=== PATIENT | female | born 1940 | race Caucasian/White ===

== ENCOUNTER 2020-09-26 08:48 | Outpatient (REF) | payer MEDICARE, SELFPAY ==
[2020-09-26 11:49] LABS: Cholesterol 124 mg/dL; HDL Cholesterol 54 mg/dL; LDL Cholesterol Calculated 43 mg/dl; Triglycerides 137 mg/dL
== END 2020-09-26 08:49 | disposition home or self-care (01) ==
LOC: HO.HMGCLDS 08:48
PROVIDERS: PCP Internal Medicine; Visit Provider Internal Medicine
DX: E78.5 Hyperlipidemia, unspecified (principal)
CPT/HCPCS: 80061

== ENCOUNTER 2020-10-10 08:43 | Outpatient (REF) | payer MEDICARE, SELFPAY ==
[2020-10-10 12:04] LABS: Alanine Aminotransferase 14 U/L (0-31); Albumin Level 3.9 g/dL (3.5-5.0); Alkaline Phosphatase 61 U/L (39-117); Anion Gap 12 (12-20); Aspartate Amino Transferase 14 U/L (5-31); Bilirubin Total 0.5 mg/dL (0.0-1.0); Blood Urea Nitrogen 16 mg/dL (9-16); Calcium 9.1 mg/dL (8.4-10.2); Carbon Dioxide 29 mmol/L (22-29); Chloride 108 mmol/L (96-108); Estimated Glomerular Filt Rate > 60; Glucose Random 115 mg/dL (60-115); Phosphorus 3.7 mg/dL (2.7-4.5); Potassium 4.4 mmol/l (3.3-5.1); Sodium 145 mmol/L (135-145)
[2020-10-10 12:11] LABS: Thyroid Stimulating Hormone 1.05 uIU/mL (0.32-4.0); Vitamin D 25-OH Total 53.9 ng/mL (>30)
[2020-10-11 22:13] LABS: Calcium (PTHI) 9.6 mg/dL (8.6-10.4); PTHI 36 pg/mL (14-64)
[2020-10-20 07:01] LABS: N-Telopeptide 38 (see note); NTXCreaRU 72 mg/dL (20-275)
== END 2020-10-10 08:44 | disposition home or self-care (01) ==
LOC: HO.WFDLDS 08:43
PROVIDERS: Visit Provider Internal Medicine
DX: M81.0 Age-related osteoporosis without current pathological fracture (principal); E67.3 Hypervitaminosis D
CPT/HCPCS: 80053; 82306; 82523; 83970; 84100; 84443; Q3014

== ENCOUNTER → 2020-12-14 09:10 | Outpatient (BNVA) | payer MEDICARE, SELFPAY | PROVIDERS: Visit Provider Internal Medicine Cardiovascular Disease | DX: I49.3 Ventricular premature depolarization (principal); I42.9 Cardiomyopathy, unspecified; I10 Essential (primary) hypertension | CPT/HCPCS: 93005; 99212 ==

== ENCOUNTER → 2020-12-22 09:37 | Outpatient (REF) | payer MEDICARE, SELFPAY ==
--- NOTE | 2020-12-22 11:45 | ECG_ITS ---
Hook-up date: 2020-12-22 10:59:00 Duration: 25:54:00 Test Indications: VENTR. PREMATURE DEPOLARIZATION Medications: 19255 QRS complexes 5589 Ventricular ectopics which represent 6 % of total QRS comp. 46 Supraventricular ectopics which represent <1 % of total QRS comp. * Paced QRS complexs which represent % of total QRS comp. VENTRICULAR ECTOPY 5380 Isolated 76 Bigeminal Cycles 103 Couplets 1 Runs 3 Beats in Runs 3 Beats LONGEST at 119 BPM at 07:44:43 2020-12-23 3 Beats FASTEST at 119 BPM at 07:44:43 2020-12-23 SUPRAVENTRICULAR ECTOPY 46 Isolated 0 Couplets 0 Runs 0 Beats in Runs * Beats LONGEST at * BPM at :: -- * Beats FASTEST at * BPM at :: -- HEART RATES 60 MIN at 19:14:27 2020-12-22 68 AVG 99 MAX at 09:26:31 2020-12-23 LONGEST RR 1.1680 secs at 08:44:41 2020-12-23 S-T LEVELS Channel 1 - 128 mm at 10:59:00 2020-12-22 - 128 mm at 10:59:00 2020-12-22 Channel 2 - 128 mm at 10:59:00 2020-12-22 - 128 mm at 10:59:00 2020-12-22 Channel 3 - 128 mm at 03:01:81 -- - 128 mm at 03:01:81 Underlying rhythm is sinus; Average ventricular rate 68/min; range 60-99/min; Frequent ventricular ectopy (7%); mostly isolated; some couplets, bigeminy; one 3 beat run; Rare supraventricular ectopy; 'Short of breath' in patient diary associated with isolated PVCs Referred By: Hai Garces Overread By: ZEESHAN PEREZ
== END ==
LOC: HO.CARD 09:37
PROVIDERS: PCP Internal Medicine; Visit Provider Internal Medicine Cardiovascular Disease
DX: I49.3 Ventricular premature depolarization (principal)
CPT/HCPCS: 93226

== ENCOUNTER 2020-12-23 08:03 | Outpatient (REF) | payer MEDICARE, SELFPAY ==
--- NOTE | 2020-12-23 08:07 | MM_ITS ---
EXAMINATION: MM SCREENING DIGITAL BREAST TOMOSYNTHESIS, BILATERAL CLINICAL INFORMATION: Screening. Asymptomatic. The lifetime risk of breast cancer based on the Tyrer-Cuzick Model is 1.3%. COMPARISON: Mammography: 12/24/2019 and studies dating back to 09/15/2010 TECHNIQUE: Digital breast tomosynthesis is performed in both the craniocaudal and mediolateral oblique views along with computer-aided detection (CAD). Synthesized 2D images are generated from the tomosynthesis. FINDINGS: There are scattered areas of fibroglandular density (ACR BI-RADS breast composition Category b).. There is a stable parenchymal pattern in the left breast. No new abnormal dominant mass or suspicious grouping of microcalcifications seen. Within the lateral aspect of the right breast anteriorly, approximately 4.5 cm from the nipple, there is a more prominent density measuring 1.3 x 0.6 cm in size which is not definitely seen on mediolateral oblique projection. Spot compression film and possible ultrasound is recommended. MM/MM tomosynthesis screening BI IMPRESSION: Right breast density laterally for further evaluation. ASSESSMENT: BI-RADS 0: Incomplete, needs additional imaging evaluation RECOMMENDATION: 1. Additional views of the right 2. Targeted ultrasound if warranted after review of the additional views. 3. Radiology department staff will contact the patient for additional imaging. This patient's information was entered into a reminder system with a target due date for their next mammogram.
== END 2020-12-23 08:04 | disposition home or self-care (01) ==
LOC: HO.MAMMO 08:03
PROVIDERS: PCP Internal Medicine; Visit Provider Internal Medicine
DX: Z12.31 Encounter for screening mammogram for malignant neoplasm of breast (principal)
CPT/HCPCS: 77063; 77067

== ENCOUNTER 2020-12-30 11:16 | Outpatient (REF) | payer MEDICARE, SELFPAY ==
--- NOTE | ~2020-12-30 | MM_ITS ---
EXAMINATION: MM DIAGNOSTIC DIGITAL BREAST TOMOSYNTHESIS, RIGHT CLINICAL INFORMATION: Density about the anterior lateral aspect of the right breast. COMPARISON: Mammography: December 23, 2020 and studies dating back to September 21, 2011 TECHNIQUE: Digital breast tomosynthesis is performed. 2D images are generated from the tomosynthesis. The following views are obtained: Spot compression craniocaudal and spot compression 90 degree mediolateral views of the right breast. FINDINGS: There are scattered areas of fibroglandular density (ACR BI-RADS breast composition Category b). The additional views demonstrate that the residual density representing superimposition of fibroglandular tissue with spot compression views having a similar appearance to prior studies. No persistent suspicious mass identified. Results are provided to the patient at time of visit by the technologist. MM/MM tomosynthesis added views R IMPRESSION: No persistent right breast abnormality appreciated. ASSESSMENT: BI-RADS 1: Negative RECOMMENDATION: Routine annual mammography screening due in 12 months. This patient's information was entered into a reminder system with a target due date for their next mammogram.
== END 2020-12-30 11:17 | disposition home or self-care (01) ==
LOC: HO.MAMMO 11:16
PROVIDERS: PCP Internal Medicine; Visit Provider Internal Medicine
DX: R92.2 Inconclusive mammogram (principal)
CPT/HCPCS: 77061; 77065

== ENCOUNTER → 2021-01-11 07:37 | Outpatient (BNVA) | payer MEDICARE, SELFPAY | PROVIDERS: PCP Internal Medicine; Visit Provider Internal Medicine | DX: Z76.89 Persons encountering health services in other specified circumstances (principal) | CPT/HCPCS: Q3014 ==

== ENCOUNTER 2021-02-02 07:04 | Outpatient (REF) | payer MEDICARE, SELFPAY ==
--- NOTE | ~2021-02-02 | MM_ITS ---
EXAMINATION: BONE DENSITOMETRY CLINICAL INDICATION: Osteoporosis. COMPARISON: Baseline BD dated 01/28/2019. TECHNIQUE: Using a [employer] DXA System (software version: 13.1) manufactured by [employer], dual-energy x-ray absorptiometry was performed of the lumbar spine and left hip. The images are of good technical quality. Summary results are attached. FINDINGS: AP SPINE L1-L4: Current: BMD 0.879 g/cm2, Z-score -0.9, T-score -2.5, osteoporosis, 0.6% increase from baseline (<5% change is not significant). Baseline: BMD 0.874 g/cm2. LEFT FEMUR, NECK: Current: BMD 0.583 g/cm2, Z-score -1.3, T-score -3.3, osteoporosis. Baseline: BMD 0.602 g/cm2. LEFT FEMUR, TOTAL: Current: BMD 0.616 g/cm2, Z-score -1.3, T-score -3.1, osteoporosis, 2.7% decrease from baseline (<5% change is not significant). Baseline: BMD 0.633 g/cm2. IDENTIFIED RISK FACTORS: Menopause, hysterectomy, bilateral oophorectomy, low calcium intake, osteoporosis, secondary osteoporosis. HISTORY OF FRACTURE: None listed. MEDICATIONS: Calcium or multivitamin. Vitamin D. MM/XR DEXA axial skeleton IMPRESSION: 1. DIAGNOSIS: Osteoporosis based on the lowest T-score value of -3.3 in the femoral neck applying World Health Organization criteria. 2. 10-YEAR FRACTURE RISK PREDICTION, FRAX: Major osteoporotic fracture (clinical spine, forearm, hip or shoulder) 26.4%. Hip fracture 11.5%. 3. Treatment Recommendations: NOF guidelines recommend consideration for treatment in postmenopausal women and men age 50 and older presenting with the following: -A hip or vertebral (clinical or morphometric) fracture. -T-score less than or equal to -2.5 at the femoral neck or spine after appropriate evaluation to exclude secondary causes. -Low bone mass at the hip or spine and a 10-year fracture probability by FRAX of greater than or equal to 3% for hip fracture or greater than or equal to 20% for major osteoporotic fracture based on the [place] adapted WHO algorithm. 4. Other Recommendations: All treatment decisions require clinical judgment and consideration of individual patient factors, including patient preferences, comorbidities, previous drug use, risk factors not captured in the FRAX model (e.g. frailty, falls, vitamin D deficiency, increased bone turnover, interval significant decline in bone density) and possible under or overestimation of fracture risk by FRAX. Additional medical evaluation for secondary cause of low bone mineral density may be appropriate. FUTURE SCAN RECOMMENDATION: People with diagnosed cases of osteoporosis or at high risk for fracture should have regular bone mineral density tests. For patients eligible for Medicare, routine testing is allowed once every 2 years. The testing frequency can be increased to one year for patients who have rapidly progressing disease, those who are receiving or discontinuing medical therapy to restore bone mass, or have additional risk factors.
[2021-02-02 08:05] LABS: Alanine Aminotransferase 10 U/L (0-31); Alkaline Phosphatase 55 U/L (39-117); Anion Gap 9 (12-20); Aspartate Amino Transferase 11 U/L (5-31); Bilirubin Total 0.5 mg/dL (0.0-1.0); Blood Urea Nitrogen 10 mg/dL (9-16); Calcium 8.5 mg/dL (8.4-10.2); Carbon Dioxide 28 mmol/L (22-29); Chloride 111 mmol/L (96-108); Estimated Glomerular Filt Rate > 60; Glucose Random 109 mg/dL (60-115); Phosphorus 2.8 mg/dL (2.7-4.5); Sodium 144 mmol/L (135-145); Total Protein 5.8 g/dL (6.5-8.0)
[2021-02-02 08:25] LABS: Free T4 (Free Thyroxine) 0.95 ng/dL (0.71-1.85); Thyroid Stimulating Hormone 1.48 uIU/mL (0.32-4.0); Vitamin D 25-OH Total 39.2 ng/mL (>30)
[2021-02-03 13:57] LABS: Calcium, Ionized 4.9 mg/dL (4.8-5.6)
[2021-02-03 14:21] LABS: Prot Elec - Albumin 3.7 g/dL (3.8-4.8); Prot Elec - Alpha1 0.3 g/dL (0.2-0.3); Prot Elec - Alpha2 0.7 g/dL (0.5-0.9); Prot Elec - Beta 1 0.4 g/dL (0.4-0.6); Prot Elec - Beta 2 0.3 g/dL (0.2-0.5); Prot Elec - Gamma 0.7 g/dL (0.8-1.7); Prot Elec - Total Protein 5.9 g/dL (6.1-8.1)
[2021-02-04 10:31] LABS: Calcium (PTHI) 8.6 mg/dL (8.6-10.4); PTHI 97 pg/mL (14-64)
[2021-02-07 21:51] LABS: N-Telopeptide 37 (see note); NTXCreaRU 55 mg/dL (20-275)
== END 2021-02-02 07:05 | disposition home or self-care (01) ==
LOC: HO.MAMMO 07:04
PROVIDERS: PCP Internal Medicine; Visit Provider Internal Medicine
DX: M81.0 Age-related osteoporosis without current pathological fracture (principal); E21.3 Hyperparathyroidism, unspecified; E67.3 Hypervitaminosis D
CPT/HCPCS: 36415; 77080; 80053; 82306; 82330; 82523; 83970; 84100; 84155; 84165; 84439; 84443

== ENCOUNTER 2021-02-06 10:09 | Outpatient (REF) | payer MEDICARE, SELFPAY ==
[2021-02-06 10:53] LABS: Total Volume 24 Hour Urine 1000 mL
[2021-02-06 11:16] LABS: Creatinine, 24Hr Urine 0.7 G/Day (1.0-2.0); Creatinine, mg/dL 69.79
[2021-02-08 20:57] LABS: Calcium, 24 Hr Urine 248 mg/24 h; Calcium/Creatinine Ratio 344 mg/g creat (30-275); Creatinine 24Hr Urine 0.72 g/24 h (0.50-2.15)
== END 2021-02-06 10:10 | disposition home or self-care (01) ==
LOC: HO.WFDLNP 10:09
PROVIDERS: Visit Provider Internal Medicine
DX: E21.3 Hyperparathyroidism, unspecified (principal)
CPT/HCPCS: 82340; 82570

== ENCOUNTER 2021-04-03 10:03 | Outpatient (REF) | payer MEDICARE, SELFPAY ==
[2021-04-03 11:24] LABS: MANUAL DIFF FLAG NO
[2021-04-03 11:46] LABS: Basophils Absolute Auto 0.1 X10*3/uL (0.0-0.2); Basophils Percent Auto 0.6 % (0-2); Eosinophils Absolute Auto 0.1 X10*3/uL (0.0-0.4); Eosinophils Percent Auto 1.2 % (0-4); Hematocrit 41.9 % (37-47); Hemoglobin 13.6 g/dl (12.0-16.0); Imm Gran Abs Auto 0.06 X10*3/uL (0.00-0.03); Imm Gran Pct Auto 0.7 % (0.0-0.4); Lymphocytes Absolute Auto 2.5 X10*3/uL (1.2-4.9); Lymphocytes Percent Auto 29.4 % (20-40); Mean Corpuscular HGB Conc 32.5 g/dl (31.0-35.0); Mean Corpuscular Hemoglobin 30.8 pg (27.0-33.0); Mean Corpuscular Volume 94.8 fL (80-98); Mean Platelet Volume 11.9 fL (9.4-12.3); Monocytes Absolute Auto 0.4 X10*3/uL (0.1-1.2); Monocytes Percent Auto 5.1 % (2-11); Neutrophils Absolute Auto 5.3 X10*3/uL (2.0-8.3); Platelet Count 181 X10*3/uL (160-400); Red Blood Count 4.42 X10*6/uL (4.20-5.50); Red Cell Distribution Width 12.5 % (11.0-16.0); White Blood Count 8.4 X10*3/uL (4.8-10.8)
[2021-04-03 12:00] LABS: Alanine Aminotransferase 12 U/L (0-31); Aspartate Amino Transferase 12 U/L (5-31); Cholesterol 126 mg/dL; HDL Cholesterol 48 mg/dL; LDL Cholesterol Calculated 47 mg/dl; Triglycerides 158 mg/dL
== END 2021-04-03 10:04 | disposition home or self-care (01) ==
LOC: HO.HMGCLDS 10:03
PROVIDERS: PCP Internal Medicine; Visit Provider Internal Medicine
DX: E78.5 Hyperlipidemia, unspecified (principal); I10 Essential (primary) hypertension; Z86.73 Personal history of transient ischemic attack (TIA), and cerebral infarction without residual deficits
CPT/HCPCS: 36415; 80061; 84450; 84460; 85025

== ENCOUNTER → 2021-04-12 09:26 | Outpatient (BNVA) | payer MEDICARE, SELFPAY | PROVIDERS: PCP Internal Medicine; Referring Provider Internal Medicine; Visit Provider Internal Medicine Cardiovascular Disease | DX: I49.3 Ventricular premature depolarization (principal); I10 Essential (primary) hypertension; Z86.73 Personal history of transient ischemic attack (TIA), and cerebral infarction without residual deficits | CPT/HCPCS: 99212 ==

== ENCOUNTER → 2021-05-03 12:03 | Outpatient (BNVA) | payer MEDICARE, SELFPAY | PROVIDERS: PCP Internal Medicine; Visit Provider Internal Medicine | DX: Z13.89 Encounter for screening for other disorder (principal) | CPT/HCPCS: Q3014 ==

== ENCOUNTER → 2021-08-16 09:09 | Outpatient (BNVA) | payer MEDICARE, SELFPAY | PROVIDERS: PCP Internal Medicine; Referring Provider Internal Medicine; Visit Provider Internal Medicine Cardiovascular Disease | DX: I10 Essential (primary) hypertension (principal) | CPT/HCPCS: 99212 ==

== ENCOUNTER 2021-10-31 18:46 | Emergency (ER) | payer MEDICARE, SELFPAY ==
--- NOTE | ~2021-10-31 | XR_ITS ---
EXAMINATION: XR CHEST CLINICAL INFORMATION: Cough COMPARISON: 05/18/2011 TECHNIQUE: Frontal view of the chest was obtained. FINDINGS: Bilateral patchy airspace opacities. Trace left pleural effusion. No pneumothorax. Normal heart size and pulmonary vascularity. No acute or suspicious osseous abnormalities. XR/XR chest 1V IMPRESSION: Bilateral patchy airspace opacities suspicious for multifocal pneumonia.
[2021-10-31 18:55] VITALS: BP 108/60; PULSE 104; RESP 18; TEMP 37.3; O2SAT 98; BMI 23.6
[2021-10-31 19:21] LABS: MANUAL DIFF FLAG NO
[2021-10-31 19:30] LABS: Basophils Percent Auto 0.2 % (0-2); Eosinophils Absolute Auto 0.1 X10*3/uL (0.0-0.4); Eosinophils Percent Auto 0.7 % (0-4); Hemoglobin 12.2 g/dl (12.0-16.0); Imm Gran Pct Auto 0.8 % (0.0-0.4); Lymphocytes Absolute Auto 1.6 X10*3/uL (1.2-4.9); Lymphocytes Percent Auto 13.9 % (20-40); Mean Corpuscular HGB Conc 33.9 g/dl (31.0-35.0); Mean Corpuscular Hemoglobin 30.3 pg (27.0-33.0); Mean Corpuscular Volume 89.6 fL (80.0-98.0); Mean Platelet Volume 11.7 fL (9.4-12.3); Monocytes Absolute Auto 0.6 X10*3/uL (0.1-1.2); Neutrophils Absolute Auto 9.4 x10*3/uL (2.0-8.3); Neutrophils Percent Auto 79.4 % (45-73); Platelet Count 238 X10*3/uL (160-400); Red Blood Count 4.02 X10*6/uL (4.20-5.50); Red Cell Distribution Width 12.8 % (11.0-16.0); White Blood Count 11.8 X10*3/uL (4.8-10.8)
[2021-10-31 19:40] LABS: Alanine Aminotransferase 22 U/L (0-31); Albumin Level 3.2 g/dL (3.5-5.0); Alkaline Phosphatase 78 U/L (39-117); Anion Gap 12 (12-20); Aspartate Amino Transferase 18 U/L (5-31); Bilirubin Direct 0.7 mg/dL (0.0-0.5); Bilirubin Total 1.4 mg/dL (0.0-1.0); Blood Urea Nitrogen 12 mg/dL (9-16); Calcium 8.8 mg/dL (8.4-10.2); Carbon Dioxide 26 mmol/L (22-29); Chloride 105 mmol/L (96-108); Creatinine Clr Calc Pharmacy 47.1; Estimated Glomerular Filt Rate > 60; Glucose Random 125 mg/dL (60-115); Potassium 3.4 mmol/L (3.3-5.1); Sodium 140 mmol/L (135-145); Total Protein 5.7 g/dL (6.5-8.0)
[2021-10-31 19:45] LABS: COVID-19 Test Negative (Negative)
--- NOTE | 2021-10-31 23:31 | ED.GENADULT ---
HPI - General Adult General Chief complaint: General Medical Stated complaint: weakness dehydration Time Seen by Provider: 10/31/21 23:29 History of Present Illness HPI narrative: Patient is a 80-year-old female with a history of CVA in the past. Presents today with having coughing upper respiratory symptoms decreased p.o. intake positive generalized malaise. Coughing upper respiratory symptoms been going on for approximately 2 weeks. Patient did not receive her coronavirus vaccine. No leg swelling. No fever. No abdominal pain or pain on urination. Positive feeling weak tired generalized ache. Related Data Home Medications Medication Instructions Recorded Confirmed cinnamon bark 500 mg capsule 500 mg PO DAILY 09/26/20 08/16/21 (Cinnamon) cranberry 400 mg capsule 400 mg PO DAILY 09/26/20 08/16/21 flaxseed oil 1,000 mg capsule 1,000 mg PO DAILY 09/26/20 08/16/21 folic acid 1 mg tablet 1 mg PO DAILY 09/26/20 08/16/21 garlic 500 mg capsule 500 mg PO DAILY 09/26/20 08/16/21 multivitamin 1 tab PO DAILY 09/26/20 08/16/21 vitamin A 10,000 unit capsule 10,000 unit PO DAILY 09/26/20 08/16/21 vitamin B complex (B 1 tab PO DAILY 09/26/20 08/16/21 Complex-Vitamin B12) zinc 50 mg tablet 50 mg PO DAILY 09/26/20 08/16/21 MSM 100 mg-collagen 100 mg-co Q10 tab PO 05/03/21 08/16/21 100 mg-herbal no.226 80 mg tablet apple cider vinegar 300 mg tablet 300 mg PO DAILY tab 05/03/21 08/16/21 calcium carbonate 600 mg calcium 600 mg PO BID 05/03/21 08/16/21 (1,500 mg) tablet turmeric 400 mg capsule 400 mg PO DAILY cap 05/03/21 08/16/21 Previous Rx's Medication Instructions Recorded amlodipine 5 mg tablet 5 mg PO DAILY #90 tab 12/23/20 clopidogrel 75 mg tablet 75 mg PO DAILY #90 tab 12/23/20 lisinopril 20 mg tablet 20 mg PO DAILY #90 tab 12/23/20 simvastatin 20 mg tablet 20 mg PO BEDTIME #90 tab 12/23/20 carvedilol 25 mg tablet (Coreg) 25 mg PO BID #180 tab 03/22/21 doxycycline hyclate 100 mg capsule 100 mg PO BID 7 Days #14 cap 11/01/21 doxycycline hyclate 100 mg capsule 100 mg PO BID 7 Days #14 cap 11/01/21 Allergies Allergy/AdvReac Type Severity Reaction Status Date / Time No Known Allergies Allergy Verified 08/16/21 09:15 Review of Systems Review of Systems: Positive coughing positive generalized body ache positive decreased p.o. intake Yes all other systems are reviewed and are negative FOR[facility]LY [facility] Past Medical History Attestation statement: The following information was validated with the patient. Medical History Cardiomyopathy Dyslipidemia Essential hypertension High vitamin D level History of CVA (cerebrovascular accident) Hyperparathyroidism Immunization refused Osteoporosis Surgical History History of appendectomy History of colon resection Family History Family History Father Unknown family medical history Mother Unknown family medical history Son No problems noted. Daughter No problems noted. Social History Social History Alcohol intake: never Patient Tobacco Use Status: Former Tobacco user Advance Directives: No Advance Directives Information Provided: No Physical Exam Vital Signs: Vital Signs: Last Vital Signs Temp 99.1 F 10/31/21 18:55 Pulse 104 H 10/31/21 18:55 Resp 18 10/31/21 18:55 BP 108/60 10/31/21 18:55 Pulse Ox 98 10/31/21 18:55 BMI result Body Mass Index 23.6 Appearance: Alert. Oriented X3. No acute distress. Eyes: Pupils equal, round and reactive to light. ENT: Pharynx normal. Neck: Normal inspection. Neck supple. No lymph nodes noted. No crepitus CVS: Normal heart rate and rhythm. Pulses normal. Normal S1 and S2 Respiratory: No respiratory distress. Breath sounds normal. No Wheezing. No rales Abdomen: Soft and nontender. No rigidity. No distention. good BS x4 Skin: Skin warm and dry. Normal skin color. Normal skin turgor. Extremities: No lower extremity edema. Neurovascular intact to all extremities. No Lacerations. No Rash Neuro: Oriented X 3. No motor deficit. No sensory deficit. Moving all extermities. No slurred speech Medical Decision Making MDM Narrative Medical decision making narrative: Positive coughing congestion upper respiratory symptoms. Patient not immunized for COVID. COVID test was negative. Patient's chest x-ray however showed bilateral patchy infiltrate. Even no COVID test is negative cannot absolutely exclude the possibility of COVID. Will also start patient on doxycycline is patient's O2 sat was 98% on room air. She is well appearing. Her symptoms improved after IV fluids. Will discharge patient home. Lab Data Result diagrams: 10/31/21 19:14 10/31/21 19:14 Labs: Lab Results 10/31/21 10/31/21 10/31/21 Range/Units 19:14 19:14 19:14 WBC 11.8 H (4.8-10.8) X10*3/uL RBC 4.02 L (4.20-5.50) X10*6/uL Hgb 12.2 (12.0-16.0) g/dl Hct 36.0 L (37.0-47.0) % MCV 89.6 (80.0-98.0) fL MCH 30.3 (27.0-33.0) pg MCHC 33.9 (31.0-35.0) g/dl RDW 12.8 (11.0-16.0) % Plt Count 238 (160-400) X10*3/uL MPV 11.7 (9.4-12.3) fL Immature Gran % (Auto) 0.8 H (0.0-0.4) % Neut % (Auto) 79.4 H (45-73) % Lymph % (Auto) 13.9 L (20-40) % [place] % (Auto) 5.0 (2-11) % Eos % (Auto) 0.7 (0-4) % Baso % (Auto) 0.2 (0-2) % Lymph # (Auto) 1.6 (1.2-4.9) X10*3/uL [place] # (Auto) 0.6 (0.1-1.2) X10*3/uL Eos # (Auto) 0.1 (0.0-0.4) X10*3/uL Baso # (Auto) 0.0 (0.0-0.2) X10*3/uL Abs Immat Gran (auto) 0.10 H (0.00-0.03) X10*3/uL Absolute Neuts (auto) 9.4 H (2.0-8.3) x10*3/uL Absolute Nucleated RBC 0.000 (0.0-0.012) X10*3/uL Nucleated RBC % (auto) 0.0 (0.0-0.2) /100WBC Sodium 140 (135-145) mmol/L Potassium 3.4 (3.3-5.1) mmol/L Chloride 105 (96-108) mmol/L Carbon Dioxide 26 (22-29) mmol/L Anion Gap 12 (12-20) BUN 12 (9-16) mg/dL Creatinine 0.73 (0.5-1.4) mg/dL Estim Creat Clear Calc 47.1 Estimated GFR > 60 Random Glucose 125 H (60-115) mg/dL Calcium 8.8 (8.4-10.2) mg/dL Total Bilirubin 1.4 H (0.0-1.0) mg/dL Direct Bilirubin 0.7 H (0.0-0.5) mg/dL AST 18 D (5-31) U/L ALT 22 (0-31) U/L Alkaline Phosphatase 78 D (39-117) U/L Total Protein 5.7 L (6.5-8.0) g/dL Albumin 3.2 L (3.5-5.0) g/dL COVID-19 (ALESSIA) Negative (Negative) COVID-19 Clin Com See Note Discharge Plan Discharge Clinical Impression: Pneumonia Patient Disposition: Home, Self-Care Instructions: Pneumonia (ED) Prescriptions: New doxycycline hyclate 100 mg capsule 100 mg PO BID 7 Days Qty: 14 RF: 0 doxycycline hyclate 100 mg capsule 100 mg PO BID 7 Days Qty: 14 RF: 0 No Action amlodipine 5 mg tablet 5 mg PO DAILY Qty: 90 RF: 3 clopidogrel 75 mg tablet 75 mg PO DAILY Qty: 90 RF: 3 lisinopril 20 mg tablet 20 mg PO DAILY Qty: 90 RF: 3 simvastatin 20 mg tablet 20 mg PO BEDTIME Qty: 90 RF: 3 carvedilol [Coreg] 25 mg tablet 25 mg PO BID Qty: 180 RF: 3 vitamin A 10,000 unit capsule 10,000 unit PO DAILY RF: 0 vitamin B complex [B Complex-Vitamin B12] Tablet 1 tab PO DAILY RF: 0 multivitamin Tablet 1 tab PO DAILY RF: 0 garlic 500 mg capsule 500 mg PO DAILY RF: 0 zinc 50 mg tablet 50 mg PO DAILY RF: 0 cranberry 400 mg capsule 400 mg PO DAILY RF: 0 folic acid 1 mg tablet 1 mg PO DAILY RF: 0 flaxseed oil 1,000 mg capsule 1,000 mg PO DAILY RF: 0 cinnamon bark [Cinnamon] 500 mg capsule 500 mg PO DAILY RF: 0 apple cider vinegar 300 mg tablet 300 mg PO DAILY RF: 0 turmeric 400 mg capsule 400 mg PO DAILY RF: 0 [id number] no.226 [phone] mg tablet PO RF: 0 calcium carbonate 600 mg calcium (1,500 mg) tablet 600 mg PO BID RF: 0 Referrals: Christi Nieves MD [Primary Care Provider] - 2 days
[2021-11-01] MEDS: 0.9 % Sodium Chloride 1,000 ML 999 ML IV (00:23)
[2021-11-01] MEDS: Acetaminophen 325 MG TABLET 650 MG PO (00:25)
[2021-11-01 02:09] VITALS: RESP 16
== END 2021-11-01 02:16 | disposition home or self-care (01) ==
PROVIDERS: Emergency Provider Emergency Medicine Emergency Medical Services; PCP Internal Medicine
DX: J18.9 Pneumonia, unspecified organism (principal); Z20.822 Contact with and (suspected) exposure to COVID-19; Z79.899 Other long term (current) drug therapy; Z87.891 Personal history of nicotine dependence
CPT/HCPCS: 36415; 71045; 80048; 80076; 85025; 87635; 96360; 99283; 99284

== ENCOUNTER 2021-11-05 20:54 | Inpatient (IN) | payer MEDICARE, SELFPAY ==
[2021-11-05] VITALS (18 sets, daily range): BP systolic 78–113; BP diastolic 36–54; PULSE 96–120; RESP 14–44; TEMP 38.8; O2SAT 94–97; BMI 31.3
--- NOTE | ~2021-11-05 | XR_ITS ---
EXAMINATION: XR CHEST CLINICAL INFORMATION: Hypoxia COMPARISON: CT chest 11/06/2021. TECHNIQUE: Frontal view of the chest was obtained. FINDINGS: The lungs are expanded with patchy atelectatic changes in both lung bases. There is a right upper lobe patchy opacity likely infiltrate. Minimal haziness seen in the left upper lung as well may represent a area of infiltrate. Heart size and pulmonary vascularity is normal. There is a right jugular venous catheter its tip in the distal SVC. There is no gross bony abnormality seen. XR/XR chest 1V IMPRESSION: Patchy atelectatic changes in both lung bases. Suspect right upper lobe patchy opacity in the paramediastinal region. And mild haziness in the left upper lobe likely infiltrate. This was visualized on the previous CT chest 11/06/2021
--- NOTE | ~2021-11-05 | XR_ITS ---
EXAMINATION: XR CHEST CLINICAL INFORMATION: Shortness of breath. COMPARISON: Most recent chest radiograph dated 10/31/2021. TECHNIQUE: Frontal view of the chest was obtained. FINDINGS: Redemonstration of patchy bilateral airspace opacities, most prominent within the right upper lobe and similar when compared to the prior examination. No pleural effusion or pneumothorax. Stable cardiomediastinal silhouette. XR/XR chest 1V IMPRESSION: Stable bilateral patchy airspace opacities, not significantly changed.
--- NOTE | ~2021-11-05 | CT_ITS ---
EXAM: NONCONTRAST CT OF THE CHEST; NONCONTRAST CT OF THE ABDOMEN AND PELVIS INDICATION: Shortness of breath, hypoxia, abdominal pain, UTI COMPARISON: None TECHNIQUE: No IV contrast was utilized. Multidetector helical imaging was performed through the chest, abdomen, and pelvis. Coronal and sagittal reformatted images were created at the technologist workstation. DOSE LOWERING TECHNIQUES: This CT examination was performed using dose optimization techniques as appropriate, variously including the following: - Automated exposure control - Adjustment of mA and/or kV according to patient size (this includes techniques or standardized protocols for targeted exams were dose is matched to indication/reason for exam; i.e. extremities or head) - Use of iterative reconstruction technique DLP: 898 mGy-cm FINDINGS: Chest: A few scattered patchy regions of consolidation are present bilaterally, such as in the anterior upper lobes, right greater than left, and posterior basilar lower lobes. No pneumothorax or pleural effusion. Thyroid gland is unremarkable. There are subcentimeter mediastinal lymph nodes within the range of normal variation. Cardiac size is within normal limits; no pericardial effusion. Coronary artery calcifications are present. Scattered atherosclerotic calcifications are present. No axillary lymphadenopathy is present. Abdomen/Pelvis: The liver is homogeneous in attenuation without intrahepatic biliary ductal dilatation. The gallbladder is unremarkable. The unenhanced spleen, pancreas, and adrenal glands appearing unremarkable. The left renal pelvis appears mildly dilated, and there is a calculus measuring up to 6 mm in the renal pelvis. A few additional scattered calculi are present in the left kidney measuring up to 8 mm in length. No right-sided hydronephrosis. There is nonspecific bilateral perinephric stranding. The urinary bladder is collapsed with a Renner catheter in place. Patient appears status post hysterectomy. There is mild colonic diverticulosis without convincing diverticulitis. No evidence of bowel obstruction. No free fluid or free air is seen. There are mild scattered atherosclerotic calcifications. No lymphadenopathy is seen, though assessment is limited in the absence of intravenous contrast. Degenerative changes are noted in the spine. CT/CT abdomen pelvis wo con IMPRESSION: 1. Mild left hydronephrosis with a calculus in the renal pelvis measuring 6 mm. Given the history of UTI, this could represent pyonephrosis. Few additional scattered left renal calculi also noted. 2. Few scattered patchy regions of pulmonary consolidation bilaterally concerning for pneumonia in the proper clinical setting. Follow-up chest CT in 3 months would be helpful to assess for resolution.
--- NOTE | ~2021-11-05 | XR_ITS ---
EXAMINATION: XR CHEST CLINICAL INFORMATION: Assess central line COMPARISON: Baseline earlier exam same day TECHNIQUE: Portable 10:46 PM view of the chest was obtained. FINDINGS: Central line placed with its tip overlying the atrial caval juncture. No pneumothorax. Bilateral infiltrates similar. No new findings otherwise. XR/XR chest 1V IMPRESSION: Satisfactory central line placement.
--- NOTE | ~2021-11-05 | XR_ITS ---
EXAMINATION: XR CHEST CLINICAL INFORMATION: Cough. Pneumonia? COMPARISON: CXR from 11/07/2021. Chest CT from 11/06/2021. TECHNIQUE: Frontal view of the chest was obtained. FINDINGS: The right IJ central line has been removed. The opacity previously seen in the medial left lower lobe has decreased. No new pulmonary abnormality. Otherwise, no significant change compared to 11/07/2021. Again noted is ill-defined streaky opacity in the medial right upper lobe (likely pneumonia) and apparent linear opacity of atelectasis in the left base. The left lateral costophrenic sulcus is slightly blunted. Trace left pleural effusion is suspected. Cardiac silhouette has normal size and contour. Bones are diffusely osteopenic. XR/XR chest 1V IMPRESSION: Findings include a persistent ill-defined streaky opacity in the medial right upper lobe, likely pneumonia. No new pulmonary infiltrate. Interval improved aeration of the medial left lower lobe compared to 11/07/2021.
--- NOTE | 2021-11-05 21:08 | ECG_ITS ---
Test Reason : SOB Blood Pressure : / mmHG Vent. Rate : 115 BPM Atrial Rate : 115 BPM P-R Int : 130 ms QRS Dur : 084 ms QT Int : 366 ms P-R-T Axes : -19 046 021 degrees QTc Int : 506 ms Sinus tachycardia Otherwise normal ECG When compared with ECG of 26-APR-2015 17:36, Premature ventricular complexes are no longer Present Vent. rate has increased BY 43 BPM Nonspecific T wave abnormality now evident in Inferior leads Referred By: Generic ED Physician Electronically Signed By:SUMAN MEZA MD
--- NOTE | 2021-11-05 21:13 | ED.SOB ---
HPI - SOB/Dyspnea General Chief Complaint: Dyspnea Stated Complaint: Sepsis alert Time Seen by Provider: 11/05/21 21:10 Source: patient Mode of arrival: EMS History of Present Illness HPI Narrative: 80-year-old female brought in by EMS with increased respirations, shortness of breath with chills denies chest pain/palpitations but reports some lower abdominal discomfort. Of note patient was recently diagnosed with pneumonia on 10/31 and was discharged home with a course of doxycycline. Related Data Home Medications Medication Instructions Recorded Confirmed cinnamon bark 500 mg capsule 500 mg PO DAILY 09/26/20 08/16/21 (Cinnamon) cranberry 400 mg capsule 400 mg PO DAILY 09/26/20 08/16/21 flaxseed oil 1,000 mg capsule 1,000 mg PO DAILY 09/26/20 08/16/21 folic acid 1 mg tablet 1 mg PO DAILY 09/26/20 08/16/21 garlic 500 mg capsule 500 mg PO DAILY 09/26/20 08/16/21 multivitamin 1 tab PO DAILY 09/26/20 08/16/21 vitamin A 10,000 unit capsule 10,000 unit PO DAILY 09/26/20 08/16/21 vitamin B complex (B 1 tab PO DAILY 09/26/20 08/16/21 Complex-Vitamin B12) zinc 50 mg tablet 50 mg PO DAILY 09/26/20 08/16/21 MSM 100 mg-collagen 100 mg-co Q10 tab PO 05/03/21 08/16/21 100 mg-herbal no.226 80 mg tablet apple cider vinegar 300 mg tablet 300 mg PO DAILY tab 05/03/21 08/16/21 calcium carbonate 600 mg calcium 600 mg PO BID 05/03/21 08/16/21 (1,500 mg) tablet turmeric 400 mg capsule 400 mg PO DAILY cap 05/03/21 08/16/21 Previous Rx's Medication Instructions Recorded amlodipine 5 mg tablet 5 mg PO DAILY #90 tab 12/23/20 clopidogrel 75 mg tablet 75 mg PO DAILY #90 tab 12/23/20 lisinopril 20 mg tablet 20 mg PO DAILY #90 tab 12/23/20 simvastatin 20 mg tablet 20 mg PO BEDTIME #90 tab 12/23/20 carvedilol 25 mg tablet (Coreg) 25 mg PO BID #180 tab 03/22/21 doxycycline hyclate 100 mg capsule 100 mg PO BID 7 Days #14 cap 11/01/21 doxycycline hyclate 100 mg capsule 100 mg PO BID 7 Days #14 cap 11/01/21 Allergies Allergy/AdvReac Type Severity Reaction Status Date / Time No Known Allergies Allergy Verified 11/05/21 21:05 Review of Systems Review of Systems: Pertinent positives and negatives as stated in HPI 10 point review of systems is otherwise negative. PMFSH Past Medical History Source: nursing notes reviewed Medical History Cardiomyopathy Dyslipidemia Essential hypertension High vitamin D level History of CVA (cerebrovascular accident) Hyperparathyroidism Immunization refused Osteoporosis Surgical History History of appendectomy History of colon resection Family History Family History Father Unknown family medical history Mother Unknown family medical history Son No problems noted. Daughter No problems noted. Social History Social History Alcohol intake: never Patient Tobacco Use Status: Former Tobacco user Advance Directives: No Advance Directives Information Provided: No Physical Exam Vital Signs: Vital Signs: Last Vital Signs Temp 101.9 F H 11/05/21 21:13 Pulse 106 H 11/05/21 22:51 Resp 34 H 11/05/21 22:51 BP 103/45 L 11/05/21 22:51 Pulse Ox 94 11/05/21 22:51 BMI result Body Mass Index 31.3 VITAL SIGNS: Reviewed. GENERAL: Well developed, well nourished, in no acute distress. HEAD: Normocephalic/atraumatic EYES: PERRLA, EOMI OROPHARYNX: no oral lesions noted, posterior pharynx clear, dry mucosa NECK: Supple, no adenopathy LUNGS: Decreased breath sounds bilaterally with rales and scattered rhonchi, tachypnea, increased work of breathing SpO2<97> on 4 L nasal cannula CARDIOVASCULAR: Regular rate and rhythm without noted murmurs, no JVD or lower extremity edema. ABDOMEN: Soft, non-tender, non-distended with bowel sounds. MUSCULOSKELETAL: No tenderness, deformities, or effusions noted on gross inspection. EXTREMITIES: No cyanosis, clubbing or edema. SKIN: Inspection of the skin reveals no rashes NEUROLOGIC: Alert and oriented x 4. Strength and sensation to light touch were grossly intact x 4. Course Course Course Narrative: 80-year-old female with history and clinical presentation consistent with hypoxia related to likely recent pneumonia. On bedside ultrasound IVC is noted to be collapsed, pulmonary scan with multiple B-lines indicative of fluid overload, brief cardiac eval demonstrates good squeeze. 215: Blood pressure not responding well despite sepsis fluids, central line will be placed and patient will be started on Levophed. Review of all investigations significant for severe sepsis with positive UA and likely a component of significant dehydration and after receiving sepsis fluids still remained hypotensive and was placed on Levophed. Patient's heart rate and respiratory rate have continue to improve, but she still requires supplemental nasal cannula with good subjective and objective respirations. I discussed the case with the chaplain resident who accepts admission but requests noncontrast CT of abdomen and pelvis. MDM - SOB/Dyspnea Lab Data Result diagrams: 11/05/21 21:22 11/05/21 21:22 Labs: Lab Results 11/05/21 11/05/21 11/05/21 Range/Units 21:22 21:22 21:22 WBC 23.8 H (4.8-10.8) X10*3/uL RBC 3.53 L (4.20-5.50) X10*6/uL Hgb 10.7 L (12.0-16.0) g/dl Hct 32.1 L (37.0-47.0) % MCV 90.9 (80.0-98.0) fL MCH 30.3 (27.0-33.0) pg MCHC 33.3 (31.0-35.0) g/dl RDW 13.3 (11.0-16.0) % Plt Count TNP MPV 12.3 (9.4-12.3) fL Immature Gran % (Auto) Cancelled Neut % (Auto) Cancelled Lymph % (Auto) Cancelled [place] % (Auto) Cancelled Eos % (Auto) Cancelled Baso % (Auto) Cancelled Lymph # (Auto) Cancelled [place] # (Auto) Cancelled Eos # (Auto) Cancelled Baso # (Auto) Cancelled Abs Immat Gran (auto) Cancelled Absolute Neuts (auto) Cancelled Absolute Nucleated RBC 0.000 (0.0-0.012) X10*3/uL Nucleated RBC % (auto) 0.0 (0.0-0.2) /100WBC Neutrophils % (Manual) 86 H (45-73) % Band Neutrophils % 13 H (3-5) % Lymphocytes % (Manual) 1 L (20-40) % Abs Neuts (Manual) 23.6 H (2.0-8.3) X10*3/uL Lymphocytes # (Manual) 0.2 L (1.2-4.9) X10*3/uL Platelet Estimate NORMAL (NORMAL) Plt Morphology Comment NORMAL RBC Morphology NOTED Acanthocytes (Spur) 1+ (0-2) /OIF VBG pH (7.32-7.43) VBG pCO2 mmHg VBG pO2 mmHg VBG HCO3 (22-26) mmol/L VBG O2 Saturation % VBG Base Excess mmol/L Sodium 141 (135-145) mmol/L Potassium 3.1 L (3.3-5.1) mmol/L Chloride 108 (96-108) mmol/L Carbon Dioxide 16 L (22-29) mmol/L Anion Gap 20 (12-20) BUN 22 H D (9-16) mg/dL Creatinine 1.28 (0.5-1.4) mg/dL Estim Creat Clear Calc 33.0 Estimated GFR 40 Random Glucose 119 H (60-115) mg/dL Lactic Acid 6.9 H* (0.5-2.0) mmol/L Calcium 8.1 L D (8.4-10.2) mg/dL Magnesium 1.1 L* (1.6-2.6) mg/dL Total Bilirubin 3.1 H (0.0-1.0) mg/dL AST 20 (5-31) U/L ALT 15 (0-31) U/L Alkaline Phosphatase 136 H D (39-117) U/L Total Protein 4.1 L D (6.5-8.0) g/dL Albumin 2.3 L D (3.5-5.0) g/dL Urine Color Urine Appearance Urine pH (5.0-8.0) Ur Specific [place] (1.005-1.025) Urine Protein (NEG-TRACE) MG/DL Urine Glucose (UA) (NEG) MG/DL Urine Ketones (NEG) MG/DL Urine Blood (NEG) Urine Nitrite (NEG) Ur Leukocyte Esterase (NEG) Urine RBC (0) /HPF Urine WBC (0-4) /HPF Ur Squamous Epith Cells /LPF Urine Bacteria /LPF Urine Mucus /LPF COVID-19 (ALESSIA) (Negative) COVID-19 Clin Com 11/05/21 11/05/21 11/05/21 Range/Units 21:22 21:22 21:24 WBC (4.8-10.8) X10*3/uL RBC (4.20-5.50) X10*6/uL Hgb (12.0-16.0) g/dl Hct (37.0-47.0) % MCV (80.0-98.0) fL MCH (27.0-33.0) pg MCHC (31.0-35.0) g/dl RDW (11.0-16.0) % Plt Count MPV (9.4-12.3) fL Immature Gran % (Auto) Neut % (Auto) Lymph % (Auto) Liberty % (Auto) Eos % (Auto) Baso % (Auto) Lymph # (Auto) [place] # (Auto) Eos # (Auto) Baso # (Auto) Abs Immat Gran (auto) Absolute Neuts (auto) Absolute Nucleated RBC (0.0-0.012) X10*3/uL Nucleated RBC % (auto) (0.0-0.2) /100WBC Neutrophils % (Manual) (45-73) % Band Neutrophils % (3-5) % Lymphocytes % (Manual) (20-40) % Abs Neuts (Manual) (2.0-8.3) X10*3/uL Lymphocytes # (Manual) (1.2-4.9) X10*3/uL Platelet Estimate (NORMAL) Plt Morphology Comment RBC Morphology Acanthocytes (Spur) /OIF VBG pH 7.37 (7.32-7.43) VBG pCO2 28 mmHg VBG pO2 41 mmHg VBG HCO3 16 L (22-26) mmol/L VBG O2 Saturation 64.0 % VBG Base Excess -7.0 mmol/L Sodium (135-145) mmol/L Potassium (3.3-5.1) mmol/L Chloride (96-108) mmol/L Carbon Dioxide (22-29) mmol/L Anion Gap (12-20) BUN (9-16) mg/dL Creatinine (0.5-1.4) mg/dL Estim Creat Clear Calc Estimated GFR Random Glucose (60-115) mg/dL Lactic Acid (0.5-2.0) mmol/L Calcium (8.4-10.2) mg/dL Magnesium (1.6-2.6) mg/dL Total Bilirubin (0.0-1.0) mg/dL AST (5-31) U/L ALT (0-31) U/L Alkaline Phosphatase (39-117) U/L Total Protein (6.5-8.0) g/dL Albumin (3.5-5.0) g/dL Urine Color DK YELLOW Urine Appearance TURBID Urine pH 6.5 (5.0-8.0) Ur Specific [place] 1.020 (1.005-1.025) Urine Protein 2+ H (NEG-TRACE) MG/DL Urine Glucose (UA) NEG (NEG) MG/DL Urine Ketones 15 (NEG) MG/DL Urine Blood 3+ H (NEG) Urine Nitrite POS H (NEG) Ur Leukocyte Esterase 3+ H (NEG) Urine RBC 30-49 H (0) /HPF Urine WBC 50-75 H (0-4) /HPF Ur Squamous Epith Cells TRACE /LPF Urine Bacteria 1+ /LPF Urine Mucus TRACE /LPF COVID-19 (ALESSIA) Negative (Negative) COVID-19 Clin Com See Note ECG Data Attestation: I personally reviewed and interpreted this ECG as follows: Prior ECG tracings: available for review (04/26/2015) Interpretation: Sinus tachycardia, HR-115, no STEMI, [place]/QRS Procedures Central Line Placement Right IJ: Time Out Performed: No Patient Placed on Monitor/Pulse Ox: Yes MD Prep: mask, gown and gloves Central Line Prep: Chlorhexidine scrub Local Anesthetic: lidocaine 1% Amount of anesthesia used (mL): 1 Ultrasound Used for Placement: Yes Central Line Lumen Inserted: triple Post Procedure: sutured in place, good blood return, all ports aspirated, flushed, capped and sterile dressing applied Post Procedure X-Ray: tip of catheter in good position and no pneumothorax seen Patient Tolerated Procedure: well and no complications Complications: none Critical Care Time Critical Care Time Critical Care Time: Yes Total Critical Care Time: 45 Attestation: I personally attest to this time spent taking care of the patient. Discharge Plan Discharge Clinical Impression: Severe sepsis, Pneumonia, Hypoxia, Acute UTI, Hypomagnesemia Patient Disposition: Admitted As Inpatient
[2021-11-05] MEDS: 0.9 % Sodium Chloride 1,434 ML 1434 ML IVCONT (21:28)
[2021-11-05 21:30] LABS: Venous Blood Gas Refer to POC result
[2021-11-05 21:31] LABS: VBG HCO3 16 mmol/L (22-26); VBG pCO2 28 mmHg; VBG pH 7.37 (7.32-7.43); VBG pO2 41 mmHg
--- NOTE | 2021-11-05 21:31 | PC.NURSE ---
Pt w/ 18g PIV per EMS, second 18g placed by this RN. Renner placed by MELLO Coreas. Labs, COVID swab, bcx, urine all collected and sent. Fluids initiated per JAN. Vitals as charted. Pt attached to cardiac rehabilitation program director, pulse ox, EtCO2. BP cuff set to cycle. O2 weaned from 6L to 3L NC. Pt awake and alert, skin warm and dry, WOB slightly decreased since arrival.
[2021-11-05 21:36] LABS: Appearance Urine TURBID; Color Urine DK YELLOW; Glucose Urine UA NEG (NEG); Hematocrit 32.1 % (37.0-47.0); Hemoglobin 10.7 g/dl (12.0-16.0); Leukocyte Esterase Urine 3+ (NEG); Mean Corpuscular HGB Conc 33.3 g/dl (31.0-35.0); Mean Corpuscular Hemoglobin 30.3 pg (27.0-33.0); Mean Corpuscular Volume 90.9 fL (80.0-98.0); Mean Platelet Volume 12.3 fL (9.4-12.3); Nitrite Urine POS (NEG); PH 6.5 (5.0-8.0); Red Blood Count 3.53 X10*6/uL (4.20-5.50); Red Cell Distribution Width 13.3 % (11.0-16.0); UACC Culture Trigger YES; Urine Blood 3+ (NEG); Urine Ketones 15 MG/DL (NEG); Urine Protein 2+ MG/DL (NEG-TRACE)
[2021-11-05 21:39] LABS: WBC ABN SCTR FOR CBC 1
[2021-11-05 21:42] LABS: Bacteria Urine 1+ /LPF; RBC Urine 30-49 /HPF (0); Squamous Epithelial Cell Urine TRACE /LPF; WBC Urine 50-75 /HPF (0-4)
[2021-11-05 21:43] LABS: Mucus Urine TRACE /LPF
[2021-11-05 21:50] LABS: Lactic Acid 6.9 mmol/L (0.5-2.0)
[2021-11-05 21:51] LABS: COVID-19 Test Negative (Negative)
[2021-11-05] MEDS: Piperacillin Sodium/Tazobactam 3.375 GM in 0.9 % Sodium Chloride 50 ML IV (21:54)
[2021-11-05 21:56] LABS: White Blood Count 23.8 X10*3/uL (4.8-10.8)
[2021-11-05 21:57] LABS: Band Neutrophils Percent 13 % (3-5); Lymphocytes Absolute Manual 0.2 X10*3/uL (1.2-4.9); Lymphocytes Percent Manual 1 % (20-40); Neutrophils Absolute Manual 23.6 X10*3/uL (2.0-8.3); Neutrophils Percent Manual 86 % (45-73); RBC Morphology NOTED
[2021-11-05 21:58] LABS: Acanthocytes 1+ (0-2) /OIF; Platelet Estimate NORMAL (NORMAL); Platelet Morphology Comment NORMAL
[2021-11-05 22:10] LABS: Alanine Aminotransferase 15 U/L (0-31); Albumin Level 2.3 g/dL (3.5-5.0); Alkaline Phosphatase 136 U/L (39-117); Anion Gap 20 (12-20); Aspartate Amino Transferase 20 U/L (5-31); Bilirubin Total 3.1 mg/dL (0.0-1.0); Blood Urea Nitrogen 22 mg/dL (9-16); Calcium 8.1 mg/dL (8.4-10.2); Carbon Dioxide 16 mmol/L (22-29); Chloride 108 mmol/L (96-108); Estimated Glomerular Filt Rate 40; Glucose Random 119 mg/dL (60-115); Magnesium 1.1 mg/dL (1.6-2.6); Potassium 3.1 mmol/L (3.3-5.1); Sodium 141 mmol/L (135-145); Total Protein 4.1 g/dL (6.5-8.0)
[2021-11-05] MEDS: Magnesium Sulfate/H2O 2 GM/50 ML PIGGYBACK IV (22:20)
--- NOTE | 2021-11-05 22:28 | PC.NURSE ---
MD Nixon at bedside for central line insertion, pt remains awake and alert at this time
--- NOTE | 2021-11-05 22:45 | PC.NURSE ---
Central line insertion complete, pt tolerated well, verification XR ordered
[2021-11-05] MEDS: Acetaminophen Supp 650 MG SUPP.RECT PR (22:48)
[2021-11-05 23:32] LABS: Reflex Lactate? Lactic Acid Added
[2021-11-05 23:54] LABS: B Type Natriuretic Peptide 435 pg/mL (<100)
[2021-11-06] VITALS (29 sets, daily range): BP systolic 95–137; BP diastolic 37–78; PULSE 86–128; RESP 20–42; TEMP 36.6–37.8; O2SAT 90–100; BMI 27.3
[2021-11-06 00:04] LABS: ~Lactic Acid-LAB USE ONLY 2.7 mmol/L (0.5-2.0)
--- NOTE | 2021-11-06 00:27 | PC.NURSE ---
Pt to and from CT w/o incident
--- NOTE | 2021-11-06 01:19 | PM.CCHP ---
History of Present Illness Date of Service: 11/06/21 Attending physician on admission: Justo Paiz Chief Complaint: Dyspnea This is a? 80-year-old female with a past medical history of hypertension, cardiomyopathy ( Echo 2020 normal EF),? ? CVA, dyslipidemia, osteoporosis, and hyperparathyroidism? who presented to the emergency room with complaints of dyspnea.? Patient also reported? lower abdominal discomfort. ? She was recently diagnosed with community acquired pneumonia 10/31/21? and started on doxycycline.? ?In the emergency room, patient noted to be tachypneic, respiratory rate in the 30s,? tachycardic,? with hypotension as low as 78/41.? Laboratory data? significant for? WBC 23.8, hemoglobin 10.7, hematocrit 32.1, potassium 3.1, CO2 16, BUN 22, creatinine 1.28, lactic acid 6.9,? magnesium 1.1,? total bilirubin 3.1,? alk-phos 136,? total protein 4.1, and albumin 2.3 ?Urine:? positive for? UTI ? Imaging:? Chest CT: I personally reviewed imaging, does have some consolidation, but does not correlate with active pneumonia Abdominal CT: Mild left hydronephrosis with a calculus in the renal pelvis measuring 6 mm. Given the history of UTI, this could represent pyonephrosis. Few additional scattered left renal calculi also noted. ? ED course:? received 1.5 L? normal saline,? Zosyn, ? magnesium,? require placement of central line for initiation of Levophed.? ? Patient is being admitted to ICU for the management of septic shock likely from? urinary source and pressors support Review of Systems Review of Systems: Constitutional: + fever, chills, fatigue. No weakness Eyes: No visual loss, blurred vision, double vision or yellow sclera ENT: No congestion, sore throat. No hearing loss Respiratory: + shortness of breath with exertion, cough. No sputum production. Cardiovascular: No chest pain, chest pressure or chest discomfort. No palpitations or pedal edema. Gastrointestinal: + lower abdominal pain. No nausea, vomiting. No diarrhea. Genitourinary: No burning micturition. No urinary frequency or incontinence. Neurologic: No headache, dizziness, syncope, unilateral weakness, ataxia, numbness or tingling in the extremities. No change in bowel or bladder control. Musculoskeletal: No muscle pain, back pain, joint pain or stiffness. Hematologic/Lymphatics: No bleeding or bruising. No painful lymph nodes. Skin: No rash or itching. Endocrine: No cold or heat intolerance. No polyuria or polydipsia. Psychiatric: No depression or anxiety. [facility] Past Medical History Medical History Cardiomyopathy Dyslipidemia Essential hypertension High vitamin D level History of CVA (cerebrovascular accident) Hyperparathyroidism Immunization refused Osteoporosis Family History Family History Father Unknown family medical history Mother Unknown family medical history Son No problems noted. Daughter No problems noted. Surgical History Surgical History History of appendectomy History of colon resection Social History Social History Alcohol intake: never Patient Tobacco Use Status: Former Tobacco user Advance Directives: No Advance Directives Information Provided: No Meds Allergies Allergy/AdvReac Type Severity Reaction Status Date / Time No Known Allergies Allergy Verified 11/05/21 21:05 Active Medications: Current Medications Heparin Sodium (Porcine) (Heparin Sodium,Porcine 5,000 Unit/Ml Vial) 5,000 unit SUBCUT Q8H MIREYA Norepinephrine Bitartrate (Levophed) 8 mg in 250 mls @ 0 mls/hr IVCONT .Q0M MIREYA; Protocol Last Titration: 11/05/21 22:43 Dose: 0.07 mcg/kg/min, 9.87 mls/hr Documented by: Albumin Human (Kedbumin 25 %) 100 mls @ 100 mls/hr IV Q6H MIREYA Stop: 11/06/21 07:44 Piperacillin Sod/Tazobactam (Sod 4.5 gm/ Sodium Chloride) 100 mls @ 200 mls/hr IV Q8H MIREYA Vancomycin HCl 1,000 mg/ (Sodium Chloride) 270 mls @ 270 mls/hr IV ONCE ONE Stop: 11/06/21 02:09 Pharmacy Consult (Consult Rx Vancomycin Dosing) 1 each MISCELLANE DAILY PRN PRN Reason: Consult order Home Medications Medication Instructions Recorded Confirmed Last Taken Type cinnamon bark 500 mg capsule 500 mg PO DAILY 09/26/20 08/16/21 Unknown History (Cinnamon) cranberry 400 mg capsule 400 mg PO DAILY 09/26/20 08/16/21 Unknown History flaxseed oil 1,000 mg capsule 1,000 mg PO DAILY 09/26/20 08/16/21 Unknown History folic acid 1 mg tablet 1 mg PO DAILY 09/26/20 08/16/21 Unknown History garlic 500 mg capsule 500 mg PO DAILY 09/26/20 08/16/21 Unknown History multivitamin 1 tab PO DAILY 09/26/20 08/16/21 Unknown History vitamin A 10,000 unit capsule 10,000 unit PO DAILY 09/26/20 08/16/21 Unknown History vitamin B complex (B 1 tab PO DAILY 09/26/20 08/16/21 Unknown History Complex-Vitamin B12) zinc 50 mg tablet 50 mg PO DAILY 09/26/20 08/16/21 Unknown History MSM 100 mg-collagen 100 mg-co Q10 tab PO 05/03/21 08/16/21 Unknown History 100 mg-herbal no.226 80 mg tablet apple cider vinegar 300 mg tablet 300 mg PO DAILY tab 05/03/21 08/16/21 Unknown History calcium carbonate 600 mg calcium 600 mg PO BID 05/03/21 08/16/21 Unknown History (1,500 mg) tablet turmeric 400 mg capsule 400 mg PO DAILY cap 05/03/21 08/16/21 Unknown History Physical Exam Vital Signs: Vital Signs: Last Vital Signs Temp 101.9 F H 11/05/21 21:13 Pulse 105 H 11/06/21 01:18 Resp 25 H 11/06/21 01:18 BP 112/50 L 11/06/21 01:18 Pulse Ox 96 11/06/21 01:18 BMI result Body Mass Index 31.3 Focused assement performed at 0100 Constitutional: Alert, in no distress. Mental Status: Oriented to person, place and time. Head: Normocephalic. Eyes: Pupils are equal, round and reactive to light. Extraocular muscles intact. Ear, Nose and Throat: Oropharynx clear, mucous membranes moist. Ears and nose without masses, lesions or deformities. Trachea midline. Neck: Supple, Full range of motion. Respiratory: Lungs CTA throughout. satting 97-98% on 2 L via NC. No wheezing. Cardiovascular: S1 S2 regular. No murmurs, rubs or gallops. Normal cap refill Gastrointestinal: Abdomen soft, non-tender, non-distended. Normal bowel sounds. No pulsatile mass. No hepatosplenomegaly. Genitourinary: No costovertebral angle tenderness. Neurologic: Cranial nerves II-XII grossly intact. No focal neurological deficits. Psychiatric: Normal mood and affect Results Labs CBC and Chem 7: 11/05/21 21:11/05/21 21:22 Labs: Laboratory Results - last 24 hr 11/05/21 11/05/21 11/05/21 21:22 21:22 21: MCV 90.9 MCH 30.3 MCHC 33.3 RDW 13.3 Plt Count TNP MPV 12.3 Immature Gran % (Auto) Cancelled Neut % (Auto) Cancelled Lymph % (Auto) Cancelled [place] % (Auto) Cancelled Eos % (Auto) Cancelled Baso % (Auto) Cancelled Lymph # (Auto) Cancelled [place] # (Auto) Cancelled Eos # (Auto) Cancelled Baso # (Auto) Cancelled Abs Immat Gran (auto) Cancelled Absolute Neuts (auto) Cancelled Absolute Nucleated RBC 0.000 Nucleated RBC % (auto) 0.0 Neutrophils % (Manual) 86 H Band Neutrophils % 13 H Lymphocytes % (Manual) 1 L Abs Neuts (Manual) 23.6 H Lymphocytes # (Manual) 0.2 L Platelet Estimate NORMAL Plt Morphology Comment NORMAL RBC Morphology NOTED Acanthocytes (Spur) 1+ (0-2) VBG pH VBG pCO2 VBG pO2 VBG HCO3 VBG O2 Saturation VBG Base Excess Anion Gap 20 Estim Creat Clear Calc 33.0 Estimated GFR 40 Random Glucose 119 H Lactic Acid 6.9 H* Lactic Acid Fup @ 2Hr Calcium 8.1 L D Magnesium 1.1 L* Total Bilirubin 3.1 H AST 20 ALT 15 Alkaline Phosphatase 136 H D B-Natriuretic Peptide Total Protein 4.1 L D Albumin 2.3 L D Urine Color Urine Appearance Urine pH Ur Specific [place] Urine Protein Urine Glucose (UA) Urine Ketones Urine Blood Urine Nitrite Ur Leukocyte Esterase Urine RBC Urine WBC Ur Squamous Epith Cells Urine Bacteria Urine Mucus COVID-19 (ALESSIA) COVID-19 Clin Com 11/05/21 11/05/21 11/05/21:: 21: MCV MCH MCHC RDW Plt Count MPV Immature Gran % (Auto) Neut % (Auto) Lymph % (Auto) [place] % (Auto) Eos % (Auto) Baso % (Auto) Lymph # (Auto) [place] # (Auto) Eos # (Auto) Baso # (Auto) Abs Immat Gran (auto) Absolute Neuts (auto) Absolute Nucleated RBC Nucleated RBC % (auto) Neutrophils % (Manual) Band Neutrophils % Lymphocytes % (Manual) Abs Neuts (Manual) Lymphocytes # (Manual) Platelet Estimate Plt Morphology Comment RBC Morphology Acanthocytes (Spur) VBG pH VBG pCO2 VBG pO2 VBG HCO3 VBG O2 Saturation VBG Base Excess Anion Gap Estim Creat Clear Calc Estimated GFR Random Glucose Lactic Acid Lactic Acid Fup @ 2Hr Calcium Magnesium Total Bilirubin AST ALT Alkaline Phosphatase B-Natriuretic Peptide 435 H Total Protein Albumin Urine Color DK YELLOW Urine Appearance TURBID Urine pH 6.5 Ur Specific [place] 1.020 Urine Protein 2+ H Urine Glucose (UA) NEG Urine Ketones 15 Urine Blood 3+ H Urine Nitrite POS H Ur Leukocyte Esterase 3+ H Urine RBC 30-49 H Urine WBC 50-75 H Ur Squamous Epith Cells TRACE Urine Bacteria 1+ Urine Mucus TRACE COVID-19 (ALESSIA) Negative COVID-19 Clin Com See Note 11/05/21 11/05/21 21:24 23:38 MCV MCH MCHC RDW Plt Count MPV Immature Gran % (Auto) Neut % (Auto) Lymph % (Auto) [place] % (Auto) Eos % (Auto) Baso % (Auto) Lymph # (Auto) [place] # (Auto) Eos # (Auto) Baso # (Auto) Abs Immat Gran (auto) Absolute Neuts (auto) Absolute Nucleated RBC Nucleated RBC % (auto) Neutrophils % (Manual) Band Neutrophils % Lymphocytes % (Manual) Abs Neuts (Manual) Lymphocytes # (Manual) Platelet Estimate Plt Morphology Comment RBC Morphology Acanthocytes (Spur) VBG pH 7.37 VBG pCO2 28 VBG pO2 41 VBG HCO3 16 L VBG O2 Saturation 64.0 VBG Base Excess -7.0 Anion Gap Estim Creat Clear Calc Estimated GFR Random Glucose Lactic Acid Lactic Acid Fup @ 2Hr 2.7 H* Calcium Magnesium Total Bilirubin AST ALT Alkaline Phosphatase B-Natriuretic Peptide Total Protein Albumin Urine Color Urine Appearance Urine pH Ur Specific [place] Urine Protein Urine Glucose (UA) Urine Ketones Urine Blood Urine Nitrite Ur Leukocyte Esterase Urine RBC Urine WBC Ur Squamous Epith Cells Urine Bacteria Urine Mucus COVID-19 (ALESSIA) COVID-19 Clin Com Imaging Radiologist's Impressions: Impressions Chest X-Ray 11/05/21 21:47 IMPRESSION: Stable bilateral patchy airspace opacities, not significantly changed. Chest X-Ray 11/05/21 22:48 IMPRESSION: Satisfactory central line placement. Abdomen/Pelvis CT 11/06/21 00:20 IMPRESSION: 1. Mild left hydronephrosis with a calculus in the renal pelvis measuring 6 mm. Given the history of UTI, this could represent pyonephrosis. Few additional scattered left renal calculi also noted. 2. Few scattered patchy regions of pulmonary consolidation bilaterally concerning for pneumonia in the proper clinical setting. Follow-up chest CT in 3 months would be helpful to assess for resolution. Chest CT 11/06/21 00:20 IMPRESSION: 1. Mild left hydronephrosis with a calculus in the renal pelvis measuring 6 mm. Given the history of UTI, this could represent pyonephrosis. Few additional scattered left renal calculi also noted. 2. Few scattered patchy regions of pulmonary consolidation bilaterally concerning for pneumonia in the proper clinical setting. Follow-up chest CT in 3 months would be helpful to assess for resolution. Assessment and Plan (1) Septic shock: Status: Acute (2) Acute UTI: Status: Acute (3) RANJITH (acute kidney injury): Status: Acute (4) Pyonephrosis: Status: Acute (5) Hypomagnesemia: Status: Acute This is a 80-year-old female with a past medical history of hypertension, cardiomyopathy, CVA, dyslipidemia who is being admitted into the ICU for septic shock likely from urinary source require pressor support Neuro:? no acute issues Cardiac:?? Septic shock- ? Patient?s lactic elevated to 6.9,? hypotension requiring pressor support. ? Infection source likely from UTI.? On Levophed.? Received sepsis protocol fluid administration.? Will continue antibiotics and add albumin. ? Wean off pressors when appropriate.?? Cardiomyopathy-? patient has a history of cardiomyopathy,? last echo in 2019 showed normal EF.? Received sepsis protocol fluids, Will continue closely monitoring for signs and symptoms of pulmonary congestion? Pulmonary:? ?Acute hypoxic respiratory failure:? chest x-ray does show some consolidation,? but I do not believe it is active pneumonia.? Patient satting 97-98% on 2 L via nasal cannula.? Will wean off? from O2 when arrive to ICU Renal:?? Pyonephrosis:? in CT the abdomen patient showing signs of pyonephrosis, as well? as partially obstructing calculi. ? This could be contributing? factor to septic shock.? Will consult Urology in the morning.? Closely monitor urine output RANJITH-? ? most likely related to hypoperfusion, nonoliguric. ? Received fluids in the ED? Continue to check renal induces and urine output. Continue to closely monitor renal indices. Endo:? No acute issues.?? GI:? no acute issues ID:? UTI- Urine? positive for nitrites and WBC.? ED gave dose of Zosyn. Will add? empiric dose of vanco.? Will continue? Zosyn ?Pneumonia:? will continue with Zosyn? Heme/Onc:?? ?No acute issues Psych:? No acute issues. Miscellaneous:? no acute issues CODE: ? Full code? Critical care time:? x90 minutes of critical care time Case discussed with attending Dr. Paiz? Critical Care Time Critical Care Time (minutes): 90
[2021-11-06] MEDS: Albumin Human 25 % 100 ML IV ×2 (01:21→05:26)
[2021-11-06] MEDS: Heparin Sodium,Porcine 5,000 UNIT/ML VIAL 5000 UNIT SUBCUT (01:24)
[2021-11-06 01:42] LABS: Reflex Lactate? 2 Y
[2021-11-06 02:10] LABS: ~Lactic Acid-LAB USE ONLY 2.4 mmol/L (0.5-2.0)
[2021-11-06] MEDS: Potassium Chloride/H20 40 MEQ/100 ML PIGGYBACK 50 MEQ IV (02:25)
[2021-11-06] MEDS: vancomycin HCL 1,000 MG in 0.9 % Sodium Chloride 250 ML 270 MG IV (02:28)
--- NOTE | 2021-11-06 02:52 | PC.NURSE ---
Report called to [employer]. Pt transported in stable condition w/ all belongings, attached to portable monitor
[2021-11-06] MEDS: Piperacillin Sodium/Tazobactam 4.5 GM in 0.9 % Sodium Chloride 100 ML IV ×3 (05:19→21:56)
[2021-11-06 05:30] LABS: Basophils Absolute Auto 0.1 X10*3/uL (0.0-0.2); Basophils Percent Auto 0.2 % (0-2); Hematocrit 27.9 % (37.0-47.0); Hemoglobin 9.6 g/dl (12.0-16.0); Imm Gran Abs Auto 0.34 X10*3/uL (0.00-0.03); Imm Gran Pct Auto 1.1 % (0.0-0.4); Lymphocytes Absolute Auto 1.9 X10*3/uL (1.2-4.9); Lymphocytes Percent Auto 6.1 % (20-40); MANUAL DIFF FLAG SCAN; Mean Corpuscular HGB Conc 34.4 g/dl (31.0-35.0); Mean Corpuscular Hemoglobin 30.6 pg (27.0-33.0); Mean Corpuscular Volume 88.9 fL (80.0-98.0); Mean Platelet Volume 12.5 fL (9.4-12.3); Monocytes Absolute Auto 0.7 X10*3/uL (0.1-1.2); Monocytes Percent Auto 2.3 % (2-11); NRBC Pct Auto 0.1 /100WBC (0.0-0.2); Neutrophils Absolute Auto 28.6 x10*3/uL (2.0-8.3); Neutrophils Percent Auto 90.3 % (45-73); Platelet Count 126 X10*3/uL (160-400); Red Blood Count 3.14 X10*6/uL (4.20-5.50); Red Cell Distribution Width 13.4 % (11.0-16.0); SCAN SMEAR FLAG 1
[2021-11-06 05:38] LABS: White Blood Count 31.7 X10*3/uL (4.8-10.8)
[2021-11-06 05:44] LABS: INTERNATIONAL NORM RATIO 2.6 (0.9-1.1); Prothrombin Time 30.1 SEC (9.9-13.0)
[2021-11-06 05:56] LABS: Alanine Aminotransferase 16 U/L (0-31); Albumin Level 2.8 g/dL (3.5-5.0); Alkaline Phosphatase 88 U/L (39-117); Anion Gap 13 (12-20); Aspartate Amino Transferase 21 U/L (5-31); Bilirubin Total 3.8 mg/dL (0.0-1.0); Blood Urea Nitrogen 23 mg/dL (9-16); Calcium 8.2 mg/dL (8.4-10.2); Carbon Dioxide 22 mmol/L (22-29); Chloride 112 mmol/L (96-108); Creatinine Clr Calc Pharmacy 42.5; Estimated Glomerular Filt Rate 58; Glucose Random 131 mg/dL (60-115); Magnesium 1.9 mg/dL (1.6-2.6); Phosphorus 2.7 mg/dL (2.7-4.5); Potassium 3.7 mmol/L (3.3-5.1); Sodium 143 mmol/L (135-145); Total Protein 4.4 g/dL (6.5-8.0)
[2021-11-06 06:02] LABS: SLIDE REVIEW VERIFIED
--- NOTE | 2021-11-06 06:38 | PC.NURSE ---
ADMIT TO 260-1 VIA STRETCHER FROM ER DEPT...ALERT..ORIENTED X3...VAGUE RESPONSES AT TIMES..HARD OF HEARING...LEVOPHED 0.09 MCG/KG/MIN...VANCOMYCIN/ZOSYN INFUSED PER JAN W/O INCIDENT...SEWELL WITH LOW OUTPUT OF MORTEZA URINE AT ADMIT..OUTPUT SLOWLY IMPROVING OVERNIGHT...DENIES DISCOMFORT...DENIES SOB WITH O2 2.5 L/M VIA CANNULA...NPO PER ICU NOVELTY TWISTER TENDER FOR UROLOGY CONSULT IN AM...DENIES/OFFERS NO COMPLAINTS
[2021-11-06 06:57] LABS: Partial Thromboplastin Time 42.7 SEC (24.1-38.0)
--- NOTE | 2021-11-06 07:20 | P.CDIC_ITS ---
CDI Concurrent Query Documentation Clarification: PHYSICIAN'S DOCUMENTATION REQUEST Date of Query: 11/06/21719 Patient Name: Rachana Stephenson Admit Date: 11/06/21 Dear Doctor, A review of the medical record indicates additional documentation may be needed. Please review below and update the documentation accordingly. Risk Factors/Clinical Indicators/Treatments Potassium 3.1 Received Klor-Con 60 meq po x1 and KCL 40 meq in 100 mls IV x1 Based on the above, could you clarify in the Progress Notes the appropriate diagnosis, if significant, that supports the above abnormalities and additional evaluation, monitoring, and/or treatment rendered: * Hypokalemia * Clinically insignificant * Other (please specify) * Unable to determine Use of terms such as suspected, likely, concern for, or probable (associated with a specific diagnosis that is being evaluated, monitored, or treated as if it exists) are acceptable and can be coded in the inpatient setting, when documented at the time of discharge. Thank you, Loni Barksdale RN Extension: [phone] Please use your independent medical judgment in providing your response. THIS QUERY IS PART OF THE PERMANENT MEDICAL RECORD
--- NOTE | 2021-11-06 07:27 | PHA.PROG ---
Admission Date/Time: November 06, 2021 00:41 Indication: SEPSIS Weight in k.7 kg Adjusted body weight in Kg: [place] body weight in Kg: Obesity Dosing Indication % IBW: Serum Creatinine - Last 168 Hours 11/05/21 11/06/21 21:22 05:15 Creatinine 1.28 0.93 Estimated CrCl and GFR - Last 168 Hours 11/05/21 11/06/21 21:22 05:15 Estim Creat Clear Calc 33.0 42.5 Estimated GFR 40 58 Vancomycin Loading Dose: 1000 MG X1 DOSE Current Vancomycin Dosing Regimen: RECOMMENDING 1000 MG Q24H Vancomycin Monitoring using AUC goal of 400 - 600 range with trough as surrogate marker: Date and Time for next Vancomycin Level to be drawn: 11/09 @ 0030 BEFORE 4TH DOSE Pharmacist Comments on Vancomycin Plan: I RECOMMEND 1000 MG Q24H WHICH ESTIMATES A AUC OF 446 AND A TROUGH OF 13.5. WILL CONTINUE TO MONITOR RENAL FUNCTION AND ADJUST ACCORDINGLY. Vancomycin dosing will take advantage of NI as a clinical decision support tool that uses Bayesian modeling to calculate individual patient's pharmacokinetic parameters and forecast the patient's drug concentration time course with the target goal AUC 24 range of 400 - 600 mg/L/hr.
[2021-11-06] MEDS: Fondaparinux Sodium 7.5 MG/0.6 ML SYRINGE SUBCUT (08:29)
--- NOTE | 2021-11-06 09:32 | P.CNUR_ITS ---
History of Present Illness Consult details Consult date: 11/06/21 Narrative: Rachana is a pleasant female presented to hospital with shortness of breath. Presumed pneumonia and had previously been placed on doxycycline. Found to have urinary tract infection Creatinine 0.9 WBC 32 Imaging showed mild left hydronephrosis with a stone in the UPJ area that may have been Intermittently obstructing had been independent of ADLs living alone with her dog prior to admission recommend volume resuscitation and antibiotics. Should there be failure to improve over the next 24 hours stent placement on the left side would be warranted Review of Systems Constitutional: Constitutional: Reports as per HPI and Reports no additional constitutional complaints Cardiovascular: Cardiovascular: Reports as per HPI and Reports no additional cardiovascular complaints Respiratory: Respiratory: Reports as per HPI and Reports no additional respiratory complaints Gastrointestinal: Gastrointestinal: Reports as per HPI and Reports no additional gastrointestinal complaints Genitourinary: Genitourinary: Reports as per HPI Musculoskeletal: Musculoskeletal: Reports no additional musculoskeletal complaints and Reports as per HPI Neurologic: Reports system reviewed and no additional complaints, except as documented and Reports as per HPI PMFSH Past Medical History Medical History Cardiomyopathy Dyslipidemia Essential hypertension High vitamin D level History of CVA (cerebrovascular accident) Hyperparathyroidism Immunization refused Osteoporosis Family History Family History Father Unknown family medical history Mother Unknown family medical history Son No problems noted. Daughter No problems noted. Surgical History Surgical History History of appendectomy History of colon resection Social History Social History Alcohol intake: never Patient Tobacco Use Status: Former Tobacco user Advance Directives: No Advance Directives Information Provided: No Meds Allergies Allergy/AdvReac Type Severity Reaction Status Date / Time No Known Allergies Allergy Verified 11/05/21 21:05 Active Medications: Current Medications Fondaparinux (Fondaparinux Sodium 7.5 Mg/0.6 Ml Syringe) 7.5 mg SUBCUT Q24H MIREYA Last Admin: 11/06/21 08:29 Dose: 7.5 mg Documented by: Norepinephrine Bitartrate (Levophed) 8 mg in 250 mls @ 0 mls/hr IVCONT .Q0M MIREYA; Protocol Last Titration: 11/06/21 08:36 Dose: 0.1 mcg/kg/min, 14.1 mls/hr Documented by: Piperacillin Sod/Tazobactam (Sod 4.5 gm/ Sodium Chloride) 100 mls @ 200 mls/hr IV Q8H [facility] Last Infusion: 11/06/21 06:05 Dose: Infused Documented by: Vancomycin HCl 1,000 mg/ (Sodium Chloride) 270 mls @ 270 mls/hr IV Q24H [facility] Pharmacy Consult (Consult Rx Vancomycin Dosing) 1 each MISCELLANE DAILY PRN PRN Reason: Consult order Home Medications Medication Instructions Recorded Confirmed Last Taken Type cinnamon bark 500 mg capsule 500 mg PO DAILY 09/26/20 11/06/21 Unknown History (Cinnamon) cranberry 400 mg capsule 400 mg PO DAILY 09/26/20 11/06/21 Unknown History flaxseed oil 1,000 mg capsule 1,000 mg PO DAILY 09/26/20 11/06/21 Unknown History folic acid 1 mg tablet 1 mg PO DAILY 09/26/20 11/06/21 Unknown History garlic 500 mg capsule 500 mg PO DAILY 09/26/20 11/06/21 Unknown History multivitamin 1 tab PO DAILY 09/26/20 11/06/21 Unknown History vitamin A 10,000 unit capsule 10,000 unit PO DAILY 09/26/20 11/06/21 Unknown History vitamin B complex (B 1 tab PO DAILY 09/26/20 11/06/21 Unknown History Complex-Vitamin B12) zinc 50 mg tablet 50 mg PO DAILY 09/26/20 11/06/21 Unknown History MSM 100 mg-collagen 100 mg-co Q10 1 tab PO DAILY 05/03/21 11/06/21 Unknown History 100 mg-herbal no.226 80 mg tablet apple cider vinegar 300 mg tablet 300 mg PO DAILY tab 05/03/21 11/06/21 Unknown History calcium carbonate 600 mg calcium 600 mg PO BID 05/03/21 11/06/21 Unknown History (1,500 mg) tablet turmeric 400 mg capsule 400 mg PO DAILY cap 05/03/21 11/06/21 Unknown History Physical Exam Vital Signs: Vital Signs: Last Vital Signs Temp 97.8 F 11/06/21 08:00 Pulse 111 H 11/06/21 09:00 Resp 22 H 11/06/21 09:00 BP 117/78 11/06/21 09:00 Pulse Ox 92 11/06/21 09:00 Oxygen Flow Rate 2.5 11/06/21 00:41 BMI result Body Mass Index 27.3 Const: General: cooperative, healthy appearing, comfortable and no acute distress Orientation/consciousness: patient oriented x3 HENMT: Face and sinus: Yes normal facial exam Mouth: moist mucous membranes Neck: Neck: Yes normal visual inspection, Yes full ROM and Yes trachea midline Chest: Chest palpation & inspection: normal inspection of the chest Resp: Effort & Inspection: normal respiratory effort, able to speak in complete sentences and no respiratory distress GI: Inspection: Yes normal to inspection Back/Spine/Pelvis: Cervical Spine: normal cervical lordosis Thoracic/Lumbar Spine: thoracic and lumbar spine normal to inspection Skin: General skin exam: no rashes or lesions noted Neuro: General: patient oriented x3, tone normal and moves all extremities Extrem: General: Yes normal to inspection and Yes capillary refill normal Results Labs Result diagrams: 11/06/21 05:15 11/06/21 05:15 Labs: Abnormal lab results 11/05/21 11/05/21 11/05/21 Range/Units 21:22 21:22 21:22 WBC 23.8 H (4.8-10.8) X10*3/uL RBC 3.53 L (4.20-5.50) X10*6/uL Hgb 10.7 L (12.0-16.0) g/dl Hct 32.1 L (37.0-47.0) % Plt Count (160-400) X10*3/uL MPV (9.4-12.3) fL Immature Gran % (Auto) (0.0-0.4) % Neut % (Auto) (45-73) % Lymph % (Auto) (20-40) % Abs Immat Gran (auto) (0.00-0.03) X10*3/uL Absolute Neuts (auto) (2.0-8.3) x10*3/uL Absolute Nucleated RBC (0.0-0.012) X10*3/uL Neutrophils % (Manual) 86 H (45-73) % Band Neutrophils % 13 H (3-5) % Lymphocytes % (Manual) 1 L (20-40) % Abs Neuts (Manual) 23.6 H (2.0-8.3) X10*3/uL Lymphocytes # (Manual) 0.2 L (1.2-4.9) X10*3/uL PT (9.9-13.0) SEC INR (0.9-1.1) APTT (24.1-38.0) SEC VBG HCO3 (22-26) mmol/L Potassium 3.1 L (3.3-5.1) mmol/L Chloride (96-108) mmol/L Carbon Dioxide 16 L (22-29) mmol/L BUN 22 H D (9-16) mg/dL Random Glucose 119 H (60-115) mg/dL Lactic Acid 6.9 H* (0.5-2.0) mmol/L Lactic Acid Fup @ 2Hr (0.5-2.0) mmol/L Lactic Acid Fup @ 4Hr (0.5-2.0) mmol/L Calcium 8.1 L D (8.4-10.2) mg/dL Magnesium 1.1 L* (1.6-2.6) mg/dL Total Bilirubin 3.1 H (0.0-1.0) mg/dL Alkaline Phosphatase 136 H D (39-117) U/L B-Natriuretic Peptide (<100) pg/mL Total Protein 4.1 L D (6.5-8.0) g/dL Albumin 2.3 L D (3.5-5.0) g/dL Urine Protein (NEG-TRACE) MG/DL Urine Blood (NEG) Urine Nitrite (NEG) Ur Leukocyte Esterase (NEG) Urine RBC (0) /HPF Urine WBC (0-4) /HPF 11/05/21 11/05/21 11/05/21 Range/Units 21:22 21:22 21:24 WBC (4.8-10.8) X10*3/uL RBC (4.20-5.50) X10*6/uL Hgb (12.0-16.0) g/dl Hct (37.0-47.0) % Plt Count (160-400) X10*3/uL MPV (9.4-12.3) fL Immature Gran % (Auto) (0.0-0.4) % Neut % (Auto) (45-73) % Lymph % (Auto) (20-40) % Abs Immat Gran (auto) (0.00-0.03) X10*3/uL Absolute Neuts (auto) (2.0-8.3) x10*3/uL Absolute Nucleated RBC (0.0-0.012) X10*3/uL Neutrophils % (Manual) (45-73) % Band Neutrophils % (3-5) % Lymphocytes % (Manual) (20-40) % Abs Neuts (Manual) (2.0-8.3) X10*3/uL Lymphocytes # (Manual) (1.2-4.9) X10*3/uL PT (9.9-13.0) SEC INR (0.9-1.1) APTT (24.1-38.0) SEC VBG HCO3 16 L (22-26) mmol/L Potassium (3.3-5.1) mmol/L Chloride (96-108) mmol/L Carbon Dioxide (22-29) mmol/L BUN (9-16) mg/dL Random Glucose (60-115) mg/dL Lactic Acid (0.5-2.0) mmol/L Lactic Acid Fup @ 2Hr (0.5-2.0) mmol/L Lactic Acid Fup @ 4Hr (0.5-2.0) mmol/L Calcium (8.4-10.2) mg/dL Magnesium (1.6-2.6) mg/dL Total Bilirubin (0.0-1.0) mg/dL Alkaline Phosphatase (39-117) U/L B-Natriuretic Peptide 435 H (<100) pg/mL Total Protein (6.5-8.0) g/dL Albumin (3.5-5.0) g/dL Urine Protein 2+ H (NEG-TRACE) MG/DL Urine Blood 3+ H (NEG) Urine Nitrite POS H (NEG) Ur Leukocyte Esterase 3+ H (NEG) Urine RBC 30-49 H (0) /HPF Urine WBC 50-75 H (0-4) /HPF 11/05/21 11/06/21 11/06/21 Range/Units 23:38 01:46 05:15 WBC 31.7 H* (4.8-10.8) X10*3/uL RBC 3.14 L (4.20-5.50) X10*6/uL Hgb 9.6 L (12.0-16.0) g/dl Hct 27.9 L (37.0-47.0) % Plt Count 126 L D (160-400) X10*3/uL MPV 12.5 H (9.4-12.3) fL Immature Gran % (Auto) 1.1 H (0.0-0.4) % Neut % (Auto) 90.3 H (45-73) % Lymph % (Auto) 6.1 L (20-40) % Abs Immat Gran (auto) 0.34 H (0.00-0.03) X10*3/uL Absolute Neuts (auto) 28.6 H (2.0-8.3) x10*3/uL Absolute Nucleated RBC 0.020 H (0.0-0.012) X10*3/uL Neutrophils % (Manual) (45-73) % Band Neutrophils % (3-5) % Lymphocytes % (Manual) (20-40) % Abs Neuts (Manual) (2.0-8.3) X10*3/uL Lymphocytes # (Manual) (1.2-4.9) X10*3/uL PT (9.9-13.0) SEC INR (0.9-1.1) APTT (24.1-38.0) SEC VBG HCO3 (22-26) mmol/L Potassium (3.3-5.1) mmol/L Chloride (96-108) mmol/L Carbon Dioxide (22-29) mmol/L BUN (9-16) mg/dL Random Glucose (60-115) mg/dL Lactic Acid (0.5-2.0) mmol/L Lactic Acid Fup @ 2Hr 2.7 H* (0.5-2.0) mmol/L Lactic Acid Fup @ 4Hr 2.4 H* (0.5-2.0) mmol/L Calcium (8.4-10.2) mg/dL Magnesium (1.6-2.6) mg/dL Total Bilirubin (0.0-1.0) mg/dL Alkaline Phosphatase (39-117) U/L B-Natriuretic Peptide (<100) pg/mL Total Protein (6.5-8.0) g/dL Albumin (3.5-5.0) g/dL Urine Protein (NEG-TRACE) MG/DL Urine Blood (NEG) Urine Nitrite (NEG) Ur Leukocyte Esterase (NEG) Urine RBC (0) /HPF Urine WBC (0-4) /HPF 11/06/21 11/06/21 11/06/21 Range/Units 05:15 05:15 06:24 WBC (4.8-10.8) X10*3/uL RBC (4.20-5.50) X10*6/uL Hgb (12.0-16.0) g/dl Hct (37.0-47.0) % Plt Count (160-400) X10*3/uL MPV (9.4-12.3) fL Immature Gran % (Auto) (0.0-0.4) % Neut % (Auto) (45-73) % Lymph % (Auto) (20-40) % Abs Immat Gran (auto) (0.00-0.03) X10*3/uL Absolute Neuts (auto) (2.0-8.3) x10*3/uL Absolute Nucleated RBC (0.0-0.012) X10*3/uL Neutrophils % (Manual) (45-73) % Band Neutrophils % (3-5) % Lymphocytes % (Manual) (20-40) % Abs Neuts (Manual) (2.0-8.3) X10*3/uL Lymphocytes # (Manual) (1.2-4.9) X10*3/uL PT 30.1 H (9.9-13.0) SEC INR 2.6 H (0.9-1.1) APTT 42.7 H (24.1-38.0) SEC VBG HCO3 (22-26) mmol/L Potassium (3.3-5.1) mmol/L Chloride 112 H (96-108) mmol/L Carbon Dioxide (22-29) mmol/L BUN 23 H (9-16) mg/dL Random Glucose 131 H (60-115) mg/dL Lactic Acid (0.5-2.0) mmol/L Lactic Acid Fup @ 2Hr (0.5-2.0) mmol/L Lactic Acid Fup @ 4Hr (0.5-2.0) mmol/L Calcium 8.2 L (8.4-10.2) mg/dL Magnesium (1.6-2.6) mg/dL Total Bilirubin 3.8 H (0.0-1.0) mg/dL Alkaline Phosphatase (39-117) U/L B-Natriuretic Peptide (<100) pg/mL Total Protein 4.4 L (6.5-8.0) g/dL Albumin 2.8 L D (3.5-5.0) g/dL Urine Protein (NEG-TRACE) MG/DL Urine Blood (NEG) Urine Nitrite (NEG) Ur Leukocyte Esterase (NEG) Urine RBC (0) /HPF Urine WBC (0-4) /HPF Short CBC 11/05/21 11/06/21 Range/Units 21:22 05:15 WBC 23.8 H 31.7 H* (4.8-10.8) X10*3/uL Hgb 10.7 L 9.6 L (12.0-16.0) g/dl Hct 32.1 L 27.9 L (37.0-47.0) % Plt Count TNP 126 L D BMP 11/05/21 11/06/21 21:22 05:15 Sodium 141 143 Potassium 3.1 L 3.7 Chloride 108 112 H Carbon Dioxide 16 L 22 BUN 22 H D 23 H Creatinine 1.28 0.93 Calcium 8.1 L D 8.2 L Liver Function 11/05/21 11/06/21 Range/Units 21:22 05:15 Total Bilirubin 3.1 H 3.8 H (0.0-1.0) mg/dL AST 20 21 (5-31) U/L ALT 15 16 (0-31) U/L Alkaline Phosphatase 136 H D 88 D (39-117) U/L Albumin 2.3 L D 2.8 L D (3.5-5.0) g/dL Urine 11/05/21 Range/Units 21:22 Urine Color DK YELLOW Urine Appearance TURBID Urine pH 6.5 (5.0-8.0) Ur Specific [place] 1.020 (1.005-1.025) Urine Protein 2+ H (NEG-TRACE) MG/DL Urine Glucose (UA) NEG (NEG) MG/DL All other labs normal. Assessment and Plan (1) Pyonephrosis: Status: Acute (2) Hydronephrosis: Status: Acute 24 hours of hydration And IV antibiotics may benefit from stent placement should there be failure to improve Procedures Date of Service Date of Service: 11/06/21
--- NOTE | 2021-11-06 10:13 | PM.CCPN ---
Subjective Subjective Date of Service: 11/06/21 Interval History: when I saw her she was clinically having a rider with somewhat depressed mental status but coughing for which I have no account ability so we measured a CVP which was at 6 in the supine position dropping to 3 in a semi-erect pos ition sinus tachycardia but with no cardiac disease by echo however although no segmental wall motion abnormality of the left ventricle was noted she was just mildly dilated with a at least a mildly increased end systolic volume diminished ejection fraction probably in the mid 40s by my approximation but no primary valve or pericardial disease lungs with no specificity there was just a nodular lesion in the right upper lobe may be scattered very minimal ground-glass infiltrates in the labs I did notice that she developed thrombocytopenia and had a somewhat elevated PT INR so if this is a consumptive coagulopathy I need to look at the slide for schistocytes to rule out DIC but 2/2 blood cultures growing Gram-negative rods and she does have is some minimal hydronephrosis with calcified stones in the left kidney abdomen is soft no bowel sounds audible but no again a megaly Critical Care Time (minutes): 45 Physical Exam Vital Signs: Vital Signs: Last Vital Signs Temp 97.8 F 11/06/21 08:00 Pulse 128 H 11/06/21 10:00 Resp 36 H 11/06/21 10:00 BP 127/51 L 11/06/21 10:00 Pulse Ox 93 11/06/21 10:00 Oxygen Flow Rate 2.5 11/06/21 00:41 BMI result Body Mass Index 27.3 awake and appropriate although a lethargic and slightly altered during the [place] cardiovascular exam with mild diffuse hypokinesis and diminished systolic reserve but normal inferior vena cava abdomen soft with no organomegaly lungs clear by exam skin intact Objective Data Labs CBC & Chem 7: 11/06/21 05:15 11/06/21 05:15 Labs: Laboratory Results - last 24 hr 11/05/21 11/05/21 11/05/21 21:22 21:22 21:22 WBC 23.8 H RBC 3.53 L Hgb 10.7 L Hct 32.1 L MCV 90.9 MCH 30.3 MCHC 33.3 RDW 13.3 Plt Count TNP MPV 12.3 Immature Gran % (Auto) Cancelled Neut % (Auto) Cancelled Lymph % (Auto) Cancelled [place] % (Auto) Cancelled Eos % (Auto) Cancelled Baso % (Auto) Cancelled Lymph # (Auto) Cancelled [place] # (Auto) Cancelled Eos # (Auto) Cancelled Baso # (Auto) Cancelled Abs Immat Gran (auto) Cancelled Absolute Neuts (auto) Cancelled Absolute Nucleated RBC 0.000 Nucleated RBC % (auto) 0.0 Neutrophils % (Manual) 86 H Band Neutrophils % 13 H Lymphocytes % (Manual) 1 L Abs Neuts (Manual) 23.6 H Lymphocytes # (Manual) 0.2 L Platelet Estimate NORMAL Plt Morphology Comment NORMAL RBC Morphology NOTED Acanthocytes (Spur) 1+ (0-2) Smear Tech's Comments PT INR APTT VBG pH VBG pCO2 VBG pO2 VBG HCO3 VBG O2 Saturation VBG Base Excess Sodium 141 Potassium 3.1 L Chloride 108 Carbon Dioxide 16 L Anion Gap 20 BUN 22 H D Creatinine 1.28 Estim Creat Clear Calc 33.0 Estimated GFR 40 Random Glucose 119 H Lactic Acid 6.9 H* Lactic Acid Fup @ 2Hr Lactic Acid Fup @ 4Hr Calcium 8.1 L D Phosphorus Magnesium 1.1 L* Total Bilirubin 3.1 H AST 20 ALT 15 Alkaline Phosphatase 136 H D B-Natriuretic Peptide Total Protein 4.1 L D Albumin 2.3 L D Urine Color Urine Appearance Urine pH Ur Specific [place] Urine Protein Urine Glucose (UA) Urine Ketones Urine Blood Urine Nitrite Ur Leukocyte Esterase Urine RBC Urine WBC Ur Squamous Epith Cells Urine Bacteria Urine Mucus COVID-19 (ALESSIA) COVID-19 Clin Com 11/05/21 11/05/21 11/05/21 21:22 21:22 21:22 WBC RBC Hgb Hct MCV MCH MCHC RDW Plt Count MPV Immature Gran % (Auto) Neut % (Auto) Lymph % (Auto) [place] % (Auto) Eos % (Auto) Baso % (Auto) Lymph # (Auto) [place] # (Auto) Eos # (Auto) Baso # (Auto) Abs Immat Gran (auto) Absolute Neuts (auto) Absolute Nucleated RBC Nucleated RBC % (auto) Neutrophils % (Manual) Band Neutrophils % Lymphocytes % (Manual) Abs Neuts (Manual) Lymphocytes # (Manual) Platelet Estimate Plt Morphology Comment RBC Morphology Acanthocytes (Spur) Smear Tech's Comments PT INR APTT VBG pH VBG pCO2 VBG pO2 VBG HCO3 VBG O2 Saturation VBG Base Excess Sodium Potassium Chloride Carbon Dioxide Anion Gap BUN Creatinine Estim Creat Clear Calc Estimated GFR Random Glucose Lactic Acid Lactic Acid Fup @ 2Hr Lactic Acid Fup @ 4Hr Calcium Phosphorus Magnesium Total Bilirubin AST ALT Alkaline Phosphatase B-Natriuretic Peptide 435 H Total Protein Albumin Urine Color DK YELLOW Urine Appearance TURBID Urine pH 6.5 Ur Specific [place] 1.020 Urine Protein 2+ H Urine Glucose (UA) NEG Urine Ketones 15 Urine Blood 3+ H Urine Nitrite POS H Ur Leukocyte Esterase 3+ H Urine RBC 30-49 H Urine WBC 50-75 H Ur Squamous Epith Cells TRACE Urine Bacteria 1+ Urine Mucus TRACE COVID-19 (ALESSIA) Negative COVID-19 Clin Com See Note 11/05/21 11/05/21 11/06/21 21:24 23:38 01:46 WBC RBC Hgb Hct MCV MCH MCHC RDW Plt Count MPV Immature Gran % (Auto) Neut % (Auto) Lymph % (Auto) [place] % (Auto) Eos % (Auto) Baso % (Auto) Lymph # (Auto) [place] # (Auto) Eos # (Auto) Baso # (Auto) Abs Immat Gran (auto) Absolute Neuts (auto) Absolute Nucleated RBC Nucleated RBC % (auto) Neutrophils % (Manual) Band Neutrophils % Lymphocytes % (Manual) Abs Neuts (Manual) Lymphocytes # (Manual) Platelet Estimate Plt Morphology Comment RBC Morphology Acanthocytes (Spur) Smear Tech's Comments PT INR APTT VBG pH 7.37 VBG pCO2 28 VBG pO2 41 VBG HCO3 16 L VBG O2 Saturation 64.0 VBG Base Excess -7.0 Sodium Potassium Chloride Carbon Dioxide Anion Gap BUN Creatinine Estim Creat Clear Calc Estimated GFR Random Glucose Lactic Acid Lactic Acid Fup @ 2Hr 2.7 H* Lactic Acid Fup @ 4Hr 2.4 H* Calcium Phosphorus Magnesium Total Bilirubin AST ALT Alkaline Phosphatase B-Natriuretic Peptide Total Protein Albumin Urine Color Urine Appearance Urine pH Ur Specific [place] Urine Protein Urine Glucose (UA) Urine Ketones Urine Blood Urine Nitrite Ur Leukocyte Esterase Urine RBC Urine WBC Ur Squamous Epith Cells Urine Bacteria Urine Mucus COVID-19 (ALESSIA) COVID-19 Span[employer] Com 11/06/21 11/06/21 11/06/21 05:15 05:15 05:15 WBC 31.7 H* RBC 3.14 L Hgb 9.6 L Hct 27.9 L MCV 88.9 MCH 30.6 MCHC 34.4 RDW 13.4 Plt Count 126 L D MPV 12.5 H Immature Gran % (Auto) 1.1 H Neut % (Auto) 90.3 H Lymph % (Auto) 6.1 L [place] % (Auto) 2.3 Eos % (Auto) 0.0 Baso % (Auto) 0.2 Lymph # (Auto) 1.9 [place] # (Auto) 0.7 Eos # (Auto) 0.0 Baso # (Auto) 0.1 Abs Immat Gran (auto) 0.34 H Absolute Neuts (auto) 28.6 H Absolute Nucleated RBC 0.020 H Nucleated RBC % (auto) 0.1 Neutrophils % (Manual) Band Neutrophils % Lymphocytes % (Manual) Abs Neuts (Manual) Lymphocytes # (Manual) Platelet Estimate Plt Morphology Comment RBC Morphology Acanthocytes (Spur) Smear Tech's Comments VERIFIED PT 30.1 H INR 2.6 H APTT VBG pH VBG pCO2 VBG pO2 VBG HCO3 VBG O2 Saturation VBG Base Excess Sodium 143 Potassium 3.7 Chloride 112 H Carbon Dioxide 22 Anion Gap 13 BUN 23 H Creatinine 0.93 Estim Creat Clear Calc 42.5 Estimated GFR 58 Random Glucose 131 H Lactic Acid Lactic Acid Fup @ 2Hr Lactic Acid Fup @ 4Hr Calcium 8.2 L Phosphorus 2.7 Magnesium 1.9 Total Bilirubin 3.8 H AST 21 ALT 16 Alkaline Phosphatase 88 D B-Natriuretic Peptide Total Protein 4.4 L Albumin 2.8 L D Urine Color Urine Appearance Urine pH Ur Specific [place] Urine Protein Urine Glucose (UA) Urine Ketones Urine Blood Urine Nitrite Ur Leukocyte Esterase Urine RBC Urine WBC Ur Squamous Epith Cells Urine Bacteria Urine Mucus COVID-19 (ALESSIA) COVID-19 Clin Com 11/06/21 06:24 WBC RBC Hgb Hct MCV MCH MCHC RDW Plt Count MPV Immature Gran % (Auto) Neut % (Auto) Lymph % (Auto) [place] % (Auto) Eos % (Auto) Baso % (Auto) Lymph # (Auto) [place] # (Auto) Eos # (Auto) Baso # (Auto) Abs Immat Gran (auto) Absolute Neuts (auto) Absolute Nucleated RBC Nucleated RBC % (auto) Neutrophils % (Manual) Band Neutrophils % Lymphocytes % (Manual) Abs Neuts (Manual) Lymphocytes # (Manual) Platelet Estimate Plt Morphology Comment RBC Morphology Acanthocytes (Spur) Smear Tech's Comments PT INR APTT 42.7 H VBG pH VBG pCO2 VBG pO2 VBG HCO3 VBG O2 Saturation VBG Base Excess Sodium Potassium Chloride Carbon Dioxide Anion Gap BUN Creatinine Estim Creat Clear Calc Estimated GFR Random Glucose Lactic Acid Lactic Acid Fup @ 2Hr Lactic Acid Fup @ 4Hr Calcium Phosphorus Magnesium Total Bilirubin AST ALT Alkaline Phosphatase B-Natriuretic Peptide Total Protein Albumin Urine Color Urine Appearance Urine pH Ur Specific [place] Urine Protein Urine Glucose (UA) Urine Ketones Urine Blood Urine Nitrite Ur Leukocyte Esterase Urine RBC Urine WBC Ur Squamous Epith Cells Urine Bacteria Urine Mucus COVID-19 (ALESSIA) COVID-19 Clin Com Microbiology Microbiology Results: Microbiology 11/05/21 21:22 Blood - Venous Blood Culture - Preliminary Prelim: GNR Gram Stain only Progress Note: A&P Assessment and plan (1) Hydronephrosis: Status: Acute (2) Pyonephrosis: Status: Acute (3) RANJITH (acute kidney injury): Status: Acute (4) Septic shock: Status: Acute (5) Severe sepsis: Status: Acute (6) Hypoxia: Status: Acute (7) Acute UTI: Status: Acute (8) Hypomagnesemia: Status: Acute (9) History of CVA (cerebrovascular accident): Status: Acute (10) Immunization refused: Status: Acute (11) Cardiomyopathy: Status: Acute (12) Osteoporosis: Status: Acute (13) Essential hypertension: Status: Acute (14) Dyslipidemia: Status: Acute (15) Obstructive nephropathy: Status: Acute Assessment and Plan: for now she will remain on Zosyn and I will give 1 dose of Levaquin for synergy and we do have Urology coming to place a left ureteral stent so that we could relieve the obstructive aspect of this disease process altered mental status is clearly on the basis of Gram-negative bacteremia and this is determined by my for folks focused sepsis examination Quality Stroke Does the patient have a stroke diagnosis?: No VTE Prior VTE?: No VTE Risk Level:: Medical - moderate - high VTE Device Contraindication: Treatment Not Indicated VTE Drug Contraindication: N/A - Med Ordered
[2021-11-06] MEDS: levoFLOXacin/D5W 750 MG/150 ML PIGGYBACK 100 MG IV (11:59)
--- NOTE | 2021-11-06 14:21 | MHC.CM.PN ---
Met with pt who was in the ICU being tx for UTI related sepsis: pt states she is 'so tired and thirsty' but offers no other complaints. Pt states she lives alone, is independent with all care needs, has no services or adaptive equipment and that her son or other family assists her with transportation as she no longer has a vehicle. Pt feels she has a HCP and other advanced directive information at home. Will contact family and request copy of HCP/MOLST if available. IMM in chart Pt will contact her son Jin for transportation home. Pt should be able to return to home without services - CM to follow.
--- NOTE | 2021-11-06 15:09 | MHC.SLORD ---
Speech Language Pathology Order Status: Order received for bedside dysphagia evaluation. OIL PROCESSING TECHNICIAN spoke with RN this morning. RN reports that patient coughs when provided oral care with a swab. She was also vomiting this morning. Per RN, patient is not appropriate for evaluation at this time. Plan to evaluate tomorrow morning if appropriate.
[2021-11-07] VITALS (21 sets, daily range): BP systolic 98–132; BP diastolic 47–63; PULSE 91–112; RESP 16–36; TEMP 36.4–37.3; O2SAT 89–98; BMI 27.5
[2021-11-07] MEDS: vancomycin HCL 1,000 MG in 0.9 % Sodium Chloride 250 ML 270 MG IV (02:19)
[2021-11-07 05:44] LABS: MANUAL DIFF FLAG NO
[2021-11-07 05:48] LABS: Basophils Percent Auto 0.1 % (0-2); Hematocrit 28.6 % (37.0-47.0); Hemoglobin 9.4 g/dl (12.0-16.0); Imm Gran Abs Auto 0.09 X10*3/uL (0.00-0.03); Imm Gran Pct Auto 0.7 % (0.0-0.4); Lymphocytes Absolute Auto 0.9 X10*3/uL (1.2-4.9); Lymphocytes Percent Auto 7.3 % (20-40); Mean Corpuscular HGB Conc 32.9 g/dl (31.0-35.0); Mean Corpuscular Hemoglobin 28.7 pg (27.0-33.0); Mean Corpuscular Volume 87.5 fL (80.0-98.0); Mean Platelet Volume 12.3 fL (9.4-12.3); Monocytes Absolute Auto 0.4 X10*3/uL (0.1-1.2); Monocytes Percent Auto 2.8 % (2-11); Neutrophils Percent Auto 89.1 % (45-73); Red Blood Count 3.27 X10*6/uL (4.20-5.50); Red Cell Distribution Width 13.5 % (11.0-16.0); White Blood Count 12.4 X10*3/uL (4.8-10.8)
[2021-11-07] MEDS: Piperacillin Sodium/Tazobactam 4.5 GM in 0.9 % Sodium Chloride 100 ML IV (05:50)
[2021-11-07] MEDS: Fondaparinux Sodium 7.5 MG/0.6 ML SYRINGE SUBCUT (05:50)
[2021-11-07 06:08] LABS: Platelet Count 95 X10*3/uL (160-400)
[2021-11-07 06:23] LABS: Alanine Aminotransferase 18 U/L (0-31); Albumin Level 2.5 g/dL (3.5-5.0); Alkaline Phosphatase 77 U/L (39-117); Anion Gap 15 (12-20); Aspartate Amino Transferase 26 U/L (5-31); Bilirubin Total 2.3 mg/dL (0.0-1.0); Blood Urea Nitrogen 23 mg/dL (9-16); Calcium 8.4 mg/dL (8.4-10.2); Carbon Dioxide 19 mmol/L (22-29); Chloride 118 mmol/L (96-108); Creatinine Clr Calc Pharmacy 46.7; Estimated Glomerular Filt Rate > 60; Glucose Random 126 mg/dL (60-115); Potassium 2.9 mmol/L (3.3-5.1); Sodium 149 mmol/L (135-145); Total Protein 4.2 g/dL (6.5-8.0)
--- NOTE | 2021-11-07 06:33 | PC.NURSE ---
pt potassium came back at 2.9. PA notified, he ordered 30MEQ k+ to be given over 1 hour.
[2021-11-07] MEDS: Potassium Chloride/H20 40 MEQ/100 ML PIGGYBACK 100 MEQ IV (06:40)
--- NOTE | 2021-11-07 07:39 | PM.CCPN ---
Subjective Subjective Date of Service: 11/07/21 Interval History: 80-year-old female who presents with gram-negative sepsis growing Proteus from the urine and 2/2 blood cultures also positive for Gram-negative organisms presumably the same and according to sensitivities it should respond to Levaquin and so I am stopping Zosyn and switching to Levaquin at this point she still also has a co associated lung issue where at rest she is mildly tachypneic but not distressed no accessory muscles or wheezing oxygen saturation on nasal cannula are borderline at about 90% and on the chest x-ray I see sort of upper lobe but perihilar bilateral infiltrates with a possible hint of an air bronchogram and the am just wondering if this is a sort of a mild ARDS in other words a acute lung injury issue related to the Gram-negative sepsis it certainly with tie-in CVP is running at 2-3 I do not believe this is a congestive cardiac picture also I got back my slide reading from pathology and indeed the there are multiple schistocytes along with thrombocytopenia and elevated prothrombin time and PTT and therefore all indicating DIC in addition to what made look like as a mild form of ARDS and all of this complication of Gram-negative sepsis due to the at least partial obstructing nature of the stone on the left kidney II still believe that were pending stent placement in the ureter for source control but hemodynamically much better she is hypernatremic and hypokalemic and I do believe that where we are clearly behind on volume relatively due to free water loss and were going to replace this with D5W and potassium and again, my bedside echo did demonstrate mild diffuse hypokinesis with estimated ejection fraction 45-50% with no primary valve or pericardial disease Critical Care Time (minutes): 45 Physical Exam Vital Signs: Vital Signs: Last Vital Signs Temp 98.8 F 11/06/21 21:00 Pulse 112 H 11/07/21 07:00 Resp 28 H 11/07/21 07:00 BP 106/52 L 11/07/21 07:00 Pulse Ox 89 L 11/07/21 07:00 Oxygen Flow Rate 2.5 11/06/21 00:41 BMI result Body Mass Index 27.5 oriented x3 and nonfocal neurologically CVP 2-3 with good bilateral carotid upstrokes and no gallops chest without adventitious sound s abdomen soft with no organomegaly skin is intact Objective Data Labs CBC & Chem 7: 11/07/21 05:22 11/07/21 05:22 Labs: Laboratory Results - last 24 hr 11/07/21 11/07/21 05:22 05:22 WBC 12.4 H RBC 3.27 L Hgb 9.4 L Hct 28.6 L MCV 87.5 MCH 28.7 MCHC 32.9 RDW 13.5 Plt Count 95 L MPV 12.3 Immature Gran % (Auto) 0.7 H Neut % (Auto) 89.1 H Lymph % (Auto) 7.3 L [place] % (Auto) 2.8 Eos % (Auto) 0.0 Baso % (Auto) 0.1 Lymph # (Auto) 0.9 L [place] # (Auto) 0.4 Eos # (Auto) 0.0 Baso # (Auto) 0.0 Abs Immat Gran (auto) 0.09 H Absolute Neuts (auto) 11.0 H Absolute Nucleated RBC 0.000 Nucleated RBC % (auto) 0.0 Sodium 149 H Potassium 2.9 L D Chloride 118 H Carbon Dioxide 19 L Anion Gap 15 BUN 23 H Creatinine 0.85 Estim Creat Clear Calc 46.7 Estimated GFR > 60 Random Glucose 126 H Calcium 8.4 Total Bilirubin 2.3 H AST 26 ALT 18 Alkaline Phosphatase 77 Total Protein 4.2 L Albumin 2.5 L Microbiology Microbiology Results: Microbiology 11/05/21 Unknown Urine Catheterized - Renner Catheter Urine Culture - Final Proteus mirabilis 11/05/21 21:22 Blood - Venous Blood Culture - Preliminary Prelim: GNR Gram Stain only 11/05/21 21:22 Blood - Venous Blood Culture - Preliminary Prelim: GNR Gram Stain only Progress Note: A&P Assessment and plan (1) DIC (disseminated intravascular coagulation): Status: Acute (2) Obstructive nephropathy: Status: Acute (3) Hydronephrosis: Status: Acute (4) Pyonephrosis: Status: Acute (5) RANJITH (acute kidney injury): Status: Acute (6) Septic shock: Status: Acute (7) Severe sepsis: Status: Acute (8) Pneumonia: Status: Acute (9) Hypoxia: Status: Acute (10) Acute UTI: Status: Acute (11) Hypomagnesemia: Status: Acute (12) PVC (premature ventricular contraction): Status: Acute (13) History of CVA (cerebrovascular accident): Status: Acute (14) Cardiomyopathy: Status: Acute (15) Essential hypertension: Status: Acute (16) Dyslipidemia: Status: Acute (17) Hypernatremia: Status: Acute (18) Hypokalemia due to excessive renal loss of potassium: Status: Acute (19) Acute lung injury: Status: Acute Assessment and Plan: at this point she is off pressor support and and because of hypernatremia the indication is that there is relative hypovolemia and of course water in excess of salt loss volume will be replaced by a D5W potassium as well will be replaced and the DIC we will follow expectantly and maintain the Fondaparinux and will continue to follow on the antibiotics in relation to lung function which hopefully will dissipate with treatment of the Gram-negative sepsis and then lastly we await the state ureteral stent placement for for ultimate source control Quality Stroke Does the patient have a stroke diagnosis?: No VTE Prior VTE?: No VTE Risk Level:: Medical - moderate - high VTE Device Contraindication: Treatment Not Indicated VTE Drug Contraindication: N/A - Med Ordered
[2021-11-07 08:23] LABS: INTERNATIONAL NORM RATIO 4.1 (0.9-1.1); Prothrombin Time 48.5 SEC (9.9-13.0)
[2021-11-07] MEDS: Potassium Chloride Packet 20 MEQ PACKET 40 MEQ PO (09:06)
[2021-11-07] MEDS: KCl 20 mEq in 5 % Dextrose 20 MEQ/1,000 ML IV.SOLN 100 MEQ IVCONT ×2 (09:07→19:45)
[2021-11-07] MEDS: levoFLOXacin/D5W 500 MG/100 ML PIGGYBACK 100 MG IV (10:43)
[2021-11-07 11:42] LABS: HIT-Patient Optical Density 0.017 OD UNITS (<OR= 0.300); Heparin Induced Plt Ab NEGATIVE (NEGATIVE)
--- NOTE | 2021-11-07 17:20 | MHC.SL.SWA ---
Speech Pathologist Impression: Oral Phase Dysphagia Risk of Aspiration Due to: Medically Fragile Dysphasia Diet Status: Upgrade Liquid Consistency and Strategies for Safe Swallow: Liquid Intake Recommendation: Thin Liquid Intake Strategies: No Straws Solid Food Consistency: Dietary Recommendations: Chopped/Advanced (NDD3) Additional Modifications to Solid Foods: Provide sauces/gravies where possible with solid foods. Oral Medication Intake: Whole with Liquid Compensatory Strategies and Precautions to be Taken for Safe Swallow: Sitting Upright (90 deg) No Straw Liquids from Cup Small Bites and Sips Alternate Liquids/Solids Supervision While Eating and Drinking for Safe Swallow: Intermittent Supervision Foods to Avoid: Swallowing Recommended Treatments: Compens. Strategy Educat. Recommendation for Speech: Inpatient Speech Therapy Comment: GRAB SETTER to see X1 to check toleration of diet, re-assess swallow, D/C Frequency/Duration: 1X while inpt. Date Range for Service Req: Timeline to reassess: Puppet Master Clinican/Clinical Fellow: No Supervisory Statement: I have reviewed and agree with the student/clinical fellow's documentation: Speech Language Pathologist: Meghna Heaton M.A., CCC-GRAB SETTER
[2021-11-07 17:21] LABS: Anion Gap 8 (12-20); Blood Urea Nitrogen 22 mg/dL (9-16); Calcium 7.7 mg/dL (8.4-10.2); Carbon Dioxide 21 mmol/L (22-29); Chloride 120 mmol/L (96-108); Creatinine Clr Calc Pharmacy 51.5; Estimated Glomerular Filt Rate > 60; Glucose Random 154 mg/dL (60-115); Potassium 3.8 mmol/L (3.3-5.1); Sodium 145 mmol/L (135-145)
[2021-11-08] VITALS (7 sets, daily range): BP systolic 95–117; BP diastolic 54–63; PULSE 87–112; RESP 18–28; TEMP 36.3–36.7; O2SAT 93–96; BMI 28.2
[2021-11-08] MEDS: KCl 20 mEq in 5 % Dextrose 20 MEQ/1,000 ML IV.SOLN 100 MEQ IVCONT ×2 (06:01→14:23)
[2021-11-08] MEDS: levoFLOXacin/D5W 500 MG/100 ML PIGGYBACK 100 MG IV (09:54)
[2021-11-08] MEDS: Fondaparinux Sodium 7.5 MG/0.6 ML SYRINGE SUBCUT (09:55)
[2021-11-08 12:05] LABS: MANUAL DIFF FLAG NO
[2021-11-08 12:15] LABS: INTERNATIONAL NORM RATIO 4.5 (0.9-1.1); Prothrombin Time 52.7 SEC (9.9-13.0)
[2021-11-08 12:15] LABS: VBG HCO3 21 mmol/L (22-26); VBG pCO2 27 mmHg; VBG pH 7.49 (7.32-7.43); VBG pO2 114 mmHg
[2021-11-08 12:16] LABS: Basophils Percent Auto 0.1 % (0-2); Eosinophils Absolute Auto 0.2 X10*3/uL (0.0-0.4); Eosinophils Percent Auto 2.3 % (0-4); Hematocrit 29.2 % (37.0-47.0); Hemoglobin 9.8 g/dl (12.0-16.0); Imm Gran Abs Auto 0.06 X10*3/uL (0.00-0.03); Imm Gran Pct Auto 0.8 % (0.0-0.4); Lymphocytes Absolute Auto 1.6 X10*3/uL (1.2-4.9); Lymphocytes Percent Auto 21.2 % (20-40); Mean Corpuscular HGB Conc 33.6 g/dl (31.0-35.0); Mean Corpuscular Hemoglobin 29.7 pg (27.0-33.0); Mean Corpuscular Volume 88.5 fL (80.0-98.0); Monocytes Absolute Auto 0.3 X10*3/uL (0.1-1.2); Monocytes Percent Auto 3.6 % (2-11); Neutrophils Absolute Auto 5.4 x10*3/uL (2.0-8.3); White Blood Count 7.5 X10*3/uL (4.8-10.8)
[2021-11-08 12:17] LABS: Platelet Count 63 X10*3/uL (160-400)
[2021-11-08 12:17] LABS: Venous Blood Gas Refer to POC result
[2021-11-08 12:18] LABS: Partial Thromboplastin Time 48.3 SEC (24.1-38.0)
[2021-11-08 12:36] LABS: Anion Gap 10 (12-20); Blood Urea Nitrogen 18 mg/dL (9-16); Carbon Dioxide 20 mmol/L (22-29); Chloride 113 mmol/L (96-108); Creatinine Clr Calc Pharmacy 58.1; Estimated Glomerular Filt Rate > 60; Glucose Random 145 mg/dL (60-115); Sodium 139 mmol/L (135-145)
--- NOTE | 2021-11-08 16:13 | MHC.SL.SWA ---
Speech Pathologist Impression: Oral Phase Dysphagia Risk of Aspiration Due to: Medically Fragile Dysphasia Diet Status: Downgrade Liquid Consistency and Strategies for Safe Swallow: Liquid Intake Recommendation: Thin Liquid Intake Strategies: Small Sips No Straws Solid Food Consistency: Dietary Recommendations: Grnd/Mech Altered (NDD2) Additional Modifications to Solid Foods: Recommend DOWNGRADE to GROUND/MECH ALTERED (NDD2) solids and maintain THIN liquids, with pills whole in liquid or puree. Continue aspiration precautions. POLYSOMNOGRAPHIC TECH discussed with RN verbally. Diet order updated by POLYSOMNOGRAPHIC TECH this date. Oral Medication Intake: Whole with Liquid Compensatory Strategies and Precautions to be Taken for Safe Swallow: Sitting Upright (90 deg) Double Swallow No Straw Small Bites and Sips Alternate Liquids/Solids Rate of Ingestion Change Oral Check Supervision While Eating and Drinking for Safe Swallow: Total Supervision (1:1) Swallowing Recommended Treatments: Compens. Strategy Educat. Recommendation for Speech: 1 f/u Distribution Agent Clinican/Clinical Fellow: Yes: Trish Stahl Supervisory Statement: I have reviewed and agree with the student/clinical fellow's documentation: N/A Speech Language Pathologist: Chantel Chen M.A., CCC-POLYSOMNOGRAPHIC TECH
--- NOTE | 2021-11-08 16:40 | P.PNUR_ITS ---
Subjective Subjective Date of Service: 11/09/21 Interval history: Seen in ICU prior to transfer to floor Awake and responsive Marked improvement in laboratory values White count down to 7.5 from 24/12 Creatinine down 0.7 from 1.0 BUN is improving Microbiology shows consistent cultures between urine and blood with Proteus mirabilis Would expect 14 days therapy as directed by Infectious Disease At this point would not warrant intervention with urinary stent Discussed with head of stock Physical Exam Vital Signs: Vital Signs: Last Vital Signs Temp 97.8 F 11/09/21 07:42 Pulse 102 H 11/09/21 07:42 Resp 16 11/09/21 07:42 BP 115/67 11/09/21 07:42 Pulse Ox 94 11/09/21 07:42 Oxygen Flow Rate 2.5 11/06/21 00:41 BMI result Body Mass Index 27.9 Const: General: cooperative, healthy appearing, comfortable and no acute distress Orientation/consciousness: patient oriented x3 HENMT: Face and sinus: Yes normal facial exam Mouth: moist mucous membranes Neck: Neck: Yes normal visual inspection, Yes full ROM and Yes trachea midline Chest: Chest palpation & inspection: normal inspection of the chest Resp: Effort & Inspection: normal respiratory effort, able to speak in complete sentences and no respiratory distress GI: Inspection: Yes normal to inspection Back/Spine/Pelvis: Cervical Spine: normal cervical lordosis Thoracic/Lumbar Spine: thoracic and lumbar spine normal to inspection Skin: General skin exam: no rashes or lesions noted Neuro: General: patient oriented x3, tone normal and moves all extremities Extrem: General: Yes normal to inspection and Yes capillary refill normal Urology Results Labs CBC & Chem 7: 11/08/21 11:59 11/08/21 11:59 Labs: Laboratory Results - last 24 hr 11/08/21 11/08/21 11/08/21 11:59 11:59 11:59 WBC 7.5 RBC 3.30 L Hgb 9.8 L Hct 29.2 L MCV 88.5 MCH 29.7 MCHC 33.6 RDW 14.0 Plt Count 63 L D MPV Not Reportable Immature Gran % (Auto) 0.8 H Neut % (Auto) 72.0 Lymph % (Auto) 21.2 [place] % (Auto) 3.6 Eos % (Auto) 2.3 Baso % (Auto) 0.1 Lymph # (Auto) 1.6 [place] # (Auto) 0.3 Eos # (Auto) 0.2 Baso # (Auto) 0.0 Abs Immat Gran (auto) 0.06 H Absolute Neuts (auto) 5.4 Absolute Nucleated RBC 0.000 Nucleated RBC % (auto) 0.0 PT 52.7 H INR 4.5 H APTT 48.3 H VBG pH VBG pCO2 VBG pO2 VBG HCO3 VBG O2 Saturation VBG Base Excess Sodium 139 Potassium 4.0 Chloride 113 H Carbon Dioxide 20 L Anion Gap 10 L BUN 18 H Creatinine 0.69 Estim Creat Clear Calc 58.1 Estimated GFR > 60 Random Glucose 145 H Calcium 8.0 L Vancomycin Trough 11/08/21 11/09/21 12:09 00:21 WBC RBC Hgb Hct MCV MCH MCHC RDW Plt Count MPV Immature Gran % (Auto) Neut % (Auto) Lymph % (Auto) [place] % (Auto) Eos % (Auto) Baso % (Auto) Lymph # (Auto) [place] # (Auto) Eos # (Auto) Baso # (Auto) Abs Immat Gran (auto) Absolute Neuts (auto) Absolute Nucleated RBC Nucleated RBC % (auto) PT INR APTT VBG pH 7.49 H VBG pCO2 27 VBG pO2 114 VBG HCO3 21 L VBG O2 Saturation 99.0 VBG Base Excess -1.0 Sodium Potassium Chloride Carbon Dioxide Anion Gap BUN Creatinine Estim Creat Clear Calc Estimated GFR Random Glucose Calcium Vancomycin Trough < 3.0 L Progress Note: A&P Assessment and plan (1) Severe sepsis: Status: Acute (2) Pyonephrosis: Status: Acute Assessment and Plan: Continue antibiotics 14 days Fall Risk Details Current Medications: Current Medications Fondaparinux (Fondaparinux Sodium 7.5 Mg/0.6 Ml Syringe) 7.5 mg SUBCUT Q24H MIREYA Last Admin: 11/09/21 05:43 Dose: 7.5 mg Documented by: Potassium Chloride/Dextrose () 20 meq in 1,000 mls @ 100 mls/hr IVCONT .Q10H MIREYA Last Admin: 11/09/21 02:16 Dose: 100 mls/hr Documented by: Levofloxacin (Levaquin) 500 mg in 100 mls @ 100 mls/hr IV Q24H MIREYA Last Infusion: 11/09/21 10:42 Dose: Infused Documented by: Time Spent With Patient Time: Total time spent is greater than 50% in coordination of care (as documented) at patient's floor/unit and/or counseling patient: Time with patient: less than 15 minutes No Severe Sepsis: No Severe Sepsis (Sepsis is resolving) Progress Note: Quality Stroke Does the patient have a stroke diagnosis?: No
--- NOTE | 2021-11-08 20:06 | PC.NURSE ---
Pt seen. Alert but vague. She is [place]. No complaints offered. She is aware that she will be moving to a new room (med-surg). Vitals taken. Afebrile 97.8 temporal scan. Bp 110/61. Heart rate 102. No resp difficulty. O2 sat 94% on room air.Purewick in place and working well, 200 ml clear urine in cannister. Pt repos on side and then supine. Buttocks reddened. Lungs clear. Iv infusing as ordered at 100 ml/hr. Report called to Steve RN and pt en route to room 368.
[2021-11-09 01:44] LABS: Vancomycin Trough < 3.0 mcg/mL (10.0-20.0)
[2021-11-09] MEDS: KCl 20 mEq in 5 % Dextrose 20 MEQ/1,000 ML IV.SOLN 100 MEQ IVCONT ×2 (02:16→14:33)
[2021-11-09 03:23] VITALS: BP 115/63; PULSE 105; RESP 18; TEMP 36.8; O2SAT 95
[2021-11-09] MEDS: Fondaparinux Sodium 7.5 MG/0.6 ML SYRINGE SUBCUT (05:43)
[2021-11-09 06:00] VITALS: BMI 27.9
[2021-11-09 07:42] VITALS: BP 115/67; PULSE 102; RESP 16; TEMP 36.6; O2SAT 94
[2021-11-09] MEDS: levoFLOXacin/D5W 500 MG/100 ML PIGGYBACK 100 MG IV (09:19)
--- NOTE | 2021-11-09 11:31 | MHC.SL.SWA ---
Speech Pathologist Impression: Oral Phase Dysphagia Risk of Aspiration Due to: Medically Fragile Dysphasia Diet Status: No Change Liquid Consistency and Strategies for Safe Swallow: Liquid Intake Recommendation: Thin Liquid Intake Strategies: Small Sips Solid Food Consistency: Dietary Recommendations: Grnd/Mech Altered (NDD2) Additional Modifications to Solid Foods: Recommend continue GROUND/MECH ALTERED (NDD2) solids MOISTENED WITH SAUCE/GRAVY and THIN liquids, with pills whole in liquid or puree. Patient reports difficulty chewing foods that are not soft enough. She also reports prolonged chewing with dry food, resulting in her refusal of meals. Patient recommended to take small bites, moistened with sauce/gravy. Alternate bite of food with sip of liquid as needed. Avoid tough, difficult to chew, and sticky/dry foods. Patient would benefit from total supervision and assistance as needed throughout meals to assist with these accommodations. Continue aspiration precautions. Due to patient's reported difficulties, recommend continue ST intervention during inpatient stay. Message sent to MD, RD, and RN. Diet order confirmed by TITLE CHECKER. Oral Medication Intake: Whole with Liquid Compensatory Strategies and Precautions to be Taken for Safe Swallow: Sitting Upright (90 deg) Double Swallow Small Bites and Sips Alternate Liquids/Solids Rate of Ingestion Change Oral Check Avoid Specific Foods Supervision While Eating and Drinking for Safe Swallow: Total Supervision (1:1) Foods to Avoid: tough, difficult to chew, sticky/dry foods Swallowing Recommended Treatments: Compens. Strategy Educat. Recommendation for Speech: Inpatient Speech Therapy TITLE CHECKER to continue to follow. Manager Commission Clinican/Clinical Fellow: Yes: Trish Stahl Supervisory Statement: I have reviewed and agree with the student/clinical fellow's documentation: Yes Speech Language Pathologist: Chantel Chen M.A., CCC-TITLE CHECKER
[2021-11-09 15:56] VITALS: BP 106/61; PULSE 108; RESP 18; TEMP 36.1; O2SAT 95
[2021-11-10] VITALS: BP 100/60; PULSE 103; RESP 17; TEMP 36.5; O2SAT 92
[2021-11-10] MEDS: KCl 20 mEq in 5 % Dextrose 20 MEQ/1,000 ML IV.SOLN 100 MEQ IVCONT (01:44)
[2021-11-10] MEDS: Fondaparinux Sodium 7.5 MG/0.6 ML SYRINGE SUBCUT (05:27)
[2021-11-10 06:00] VITALS: BMI 28.0
[2021-11-10 07:36] VITALS: BP 137/83; PULSE 109; RESP 18; TEMP 36.1; O2SAT 94
[2021-11-10] MEDS: levoFLOXacin/D5W 500 MG/100 ML PIGGYBACK 100 MG IV (10:16)
--- NOTE | 2021-11-10 11:12 | MHC.SL.SWA ---
Speech Pathologist Impression: Oral Phase Dysphagia Risk of Aspiration Due to: Medically Fragile Dysphasia Diet Status: No Change Liquid Consistency and Strategies for Safe Swallow: Liquid Intake Recommendation: Thin Liquid Intake Strategies: Small Sips Solid Food Consistency: Dietary Recommendations: Grnd/Mech Altered (NDD2) Additional Modifications to Solid Foods: Recommend continue GROUND/MECH ALTERED (NDD2) solids MOISTENED WITH SAUCE/GRAVY and THIN liquids, with pills whole in liquid or puree. Patient reports difficulty chewing foods that are not soft enough. She also reports prolonged chewing with dry food, resulting in her refusal of meals. Patient recommended to take small bites, moistened with sauce/gravy. Alternate bite of food with sip of liquid as needed. Avoid tough, difficult to chew, and sticky/dry foods. Patient would benefit from total supervision and assistance as needed throughout meals to assist with these accommodations and tray set up. Continue aspiration precautions. Diet order confirmed by INSULATION BLANKET MAKER this date. Further ST intervention no longer warranted as patient is on safest, least restrictive diet. Please re-refer if there are any changes or further concern. Oral Medication Intake: Whole with Liquid Compensatory Strategies and Precautions to be Taken for Safe Swallow: Sitting Upright (90 deg) Double Swallow Small Bites and Sips Alternate Liquids/Solids Rate of Ingestion Change Oral Check Avoid Specific Foods Supervision While Eating and Drinking for Safe Swallow: Total Supervision (1:1) Foods to Avoid: tough, difficult to chew, sticky/dry foods Swallowing Recommended Treatments: Compens. Strategy Educat. Recommendation for Speech: MARIANA speech Conveyor System Operator Clinican/Clinical Fellow: Yes: Trish Stahl Supervisory Statement: I have reviewed and agree with the student/clinical fellow's documentation: Yes Speech Language Pathologist: Chantel Chen M.A., CCC-INSULATION BLANKET MAKER
[2021-11-10 15:33] VITALS: BP 117/68; PULSE 114; RESP 16; TEMP 36.6; O2SAT 94
[2021-11-10 16:24] LABS: SCAN SMEAR FLAG 1; White Blood Count 15.5 X10*3/uL (4.8-10.8)
[2021-11-10 16:26] LABS: Basophils Percent Auto 0.1 % (0-2); Eosinophils Absolute Auto 0.2 X10*3/uL (0.0-0.4); Eosinophils Percent Auto 1.4 % (0-4); Hematocrit 33.6 % (37.0-47.0); Hemoglobin 11.4 g/dl (12.0-16.0); Imm Gran Abs Auto 0.41 X10*3/uL (0.00-0.03); Imm Gran Pct Auto 2.6 % (0.0-0.4); Lymphocytes Absolute Auto 2.5 X10*3/uL (1.2-4.9); Lymphocytes Percent Auto 16.3 % (20-40); Mean Corpuscular HGB Conc 33.9 g/dl (31.0-35.0); Mean Corpuscular Hemoglobin 29.8 pg (27.0-33.0); Mean Corpuscular Volume 87.7 fL (80.0-98.0); Mean Platelet Volume 14.2 fL (9.4-12.3); Monocytes Absolute Auto 0.8 X10*3/uL (0.1-1.2); Monocytes Percent Auto 4.9 % (2-11); Neutrophils Absolute Auto 11.5 x10*3/uL (2.0-8.3); Neutrophils Percent Auto 74.7 % (45-73); Red Blood Count 3.83 X10*6/uL (4.20-5.50); Red Cell Distribution Width 13.9 % (11.0-16.0)
[2021-11-10 16:31] LABS: Fibrinogen 567 MG/DL (259-690); INTERNATIONAL NORM RATIO 2.2 (0.9-1.1); Prothrombin Time 25.9 SEC (9.9-13.0)
[2021-11-10 16:33] LABS: D Dimer High Sensitivity 577 NG/ML
[2021-11-10 16:42] LABS: Anion Gap 11 (12-20); Blood Urea Nitrogen 9 mg/dL (9-16); Calcium 8.1 mg/dL (8.4-10.2); Carbon Dioxide 22 mmol/L (22-29); Chloride 108 mmol/L (96-108); Creatinine Clr Calc Pharmacy 62.6; Estimated Glomerular Filt Rate > 60; Glucose Random 105 mg/dL (60-115); Potassium 4.3 mmol/L (3.3-5.1); Sodium 137 mmol/L (135-145)
[2021-11-10 16:44] LABS: MANUAL DIFF FLAG NO; PLT ABN DIST 1; Platelet Count 91 X10*3/uL (160-400)
--- NOTE | 2021-11-10 17:56 | HO.PM.IMPN ---
Subjective Subjective Date of Service: 11/10/21 Interval History: seen and examined. follow up for gram negative bacteremia/septic shock/proteus UTI initially treated in the ICU reports feeling much better denies any SOB, cough, abdominal pain, fever, chills Review of Systems Review of Systems: Yes all other systems are reviewed and are negative Constitutional Constitutional: Denies chills and Denies fever(s) Cardiovascular Cardiovascular: Denies chest pain Respiratory Respiratory: Denies cough Gastrointestinal Gastrointestinal: Denies abdominal pain Physical Exam Vital Signs: Vital Signs: Last Vital Signs Temp 97.9 F 11/10/21 15:33 Pulse 114 H 11/10/21 15:33 Resp 16 11/10/21 15:33 BP 117/68 11/10/21 15:33 Pulse Ox 94 11/10/21 15:33 Oxygen Flow Rate 2.5 11/06/21 00:41 BMI result Body Mass Index 28.0 Const: General: cooperative, comfortable, no acute distress, awake and Physically active Nutritional Appearance: well nourished HENMT: Head: Yes normocephalic and Yes atraumatic Eyes: Sclerae: sclerae normal Chest: Chest palpation & inspection: normal inspection of the chest Resp: Effort & Inspection: normal respiratory effort and no respiratory distress Cardio: Rate: tachycardic Rhythm: regular rhythm GI: Palpation (GI): Soft to palpation and nontender Neuro: Cranial nerves: Yes CN's II-XII intact bilaterally and Yes Bilaterally intact EOM present Extrem: Other: able to move all 4 extremities spontaneously Objective Data Active Medications Fondaparinux (Fondaparinux Sodium 7.5 Mg/0.6 Ml Syringe) 7.5 mg SUBCUT Q24H MIREYA Last Admin: 11/10/21 05:27 Dose: 7.5 mg Documented by: YUN Levofloxacin (Levaquin) 500 mg in 100 mls @ 100 mls/hr IV Q24H MIREYA Last Infusion: 11/10/21 12:36 Dose: 0 mls/hr Documented by: ELYSE Labs CBC & Chem 7: 11/10/21 16:16 11/10/21 16:16 Labs: Laboratory Results - last 24 hr 11/10/21 11/10/21 11/10/21 16:16 16:16 16:16 MCV 87.7 MCH 29.8 MCHC 33.9 RDW 13.9 Plt Count 91 L D MPV 14.2 H Immature Gran % (Auto) 2.6 H Neut % (Auto) 74.7 H Lymph % (Auto) 16.3 L [place] % (Auto) 4.9 Eos % (Auto) 1.4 Baso % (Auto) 0.1 Lymph # (Auto) 2.5 [place] # (Auto) 0.8 Eos # (Auto) 0.2 Baso # (Auto) 0.0 Abs Immat Gran (auto) 0.41 H Absolute Neuts (auto) 11.5 H Absolute Nucleated RBC 0.000 Nucleated RBC % (auto) 0.0 PT 25.9 H INR 2.2 H D Fibrinogen D-Dimer High Sensitivty Anion Gap 11 L Estim Creat Clear Calc 62.6 Estimated GFR > 60 Random Glucose 105 Calcium 8.1 L 11/10/21 16:16 MCV MCH MCHC RDW Plt Count MPV Immature Gran % (Auto) Neut % (Auto) Lymph % (Auto) [place] % (Auto) Eos % (Auto) Baso % (Auto) Lymph # (Auto) [place] # (Auto) Eos # (Auto) Baso # (Auto) Abs Immat Gran (auto) Absolute Neuts (auto) Absolute Nucleated RBC Nucleated RBC % (auto) PT INR Fibrinogen 567 D-Dimer High Sensitivty 577 Anion Gap Estim Creat Clear Calc Estimated GFR Random Glucose Calcium Assessment and Plan (1) Bacteremia: Status: Acute Assessment and Plan: this is a 80-year-old female with history of stroke, hypertension, hyperlipidemia, she cardiomyopathy the admitted to the ICU for septic shock secondary to Gram-negative bacteremia/Klebsiella UTI septic shock s/p ICU/pressors secondary to UTI/bacteremia Bacteremia/UTI UCx and BCx growing proteus Imaging showed mild left hydronephrosis with a stone in the UPJ area with concern over obstruction -- seen by urology, no stent/intervention indicated -continue IV levaquin for total 14 days coagulopathy concern for DIC in ICU due to elevated PTT, thrombocytopenia with schistocytes platelets, INR improving Cardiomyopathy appears euvolemic at this time not on diuretics at baseline will resume BB lisinopril on hold h/o HTN BP controlled hold norvasc, lisinopril for now h/o CVA plavix on hold resume statin PT eval for d/c planning dvt ppx - continue arixtra attending - dr arguello Quality Stroke Does the patient have a stroke diagnosis?: No VTE Prior VTE?: No VTE Risk Level:: Medical - moderate - high VTE Device Contraindication: Treatment Not Indicated VTE Drug Contraindication: N/A - Med Ordered
[2021-11-10 21:36] VITALS: BP 109/56; PULSE 117; RESP 18; TEMP 36.1; O2SAT 93
[2021-11-10 21:37] VITALS: BP 109/56; PULSE 113
[2021-11-10] MEDS: Atorvastatin Calcium 10 MG TABLET PO (21:37)
[2021-11-10] MEDS: carvediloL 25 MG TABLET PO (21:37)
[2021-11-11] VITALS (8 sets, daily range): BP systolic 85–114; BP diastolic 43–59; PULSE 67–95; RESP 17–18; TEMP 36.3–37; O2SAT 94–97; BMI 29.4
[2021-11-11] MEDS: Lactated Ringers 500 ML 999 ML IV (01:11)
--- NOTE | 2021-11-11 01:46 | PC.NURSE ---
Addendum entered by Daina Pereiar RN 11/11/21 03:30: leg of bed is elevated, BP rechecked= 88/50 after the bolus, Dr. Griggs made aware, BP rechecked another time=90/56. Original Note: Pt had a BP =85/43 around midnight, manually = 86/50 pt is arousable c/o feeling weak, Dr. Griggs was notified, LR 500ml bolus ordered.
[2021-11-11] MEDS: Fondaparinux Sodium 7.5 MG/0.6 ML SYRINGE SUBCUT (05:49)
[2021-11-11 06:11] LABS: MANUAL DIFF FLAG NO
[2021-11-11 06:37] LABS: INTERNATIONAL NORM RATIO 2.1 (0.9-1.1); Prothrombin Time 24.2 SEC (9.9-13.0)
[2021-11-11 06:49] LABS: Anion Gap 9 (12-20); Blood Urea Nitrogen 12 mg/dL (9-16); Calcium 7.8 mg/dL (8.4-10.2); Carbon Dioxide 24 mmol/L (22-29); Chloride 108 mmol/L (96-108); Creatinine Clr Calc Pharmacy 61.6; Estimated Glomerular Filt Rate > 60; Glucose Random 126 mg/dL (60-115); Sodium 137 mmol/L (135-145)
[2021-11-11 06:54] LABS: Basophils Percent Auto 0.2 % (0-2); Eosinophils Absolute Auto 0.2 X10*3/uL (0.0-0.4); Eosinophils Percent Auto 1.8 % (0-4); Hematocrit 29.2 % (37.0-47.0); Hemoglobin 9.6 g/dl (12.0-16.0); Imm Gran Abs Auto 0.29 X10*3/uL (0.00-0.03); Imm Gran Pct Auto 2.5 % (0.0-0.4); Lymphocytes Absolute Auto 2.2 X10*3/uL (1.2-4.9); Lymphocytes Percent Auto 18.8 % (20-40); Mean Corpuscular HGB Conc 32.9 g/dl (31.0-35.0); Mean Corpuscular Hemoglobin 29.4 pg (27.0-33.0); Mean Corpuscular Volume 89.6 fL (80.0-98.0); Mean Platelet Volume 13.4 fL (9.4-12.3); Monocytes Absolute Auto 0.6 X10*3/uL (0.1-1.2); Monocytes Percent Auto 4.8 % (2-11); Neutrophils Absolute Auto 8.5 x10*3/uL (2.0-8.3); Neutrophils Percent Auto 71.9 % (45-73); Red Blood Count 3.26 X10*6/uL (4.20-5.50); Red Cell Distribution Width 13.8 % (11.0-16.0); White Blood Count 11.7 X10*3/uL (4.8-10.8)
[2021-11-11 06:55] LABS: Platelet Count 94 X10*3/uL (160-400)
[2021-11-11] MEDS: levoFLOXacin/D5W 500 MG/100 ML PIGGYBACK 100 MG IV (10:01)
[2021-11-11] MEDS: Lactated Ringers 1,000 ML 80 ML IVCONT (10:06)
--- NOTE | 2021-11-11 14:52 | HO.PM.IMPN ---
Subjective Subjective Date of Service: 11/11/21 <SANTIAGO De La Cruz - Last Filed: 11/11/21 15:20> 11/12/21 <Kash Aldrich MD - Last Filed: 11/12/21 07:58> Interval History: seen and examined this morning follow up for sepsis/bacteremia bp low overnight, but patient asymptomatic patient not feeling all that well this morning, having cough productive of phlegm. no shortness of breath <SANTIAGO De La Cruz - Last Filed: 11/11/21 15:20> Review of Systems Review of Systems: Yes all other systems are reviewed and are negative <SANTIAGO De La Cruz - Last Filed: 11/11/21 15:20> Constitutional Constitutional: Denies chills and Denies fever(s) <SANTIAGO De La Cruz - Last Filed: 11/11/21 15:20> Cardiovascular Cardiovascular: Denies chest pain <SANTIAGO De La Cruz - Last Filed: 11/11/21 15:20> Respiratory Respiratory: Denies cough <SANTIAGO De La Cruz - Last Filed: 11/11/21 15:20> Gastrointestinal Gastrointestinal: Denies abdominal pain <SANTIAGO De La Cruz Last Filed: 11/11/21 15:20> Physical Exam Vital Signs: Vital Signs: Last Vital Signs Temp 98.6 F 11/11/21 07:40 Pulse 86 11/11/21 07:40 Resp 18 11/11/21 07:40 BP 108/58 L 11/11/21 07:40 Pulse Ox 97 11/11/21 07:40 Oxygen Flow Rate 2.5 11/06/21 00:41 BMI result Body Mass Index 29.4 <SANTIAGO De La Cruz - Last Filed: 11/11/21 15:20> Const: General: cooperative, comfortable, no acute distress, awake and Physically active <SANTIAGO De La Cruz Last Filed: 11/11/21 15:20> Nutritional Appearance: well nourished <SANTIAGO De La Cruz Last Filed: 11/11/21 15:20> HENMT: Head: Yes normocephalic and Yes atraumatic <SANTIAGO De La Cruz - Last Filed: 11/11/21 15:20> Eyes: Sclerae: sclerae normal <SANTIAGO De La Cruz - Last Filed: 11/11/21 15:20> Chest: Chest palpation & inspection: normal inspection of the chest <SANTIAGO De La Cruz - Last Filed: 11/11/21 15:20> Resp: Effort & Inspection: normal respiratory effort and no respiratory distress <SANTIAGO De La Cruz - Last Filed: 11/11/21 15:20> Cardio: Rate: tachycardic <SANTIAGO De La Cruz - Last Filed: 11/11/21 15:20> Rhythm: regular rhythm <SANTIAGO De La Cruz - Last Filed: 11/11/21 15:20> GI: Palpation (GI): Soft to palpation and nontender <SANTIAGO De La Cruz - Last Filed: 11/11/21 15:20> Neuro: Cranial nerves: Yes CN's II-XII intact bilaterally and Yes Bilaterally intact EOM present <SANTIAGO De La Cruz - Last Filed: 11/11/21 15:20> Extrem: Other: able to move all 4 extremities spontaneously <SANTIAGO De La Cruz - Last Filed: 11/11/21 15:20> Objective Data Active Medications Atorvastatin Calcium (Atorvastatin Calcium 10 Mg Tablet) 10 mg PO BEDTIME [facility] Last Admin: 11/10/21 21:37 Dose: 10 mg Documented by: KELLI Fondaparinux (Fondaparinux Sodium 7.5 Mg/0.6 Ml Syringe) 7.5 mg SUBCUT Q24H [facility] Last Admin: 11/11/21 05:49 Dose: 7.5 mg Documented by: KELLI Levofloxacin (Levaquin) 500 mg in 100 mls @ 100 mls/hr IV Q24H [facility] Last Infusion: 11/11/21 11:25 Dose: 100 mls/hr Documented by: ROZINA Lactated Ringer's (Lr) 1,000 mls @ 80 mls/hr IVCONT .[id number] [facility] Stop: 11/11/21 19:59 Last Admin: 11/11/21 10:06 Dose: 80 mls/hr Documented by: ROZINA <SANTIAGO De La Cruz - Last Filed: 11/11/21 15:20> Labs CBC & Chem 7: : 11/12/21 05:49 11/12/21 05:54 <SANTIAGO De La Cruz - Last Filed: 11/11/21 15:20> Labs: Laboratory Results - last 24 hr 11/10/21 11/10/21 11/10/21 16:16 16:16 16:16 MCV 87.7 MCH 29.8 MCHC 33.9 RDW 13.9 Plt Count 91 L D MPV 14.2 H Immature Gran % (Auto) 2.6 H Neut % (Auto) 74.7 H Lymph % (Auto) 16.3 L [place] % (Auto) 4.9 Eos % (Auto) 1.4 Baso % (Auto) 0.1 Lymph # (Auto) 2.5 [place] # (Auto) 0.8 Eos # (Auto) 0.2 Baso # (Auto) 0.0 Abs Immat Gran (auto) 0.41 H Absolute Neuts (auto) 11.5 H Absolute Nucleated RBC 0.000 Nucleated RBC % (auto) 0.0 PT 25.9 H INR 2.2 H D Fibrinogen D-Dimer High Sensitivty Anion Gap 11 L Estim Creat Clear Calc 62.6 Estimated GFR > 60 Random Glucose 105 Calcium 8.1 L 11/10/21 11/11/21 11/11/21 16:16 06:03 06:03 MCV 89.6 MCH 29.4 MCHC 32.9 RDW 13.8 Plt Count 94 L MPV 13.4 H Immature Gran % (Auto) 2.5 H Neut % (Auto) 71.9 Lymph % (Auto) 18.8 L [place] % (Auto) 4.8 Eos % (Auto) 1.8 Baso % (Auto) 0.2 Lymph # (Auto) 2.2 [place] # (Auto) 0.6 Eos # (Auto) 0.2 Baso # (Auto) 0.0 Abs Immat Gran (auto) 0.29 H Absolute Neuts (auto) 8.5 H Absolute Nucleated RBC 0.000 Nucleated RBC % (auto) 0.0 PT 24.2 H INR 2.1 H Fibrinogen 567 D-Dimer High Sensitivty 577 Anion Gap Estim Creat Clear Calc Estimated GFR Random Glucose Calcium 11/11/21 06:03 MCV MCH MCHC RDW Plt Count MPV Immature Gran % (Auto) Neut % (Auto) Lymph % (Auto) [place] % (Auto) Eos % (Auto) Baso % (Auto) Lymph # (Auto) [place] # (Auto) Eos # (Auto) Baso # (Auto) Abs Immat Gran (auto) Absolute Neuts (auto) Absolute Nucleated RBC Nucleated RBC % (auto) PT INR Fibrinogen D-Dimer High Sensitivty Anion Gap 9 L Estim Creat Clear Calc 61.6 Estimated GFR > 60 Random Glucose 126 H Calcium 7.8 L <SANTIAGO De La Cruz - Last Filed: 11/11/21 15:20> Assessment and Plan (1) Bacteremia: Status: Acute <SANTIAGO De La Cruz - Last Filed: 11/11/21 15:20> (2) Acute UTI: Status: Acute <SANTIAGO De La Cruz - Last Filed: 11/11/21 15:20> Assessment and Plan: this is a 80-year-old female with history of stroke, hypertension, hyperlipidemia, she cardiomyopathy the admitted to the ICU for septic shock secondary to Gram-negative bacteremia/Klebsiella UTI septic shock s/p ICU/pressors secondary to UTI/bacteremia Bacteremia/UTI UCx and BCx growing proteus Imaging showed mild left hydronephrosis with a stone in the UPJ area with concern over obstruction -- seen by urology, no stent/intervention indicated -continue IV levaquin for total 14 days -ID consult pending h/o HTN hypotensive overnight. asymptomatic hold norvasc, metoprolol, lisinopril for now gentle IVF monitor BP closely pneumonia repeat cxr showing persistant pneumonia continue IV levaquin coagulopathy concern for DIC in ICU due to elevated PTT, thrombocytopenia with schistocytes on peripheral smear HIT panel negative platelets, INR improving Cardiomyopathy appears euvolemic at this time not on diuretics at baseline hold metoprolol for hypotension overnight lisinopril on hold h/o CVA plavix on hold resume statin RANJITH. on admission. renal function back to baseline PT rec STR when medically ready for discharge dvt ppx - continue arixtra attending - dr aldrich <SANTIAGO De La Cruz - Last Filed: 11/11/21 15:20> Quality Stroke Does the patient have a stroke diagnosis?: No <SANTIAGO De La Cruz - Last Filed: 11/11/21 15:20> VTE Prior VTE?: No <SANTIAGO De La Cruz - Last Filed: 11/11/21 15:20> VTE Risk Level:: Medical - moderate - high <SANTIAGO De La Cruz - Last Filed: 11/11/21 15:20> VTE Device Contraindication: Treatment Not Indicated <SANTIAGO De La Cruz - Last Filed: 11/11/21 15:20> VTE Drug Contraindication: N/A - Med Ordered <SANTIAGO De La Cruz - Last Filed: 11/11/21 15:20>
[2021-11-11] MEDS: Atorvastatin Calcium 10 MG TABLET PO (20:41)
[2021-11-12 06:00] VITALS: BMI 28.9
[2021-11-12 06:15] LABS: Basophils Percent Auto 0.2 % (0-2); Hemoglobin 9.4 g/dl (12.0-16.0); NRBC Pct Auto 0.2 /100WBC (0.0-0.2); Red Cell Distribution Width 13.8 % (11.0-16.0); SCAN SMEAR FLAG 1
[2021-11-12 06:17] LABS: Eosinophils Absolute Auto 0.2 X10*3/uL (0.0-0.4); Eosinophils Percent Auto 1.4 % (0-4); Hematocrit 28.2 % (37.0-47.0); Imm Gran Abs Auto 0.34 X10*3/uL (0.00-0.03); Imm Gran Pct Auto 2.6 % (0.0-0.4); Lymphocytes Absolute Auto 2.2 X10*3/uL (1.2-4.9); Lymphocytes Percent Auto 16.4 % (20-40); MANUAL DIFF FLAG SCAN; Mean Corpuscular HGB Conc 33.3 g/dl (31.0-35.0); Mean Corpuscular Hemoglobin 29.7 pg (27.0-33.0); Mean Corpuscular Volume 89.2 fL (80.0-98.0); Monocytes Absolute Auto 0.7 X10*3/uL (0.1-1.2); Monocytes Percent Auto 4.9 % (2-11); Neutrophils Absolute Auto 9.8 x10*3/uL (2.0-8.3); Neutrophils Percent Auto 74.5 % (45-73); PLT CLUMP 1; Red Blood Count 3.16 X10*6/uL (4.20-5.50)
[2021-11-12 06:23] LABS: PLT ABN DIST 1
[2021-11-12] MEDS: Fondaparinux Sodium 7.5 MG/0.6 ML SYRINGE SUBCUT (06:32)
[2021-11-12 06:44] LABS: SLIDE REVIEW VERIFIED; White Blood Count 13.1 X10*3/uL (4.8-10.8)
[2021-11-12 06:52] LABS: Anion Gap 9 (12-20); Blood Urea Nitrogen 9 mg/dL (9-16); Calcium 7.7 mg/dL (8.4-10.2); Carbon Dioxide 24 mmol/L (22-29); Chloride 107 mmol/L (96-108); Creatinine Clr Calc Pharmacy 64.5; Estimated Glomerular Filt Rate > 60; Glucose Random 117 mg/dL (60-115); Potassium 3.9 mmol/L (3.3-5.1); Sodium 136 mmol/L (135-145)
[2021-11-12 07:41] VITALS: BP 121/65; PULSE 92; RESP 18; TEMP 36.8; O2SAT 95
[2021-11-12] MEDS: levoFLOXacin/D5W 500 MG/100 ML PIGGYBACK 100 MG IV (09:43)
--- NOTE | 2021-11-12 10:35 | MHC.CM.PN ---
Addendum entered by Ayse Deutsch 11/12/21 10:54: [facility]. PATIENT ACCEPTS BED OFFER Original Note: PATIENT IS AWARE OF RECOMMENDATION FOR STR. SHE IS AGREEABLE TO REFERRALS IN [facility] [place] AND WILL DECIDE FROM ANY ACCEPTING FACILITIES. PATIENT IS NOT VACCINATED AGAINST COVID-19 SHE IS AWARE THAT THIS IS A POTENTIAL BARRIER TO A LOCAL BED OFFER, IF ANY. REFERRALS PLACED AND CM WILL AMEND NOTE WITH ANY PROGRESS
--- NOTE | 2021-11-12 11:31 | P.PNIM_ITS ---
Subjective Subjective Date of Service: 11/12/21 Interval History: seen and examined this morning follow up for septic shock/bacteremia/UTI a little coughing with some phlegm no shortness of breath Review of Systems Review of Systems: Yes all other systems are reviewed and are negative Constitutional Constitutional: Denies chills and Denies fever(s) Cardiovascular Cardiovascular: Denies chest pain Gastrointestinal Gastrointestinal: Denies abdominal pain Physical Exam Verdana 4l Vital Signs: Verdana 4d Verdana 4d Vital Signs: Verdana 4d Verdana 4Bd Last Vital Signs Verdana 4d Automobile Mechanic Motor New 4d Automobile Mechanic Motor New 4d Temp 98.2 F 11/12/21 07:41 Automobile Mechanic Motor New 4d Pulse 92 11/12/21 07:41 Automobile Mechanic Motor NewNew 4d Resp 18 11/12/21 07:41 BP 121/65 11/12/21 07:41 Pulse Ox 95 11/12/21 07:41 Oxygen Flow Rate 2.5 11/06/21 00:41 BMI result Body Mass Index 28.9 Const: General: cooperative, comfortable, no acute distress, awake and Physically active Nutritional Appearance: well nourished HENMT: Head: Yes normocephalic and Yes atraumatic Eyes: Sclerae: sclerae normal Pupils: Equal, round and reactive pupils present Chest: Chest palpation & inspection: normal inspection of the chest Resp: Other: dry crackles primarily left base Effort & Inspection: normal respiratory effort and no respiratory distress Cardio: Rate: tachycardic Rhythm: regular rhythm GI: Palpation (GI): Soft to palpation and nontender Neuro: Cranial nerves: Yes CN's II-XII intact bilaterally, Yes Equal, round and reactive pupils present and Yes Bilaterally intact EOM present Extrem: Other: able to move all 4 extremities spontaneously General: Yes no pedal edema Objective Data Active Medications Atorvastatin Calcium (Atorvastatin Calcium 10 Mg Tablet) 10 mg PO BEDTIME [facility] Last Admin: 11/11/21 20:41 Dose: 10 mg Documented by: YOGESH Fondaparinux (Fondaparinux Sodium 7.5 Mg/0.6 Ml Syringe) 7.5 mg SUBCUT Q24H [facility] Last Admin: 11/12/21 06:32 Dose: 7.5 mg Documented by: BRANDY Levofloxacin (Levaquin) 500 mg in 100 mls @ 100 mls/hr IV Q24H [facility] Last Infusion: 12/19/21 11:00 Dose: 100 mls/hr Documented by: ROZINA Labs CBC & Chem 7: 11/12/21 05:49 11/12/21 05:54 Labs: Laboratory Results - last 24 hr 11/12/21 11/12/21 05:49 05:54 MCV 89.2 MCH 29.7 MCHC 33.3 RDW 13.8 Plt Count Not Reportable MPV Not Reportable Immature Gran % (Auto) 2.6 H Neut % (Auto) 74.5 H Lymph % (Auto) 16.4 L [place] % (Auto) 4.9 Eos % (Auto) 1.4 Baso % (Auto) 0.2 Lymph # (Auto) 2.2 [place] # (Auto) 0.7 Eos # (Auto) 0.2 Baso # (Auto) 0.0 Abs Immat Gran (auto) 0.34 H Absolute Neuts (auto) 9.8 H Absolute Nucleated RBC 0.020 H Nucleated RBC % (auto) 0.2 Smear Tech's Comments VERIFIED Anion Gap 9 L Estim Creat Clear Calc 64.5 Estimated GFR > 60 Random Glucose 117 H Calcium 7.7 L Assessment and Plan (1) Bacteremia: Status: Acute (2) DIC (disseminated intravascular coagulation): Status: Acute (3) RANJITH (acute kidney injury): Status: Acute (4) Septic shock: Status: Acute Assessment and Plan: this is a 80-year-old female with history of stroke, hypertension, hyperlipid emia, she cardiomyopathy the admitted to the ICU for septic shock secondary to Gram-negative bacteremia/Klebsiella UTI septic shock s/p ICU/pressors secondary to UTI/bacteremia Bacteremia/UTI UCx and BCx growing proteus Imaging showed mild left hydronephrosis with a stone in the UPJ area with con cern over obstruction -- seen by urology, no stent/intervention indicated -continue IV levaquin for 14 days -ID consult pending h/o HTN metoprolol resumed 11/10, pt became hypotensive, metoprolol stopped hold norvasc and lisinopril have been on hold since admission hypotension resolved with gentle IVF and has been stable since monitor BP closely pneumonia diagnosed with pneumonia prior to admission and the concern over some degree of lung injury ?mild ARDS r/t sepsis while in ICU repeat cxr showing persistent pneumonia, no new infiiltrates and improvement in aeration of left lower lobe not requiring oxygen at this time continue IV levaquin coagulopathy concern for DIC in ICU due to elevated PTT, thrombocytopenia with schistocytes on peripheral smear HIT panel negative platelets, INR improving Cardiomyopathy appears euvolemic at this time not on diuretics at baseline metoprolol and lisinopril on hold h/o CVA plavix on hold for thrombocytopenia/coagulopathy continue statin RANJITH. on admission. renal function back to baseline PT rec STR, pt amenable; has bed at SNF for tomorrow dvt ppx - continue arixtra attending - dr loaiza Quality Stroke Does the patient have a stroke diagnosis?: No VTE Prior VTE?: No VTE Risk Level:: Medical - moderate - high VTE Device Contraindication: Treatment Not Indicated VTE Drug Contraindication: N/A - Med Ordered
--- NOTE | 2021-11-12 11:53 | MHC.CM.PN ---
HCP COMPLETED AND UPLOADED INTO [employer]. COPY ALSO IN CHART. IMM 11/12 SIGNED AND ALSO IN CHART
[2021-11-12 15:52] VITALS: BP 133/63; PULSE 104; RESP 18; TEMP 36.9; O2SAT 94
[2021-11-12 19:50] VITALS: BP 128/60; PULSE 101; RESP 18; TEMP 36.6; O2SAT 93
[2021-11-12] MEDS: Atorvastatin Calcium 10 MG TABLET PO (20:31)
[2021-11-12 23:44] VITALS: BP 110/56; PULSE 103; RESP 18; TEMP 36.3; O2SAT 95
[2021-11-13 04:49] LABS: MANUAL DIFF FLAG NO
[2021-11-13 04:59] LABS: Basophils Percent Auto 0.2 % (0-2); Eosinophils Absolute Auto 0.1 X10*3/uL (0.0-0.4); Eosinophils Percent Auto 0.8 % (0-4); Hematocrit 27.5 % (37.0-47.0); Hemoglobin 9.3 g/dl (12.0-16.0); Imm Gran Abs Auto 0.41 X10*3/uL (0.00-0.03); Imm Gran Pct Auto 3.1 % (0.0-0.4); Lymphocytes Absolute Auto 2.2 X10*3/uL (1.2-4.9); Lymphocytes Percent Auto 16.7 % (20-40); Mean Corpuscular HGB Conc 33.8 g/dl (31.0-35.0); Mean Corpuscular Volume 88.7 fL (80.0-98.0); Mean Platelet Volume 12.5 fL (9.4-12.3); Monocytes Absolute Auto 0.7 X10*3/uL (0.1-1.2); Monocytes Percent Auto 5.2 % (2-11); Neutrophils Absolute Auto 9.8 x10*3/uL (2.0-8.3); Platelet Count 186 X10*3/uL (160-400); Red Cell Distribution Width 13.8 % (11.0-16.0); White Blood Count 13.2 X10*3/uL (4.8-10.8)
[2021-11-13 05:06] LABS: Anion Gap 10 (12-20); Blood Urea Nitrogen 7 mg/dL (9-16); Carbon Dioxide 26 mmol/L (22-29); Chloride 105 mmol/L (96-108); Creatinine Clr Calc Pharmacy 60.7; Estimated Glomerular Filt Rate > 60; Glucose Random 116 mg/dL (60-115); Potassium 3.7 mmol/L (3.3-5.1); Sodium 137 mmol/L (135-145)
[2021-11-13 06:00] VITALS: BMI 28.6
[2021-11-13] MEDS: levoFLOXacin/D5W 500 MG/100 ML PIGGYBACK 100 MG IV (07:23)
[2021-11-13] MEDS: Fondaparinux Sodium 7.5 MG/0.6 ML SYRINGE SUBCUT (07:23)
[2021-11-13 08:00] VITALS: BP 117/58; PULSE 95; RESP 18; TEMP 36.9; O2SAT 95
[2021-11-13 09:26] VITALS: BP 117/58; PULSE 95; O2SAT 95
--- NOTE | 2021-11-13 12:17 | PM.DS ---
DS: Providers Provider Date of Service: 11/13/21 <Melvina Hutson NP - Last Filed: 11/13/21 12:30> Date of admission: 11/06/21 00:41 <Melvina Hutson NP - Last Filed: 11/13/21 12:30> Primary care physician: Dany Villa MD <Melvina Hutson NP - Last Filed: 11/13/21 12:30> Consults: 11/06/21 03:48 Consult to Urology Routine Consulting Provider: Samson Cotton Reason for consultation: Pyonephrosis/ renal calculi Has provider been notified: No 11/11/21 11:05 Consult to Infectious Diseases Routine Consulting Provider: Lorna Gan Reason for consultation: icu downgrade, septic shock, bacteremia Has provider been notified: No <Melvina Hutson NP - Last Filed: 11/13/21 12:30> Attending physician on discharge: Peter House <Melvina Hutson NP - Last Filed: 11/13/21 12:30> Discharging clinician: Melvina Hutson <Melvina Hutson NP - Last Filed: 11/13/21 12:30> DS: Diagnosis Discharge Diagnosis (1) Bacteremia: Status: Acute <Melvina Hutson NP - Last Filed: 11/13/21 12:30> (2) DIC (disseminated intravascular coagulation): Status: Acute <Melvina Hutson NP - Last Filed: 11/13/21 12:30> (3) RANJITH (acute kidney injury): Status: Acute <Melvina Hutson NP - Last Filed: 11/13/21 12:30> (4) Septic shock: Status: Acute <Melvina Hutson NP - Last Filed: 11/13/21 12:30> DS: Summary Hospital Course Hospital Course: HP as per admitting provider This is a? 80-year-old female with a past medical history of hypertension, cardiomyopathy ( Echo 2020 normal EF),? ? CVA, dyslipidemia, osteoporosis, and hyperparathyroidism? who presented to the emergency room with complaints of dyspnea.? Patient also reported? lower abdominal discomfort. ? She was recently diagnosed with community acquired pneumonia 10/31/21? and started on doxycycline.??In the emergency room, patient noted to be tachypneic, respiratory rate in the 30s,? tachycardic,? with hypotension as low as 78/41.?Laboratory data? significant for? WBC 23.8, hemoglobin 10.7, hematocrit 32.1, potassium 3.1, CO2 16, BUN 22, creatinine 1.28, lactic acid 6.9,? magnesium 1.1,? total bilirubin 3.1,? alk-phos 136,? total protein 4.1, and albumin 2.3. Urine:? positive for? UTIImaging:?Chest CT: I personally reviewed imaging, does have some consolidation, but does not correlate with active pneumonia. Abdominal CT: Mild left hydronephrosis with a calculus in the renal pelvis measuring 6 mm. Given the history of UTI, this could represent pyonephrosis. Few additional scattered left renal calculi also noted.ED course:? received 1.5 L? normal saline,? Zosyn, ? magnesium,? require placement of central line for initiation of Levophed.?Patient is being admitted to ICU for the management of septic shock likely from? urinary source and pressors support Septic shock. Patient only Olive admitted to ICU requiring pressor support due to hypotension. Received sepsis fluid bolus. Sepsis resolved and patient was transferred to intermediate care unit where her blood pressure has remained stable but low and anti hypertensive medications have been held. They will continue to be held and patient's blood pressure can be monitored, if she has rebound hypertension consider restarting her medications. Bacteremia secondary to urinary tract infection. Urine and blood culture showing Proteus mirabilis susceptible to Levaquin which she was started on November 07. Will continue total of 2 weeks of Levaquin. Hydronephrosis with Ureteral stone. seen and examined by Urology, symptoms improved and urinary stent was not warranted. Initially treated with Zosyn, will continue total 2 weeks of Levaquin. Coagulopathy . Initial concern for DIC with elevated PTT, thrombocytopenia and cysto sites. Started on Arixtra however HIT panel negative and this will be discontinued. Pneumonia. Diagnosed prior to admission with concern of lung injury versus mild ARDS. Had been on doxycycline. Treated with IV Levaquin, no oxygen requirements on discharge. <Melvina Hutson NP - Last Filed: 11/13/21 12:30> Time Spent with Patient Time attestation: Total time spent providing and/or coordinating discharge services: <Melvina Hutson NP - Last Filed: 11/13/21 12:30> Discharge coordination time: Greater than 30 minutes <Melvina Hutson NP - Last Filed: 11/13/21 12:30> Quality: Stroke Does the patient have a stroke diagnosis?: No <Melvian Hutson NP - Last Filed: 11/13/21 12:30> Physical Exam Vital Signs: Vital Signs: Last Vital Signs Temp 98.5 F 11/13/21 08:00 Pulse 95 11/13/21 09:26 Resp 18 11/13/21 08:00 BP 117/58 L 11/13/21 09:26 Pulse Ox 95 11/13/21 09:26 Oxygen Flow Rate 2.5 11/06/21 00:41 BMI result Body Mass Index 28.6 <Melvina Hutson NP - Last Filed: 11/13/21 12:30> Appearing in no acute distress head is normocephalic atraumatic eyes pupils are PERRLA sclera is anicteric mouth throat mucous membranes are intact and moist neck is supple no lymphadenopathy, no JVD noted lung sounds are clear to auscultation heart regular rate rhythm, clear S1, S2 positive bowel sounds, abdomen is soft, nontender neuro patient is alert x3, no focal deficits <Melvina Hutson NP - Last Filed: 11/13/21 12:30> DS: Data Data Completed and Pending Labs on day of discharge: Laboratory Results - last 24 hr 11/13/21 11/13/21 04:04 04:04 WBC 13.2 H RBC 3.10 L Hgb 9.3 L Hct 27.5 L MCV 88.7 MCH 30.0 MCHC 33.8 RDW 13.8 Plt Count 186 D MPV 12.5 H Immature Gran % (Auto) 3.1 H Neut % (Auto) 74.0 H Lymph % (Auto) 16.7 L [place] % (Auto) 5.2 Eos % (Auto) 0.8 Baso % (Auto) 0.2 Lymph # (Auto) 2.2 [place] # (Auto) 0.7 Eos # (Auto) 0.1 Baso # (Auto) 0.0 Abs Immat Gran (auto) 0.41 H Absolute Neuts (auto) 9.8 H Absolute Nucleated RBC 0.000 Nucleated RBC % (auto) 0.0 Sodium 137 Potassium 3.7 Chloride 105 Carbon Dioxide 26 Anion Gap 10 L BUN 7 L Creatinine 0.67 Estim Creat Clear Calc 60.7 Estimated GFR > 60 Random Glucose 116 H Calcium 8.0 L <Melvina Hutson NP - Last Filed: 11/13/21 12:30> Discharge Plan Discharge Anticipated Discharge Date/Time: 11/13/21 11:52 <Melvina Hutson NP - Last Filed: 11/13/21 12:30> Patient Disposition: Xfer Inpatient Rehab Fac <Melvina Hutson NP - Last Filed: 11/13/21 12:30> Discharge Diagnosis: Septic shock Bacteremia secondary to UTI Pneumonia <Melvina Hutson NP - Last Filed: 11/13/21 12:30> Septic shock Bacteremia secondary to UTI Pneumonia <Peter House MD - Last Filed: 11/14/21 09:49> [facility]errals[facility] [Other] - 1 Day (SHORT TERM REHAB AT [facility] AT 1300 TODAY CALLED TO [facility] SARABJIT GARCÍA ABD GAVE HIM THE ADDRESS AND -JACKIE NUMBER) Dany Villa MD [Primary Care Provider] - 1 Week <Melvina Hutson NP - Last Filed: 11/13/21 12:30> Discharge Medications: New levofloxacin 500 mg tablet 500 mg PO DAILY Qty: 8 RF: 0 Continued clopidogrel 75 mg tablet 75 mg PO DAILY Qty: 90 RF: 3 simvastatin 20 mg tablet 20 mg PO BEDTIME Qty: 90 RF: 3 vitamin A 10,000 unit capsule 10,000 unit PO DAILY RF: 0 vitamin B complex [B Complex-Vitamin B12] Tablet 1 tab PO DAILY RF: 0 multivitamin Tablet 1 tab PO DAILY RF: 0 garlic 500 mg capsule 500 mg PO DAILY RF: 0 zinc 50 mg tablet 50 mg PO DAILY RF: 0 cranberry 400 mg capsule 400 mg PO DAILY RF: 0 folic acid 1 mg tablet 1 mg PO DAILY RF: 0 flaxseed oil 1,000 mg capsule 1,000 mg PO DAILY RF: 0 cinnamon bark [Cinnamon] 500 mg capsule 500 mg PO DAILY RF: 0 apple cider vinegar 300 mg tablet 300 mg PO DAILY RF: 0 turmeric 400 mg capsule 400 mg PO DAILY RF: 0 [id number] no.226 [id number] mg tablet 1 tab PO DAILY RF: 0 calcium carbonate 600 mg calcium (1,500 mg) tablet 600 mg PO BID RF: 0 Discontinued amlodipine 5 mg tablet 5 mg PO DAILY Qty: 90 RF: 3 lisinopril 20 mg tablet 20 mg PO DAILY Qty: 90 RF: 3 carvedilol [Coreg] 25 mg tablet 25 mg PO BID Qty: 180 RF: 3 doxycycline hyclate 100 mg capsule 100 mg PO BID 7 Days Qty: 14 RF: 0 <Melvina Hutson NP - Last Filed: 11/13/21 12:30> Discharge Orders: Discharge Order (Routine); Ordered 11/13/21 Ordered By: Melvina Hutson <Melvina Hutson NP - Last Filed: 11/13/21 12:30> Diet: advance to usual diet <Melvina Hutson NP - Last Filed: 11/13/21 12:30> advance to usual diet <Peter House MD - Last Filed: 11/14/21 09:49> Activity on Discharge: As tolerated <Melvina Hutson NP - Last Filed: 11/13/21 12:30> As tolerated <Peter House MD - Last Filed: 11/14/21 09:49> Stand Alone Forms: Patient Portal Discharge page <Melvina Hutson NP - Last Filed: 11/13/21 12:30> Care Plan Goals: Complete resolution of symptoms <Melvina Hutson NP - Last Filed: 11/13/21 12:30> Health Concerns: Septic shock Bacteremia secondary to UTI Pneumonia <Melvina Hutson NP - Last Filed: 11/13/21 12:30> Plan of Treatment: Follow up with primary care provider as needed Amlodipine, lisinopril and carvedilol on hold due to hypotension. Follow blood pressure closely and consider restarting once blood pressure is stable. <Melvina Hutson NP - Last Filed: 11/13/21 12:30> Assessment: See discharge summary Attending Attestation: I have personally seen and examined the patient independently (on the date of service as documented by NPP), reviewed the NPP history, exam and?MDM and agree with the assessment and plan as?written <Melvina Hutson NP - Last Filed: 11/13/21 12:30> Discharge Date/Time: 11/13/21 13:22 <Melvina Hutson PHP WEB DEVELOPER - Last Filed: 11/13/21 12:30>
[2021-11-13 12:22] LABS: COVID-19 Test Negative (Negative); IDNOW Serial# 9DD0AD1C
--- NOTE | 2021-11-13 12:22 | MHC.CM.PN ---
NURSE BOILER OR ENGINE OPERATOR NOTE ELECTRONIC MEDICAL RECORD REVIEWED , PATIENT HAS BEEN CLINICALLY ACCEPTED BY [facility] FOR ADMISSION TODAY WITH PRIVATE ROOM (THEY ARE AWARE THAT SHE HAS NOT HAD ANY VACINATIONS ) HCP ON FILE IN ALLDCRIPT CHECKED WITH FACILITY [facility] AND [facility] WILL BE TRANSPORTED TO THERE BY [facility] AT 123:00 TODAY DISCHARGE PLAN [facility] FOR SHORT TERM REHAB TRANSPORTATION [facility] IMMM UPDATED CALLED TO SON CYNTHIA TO [facility] OF THE DISPOSITIN AND TRASNPORT TIME WITH HIS ACCEPTANCE REPEAT COVID TEST DRAWN
== END 2021-11-13 13:22 | DRG 871 ==
LOC: HO.ED 23:35 → HO.EDOVER 11-06 00:49 → HO.ICU 11-06 02:15 → HO.S3 11-08 19:19
PROVIDERS: Internal Medicine Cardiovascular Disease; Physician Assistant Medical; Admitting Provider Registered Nurse Community Health; Emergency Provider Student in an Organized Health Care Education/Training Program; PCP Internal Medicine; Visit Provider Nurse Practitioner Acute Care
DX: A41.4 Sepsis due to anaerobes (principal); R65.21 Severe sepsis with septic shock; J80 Acute respiratory distress syndrome; D65 Disseminated intravascular coagulation [defibrination syndrome]; N13.6 Pyonephrosis; N17.9 Acute kidney failure, unspecified; I42.9 Cardiomyopathy, unspecified; M81.0 Age-related osteoporosis without current pathological fracture; B96.4 Proteus (mirabilis) (morganii) as the cause of diseases classified elsewhere; E83.42 Hypomagnesemia; Z86.73 Personal history of transient ischemic attack (TIA), and cerebral infarction without residual deficits; Z20.822 Contact with and (suspected) exposure to COVID-19; Z87.891 Personal history of nicotine dependence; Z79.02 Long term (current) use of antithrombotics/antiplatelets; Z79.899 Other long term (current) drug therapy
CPT/HCPCS: 0241U; 36415; 71045; 71250; 71260; 74176; 74177; 80048; 80053; 80202; 81001; 81003; 82272; 82565; 82803; 83540; 83605; 83735; 83880; 84100; 84145; 84484; 85007; 85025; 85027; 85379; 85384; 85610; 85730; 86022; 87040; 87077; 87086; 87088; 87147; 87186; 87205; 87635; 88305; 88342; 92610; 93005; 96361; 96365; 96366; 96367; 97110; 97161; 97162; 99284; 99285; 99291; C1758; C2617; J1652; J1956; J2405; J2543; J3010; J3370; J3475; P9047; Q9967

== ENCOUNTER 2021-11-15 23:28 | Inpatient (IN) | payer MEDICARE, SELFPAY ==
--- NOTE | ~2021-11-15 | CT_ITS ---
EXAMINATION: CT CHEST WITH CONTRAST CT ABDOMEN AND PELVIS WITH CONTRAST CLINICAL INFORMATION: Left lower chest pain. Epigastric pain. COMPARISON: 11/06/2021. TECHNIQUE: Multidetector volumetric imaging was performed through the chest, abdomen and pelvis following the administration of 85 mL of Omnipaque 350 intravenous contrast. Sagittal and coronal reformatted images were obtained on the technologist's workstation. Axial MIP volume rendering provided. This CT examination was performed using dose optimization techniques as appropriate, variously including the following: *Automated exposure control *Adjustment of mA and/or kV according to patient size (this includes techniques or standardized protocols for targeted exams where dose is matched to indication/reason for exam; i.e. extremities or head) *Use of iterative reconstruction technique DLP: 914 mGy-cm. FINDINGS: CHEST: Lungs: The central airways are patent. Patchy opacities are seen anteriorly in the right upper lobe, unchanged from prior. Small left pleural effusion is increased from prior. Persistent patchy dependent opacities bilaterally. Minimal subpleural anterior left lung opacities also are again noted, similar to prior. No pneumothorax. Mild right upper lobe bronchiectasis. Mediastinum: The heart is of normal size. There is no pericardial effusion. Central vascular structures are unremarkable. No hilar or mediastinal lymphadenopathy. Chest Wall/Axilla: No lymphadenopathy. No chest wall mass. ABDOMEN/PELVIS: Liver, Gallbladder, Biliary Tree: The liver is normal in size, shape, and attenuation. No focal hepatic lesion or biliary ductal dilatation is present. The gallbladder is unremarkable with no evidence of radiopaque gallstones, gallbladder wall thickening, or pericholecystic inflammatory changes. Pancreas: Unremarkable. Spleen: Unremarkable. Adrenal Glands: Unremarkable. Kidneys and Ureters: Delayed left nephrogram. Normal positioning of the kidneys. There is redemonstration of mild left hydronephrosis. 0.6 cm calculus in the left renal pelvis is unchanged in positioning. There is a 0.4 cm calculus also in the renal pelvis which is unchanged. This is near the ureteropelvic junction. These are 10 cm from the posterior axillary line. There is also a 0.2 cm left midpole calculus. Bladder: Unremarkable. Gastrointestinal Tract: The stomach is unremarkable. Normal caliber of the small bowel. No obstruction. No colonic wall thickening or inflammatory change. Scattered diverticulosis without diverticulitis. No free air or free fluid. The appendix is not seen. There is no pericecal inflammation to suggest acute appendicitis. Abdominal Wall: No hernia is demonstrated. Lymphovascular Structures: Lymph nodes: Normal. Vascular: Normal caliber aorta with mild atherosclerotic calcification. Pelvic Viscera: Uterus is not seen. No adnexal mass. OSSEOUS STRUCTURES: No suspicious sclerotic or lytic bone lesions are identified. Degenerative changes throughout the spine. DISH. Mild degenerative changes of the hips and at the sacroiliac joints. CT/CT abdomen pelvis w con IMPRESSION: 1. Small left pleural effusion, new from 11/06/2021. The additional multifocal areas of opacity in both lungs are similar in appearance and could be inflammatory or infectious. There could be a component of chronic lung disease as well. Continued follow-up to resolution suggested. 2. Similar appearance of the left kidney with mild hydronephrosis and calculi in the renal pelvis. Superimposed infection is possible with this appearance.
--- NOTE | ~2021-11-15 | FL_ITS ---
EXAMINATION: XR FLUOROSCOPY WITH IMAGES CLINICAL INFORMATION: Cystoscopy. Left retrograde with stent. COMPARISON: None. TECHNIQUE: Fluoroscopy performed by Dr. Samson Cotton. Fluoroscopy time: 17.1 seconds Images: 4 FINDINGS: There is retrograde injection of contrast into the left ureter filling the collecting system. There is a ureteral stent placed. FL/FL guidance in OR IMPRESSION: Fluoroscopic guidance for left-sided pyelogram with left ureteral stent placement. Please refer to procedural report for further information.
--- NOTE | ~2021-11-15 | XR_ITS ---
EXAMINATION: XR CHEST CLINICAL INFORMATION: Chest pain COMPARISON: Chest radiograph 11/11/[address] 11/06/2021 TECHNIQUE: Frontal view of the chest was obtained. FINDINGS: Heart size normal. No evidence of CHF. A small left effusion is unchanged. Some ill-defined patchy densities continue to be present, most prominent in the right upper lobe and left lower lobe. XR/XR chest 1V IMPRESSION: No significant interval change when compared to 11/11/2021. Bilateral patchy infiltrates and small left effusion.
[2021-11-15 23:34] VITALS: BP 140/90; PULSE 98
--- NOTE | 2021-11-15 23:36 | ECG_ITS ---
Test Reason : CP Blood Pressure : / mmHG Vent. Rate : 118 BPM Atrial Rate : 118 BPM P-R Int : 140 ms QRS Dur : 078 ms QT Int : 344 ms P-R-T Axes : 025 013 045 degrees QTc Int : 482 ms Sinus tachycardia with frequent Premature ventricular complexes Otherwise normal ECG When compared with ECG of 05-NOV-2021 21:07, Premature ventricular complexes are now Present Referred By: Sharri Nixon Electronically Signed By:ZEESHAN PEREZ
[2021-11-15 23:37] VITALS: BP 124/55; PULSE 117; RESP 27; TEMP 38.4; O2SAT 93; BMI 27.4
--- NOTE | 2021-11-15 23:47 | PC.NURSE ---
pt placed on supplemental O2 at 2L NC, sat 94%
[2021-11-16] VITALS (15 sets, daily range): BP systolic 101–155; BP diastolic 43–66; PULSE 81–112; RESP 15–24; TEMP 36.1–37.2; O2SAT 91–98
--- NOTE | 2021-11-16 00:13 | PC.NURSE ---
Dr Nixon is aware that pt is febrile and tachycardiac. pt stretcher in lowest locked position, rails raised x2, call rice within reach. Pt verbalizes use of call rice for any/all needs. Pt ST on shelter monitor, BP stable.
[2021-11-16 00:15] LABS: MANUAL DIFF FLAG NO
[2021-11-16 00:17] LABS: Basophils Percent Auto 0.1 % (0-2); Eosinophils Percent Auto 0.2 % (0-4); Hemoglobin 9.1 g/dl (12.0-16.0); Imm Gran Abs Auto 0.21 X10*3/uL (0.00-0.03); Lymphocytes Absolute Auto 1.7 X10*3/uL (1.2-4.9); Mean Corpuscular HGB Conc 33.7 g/dl (31.0-35.0); Mean Corpuscular Hemoglobin 29.8 pg (27.0-33.0); Mean Corpuscular Volume 88.5 fL (80.0-98.0); Mean Platelet Volume 11.1 fL (9.4-12.3); Monocytes Absolute Auto 0.7 X10*3/uL (0.1-1.2); Monocytes Percent Auto 3.3 % (2-11); Neutrophils Absolute Auto 18.9 x10*3/uL (2.0-8.3); Neutrophils Percent Auto 87.4 % (45-73); Platelet Count 311 X10*3/uL (160-400); Red Blood Count 3.05 X10*6/uL (4.20-5.50); Red Cell Distribution Width 14.3 % (11.0-16.0); White Blood Count 21.7 X10*3/uL (4.8-10.8)
[2021-11-16 00:25] LABS: Appearance Urine CLEAR; Color Urine DK YELLOW; Glucose Urine UA NEG (NEG); Leukocyte Esterase Urine NEG (NEG); Nitrite Urine NEG (NEG); Specific Gravity - Urine >= 1.030 (1.005-1.025); Urine Blood NEG (NEG); Urine Ketones 5 MG/DL (NEG); Urine Protein NEG (NEG-TRACE)
[2021-11-16 00:35] LABS: Alanine Aminotransferase 19 U/L (0-31); Albumin Level 2.4 g/dL (3.5-5.0); Alkaline Phosphatase 73 U/L (39-117); Anion Gap 12 (12-20); Aspartate Amino Transferase 22 U/L (5-31); Bilirubin Total 1.1 mg/dL (0.0-1.0); Blood Urea Nitrogen 8 mg/dL (9-16); Calcium 8.4 mg/dL (8.4-10.2); Carbon Dioxide 24 mmol/L (22-29); Chloride 104 mmol/L (96-108); Creatinine Clr Calc Pharmacy 65.5; Estimated Glomerular Filt Rate > 60; Glucose Random 109 mg/dL (60-115); Potassium 3.6 mmol/L (3.3-5.1); Sodium 136 mmol/L (135-145); Total Protein 4.4 g/dL (6.5-8.0)
[2021-11-16] MEDS: 0.9 % Sodium Chloride 1,000 ML 999 ML IV (00:38)
[2021-11-16 00:39] LABS: B Type Natriuretic Peptide 62 pg/mL (<100); Troponin-I High Sensitivity 18.7 ng/L (<3.5-17.0)
--- NOTE | 2021-11-16 00:45 | ED_ITS ---
HPI - Chest Pain General Chief Complaint: Chest Pain Stated Complaint: CP FROM SN[facility] Time Seen by Provider: 11/15/21 23:35 Source: patient Mode of arrival: EMS History of Present Illness HPI narrative: 80-year-old female who is brought in by EMS for complaints of left-sided chest pain that is associated with deep inspiration as well as movem ent and radiates into her back and is sharp in character. Patient states this pain has been ongoing since this afternoon, but states that is worsened over the evening until ?I could not take it anymore?. She otherwise denies any nausea, vomiting, diarrhea, urinary pain/burning/frequency. Related Data Home Medications Medication Instructions Recorded Confirmed cinnamon bark 500 mg capsule 500 mg PO DAILY 09/26/20 11/16/21 (Cinnamon) cranberry 400 mg capsule 400 mg PO DAILY 09/26/20 11/16/21 flaxseed oil 1,000 mg capsule 1,000 mg PO DAILY 09/26/20 11/16/21 folic acid 1 mg tablet 1 mg PO DAILY 09/26/20 11/16/21 garlic 500 mg capsule 500 mg PO DAILY 09/26/20 11/16/21 multivitamin 1 tab PO DAILY 09/26/20 11/16/21 vitamin A 10,000 unit capsule 10,000 unit PO DAILY 09/26/20 11/16/21 vitamin B complex (B 1 tab PO DAILY 09/26/20 11/16/21 Complex-Vitamin B12) zinc 50 mg tablet 50 mg PO DAILY 09/26/20 11/16/21 apple cider vinegar 300 mg tablet 300 mg PO DAILY tab 05/03/21 11/16/21 calcium carbonate 600 mg calcium 600 mg PO BID 05/03/21 11/16/21 (1,500 mg) tablet turmeric 400 mg capsule 500 mg PO DAILY cap 05/03/21 11/16/21 Lactobacillus acidophilus 1 tab PO DAILY 11/16/21 11/16/21 acetaminophen 650 mg tablet 650 mg PO Q6H PRN 11/16/21 11/16/21 bisacodyl 10 mg rectal suppository 10 mg LA PRN 11/16/21 magnesium hydroxide 400 mg/5 mL 30 ml PO DAILY PRN 11/16/21 11/16/21 oral suspension (Milk of Magnesia) Previous Rx's Medication Instructions Recorded levofloxacin 500 mg tablet 500 mg PO DAILY #8 tab 11/13/21 clopidogrel 75 mg tablet 75 mg PO DAILY #90 tab 11/14/21 simvastatin 20 mg tablet 20 mg PO BEDTIME #90 tab 11/14/21 Allergies Allergy/AdvReac Type Severity Reaction Status Date / Time No Known Allergies Allergy Verified 11/16/21 00:21 Review of Systems Review of Systems: Pertinent positives and negatives as stated in HPI 10 point review of systems is otherwise negative. [facility] Past Medical History Source: nursing notes reviewed Medical History Cardiomyopathy Dyslipidemia Essential hypertension High vitamin D level History of CVA (cerebrovascular accident) Hyperparathyroidism Immunization refused Osteoporosis Surgical History History of appendectomy History of colon resection Family History Family History Father Unknown family medical history Mother Unknown family medical history Son No problems noted. Daughter No problems noted. Social History Social History Alcohol intake: never Patient Tobacco Use Status: Former Tobacco user Advance Directives: No Advance Directives Information Provided: No service: No Current occupational status: retired Physical Exam Vital Signs: Vital Signs: Last Vital Signs Temp 101.2 F H 11/15/21 23:37 Pulse 105 H 11/16/21 02:01 Resp 20 11/16/21 02:01 BP 116/51 L 11/16/21 02:01 Pulse Ox 94 11/16/21 02:01 BMI result Body Mass Index 27.4 VITAL SIGNS: Reviewed. GENERAL: Elderly, deconditioned, chronically ill, mild distress. HEAD: Normocephalic/atraumatic EYES: PERRLA, EOMI OROPHARYNX: no oral lesions noted, posterior pharynx clear LUNGS: Normal breath sounds. No adventitious sounds or accessory muscle use. SpO2<94>, reproducible chest wall pain on palpation over lateral aspect as well as anterior chest wall pain on palpation CARDIOVASCULAR: Regular rate and rhythm without noted murmurs, no JVD or lower extremity edema. ABDOMEN: Soft, non-tender, non-distended with bowel sounds MUSCULOSKELETAL: No tenderness, deformities, or effusions noted on gross ins pection. EXTREMITIES: No cyanosis, clubbing or edema. SKIN: Inspection of the skin reveals no rashes NEUROLOGIC: Alert and oriented x 4. Course Course Course Narrative: 80-year-old female with history and clinical presentation consistent with sepsis, currently on antibiotics (levofloxacin) and review of microbiology results demonstrates that this is an appropriate antibiotic although on review of all investigations patient is noted to have a worsening leukocytosis, arrives febrile. Review of all imaging is negative for any new changes to pulmonary findings and no evidence of intra-abdominal changes as well. However, patient does have a new small left pleural effusion which may be contributing to her pleuritic type chest pain. Given that patient does not seem to be responding to levofloxacin a dose of Zosyn was provided. Of note, there are no new murmurs that were noted. This case was discussed with the inpatient hospitalist who accepts admission. Reevaluation(s) Reevaluation #1: Suspect infection not sensitive to Levofloxacin so Zosyn given Time: 00:15 MDM - Chest Pain Lab Data Result diagrams: 11/16/21 00:02 11/16/21 00:02 Labs: Lab Results 11/16/21 11/16/21 11/16/21 Range/Units 00:02 00:02 00:02 WBC 21.7 H (4.8-10.8) X10*3/uL RBC 3.05 L (4.20-5.50) X10*6/uL Hgb 9.1 L (12.0-16.0) g/dl Hct 27.0 L (37.0-47.0) % MCV 88.5 (80.0-98.0) fL MCH 29.8 (27.0-33.0) pg MCHC 33.7 (31.0-35.0) g/dl RDW 14.3 (11.0-16.0) % Plt Count 311 D (160-400) X10*3/uL MPV 11.1 (9.4-12.3) fL Immature Gran % (Auto) 1.0 H (0.0-0.4) % Neut % (Auto) 87.4 H (45-73) % Lymph % (Auto) 8.0 L (20-40) % [place] % (Auto) 3.3 (2-11) % Eos % (Auto) 0.2 (0-4) % Baso % (Auto) 0.1 (0-2) % Lymph # (Auto) 1.7 (1.2-4.9) X10*3/uL [place] # (Auto) 0.7 (0.1-1.2) X10*3/uL Eos # (Auto) 0.0 (0.0-0.4) X10*3/uL Baso # (Auto) 0.0 (0.0-0.2) X10*3/uL Abs Immat Gran (auto) 0.21 H (0.00-0.03) X10*3/uL Absolute Neuts (auto) 18.9 H (2.0-8.3) x10*3/uL Absolute Nucleated RBC 0.000 (0.0-0.012) X10*3/uL Nucleated RBC % (auto) 0.0 (0.0-0.2) /100WBC PT (9.9-13.0) SEC INR (0.9-1.1) Sodium 136 (135-145) mmol/L Potassium 3.6 (3.3-5.1) mmol/L Chloride 104 (96-108) mmol/L Carbon Dioxide 24 (22-29) mmol/L Anion Gap 12 (12-20) BUN 8 L (9-16) mg/dL Creatinine 0.68 (0.5-1.4) mg/dL Estim Creat Clear Calc 65.5 Estimated GFR > 60 Random Glucose 109 (60-115) mg/dL Lactic Acid (0.5-2.0) mmol/L Calcium 8.4 (8.4-10.2) mg/dL Total Bilirubin 1.1 H (0.0-1.0) mg/dL AST 22 (5-31) U/L ALT 19 (0-31) U/L Alkaline Phosphatase 73 (39-117) U/L Troponin I High Sens (<3.5-17.0) ng/L B-Natriuretic Peptide 62 (<100) pg/mL Total Protein 4.4 L (6.5-8.0) g/dL Albumin 2.4 L (3.5-5.0) g/dL Urine Color Urine Appearance Urine pH (5.0-8.0) Ur Specific [place] (1.005-1.025) Urine Protein (NEG-TRACE) MG/DL Urine Glucose (UA) (NEG) MG/DL Urine Ketones (NEG) MG/DL Urine Blood (NEG) Urine Nitrite (NEG) Ur Leukocyte Esterase (NEG) Influenza Type A (PCR) (Negative) Influenza Type B (PCR) (Negative) RSV RNA Qual (PCR) (Negative) SARS-CoV-2 RNA (RT-PCR) (Negative) 11/16/21 11/16/21 11/16/21 Range/Units 00:02 00:02 00:02 WBC (4.8-10.8) X10*3/uL RBC (4.20-5.50) X10*6/uL Hgb (12.0-16.0) g/dl Hct (37.0-47.0) % MCV (80.0-98.0) fL MCH (27.0-33.0) pg MCHC (31.0-35.0) g/dl RDW (11.0-16.0) % Plt Count (160-400) X10*3/uL MPV (9.4-12.3) fL Immature Gran % (Auto) (0.0-0.4) % Neut % (Auto) (45-73) % Lymph % (Auto) (20-40) % [place] % (Auto) (2-11) % Eos % (Auto) (0-4) % Baso % (Auto) (0-2) % Lymph # (Auto) (1.2-4.9) X10*3/uL [place] # (Auto) (0.1-1.2) X10*3/uL Eos # (Auto) (0.0-0.4) X10*3/uL Baso # (Auto) (0.0-0.2) X10*3/uL Abs Immat Gran (auto) (0.00-0.03) X10*3/uL Absolute Neuts (auto) (2.0-8.3) x10*3/uL Absolute Nucleated RBC (0.0-0.012) X10*3/uL Nucleated RBC % (auto) (0.0-0.2) /100WBC PT 20.3 H (9.9-13.0) SEC INR 1.8 H (0.9-1.1) Sodium (135-145) mmol/L Potassium (3.3-5.1) mmol/L Chloride (96-108) mmol/L Carbon Dioxide (22-29) mmol/L Anion Gap (12-20) BUN (9-16) mg/dL Creatinine (0.5-1.4) mg/dL Estim Creat Clear Calc Estimated GFR Random Glucose (60-115) mg/dL Lactic Acid 1.0 (0.5-2.0) mmol/L Calcium (8.4-10.2) mg/dL Total Bilirubin (0.0-1.0) mg/dL AST (5-31) U/L ALT (0-31) U/L Alkaline Phosphatase (39-117) U/L Troponin I High Sens 18.7 H (<3.5-17.0) ng/L B-Natriuretic Peptide (<100) pg/mL Total Protein (6.5-8.0) g/dL Albumin (3.5-5.0) g/dL Urine Color Urine Appearance Urine pH (5.0-8.0) Ur Specific [place] (1.005-1.025) Urine Protein (NEG-TRACE) MG/DL Urine Glucose (UA) (NEG) MG/DL Urine Ketones (NEG) MG/DL Urine Blood (NEG) Urine Nitrite (NEG) Ur Leukocyte Esterase (NEG) Influenza Type A (PCR) (Negative) Influenza Type B (PCR) (Negative) RSV RNA Qual (PCR) (Negative) SARS-CoV-2 RNA (RT-PCR) (Negative) 11/16/21 11/16/21 Range/Units 00:02 00:03 WBC (4.8-10.8) X10*3/uL RBC (4.20-5.50) X10*6/uL Hgb (12.0-16.0) g/dl Hct (37.0-47.0) % MCV (80.0-98.0) fL MCH (27.0-33.0) pg MCHC (31.0-35.0) g/dl RDW (11.0-16.0) % Plt Count (160-400) X10*3/uL MPV (9.4-12.3) fL Immature Gran % (Auto) (0.0-0.4) % Neut % (Auto) (45-73) % Lymph % (Auto) (20-40) % [place] % (Auto) (2-11) % Eos % (Auto) (0-4) % Baso % (Auto) (0-2) % Lymph # (Auto) (1.2-4.9) X10*3/uL [place] # (Auto) (0.1-1.2) X10*3/uL Eos # (Auto) (0.0-0.4) X10*3/uL Baso # (Auto) (0.0-0.2) X10*3/uL Abs Immat Gran (auto) (0.00-0.03) X10*3/uL Absolute Neuts (auto) (2.0-8.3) x10*3/uL Absolute Nucleated RBC (0.0-0.012) X10*3/uL Nucleated RBC % (auto) (0.0-0.2) /100WBC PT (9.9-13.0) SEC INR (0.9-1.1) Sodium (135-145) mmol/L Potassium (3.3-5.1) mmol/L Chloride (96-108) mmol/L Carbon Dioxide (22-29) mmol/L Anion Gap (12-20) BUN (9-16) mg/dL Creatinine (0.5-1.4) mg/dL Estim Creat Clear Calc Estimated GFR Random Glucose (60-115) mg/dL Lactic Acid (0.5-2.0) mmol/L Calcium (8.4-10.2) mg/dL Total Bilirubin (0.0-1.0) mg/dL AST (5-31) U/L ALT (0-31) U/L Alkaline Phosphatase (39-117) U/L Troponin I High Sens (<3.5-17.0) ng/L B-Natriuretic Peptide (<100) pg/mL Total Protein (6.5-8.0) g/dL Albumin (3.5-5.0) g/dL Urine Color DK YELLOW Urine Appearance CLEAR Urine pH 6.0 (5.0-8.0) Ur Specific [place] >= 1.030 H (1.005-1.025) Urine Protein NEG (NEG-TRACE) MG/DL Urine Glucose (UA) NEG (NEG) MG/DL Urine Ketones 5 (NEG) MG/DL Urine Blood NEG (NEG) Urine Nitrite NEG (NEG) Ur Leukocyte Esterase NEG (NEG) Influenza Type A (PCR) NEGATIVE (Negative) Influenza Type B (PCR) NEGATIVE (Negative) RSV RNA Qual (PCR) NEGATIVE (Negative) SARS-CoV-2 RNA (RT-PCR) NEGATIVE (Negative) ECG Data ECG #1: Attestation: I personally reviewed and interpreted this ECG as follows: Prior ECG tracings: available for review (11/05/2021) Interpretation: Sinus tachycardia with PVCs, HR-118, no STEMI, LA/QRS/QTC is within normal limits. Discharge Plan Discharge Clinical Impression: Sepsis, Pleuritic chest pain, Pleural effusion, left, Dehydration Patient Disposition: Admitted As Inpatient Prescriptions: No Action simvastatin 20 mg tablet 20 mg PO BEDTIME Qty: 90 RF: 3 clopidogrel 75 mg tablet 75 mg PO DAILY Qty: 90 RF: 3 levofloxacin 500 mg tablet 500 mg PO DAILY Qty: 8 RF: 0 acetaminophen 650 mg Tablet 650 mg PO Q6H PRN (Reason: Fever) RF: 0 Acidophilus Tablet 1 tab PO DAILY RF: 0 magnesium hydroxide [Milk of Magnesia] 400 mg/5 mL Suspension 30 ml PO DAILY PRN (Reason: Constipation) RF: 0 bisacodyl 10 mg Suppository 10 mg LA PRN (Reason: Constipation) RF: 0 vitamin A 10,000 unit capsule 10,000 unit PO DAILY RF: 0 vitamin B complex [B Complex-Vitamin B12] Tablet 1 tab PO DAILY RF: 0 multivitamin Tablet 1 tab PO DAILY RF: 0 garlic 500 mg capsule 500 mg PO DAILY RF: 0 zinc 50 mg tablet 50 mg PO DAILY RF: 0 cranberry 400 mg capsule 400 mg PO DAILY RF: 0 folic acid 1 mg tablet 1 mg PO DAILY RF: 0 flaxseed oil 1,000 mg capsule 1,000 mg PO DAILY RF: 0 cinnamon bark [Cinnamon] 500 mg capsule 500 mg PO DAILY RF: 0 apple cider vinegar 300 mg tablet 300 mg PO DAILY RF: 0 turmeric 400 mg capsule 500 mg PO DAILY RF: 0 calcium carbonate 600 mg calcium (1,500 mg) tablet 600 mg PO BID RF: 0
[2021-11-16 00:55] LABS: Influenza A PCR NEGATIVE (Negative); Influenza B PCR NEGATIVE (Negative); Resp Syncy Virus RNA Qual PCR NEGATIVE (Negative); SARS COV2 PCR INHOUSE NEGATIVE (Negative)
[2021-11-16 01:04] LABS: INTERNATIONAL NORM RATIO 1.8 (0.9-1.1); Prothrombin Time 20.3 SEC (9.9-13.0)
[2021-11-16] MEDS: iohexoL 350 MG/ML 100 ML INFUS..BTL 85 ML IV (01:46)
[2021-11-16] MEDS: Acetaminophen 325 MG TABLET 975 MG PO (01:52)
--- NOTE | 2021-11-16 02:40 | PC.NURSE ---
PT satting at 88% on RA while sleeping. PT woken up and sat up in bed, O2 sat returned to 95%.
[2021-11-16] MEDS: Piperacillin Sodium/Tazobactam 3.375 GM in 0.9 % Sodium Chloride 50 ML IV ×4 (03:19→22:39)
--- NOTE | 2021-11-16 03:29 | PC.NURSE ---
Per COLLINS Kahn for pt's O2 sat to be 91-93% on RA, pt does not need supplemental O2. This RN removed supplemental O2 from pt.
[2021-11-16 03:41] LABS: Troponin-I High Sensitivity 17.1 ng/L (<3.5-17.0)
--- NOTE | 2021-11-16 04:17 | PC.NURSE ---
Pt reports to this RN that the medial aspect of RLE cortes feels tight, and like there's pressure. No redness, swelling, or heat appreciation on palpation/inspection. Dr Nixon made aware, asking this RN which side pt has deficits from hx of CVA. Pt unable to identify deficits, this RN unable to locate in paperwork that pt arrived to ED with. This RN attempted to review pt's chart and previous visits, but still unable to find unilateral deficits listed 2/2 hx of CVA.
--- NOTE | 2021-11-16 05:32 | PM.IMHP ---
History of Present Illness Date of Service: 11/16/21 Chief Complaint: Left lateral chest pain 80-year-old female with a past medical history of hypertension, hyperlipidemia, cardiomyopathy, history of CVA, hyperparathyroidism, osteoporosis; recent admission to the hospital for septic shock secondary to UTI-discharged on 11/13/2021 to care home on [facility]; presented back today to the hospital with a chief complaint of left lateral chest wall pain/ fever at the care home. Patient reported that she was doing fine at the care home but lately started to develop chest pain located on the left lateral chest wall/upper abdomen; worsens with deep inspiration; hence presented to the ER for further evaluation. Denies any cough or sputum production. Reports of chest pain worsens on leave inspiration, denies any central chest pain; denies any associated shortness of breath, nausea, vomiting, diaphoresis. Patient denies any dysuria. Review of all other systems is negative except mentioned above ER course: Per ER team patient on presentation noted to be in sepsis, noted to have leukocytosis, tachycardia, febrile to 101.2; patient's pain was reproducible; EKG was nonischemic; troponin negative; CT chest showed small left pleural effusion likely contributing pleuritic chest pain; [facility] Medical History Cardiomyopathy Dyslipidemia Essential hypertension High vitamin D level History of CVA (cerebrovascular accident) Hyperparathyroidism Immunization refused Osteoporosis Family History Father Unknown family medical history Mother Unknown family medical history Son No problems noted. Daughter No problems noted. Pertinent family history: as above Surgical History History of appendectomy History of colon resection Social History Alcohol intake: never Patient Tobacco Use Status: Former Tobacco user Advance Directives: No Advance Directives Information Provided: No service: No Current occupational status: retired Meds Allergies Allergy/AdvReac Type Severity Reaction Status Date / Time No Known Allergies Allergy Verified 11/16/21 00:21 Active Medications: Current Medications Acetaminophen (Acetaminophen 325 Mg Tablet) 650 mg PO Q6H PRN PRN Reason: Pain, Mild (Pain Scale 1-3) Clopidogrel Bisulfate (Clopidogrel Bisulfate 75 Mg Tablet) 75 mg PO DAILY [facility] Docusate Sodium (Docusate Sodium 100 Mg Capsule) 100 mg PO DAILY PRN PRN Reason: Constipation Folic Acid (Folic Acid 1 Mg Tablet) 1 mg PO DAILY [facility] Sodium Chloride (Ns) 1,000 mls @ 50 mls/hr IVCONT .Q20H [facility] Piperacillin Sod/Tazobactam (Sod 3.375 gm/ Sodium Chloride) 50 mls @ 100 mls/hr IV Q6H [facility] Melatonin (Melatonin 3 Mg Tablet) 6 mg PO BEDTIME PRN PRN Reason: Insomnia Non-Formulary Medication (Simvastatin) 20 mg PO BEDTIME [facility] Senna (Sennosides 8.6 Mg Tablet) 17.2 mg PO BEDTIME PRN PRN Reason: Constipation Sodium Chloride (0.9 % Sodium Chloride Flush 3 Ml Syringe) 3 ml IVFLUSH QSHIFT [facility] Home Medications Medication Instructions Recorded Confirmed Last Taken Type cinnamon bark 500 mg capsule 500 mg PO DAILY 09/26/20 11/16/21 Unknown History (Cinnamon) cranberry 400 mg capsule 400 mg PO DAILY 09/26/20 11/16/21 Unknown History flaxseed oil 1,000 mg capsule 1,000 mg PO DAILY 09/26/20 11/16/21 Unknown History folic acid 1 mg tablet 1 mg PO DAILY 09/26/20 11/16/21 Unknown History garlic 500 mg capsule 500 mg PO DAILY 09/26/20 11/16/21 Unknown History multivitamin 1 tab PO DAILY 09/26/20 11/16/21 Unknown History vitamin A 10,000 unit capsule 10,000 unit PO DAILY 09/26/20 11/16/21 Unknown History vitamin B complex (B 1 tab PO DAILY 09/26/20 11/16/21 Unknown History Complex-Vitamin B12) zinc 50 mg tablet 50 mg PO DAILY 09/26/20 11/16/21 Unknown History apple cider vinegar 300 mg tablet 300 mg PO DAILY tab 05/03/21 11/16/21 Unknown History calcium carbonate 600 mg calcium 600 mg PO BID 05/03/21 11/16/21 Unknown History (1,500 mg) tablet turmeric 400 mg capsule 500 mg PO DAILY cap 05/03/21 11/16/21 Unknown History Lactobacillus acidophilus 1 tab PO DAILY 11/16/21 11/16/21 Unknown History acetaminophen 650 mg tablet 650 mg PO Q6H PRN 11/16/21 11/16/21 Unknown History bisacodyl 10 mg rectal suppository 10 mg [place] PRN 11/16/21 Unknown History magnesium hydroxide 400 mg/5 mL 30 ml PO DAILY PRN 11/16/21 11/16/21 Unknown History oral suspension (Milk of Magnesia) Physical Exam Vital Signs and Narrative: Vital Signs: Last Vital Signs Temp 97.9 F 11/16/21 04:00 Pulse 98 11/16/21 04:00 Resp 24 H 11/16/21 04:00 BP 111/44 L 11/16/21 04:00 Pulse Ox 95 11/16/21 04:00 BMI result Body Mass Index 27.4 Gen: Appears be in no acute distress; lying comfortably in the bed. HEENT: NCAT, Moist mucosa. Pulmonary: Vesicular breath sounds, fair air entry CVS: Normal S1-S2 Abdomen: BS+, Soft, tenderness noticed on the left lateral lower chest wall/upper abdomen-reproducible; no central abdominal guarding or rigidity. Extremities: Warm well perfused Neuro: Alert and awake. Results Labs CBC and Chem 7: 11/16/21 00:02 11/16/21 00:02 Labs: Laboratory Results - last 24 hr 11/16/21 11/16/21 11/16/21 00:02 00:02 00:02 MCV 88.5 MCH 29.8 MCHC 33.7 RDW 14.3 Plt Count 311 D MPV 11.1 Immature Gran % (Auto) 1.0 H Neut % (Auto) 87.4 H Lymph % (Auto) 8.0 L [place] % (Auto) 3.3 Eos % (Auto) 0.2 Baso % (Auto) 0.1 Lymph # (Auto) 1.7 [place] # (Auto) 0.7 Eos # (Auto) 0.0 Baso # (Auto) 0.0 Abs Immat Gran (auto) 0.21 H Absolute Neuts (auto) 18.9 H Absolute Nucleated RBC 0.000 Nucleated RBC % (auto) 0.0 PT INR Anion Gap 12 Estim Creat Clear Calc 65.5 Estimated GFR > 60 Random Glucose 109 Lactic Acid Calcium 8.4 Total Bilirubin 1.1 H AST 22 ALT 19 Alkaline Phosphatase 73 Troponin I High Sens B-Natriuretic Peptide 62 Total Protein 4.4 L Albumin 2.4 L Urine Color Urine Appearance Urine pH Ur Specific [place] Urine Protein Urine Glucose (UA) Urine Ketones Urine Blood Urine Nitrite Ur Leukocyte Esterase Influenza Type A (PCR) Influenza Type B (PCR) RSV RNA Qual (PCR) SARS-CoV-2 RNA (RT-PCR) 11/16/21 11/16/21 11/16/21 00:02 00:02 00:02 MCV MCH MCHC RDW Plt Count MPV Immature Gran % (Auto) Neut % (Auto) Lymph % (Auto) [place] % (Auto) Eos % (Auto) Baso % (Auto) Lymph # (Auto) [place] # (Auto) Eos # (Auto) Baso # (Auto) Abs Immat Gran (auto) Absolute Neuts (auto) Absolute Nucleated RBC Nucleated RBC % (auto) PT 20.3 H INR 1.8 H Anion Gap Estim Creat Clear Calc Estimated GFR Random Glucose Lactic Acid 1.0 Calcium Total Bilirubin AST ALT Alkaline Phosphatase Troponin I High Sens 18.7 H B-Natriuretic Peptide Total Protein Albumin Urine Color Urine Appearance Urine pH Ur Specific [place] Urine Protein Urine Glucose (UA) Urine Ketones Urine Blood Urine Nitrite Ur Leukocyte Esterase Influenza Type A (PCR) Influenza Type B (PCR) RSV RNA Qual (PCR) SARS-CoV-2 RNA (RT-PCR) 11/16/21 11/16/21 11/16/21 00:02 00:03 03:16 MCV MCH MCHC RDW Plt Count MPV Immature Gran % (Auto) Neut % (Auto) Lymph % (Auto) [place] % (Auto) Eos % (Auto) Baso % (Auto) Lymph # (Auto) [place] # (Auto) Eos # (Auto) Baso # (Auto) Abs Immat Gran (auto) Absolute Neuts (auto) Absolute Nucleated RBC Nucleated RBC % (auto) PT INR Anion Gap Estim Creat Clear Calc Estimated GFR Random Glucose Lactic Acid Calcium Total Bilirubin AST ALT Alkaline Phosphatase Troponin I High Sens 17.1 H B-Natriuretic Peptide Total Protein Albumin Urine Color DK YELLOW Urine Appearance CLEAR Urine pH 6.0 Ur Specific [place] >= 1.030 H Urine Protein NEG Urine Glucose (UA) NEG Urine Ketones 5 Urine Blood NEG Urine Nitrite NEG Ur Leukocyte Esterase NEG Influenza Type A (PCR) NEGATIVE Influenza Type B (PCR) NEGATIVE RSV RNA Qual (PCR) NEGATIVE SARS-CoV-2 RNA (RT-PCR) NEGATIVE Imaging Radiologist's Impressions: Impressions Chest X-Ray 11/16/21 00:02 IMPRESSION: No significant interval change when compared to 11/11/2021. Bilateral patchy infiltrates and small left effusion. Abdomen/Pelvis CT 11/16/21 01:45 IMPRESSION: 1. Small left pleural effusion, new from 11/06/2021. The additional multifocal areas of opacity in both lungs are similar in appearance and could be inflammatory or infectious. There could be a component of chronic lung disease as well. Continued follow-up to resolution suggested. 2. Similar appearance of the left kidney with mild hydronephrosis and calculi in the renal pelvis. Superimposed infection is possible with this appearance. Chest CT 11/16/21 01:45 IMPRESSION: 1. Small left pleural effusion, new from 11/06/2021. The additional multifocal areas of opacity in both lungs are similar in appearance and could be inflammatory or infectious. There could be a component of chronic lung disease as well. Continued follow-up to resolution suggested. 2. Similar appearance of the left kidney with mild hydronephrosis and calculi in the renal pelvis. Superimposed infection is possible with this appearance. Assessment and Plan (1) Pleuritic chest pain: Status: Acute (2) Sepsis: Status: Acute 80-year-old female with a past medical history of , hyperlipidemia, cardiomyopathy, history of CVA, hyperparathyroidism, osteoporosis; recent admission to the hospital for septic shock secondary to UTI-discharged on 11/13/2021 to care home on [facility]; presented back today to the hospital with a chief complaint of left lateral chest wall pain/ fever; noted to be in sepsis. Admitted for further management. Sepsis: Patient noted to have temperature of 101.2? F, tachycardia, leukocytosis. Likely in the setting of UTI. Vitals currently stable with systolic blood pressure in 110s; Gentle IV fluids. UTI: On 11/13/21 patient admitted for septic shock secondary to UTI. Blood pressure improved and currently stable. Patient urine cultures were growing Proteus mirabilis-susceptible to Levaquin-patient was discharged on Levaquin for 2 weeks. Patient currently done fevers on Levaquin; will hold Levaquin for now Start with Zosyn Id consult for further recommendations Ureteral stone/stent placement: CT scan showed stable findings. CT abdomen showed:Similar appearance of the left kidney with mild hydronephrosis and calculi in the renal pelvis. Superimposed infection is possible with this appearance.? Urology follow-up. Chest pain: Pleuritic in nature. Patient had recent pneumonia diagnosed on 10/31/2021; current CT chest showed multifocal areas of opacity unchanged from prior,noted to have new small left pleural effusion. Question pleurisy contributing to pain. Pain control EKG nonischemic Troponin negative Cardiomyopathy: No signs of fluid overload. Stable. DVT prophylaxis: SCD boots Code status: Full code. Patient has most form Quality Stroke Does the patient have a stroke diagnosis?: No VTE Prior VTE?: No VTE Risk Level:: Medical - moderate - high VTE Device Contraindication: N/A - Device Ordered VTE Drug Contraindication: Treatment Not Indicated
[2021-11-16] MEDS: 0.9 % Sodium Chloride 1,000 ML 50 ML IVCONT ×2 (05:49→17:14)
--- NOTE | 2021-11-16 07:05 | PHA.MEDREC ---
Pharmacy Consult ? Medication Reconciliation Pharmacy has reviewed the medication reconciliation completed by RN. Patient came from [facility]
[2021-11-16] MEDS: Clopidogrel Bisulfate 75 MG TABLET PO (08:33)
[2021-11-16] MEDS: Folic Acid 1 MG TABLET PO (08:33)
--- NOTE | 2021-11-16 09:34 | MHC.CM.PN ---
CM MET WITH PT IN ED22. PT REPORTS SHE CAME FROM [facility] WHERE SHE WAS RECEIVING STR. SHE REPORTS PRIOR TO HER LAST ADMISSION TO [facility], SHE WAS LIVING ALONE AND FULLY INDEPENDENT PT DENIES USE OF DME OR SERVICES AT [facility] PT HAS A HCP ON FILE PT REPORTS HER PCP IS EMELI LEDBETTER PT IS NOT VACCINATED AGAINST COVID-19 IMM WAS DELIVERED AND A COPY WAS SENT TO [facility] PT REPORTS SHE WOULD PREFER TO GO HOME AT [place] HOWEVER IF SHE NEEDS TO RETURN TO [facility], SHE WILL GO BACK TO [facility]. PT DECLINES CM OFFER TO CONTACT HER SON AT THIS TIME. SHE REPORTS SHE WOULD PREFER TO SPEAK TO HIM ONCE HE IS OUT OF WORK THERE IS REALLY NOTHING HE CAN DO ABOUT THE SITUATION AT THIS TIME.
[2021-11-16 11:35] LABS: D Dimer High Sensitivity 370 NG/ML
--- NOTE | 2021-11-16 16:06 | P.EN_ITS ---
Event Note Date of Service: 11/16/21 Event Note: seen and examined this morning, admitted today for fever and pleur itic chest pain 80-year-old female with a past medical history of , hyperlipidemia, cardiomyopathy, history of CVA, hyperparathyroidism, osteoporosis; recent admission to the hospital for septic shock secondary to UTI-discharged on 11/13/2021 to detention on Levaquin; presented back today to the hospital with a chief complaint of left lateral chest wall pain/ fever; noted to be in sepsis.? Admitted for further management.? Sepsis:? Patient noted to have temperature of 101.2? F, tachycardia, leukocytosis.? lactic acid 1.0. recent admission for urosepsis. repeat UA negative ?pulmonary source. chest CT showing multifocal pneumonia unchanged from previous flu/covid/rsv negative continue IV zosyn ID consult pending follow blood cultures Recent UTI:? On 11/13/21 patient admitted for septic shock secondary to UTI.? Patient urine cultures were growing Proteus mirabilis-susceptible to Levaquin- patient was discharged on Levaquin for 2 weeks.? repeat UA negative Ureteral stone: CT scan showed stable findings. CT abdomen showed:Similar appearance of the left kidney with mild hydronephrosis and calculi in the renal pelvis. Superimposed infection is possible with this appearance.? seen by urology on last admission with no intervention deemed necessary but given recurrent sepsis, will re-consult Chest pain:? Pleuritic in nature.? Patient had recent pneumonia diagnosed on 10/31/2021; current CT chest showed multifocal areas of opacity unchanged from prior,noted to have new small left pleural effusion.? EKG nonischemic Troponin flat Cardiomyopathy:? No signs of fluid overload. h/o CVA continue plavix, statin attending: dr stevenson
--- NOTE | 2021-11-16 16:20 | PM.UROCN ---
History of Present Illness Consult details Consult date: 11/16/21 Narrative: Recurrent admission for question of urosepsis Prior admission with Proteus sepsis On imaging stone from the renal pelvis is now blocking the UPJ White count 21, hematocrit 27, creatinine 0.68 Recommendations cystoscopy, left retrograde, left stent placement Review of Systems Constitutional: Constitutional: Reports as per HPI and Reports no additional constitutional complaints Cardiovascular: Cardiovascular: Reports as per HPI and Reports no additional cardiovascular complaints Respiratory: Respiratory: Reports as per HPI and Reports no additional respiratory complaints Gastrointestinal: Gastrointestinal: Reports as per HPI and Reports no additional gastrointestinal complaints Genitourinary: Genitourinary: Reports as per HPI Musculoskeletal: Musculoskeletal: Reports no additional musculoskeletal complaints and Reports as per HPI Neurologic: Reports system reviewed and no additional complaints, except as documented and Reports as per HPI [facility] Past Medical History Medical History (Updated 11/16/21 @ 16:25 by Samson Cotton MD) Bacteremia Cardiomyopathy Dyslipidemia Essential hypertension High vitamin D level History of CVA (cerebrovascular accident) Hyperparathyroidism Immunization refused Osteoporosis Family History Family History Father Unknown family medical history Mother Unknown family medical history Son No problems noted. Daughter No problems noted. Surgical History Surgical History History of appendectomy History of colon resection Social History Social History Alcohol intake: never Patient Tobacco Use Status: Former Tobacco user Advance Directives: No Advance Directives Information Provided: No service: No Current occupational status: retired [employer] Allergies Allergy/AdvReac Type Severity Reaction Status Date / Time No Known Allergies Allergy Verified 11/16/21 00:21 Active Medications: Current Medications Acetaminophen (Acetaminophen 325 Mg Tablet) 650 mg PO Q6H PRN PRN Reason: Pain, Mild (Pain Scale 1-3) Atorvastatin Calcium (Atorvastatin Calcium 10 Mg Tablet) 10 mg PO BEDTIME [facility] Clopidogrel Bisulfate (Clopidogrel Bisulfate 75 Mg Tablet) 75 mg PO DAILY [facility] Last Admin: 11/16/21 08:33 Dose: 75 mg Documented by: Docusate Sodium (Docusate Sodium 100 Mg Capsule) 100 mg PO DAILY PRN PRN Reason: Constipation Folic Acid (Folic Acid 1 Mg Tablet) 1 mg PO DAILY [facility] Last Admin: 11/16/21 08:33 Dose: 1 mg Documented by: Sodium Chloride (Ns) 1,000 mls @ 50 mls/hr IVCONT .Q20H [facility] Last Admin: 11/16/21 05:49 Dose: 50 mls/hr Documented by: Piperacillin Sod/Tazobactam (Sod 3.375 gm/ Sodium Chloride) 50 mls @ 100 mls/hr IV Q6H [facility] Last Infusion: 11/16/21 14:44 Dose: Infused Documented by: Melatonin (Melatonin 3 Mg Tablet) 6 mg PO BEDTIME PRN PRN Reason: Insomnia Senna (Sennosides 8.6 Mg Tablet) 17.2 mg PO BEDTIME PRN PRN Reason: Constipation Sodium Chloride (0.9 % Sodium Chloride Flush 3 Ml Syringe) 3 ml IVFLUSH QSHIFT [facility] Last Admin: 11/16/21 07:03 Dose: Not Given Documented by: Home Medications Medication Instructions Recorded Confirmed Last Taken Type cinnamon bark 500 mg capsule 500 mg PO DAILY 09/26/20 11/16/21 Unknown History (Cinnamon) cranberry 400 mg capsule 400 mg PO DAILY 09/26/20 11/16/21 Unknown History flaxseed oil 1,000 mg capsule 1,000 mg PO DAILY 09/26/20 11/16/21 Unknown History folic acid 1 mg tablet 1 mg PO DAILY 09/26/20 11/16/21 Unknown History garlic 500 mg capsule 500 mg PO DAILY 09/26/20 11/16/21 Unknown History multivitamin 1 tab PO DAILY 09/26/20 11/16/21 Unknown History vitamin A 10,000 unit capsule 10,000 unit PO DAILY 09/26/20 11/16/21 Unknown History vitamin B complex (B 1 tab PO DAILY 09/26/20 11/16/21 Unknown History Complex-Vitamin B12) zinc 50 mg tablet 50 mg PO DAILY 09/26/20 11/16/21 Unknown History apple cider vinegar 300 mg tablet 300 mg PO DAILY tab 05/03/21 11/16/21 Unknown History calcium carbonate 600 mg calcium 600 mg PO BID 05/03/21 11/16/21 Unknown History (1,500 mg) tablet Lactobacillus acidophilus 1 tab PO DAILY 11/16/21 11/16/21 Unknown History acetaminophen 650 mg tablet 650 mg PO Q6H PRN 11/16/21 11/16/21 Unknown History bisacodyl 10 mg rectal suppository [address] DAILY PRN 11/16/21 11/16/21 Unknown History magnesium hydroxide 400 mg/5 mL 30 ml PO DAILY PRN 11/16/21 11/16/21 Unknown History oral suspension (Milk of Magnesia) Physical Exam Vital Signs: Vital Signs: Last Vital Signs Temp 98.5 F 11/16/21 16:00 Pulse 95 11/16/21 16:00 Resp 18 11/16/21 16:00 BP 133/62 11/16/21 16:00 Pulse Ox 96 11/16/21 16:00 BMI result Body Mass Index 27.4 Const: General: cooperative, healthy appearing, comfortable and no acute distress Orientation/consciousness: patient oriented x3 HENMT: Face and sinus: Yes normal facial exam Mouth: moist mucous membranes Neck: Neck: Yes normal visual inspection, Yes full ROM and Yes trachea midline Chest: Chest palpation & inspection: normal inspection of the chest Resp: Effort & Inspection: normal respiratory effort, able to speak in complete sentences and no respiratory distress GI: Inspection: Yes normal to inspection Back/Spine/Pelvis: Cervical Spine: normal cervical lordosis Thoracic/Lumbar Spine: thoracic and lumbar spine normal to inspection Skin: General skin exam: no rashes or lesions noted Neuro: General: patient oriented x3, tone normal and moves all extremities Extrem: General: Yes normal to inspection and Yes capillary refill normal Results Labs Result diagrams: 11/16/21 00:02 11/16/21 00:02 Labs: Abnormal lab results 11/16/21 11/16/21 11/16/21 Range/Units 00:02 00:02 00:02 WBC 21.7 H (4.8-10.8) X10*3/uL RBC 3.05 L (4.20-5.50) X10*6/uL Hgb 9.1 L (12.0-16.0) g/dl Hct 27.0 L (37.0-47.0) % Immature Gran % (Auto) 1.0 H (0.0-0.4) % Neut % (Auto) 87.4 H (45-73) % Lymph % (Auto) 8.0 L (20-40) % Abs Immat Gran (auto) 0.21 H (0.00-0.03) X10*3/uL Absolute Neuts (auto) 18.9 H (2.0-8.3) x10*3/uL PT 20.3 H (9.9-13.0) SEC INR 1.8 H (0.9-1.1) BUN 8 L (9-16) mg/dL Total Bilirubin 1.1 H (0.0-1.0) mg/dL Troponin I High Sens (<3.5-17.0) ng/L Total Protein 4.4 L (6.5-8.0) g/dL Albumin 2.4 L (3.5-5.0) g/dL Ur Specific [place] (1.005-1.025) 11/16/21 11/16/21 11/16/21 Range/Units 00:02 00:03 03:16 WBC (4.8-10.8) X10*3/uL RBC (4.20-5.50) X10*6/uL Hgb (12.0-16.0) g/dl Hct (37.0-47.0) % Immature Gran % (Auto) (0.0-0.4) % Neut % (Auto) (45-73) % Lymph % (Auto) (20-40) % Abs Immat Gran (auto) (0.00-0.03) X10*3/uL Absolute Neuts (auto) (2.0-8.3) x10*3/uL PT (9.9-13.0) SEC INR (0.9-1.1) BUN (9-16) mg/dL Total Bilirubin (0.0-1.0) mg/dL Troponin I High Sens 18.7 H 17.1 H (<3.5-17.0) ng/L Total Protein (6.5-8.0) g/dL Albumin (3.5-5.0) g/dL Ur Specific [place] >= 1.030 H (1.005-1.025) Short CBC 11/16/21 Range/Units 00:02 WBC 21.7 H (4.8-10.8) X10*3/uL Hgb 9.1 L (12.0-16.0) g/dl Hct 27.0 L (37.0-47.0) % Plt Count 311 D (160-400) X10*3/uL BMP 11/16/21 00:02 Sodium 136 Potassium 3.6 Chloride 104 Carbon Dioxide 24 BUN 8 L Creatinine 0.68 Calcium 8.4 Liver Function 11/16/21 Range/Units 00:02 Total Bilirubin 1.1 H (0.0-1.0) mg/dL AST 22 (5-31) U/L ALT 19 (0-31) U/L Alkaline Phosphatase 73 (39-117) U/L Albumin 2.4 L (3.5-5.0) g/dL Urine 11/16/21 Range/Units 00:03 Urine Color DK YELLOW Urine Appearance CLEAR Urine pH 6.0 (5.0-8.0) Ur Specific [place] >= 1.030 H (1.005-1.025) Urine Protein NEG (NEG-TRACE) MG/DL Urine Glucose (UA) NEG (NEG) MG/DL All other labs normal. Assessment and Plan (1) Sepsis: Status: Acute (2) Hydronephrosis: Status: Acute (3) Nephrolithiasis: Status: Acute Plan for cystoscopy, left retrograde, left stent placement Risks, benefits and alternatives to therapy were discussed. These include but are not limited to infection, bleeding, damage to local organs and tissues, need for further interventions. Anesthetic risks regarding cardiac arrhythmia, blood clots, and potential mortality were discussed. The patient understands the typical recovery time and the outpatient nature of the procedure. After consideration of these risks the patient gives full informed consent and they wish to move ahead with the procedure. Procedures Date of Service Date of Service: 11/16/21
[2021-11-16] MEDS: 0.9 % Sodium Chloride Flush 3 ML SYRINGE IVFLUSH ×2 (17:25→19:57)
--- NOTE | 2021-11-16 17:38 | HO.ANESPROP2 ---
[facility] Active Problems Active Problems: All Active Problems (Updated 11/16/21 @ 16:25 by Samson Cotton MD) Nephrolithiasis (Acute) Sepsis (Acute) Pleuritic chest pain (Acute) Pleural effusion, left (Acute) Acute lung injury (Acute) Hypokalemia due to excessive renal loss of potassium (Acute) Hypernatremia (Acute) DIC (disseminated intravascular coagulation) (Acute) Obstructive nephropathy (Acute) Hydronephrosis (Acute) Pyonephrosis (Acute) RANJITH (acute kidney injury) (Acute) Septic shock (Acute) Severe sepsis (Acute) Pneumonia (Acute) Hypoxia (Acute) Acute UTI (Acute) Hypomagnesemia (Acute) PVC (premature ventricular contraction) (Acute) High vitamin D level (Acute) History of CVA (cerebrovascular accident) (Acute) Immunization refused (Acute) Hyperparathyroidism (Acute) Cardiomyopathy (Acute) Osteoporosis (Acute) Essential hypertension (Acute) Dyslipidemia (Acute) Past Medical History Medical History (Updated 11/16/21 @ 16:25 by Samson Cotton MD) Bacteremia Cardiomyopathy Dyslipidemia Essential hypertension High vitamin D level History of CVA (cerebrovascular accident) Hyperparathyroidism Immunization refused Osteoporosis Family History Family History Father Unknown family medical history Mother Unknown family medical history Son No problems noted. Daughter No problems noted. Family history of problems with anesthesia: No Surgical History Surgical History History of appendectomy History of colon resection History of Problems with Anesthesia: No Social History Social History Household Members: None Housing: House Do you presently have visiting nurse or other home services: No Alcohol intake: never Patient Tobacco Use Status: Former Tobacco user Use of substances other than those prescribed or required for medical reasons: No Have you been hit, kicked, punched, or otherwise hurt by someone within the past year? If so, by whom?: No Do you feel safe in your current relationship?: No Current Relationship Is there a partner from a previous relationship who is making you feel unsafe now?: No Are you made to feel afraid or neglected: No Advance Directives: No Advance Directives Information Provided: No Do you have thoughts of harming others: None Do you have a plan to hurt others: No Plan Recently lost weight without trying: No Nutrition Risks: No Nutritional Risk Patient : No : No Poor oral hygiene: No service: No Current occupational status: retired [employer] Allergies Allergy/AdvReac Type Severity Reaction Status Date / Time No Known Allergies Allergy Verified 11/16/21 00:21 Active Medications: Current Medications Acetaminophen (Acetaminophen 325 Mg Tablet) 650 mg PO Q6H PRN PRN Reason: Pain, Mild (Pain Scale 1-3) Atorvastatin Calcium (Atorvastatin Calcium 10 Mg Tablet) 10 mg PO BEDTIME [facility] Clopidogrel Bisulfate (Clopidogrel Bisulfate 75 Mg Tablet) 75 mg PO DAILY [facility] Last Admin: 11/16/21 08:33 Dose: 75 mg Documented by: Docusate Sodium (Docusate Sodium 100 Mg Capsule) 100 mg PO DAILY PRN PRN Reason: Constipation Folic Acid (Folic Acid 1 Mg Tablet) 1 mg PO DAILY [facility] Last Admin: 11/16/21 08:33 Dose: 1 mg Documented by: Sodium Chloride (Ns) 1,000 mls @ 50 mls/hr IVCONT .Q20H [facility] Last Admin: 11/16/21 17:14 Dose: 50 mls/hr Documented by: Piperacillin Sod/Tazobactam (Sod 3.375 gm/ Sodium Chloride) 50 mls @ 100 mls/hr IV Q6H [facility] Last Admin: 11/16/21 17:15 Dose: 100 mls/hr Documented by: Melatonin (Melatonin 3 Mg Tablet) 6 mg PO BEDTIME PRN PRN Reason: Insomnia Senna (Sennosides 8.6 Mg Tablet) 17.2 mg PO BEDTIME PRN PRN Reason: Constipation Sodium Chloride (0.9 % Sodium Chloride Flush 3 Ml Syringe) 3 ml IVFLUSH QSHIFT [facility] Last Admin: 11/16/21 17:25 Dose: 3 ml Documented by: Home Medications Medication Instructions Recorded Confirmed Last Taken Type cinnamon bark 500 mg capsule 500 mg PO DAILY 09/26/20 11/16/21 Unknown History (Cinnamon) cranberry 400 mg capsule 400 mg PO DAILY 09/26/20 11/16/21 Unknown History flaxseed oil 1,000 mg capsule 1,000 mg PO DAILY 09/26/20 11/16/21 Unknown History folic acid 1 mg tablet 1 mg PO DAILY 09/26/20 11/16/21 Unknown History garlic 500 mg capsule 500 mg PO DAILY 09/26/20 11/16/21 Unknown History multivitamin 1 tab PO DAILY 09/26/20 11/16/21 Unknown History vitamin A 10,000 unit capsule 10,000 unit PO DAILY 09/26/20 11/16/21 Unknown History vitamin B complex (B 1 tab PO DAILY 09/26/20 11/16/21 Unknown History Complex-Vitamin B12) zinc 50 mg tablet 50 mg PO DAILY 09/26/20 11/16/21 Unknown History apple cider vinegar 300 mg tablet 300 mg PO DAILY tab 05/03/21 11/16/21 Unknown History calcium carbonate 600 mg calcium 600 mg PO BID 05/03/21 11/16/21 Unknown History (1,500 mg) tablet Lactobacillus acidophilus 1 tab PO DAILY 11/16/21 11/16/21 Unknown History acetaminophen 650 mg tablet 650 mg PO Q6H PRN 11/16/21 11/16/21 Unknown History bisacodyl 10 mg rectal suppository 10 mg IN DAILY PRN 11/16/21 11/16/21 Unknown History magnesium hydroxide 400 mg/5 mL 30 ml PO DAILY PRN 11/16/21 11/16/21 Unknown History oral suspension (Milk of Magnesia) Exam Exam Date and Time: November 16, 2021 1738 Height,Weight and Vital Signs: Height 5 ft 4 in Weight 72.575 kg Last Vital Signs Temp 98.5 F 11/16/21 16:00 Pulse 95 11/16/21 16:00 Resp 18 11/16/21 16:00 BP 133/62 11/16/21 16:00 Pulse Ox 96 11/16/21 16:00 Pertinent Lab Results Pertinent Lab Results: Laboratory Tests 11/16/21 11/16/21 11/16/21 00:02 00:02 00:02 WBC 21.7 H RBC 3.05 L Hgb 9.1 L Hct 27.0 L MCV 88.5 MCH 29.8 MCHC 33.7 RDW 14.3 Plt Count 311 D MPV 11.1 Immature Gran % (Auto) 1.0 H Neut % (Auto) 87.4 H Lymph % (Auto) 8.0 L [place] % (Auto) 3.3 Eos % (Auto) 0.2 Baso % (Auto) 0.1 Lymph # (Auto) 1.7 [place] # (Auto) 0.7 Eos # (Auto) 0.0 Baso # (Auto) 0.0 Abs Immat Gran (auto) 0.21 H Absolute Neuts (auto) 18.9 H Absolute Nucleated RBC 0.000 Nucleated RBC % (auto) 0.0 PT INR D-Dimer High Sensitivty Sodium 136 Potassium 3.6 Chloride 104 Carbon Dioxide 24 Anion Gap 12 BUN 8 L Creatinine 0.68 Estim Creat Clear Calc 65.5 Estimated GFR > 60 Random Glucose 109 Lactic Acid Calcium 8.4 Total Bilirubin 1.1 H AST 22 ALT 19 Alkaline Phosphatase 73 Troponin I High Sens B-Natriuretic Peptide 62 Total Protein 4.4 L Albumin 2.4 L Urine Color Urine Appearance Urine pH Ur Specific [place] Urine Protein Urine Glucose (UA) Urine Ketones Urine Blood Urine Nitrite Ur Leukocyte Esterase Influenza Type A (PCR) Influenza Type B (PCR) RSV RNA Qual (PCR) SARS-CoV-2 RNA (RT-PCR) 11/16/21 11/16/21 11/16/21 00:02 00:02 00:02 WBC RBC Hgb Hct MCV MCH MCHC RDW Plt Count MPV Immature Gran % (Auto) Neut % (Auto) Lymph % (Auto) [place] % (Auto) Eos % (Auto) Baso % (Auto) Lymph # (Auto) [place] # (Auto) Eos # (Auto) Baso # (Auto) Abs Immat Gran (auto) Absolute Neuts (auto) Absolute Nucleated RBC Nucleated RBC % (auto) PT 20.3 H INR 1.8 H D-Dimer High Sensitivty Sodium Potassium Chloride Carbon Dioxide Anion Gap BUN Creatinine Estim Creat Clear Calc Estimated GFR Random Glucose Lactic Acid 1.0 Calcium Total Bilirubin AST ALT Alkaline Phosphatase Troponin I High Sens 18.7 H B-Natriuretic Peptide Total Protein Albumin Urine Color Urine Appearance Urine pH Ur Specific [place] Urine Protein Urine Glucose (UA) Urine Ketones Urine Blood Urine Nitrite Ur Leukocyte Esterase Influenza Type A (PCR) Influenza Type B (PCR) RSV RNA Qual (PCR) SARS-CoV-2 RNA (RT-PCR) 11/16/21 11/16/21 11/16/21 00:02 00:03 03:16 WBC RBC Hgb Hct MCV MCH MCHC RDW Plt Count MPV Immature Gran % (Auto) Neut % (Auto) Lymph % (Auto) [place] % (Auto) Eos % (Auto) Baso % (Auto) Lymph # (Auto) [place] # (Auto) Eos # (Auto) Baso # (Auto) Abs Immat Gran (auto) Absolute Neuts (auto) Absolute Nucleated RBC Nucleated RBC % (auto) PT INR D-Dimer High Sensitivty Sodium Potassium Chloride Carbon Dioxide Anion Gap BUN Creatinine Estim Creat Clear Calc Estimated GFR Random Glucose Lactic Acid Calcium Total Bilirubin AST ALT Alkaline Phosphatase Troponin I High Sens 17.1 H B-Natriuretic Peptide Total Protein Albumin Urine Color DK YELLOW Urine Appearance CLEAR Urine pH 6.0 Ur Specific [place] >= 1.030 H Urine Protein NEG Urine Glucose (UA) NEG Urine Ketones 5 Urine Blood NEG Urine Nitrite NEG Ur Leukocyte Esterase NEG Influenza Type A (PCR) NEGATIVE Influenza Type B (PCR) NEGATIVE RSV RNA Qual (PCR) NEGATIVE SARS-CoV-2 RNA (RT-PCR) NEGATIVE 11/16/21 11:19 WBC RBC Hgb Hct MCV MCH MCHC RDW Plt Count MPV Immature Gran % (Auto) Neut % (Auto) Lymph % (Auto) [place] % (Auto) Eos % (Auto) Baso % (Auto) Lymph # (Auto) [place] # (Auto) Eos # (Auto) Baso # (Auto) Abs Immat Gran (auto) Absolute Neuts (auto) Absolute Nucleated RBC Nucleated RBC % (auto) PT INR D-Dimer High Sensitivty 370 Sodium Potassium Chloride Carbon Dioxide Anion Gap BUN Creatinine Estim Creat Clear Calc Estimated GFR Random Glucose Lactic Acid Calcium Total Bilirubin AST ALT Alkaline Phosphatase Troponin I High Sens B-Natriuretic Peptide Total Protein Albumin Urine Color Urine Appearance Urine pH Ur Specific [place] Urine Protein Urine Glucose (UA) Urine Ketones Urine Blood Urine Nitrite Ur Leukocyte Esterase Influenza Type A (PCR) Influenza Type B (PCR) RSV RNA Qual (PCR) SARS-CoV-2 RNA (RT-PCR) Airway Mallampati Class: II TM Dist: >3cm Neck ROM: Full Loose/Missing/Broken Teeth: No Heart: RRR Lungs: CTA Assessment and Plan Assessment Anesthesia Assessment: Anesthesia Plan Discussed and Chart Reviewed Final Anesthetic Review Family History of Problems with Anesthesia: No History of Problems with Anesthesia: No NPO: Yes ASA Class: III Final Preanesthetic Review: No Changes in Pt Med Stat, Meds/Allgs Chart Reviewed, Consent Obtained/Reviewed and Anes Risks/Benef Reviewed Patient Risk: High Procedure Risk: Low Anesthetic Plan Anesthetic Plan: MAC: Disposition: Standard PACU
--- NOTE | 2021-11-16 19:13 | W.PM.OPN ---
Operative Note Operative Note Date of Service: 11/16/21 Narrative: PreOperative Diagnosis: Left pyelonephritis Post Operative Diagnosis: Left UPJ stone Procedure: Cystoscopy, left retrograde left stent placement Surgeon: Dr Samson Cotton Anesthesia: Sedation Indications for procedure: 80-year-old re-presented taken to hospital left stone seen in now obstructing UPJ Procedure: After informed consent was verified the patient was brought to the operating room and placed in a supine position. Anesthesia was administered per protocol. Patient was placed in modified dorsal lithotomy position and prepped and draped in sterile fashion. Safety pause time-out was performed. Antibiotics being given. Cystoscope placed per urethra. No abnormality noted the bladder. Left ureteric orifices normal position. Cannulated and retrograde examination performed with filling defect at left UPJ. Sensor guidewire placed. Six [place] by 24 cm double-J stent placed under fluoroscopy and direct visualization. Bladder emptied Patient tolerated procedure well and transferred to recovery area Pathology: None Drains: 6 [place] by 24 cm double-J stent
[2021-11-16 19:15] LABS: Procalcitonin 0.14 ng/mL
[2021-11-16] MEDS: Atorvastatin Calcium 10 MG TABLET PO (20:01)
--- NOTE | 2021-11-16 23:00 | P.CNID_ITS ---
History of Present Illness Data of Consult Service Date: 11/16/21 Requesting physician: Kash Powell Primary Care Provider: Unknown Physician HPI Reason for consult: weakness,bacteremia She was recently diagnosed with pneumonia She took 10 days Doxycycline finished 11/10 She has chills and rigors One blood culture positive gram positive cocci. Review of Systems Review of Systems: Yes Unobtainable due to mental condition PMFSH Past Medical History Medical History Bacteremia Cardiomyopathy Dyslipidemia Essential hypertension High vitamin D level History of CVA (cerebrovascular accident) Hyperparathyroidism Immunization refused Osteoporosis Family History Family History Father Unknown family medical history Mother Unknown family medical history Son No problems noted. Daughter No problems noted. Family history: reviewed and not pertinent Surgical History Surgical History History of appendectomy History of colon resection Social History Social History Household Members: None Housing: House Do you presently have visiting nurse or other home services: No Alcohol intake: never Patient Tobacco Use Status: Former Tobacco user Use of substances other than those prescribed or required for medical reasons: No Have you been hit, kicked, punched, or otherwise hurt by someone within the past year? If so, by whom?: No Do you feel safe in your current relationship?: No Current Relationship Is there a partner from a previous relationship who is making you feel unsafe now?: No Are you made to feel afraid or neglected: No Advance Directives: No Advance Directives Information Provided: No Do you have thoughts of harming others: None Do you have a plan to hurt others: No Plan Recently lost weight without trying: No Nutrition Risks: No Nutritional Risk Patient : No : No Poor oral hygiene: No service: No Current occupational status: retired [employer] Allergies Allergy/AdvReac Type Severity Reaction Status Date / Time No Known Allergies Allergy Verified 11/16/21 00:21 Active Medications: Current Medications Acetaminophen (Acetaminophen 325 Mg Tablet) 650 mg PO Q6H PRN PRN Reason: Pain, Mild (Pain Scale 1-3) Atorvastatin Calcium (Atorvastatin Calcium 10 Mg Tablet) 10 mg PO BEDTIME [facility] Last Admin: 11/16/21 20:01 Dose: 10 mg Documented by: Clopidogrel Bisulfate (Clopidogrel Bisulfate 75 Mg Tablet) 75 mg PO DAILY [facility] Last Admin: 11/16/21 08:33 Dose: 75 mg Documented by: Docusate Sodium (Docusate Sodium 100 Mg Capsule) 100 mg PO DAILY PRN PRN Reason: Constipation Folic Acid (Folic Acid 1 Mg Tablet) 1 mg PO DAILY [facility] Last Admin: 11/16/21 08:33 Dose: 1 mg Documented by: Sodium Chloride (Ns) 1,000 mls @ 50 mls/hr IVCONT .Q20H [facility] Last Admin: 11/16/21 22:37 Dose: Not Given Documented by: Piperacillin Sod/Tazobactam (Sod 3.375 gm/ Sodium Chloride) 50 mls @ 100 mls/hr IV Q6H [facility] Last Admin: 11/16/21 22:39 Dose: 100 mls/hr Documented by: Melatonin (Melatonin 3 Mg Tablet) 6 mg PO BEDTIME PRN PRN Reason: Insomnia Senna (Sennosides 8.6 Mg Tablet) 17.2 mg PO BEDTIME PRN PRN Reason: Constipation Sodium Chloride (0.9 % Sodium Chloride Flush 3 Ml Syringe) 3 ml IVFLUSH QSHIFT [facility] Last Admin: 11/16/21 19:57 Dose: 3 ml Documented by: Home Medications Medication Instructions Recorded Confirmed Last Taken Type cinnamon bark 500 mg capsule 500 mg PO DAILY 09/26/20 11/16/21 Unknown History (Cinnamon) cranberry 400 mg capsule 400 mg PO DAILY 09/26/20 11/16/21 Unknown History flaxseed oil 1,000 mg capsule 1,000 mg PO DAILY 09/26/20 11/16/21 Unknown Histo ry folic acid 1 mg tablet 1 mg PO DAILY 09/26/20 11/16/21 Unknown History garlic 500 mg capsule 500 mg PO DAILY 09/26/20 11/16/21 Unknown History multivitamin 1 tab PO DAILY 09/26/20 11/16/21 Unknown History vitamin A 10,000 unit capsule 10,000 unit PO DAILY 09/26/20 11/16/21 Unknown History vitamin B complex (B 1 tab PO DAILY 09/26/20 11/16/21 Unknown History Complex-Vitamin B12) zinc 50 mg tablet 50 mg PO DAILY 09/26/20 11/16/21 Unknown History apple cider vinegar 300 mg tablet 300 mg PO DAILY tab 05/03/21 11/16/21 Unknown History calcium carbonate 600 mg calcium 600 mg PO BID 05/03/21 11/16/21 Unknown History (1,500 mg) tablet Lactobacillus acidophilus 1 tab PO DAILY 11/16/21 11/16/21 Unknown History acetaminophen 650 mg tablet 650 mg PO Q6H PRN 11/16/21 11/16/21 Unknown History bisacodyl 10 mg rectal suppository 10 mg MS DAILY PRN 11/16/21 11/16/21 Unknown History magnesium hydroxide 400 mg/5 mL 30 ml PO DAILY PRN 11/16/21 11/16/21 Unknown History oral suspension (Milk of Magnesia) Physical Exam 2 Vital Signs: Vital Signs: Last Vital Signs Temp 98.9 F 11/16/21 20:00 Pulse 103 H 11/16/21 20:00 Resp 17 11/16/21 20:00 BP 155/65 H 11/16/21 20:00 Pulse Ox 93 11/16/21 20:00 BMI result Body Mass Index 27.4 Const: General: cooperative HENMT: Head: Yes normal to inspection Resp: Effort & Inspection: normal respiratory effort Cardio: Rate: regular rate Rhythm: regular rhythm GI: Palpation (GI): Soft to palpation and nontender Extrem: General: Yes normal to inspection Results Labs CBC & Chem 7: 11/16/21 00:02 11/16/21 00:02 Labs: Short CBC 11/16/21 Range/Units 00:02 WBC 21.7 H (4.8-10.8) X10*3/uL Hgb 9.1 L (12.0-16.0) g/dl Hct 27.0 L (37.0-47.0) % Plt Count 311 D (160-400) X10*3/uL BMP 11/16/21 00:02 Sodium 136 Potassium 3.6 Chloride 104 Carbon Dioxide 24 BUN 8 L Creatinine 0.68 Calcium 8.4 Liver Function 11/16/21 Range/Units 00:02 Total Bilirubin 1.1 H (0.0-1.0) mg/dL AST 22 (5-31) U/L ALT 19 (0-31) U/L Alkaline Phosphatase 73 (39-117) U/L Albumin 2.4 L (3.5-5.0) g/dL Urine 11/16/21 Range/Units 00:03 Urine Color DK YELLOW Urine Appearance CLEAR Urine pH 6.0 (5.0-8.0) Ur Specific [place] >= 1.030 H (1.005-1.025) Urine Protein NEG (NEG-TRACE) MG/DL Urine Glucose (UA) NEG (NEG) MG/DL Microbiology Microbiology Results: Microbiology 11/16/21 00:03 Blood - Venous Blood Culture - Preliminary Prelim: GPC Gram Stain only Assessment and Plan (1) Sepsis: Status: Acute There is concern over bacteremia,possible staph or MRSA Would add Vancomycin to Zosyn cover possible bacteremia Await cultures.
[2021-11-16] MEDS: vancomycin HCL 1,000 MG in 0.9 % Sodium Chloride 250 ML 270 MG IV (23:42)
--- NOTE | 2021-11-17 00:59 | MHC.PIE ---
p; b;ood cx + for gram + coccii i; dr magallanes notified e; will cont to monitor
[2021-11-17 03:32] VITALS: BP 123/56; PULSE 94; RESP 17; TEMP 36.2; O2SAT 94
[2021-11-17] MEDS: Piperacillin Sodium/Tazobactam 3.375 GM in 0.9 % Sodium Chloride 50 ML IV ×4 (05:11→23:41)
[2021-11-17 05:52] LABS: MANUAL DIFF FLAG NO
[2021-11-17 05:57] LABS: Basophils Percent Auto 0.2 % (0-2); Eosinophils Absolute Auto 0.1 X10*3/uL (0.0-0.4); Eosinophils Percent Auto 0.8 % (0-4); Hematocrit 24.4 % (37.0-47.0); Hemoglobin 7.9 g/dl (12.0-16.0); Imm Gran Abs Auto 0.17 X10*3/uL (0.00-0.03); Lymphocytes Absolute Auto 1.8 X10*3/uL (1.2-4.9); Lymphocytes Percent Auto 10.5 % (20-40); Mean Corpuscular HGB Conc 32.4 g/dl (31.0-35.0); Mean Corpuscular Hemoglobin 29.5 pg (27.0-33.0); Mean Platelet Volume 11.2 fL (9.4-12.3); Monocytes Absolute Auto 0.5 X10*3/uL (0.1-1.2); Neutrophils Absolute Auto 14.2 x10*3/uL (2.0-8.3); Neutrophils Percent Auto 84.5 % (45-73); Platelet Count 308 X10*3/uL (160-400); Red Blood Count 2.68 X10*6/uL (4.20-5.50); Red Cell Distribution Width 14.6 % (11.0-16.0); White Blood Count 16.8 X10*3/uL (4.8-10.8)
[2021-11-17 06:30] LABS: Anion Gap 11 (12-20); Blood Urea Nitrogen 8 mg/dL (9-16); Calcium 7.7 mg/dL (8.4-10.2); Carbon Dioxide 24 mmol/L (22-29); Chloride 107 mmol/L (96-108); Creatinine Clr Calc Pharmacy 70.6; Estimated Glomerular Filt Rate > 60; Glucose Random 89 mg/dL (60-115); Potassium 3.5 mmol/L (3.3-5.1); Sodium 138 mmol/L (135-145)
[2021-11-17 08:00] VITALS: BP 130/58; PULSE 89; RESP 18; TEMP 36.2; O2SAT 92
--- NOTE | 2021-11-17 08:28 | PHA.PROG ---
Admission Date/Time: November 16, 2021 05:20 Indication: bacteremia Weight in k.575 kg Adjusted body weight in Kg: [place] body weight in Kg: Obesity Dosing Indication % IBW: Serum Creatinine - Last 168 Hours 11/16/21 11/17/21 00:02 05:18 Creatinine 0.68 0.63 Estimated CrCl and GFR - Last 168 Hours 11/16/21 11/17/21 00:02 05:18 Estim Creat Clear Calc 65.5 70.6 Estimated GFR > 60 > 60 Vancomycin Loading Dose: 1000 MG given x1 in ED Current Vancomycin Dosing Regimen: 1250mg Q24H Vancomycin Monitoring using AUC goal of 400 - 600 range with trough as surrogate marker: AUC 525, TROUGH 15.9 Date and Time for next Vancomycin Level to be drawn: DRAW AT 2100 ON 11/18 Pharmacist Comments on Vancomycin Plan: Monitor SCR. treating more agressively due to GPC bacteremia pending cultures. Should reach goal at 60 hours. Vancomycin dosing will take advantage of [employer] as a clinical decision support tool that uses Bayesian modeling to calculate individual patient's pharmacokinetic parameters and forecast the patient's drug concentration time course with the target goal AUC 24 range of 400 - 600 mg/L/hr.
[2021-11-17] MEDS: Folic Acid 1 MG TABLET PO (09:11)
[2021-11-17] MEDS: Clopidogrel Bisulfate 75 MG TABLET PO (09:11)
[2021-11-17] MEDS: 0.9 % Sodium Chloride Flush 3 ML SYRINGE IVFLUSH (09:11)
--- NOTE | 2021-11-17 09:44 | P.PNIM_ITS ---
Subjective Subjective Date of Service: 11/17/21 Interval History: Seen in f/u for sepsis, in general doing well Review of Systems Gen: no fever Resp: no sob, no cough CV: no chest, no VERDUGO, no leg edema GI: No n/v, no abd pain Neuro: No confusion Constitutional General: AO X , no acute distress Resp: CTA bilateral CVS: S1,S2,RRR GI: +BS, NT, no distention Skin: No rash Neuro: motor grossly intact Psych: appropriate affect Physical Exam Vital Signs: Vital Signs: Last Vital Signs Temp 97.2 F 11/17/21 08:00 Pulse 89 11/17/21 08:00 Resp 18 11/17/21 08:00 BP 130/58 L 11/17/21 08:00 Pulse Ox 92 11/17/21 08:00 BMI result Body Mass Index 27.4 Objective Data Active Medications Acetaminophen (Acetaminophen 325 Mg Tablet) 650 mg PO Q6H PRN PRN Reason: Pain, Mild (Pain Scale 1-3) Atorvastatin Calcium (Atorvastatin Calcium 10 Mg Tablet) 10 mg PO BEDTIME [facility] Last Admin: 11/16/21 20:01 Dose: 10 mg Documented by: ROM Clopidogrel Bisulfate (Clopidogrel Bisulfate 75 Mg Tablet) 75 mg PO DAILY [facility] Last Admin: 11/17/21 09:11 Dose: 75 mg Documented by: RACHELLE Docusate Sodium (Docusate Sodium 100 Mg Capsule) 100 mg PO DAILY PRN PRN Reason: Constipation Folic Acid (Folic Acid 1 Mg Tablet) 1 mg PO DAILY [facility] Last Admin: 11/17/21 09:11 Dose: 1 mg Documented by: RACHELLE Sodium Chloride (Ns) 1,000 mls @ 50 mls/hr IVCONT .Q20H [facility] Last Infusion: 11/17/21 05:46 Dose: 50 mls/hr Documented by: ROM Piperacillin Sod/Tazobactam (Sod 3.375 gm/ Sodium Chloride) 50 mls @ 100 mls/hr IV Q6H [facility] Last Infusion: 11/17/21 05:46 Dose: 0 mls/hr Documented by: ROM Vancomycin HCl 1,250 mg/ (Sodium Chloride) 250 mls @ 166.667 mls/hr IV Q24H [facility] Melatonin (Melatonin 3 Mg Tablet) 6 mg PO BEDTIME PRN PRN Reason: Insomnia Pharmacy Consult (Consult Rx Vancomycin Dosing) 1 each MISCELLANE DAILY PRN PRN Reason: Consult order Senna (Sennosides 8.6 Mg Tablet) 17.2 mg PO BEDTIME PRN PRN Reason: Constipation Sodium Chloride (0.9 % Sodium Chloride Flush 3 Ml Syringe) 3 ml IVFLUSH QSHIFT [facility] Last Admin: 11/17/21 09:11 Dose: 3 ml Documented by: RACHELLE Labs CBC & Chem 7: 11/17/21 05:18 11/17/21 05:18 Labs: Laboratory Results - last 24 hr 11/16/21 11/16/21 11/17/21 00:12 11:19 05:18 MCV 91.0 MCH 29.5 MCHC 32.4 RDW 14.6 Plt Count 308 MPV 11.2 Immature Gran % (Auto) 1.0 H Neut % (Auto) 84.5 H Lymph % (Auto) 10.5 L Centre % (Auto) 3.0 Eos % (Auto) 0.8 Baso % (Auto) 0.2 Lymph # (Auto) 1.8 Centre # (Auto) 0.5 Eos # (Auto) 0.1 Baso # (Auto) 0.0 Abs Immat Gran (auto) 0.17 H Absolute Neuts (auto) 14.2 H Absolute Nucleated RBC 0.000 Nucleated RBC % (auto) 0.0 D-Dimer High Sensitivty 370 Anion Gap Estim Creat Clear Calc Estimated GFR Random Glucose Calcium Procalcitonin 0.14 11/17/21 05:18 MCV MCH MCHC RDW Plt Count MPV Immature Gran % (Auto) Neut % (Auto) Lymph % (Auto) Centre % (Auto) Eos % (Auto) Baso % (Auto) Lymph # (Auto) Centre # (Auto) Eos # (Auto) Baso # (Auto) Abs Immat Gran (auto) Absolute Neuts (auto) Absolute Nucleated RBC Nucleated RBC % (auto) D-Dimer High Sensitivty Anion Gap 11 L Estim Creat Clear Calc 70.6 Estimated GFR > 60 Random Glucose 89 Calcium 7.7 L D Procalcitonin Microbiology Microbiology Results: Microbiology 11/16/21 00:03 Blood Culture - Preliminary Blood - Venous No growth after 24 hours. 11/16/21 00:03 Blood Culture - Preliminary Blood - Venous Prelim: GPC Gram Stain only Assessment and Plan (1) Sepsis: Status: Acute (2) Pneumonia: Status: Acute Assessment and Plan: 80-year-old female with a past medical history of , hyperlipidemia, cardi omyopathy, history of CVA, hyperparathyroidism, osteoporosis; recent admission to the hospital for septic shock secondary to UTI-discharged on 11/13/2021 to residential on Levaquin; presented back today to the hospital with a chief complaint of left lateral chest wall pain/ fever; noted to be in sepsis.? Admitted for further management.? Sepsis:? Patient noted to have temperature of 101.2? F, tachycardia, leukocytosis.? lactic acid 1.0. recent admission for urosepsis. repeat UA negative ?pulmonary source. chest CT showing multifocal pneumonia unchanged from previous Blood cultures 11/16, 1/2 gram postive cocci, follow sensitivity flu/covid/rsv negative continue IV zosyn and Vanco for now per ID recommendation Recent UTI:? On 11/13/21 patient admitted for septic shock secondary to UTI.? Patient urine cultures were growing Proteus mirabilis-susceptible to Levaquin- patient was discharged on Levaquin for 2 weeks.? repeat UA negative Ureteral stone: CT scan showed stable findings. CT abdomen showed:Similar appearance of the left kidney with mild hydronephrosis and calculi in the renal pelvis. Superimposed infection is possible with this appearance.? seen by urology on last admission with no intervention deemed necessary but given recurrent sepsis, will re-consult Chest pain:? Pleuritic in nature.? Patient had recent pneumonia diagnosed on 10/31/2021; current CT chest showed multifocal areas of opacity unchanged from prior,noted to have new small left pleural effusion.? EKG nonischemic Troponin flat Cardiomyopathy:? No signs of fluid overload. h/o CVA continue plavix, statin Quality Stroke Does the patient have a stroke diagnosis?: No VTE Prior VTE?: No VTE Risk Level:: Medical - moderate - high VTE Device Contraindication: N/A - Device Ordered VTE Drug Contraindication: Treatment Not Indicated
[2021-11-17 11:26] VITALS: BP 108/54; PULSE 95; RESP 18; TEMP 36.6; O2SAT 92
--- NOTE | 2021-11-17 13:09 | MHC.CLN ---
NUTRITION NUTRITION CONSULT FOR SKIN INTEGRITY. STAGE I TO BUTTOCKS. NO ADDITIONAL NUTRITION INTERVENTIONS AT THIS TIME.
--- NOTE | 2021-11-17 13:12 | HO.POSTANES ---
Post Anesthesia Evaluation Post Anesthesia Evaluation Vital Signs: Vital Signs Temp Pulse Resp BP Pulse Ox 11/17/21 11:26 97.8 F 95 18 108/54 L 92 11/17/21 08:00 97.2 F 89 18 130/58 L 92 11/17/21 03:32 97.1 F 94 17 123/56 L 94 Anesthesia: Monitored Mental Status: Awake Pain Control: Satisfactory Nausea/Vomiting: None Hydration: Adequate Anesthesia-Related Issues: No Anes. Related Issues
[2021-11-17 15:15] VITALS: BP 124/56; PULSE 92; RESP 16; TEMP 36.4; O2SAT 96
[2021-11-17 19:09] VITALS: BP 139/62; PULSE 94; RESP 15; TEMP 37.3; O2SAT 92
[2021-11-17] MEDS: Atorvastatin Calcium 10 MG TABLET PO (21:10)
[2021-11-17] MEDS: 0.9 % Sodium Chloride 1,000 ML 50 ML IVCONT (21:12)
[2021-11-17] MEDS: vancomycin HCL 1,250 MG in 0.9 % Sodium Chloride 250 ML 166.67 MG IV (23:40)
[2021-11-18] VITALS (7 sets, daily range): BP systolic 111–132; BP diastolic 59–65; PULSE 81–100; RESP 16–18; TEMP 36.6–37.2; O2SAT 92–94
[2021-11-18] MEDS: Piperacillin Sodium/Tazobactam 3.375 GM in 0.9 % Sodium Chloride 50 ML IV ×4 (05:25→23:35)
[2021-11-18] MEDS: Clopidogrel Bisulfate 75 MG TABLET PO (08:25)
[2021-11-18] MEDS: Folic Acid 1 MG TABLET PO (08:25)
[2021-11-18 10:41] LABS: Creatinine Clr Calc Pharmacy 68.5; Estimated Glomerular Filt Rate > 60
--- NOTE | 2021-11-18 14:02 | P.PNIM_ITS ---
Subjective Subjective Date of Service: 11/18/21 Review of Systems follow-up sepsis Feels okay Denies chest pain, shortness breath, nausea, vomiting, diarrhea Lying in bed All other systems are reviewed and are negative Physical Exam Verdana 4l Vital Signs: Verdana 4d Verdana 4d Vital Signs: Verdana 4d Verdana 4Bd Last Vital Signs Verdana 4d Sr. Logistics Analyst New 4d Sr. Logistics Analyst New 4d Temp 98.0 F 11/18/21 12:00 Sr. Logistics Analyst New 4d Pulse 81 11/18/21 12:00 Sr. Logistics Analyst NewNew 4d Resp 16 11/18/21 12:00 BP 119/60 11/18/21 12:00 Pulse Ox 94 11/18/21 12:00 BMI result Body Mass Index 27.4 Appearing in no acute distress lung sounds are clear to auscultation heart regular rate rhythm, clear S1, S2 positive bowel sounds, abdomen is soft, nontender neuro patient is alert x3, no focal deficits Objective Data Active Medications Acetaminophen (Acetaminophen 325 Mg Tablet) 650 mg PO Q6H PRN PRN Reason: Pain, Mild (Pain Scale 1-3) Atorvastatin Calcium (Atorvastatin Calcium 10 Mg Tablet) 10 mg PO BEDTIME [facility] Last Admin: 11/17/21 21:10 Dose: 10 mg Documented by: DANDY Clopidogrel Bisulfate (Clopidogrel Bisulfate 75 Mg Tablet) 75 mg PO DAILY [facility] Last Admin: 11/18/21 08:25 Dose: 75 mg Documented by: COTEMA Docusate Sodium (Docusate Sodium 100 Mg Capsule) 100 mg PO DAILY PRN PRN Reason: Constipation Folic Acid (Folic Acid 1 Mg Tablet) 1 mg PO DAILY [facility] Last Admin: 11/18/21 08:25 Dose: 1 mg Documented by: AISHWARYA Sodium Chloride (Ns) 1,000 mls @ 50 mls/hr IVCONT .Q20H [facility] Last Admin: 11/17/21 21:12 Dose: 50 mls/hr Documented by: DANDY Piperacillin Sod/Tazobactam (Sod 3.375 gm/ Sodium Chloride) 50 mls @ 100 mls/hr IV Q6H [facility] Last Infusion: 11/18/21 12:30 Dose: 0 mls/hr Documented by: CHAGOEMA Vancomycin HCl 1,250 mg/ (Sodium Chloride) 250 mls @ 166.667 mls/hr IV Q24H [facility] Last Infusion: 11/18/21 01:19 Dose: 166.67 mls/hr Documented by: DANDY Melatonin (Melatonin 3 Mg Tablet) 6 mg PO BEDTIME PRN PRN Reason: Insomnia Pharmacy Consult (Consult Rx Vancomycin Dosing) 1 each MISCELLANE DAILY PRN PRN Reason: Consult order Senna (Sennosides 8.6 Mg Tablet) 17.2 mg PO BEDTIME PRN PRN Reason: Constipation Sodium Chloride (0.9 % Sodium Chloride Flush 3 Ml Syringe) 3 ml IVFLUSH QSHIFT [facility] Last Admin: 11/18/21 07:47 Dose: Not Given Documented by: COTEMA Non-Admin Reason: IV Running Labs CBC & Chem 7: 11/17/21 05:18 11/18/21 10:12 Labs: Laboratory Results - last 24 hr 11/18/21 10:12 Estim Creat Clear Calc 68.5 Estimated GFR > 60 Microbiology Microbiology Results: Microbiology 11/16/21 00:03 Blood Culture - Preliminary Blood - Venous No growth after 48 hours. 11/16/21 00:03 Blood Culture - Final Blood - Venous Coag negative Staphylococcus Assessment and Plan (1) Anemia: Status: Acute (2) Sepsis: Status: Acute Assessment and Plan: 80-year-old female with a past medical history of , hyperlipidemia, cardiomyopathy, history of CVA, hyperparathyroidism, osteoporosis; recent admission to the hospital for septic shock secondary to UTI-discharged on 11/13/2021 to longterm on Levaquin; presented back today to the hospital with a chief complaint of left lateral chest wall pain/ fever; noted to be in sepsis.? Admitted for further management.? Anemia no overt bleeding check stool for blood iron studies check CBC at 6pm if HH falls below 7 transfuse and consult GI Sepsis. Resolved ? Patient noted to have temperature of 101.2? F, tachycardia, leukocytosis.? lactic acid 1.0. recent admission for urosepsis. repeat UA negative ?pulmonary source. chest CT showing multifocal pneumonia unchanged from previous Blood cultures 11/16, 1/2 gram postive cocci, follow sensitivity flu/covid/rsv negative continue IV zosyn and Vanco for now per ID recommendation Recent UTI. On 11/13/21 patient admitted for septic shock secondary to UTI.? Patient urine cultures were growing Proteus mirabilis-susceptible to Levaquin- patient was discharged on Levaquin for 2 weeks.? repeat UA negative Ureteral stone. CT scan showed stable findings. CT abdomen showed:Similar appearance of the left kidney with mild hydronephrosis and calculi in the renal pelvis. Superimposed infection is possible with this appearance.? seen by urology on last admission with no intervention deemed necessary but given recurrent sepsis, will re-consult Chest pain Pleuritic in nature.? Patient had recent pneumonia diagnosed on 10/31/2021; current CT chest showed multifocal areas of opacity unchanged from prior,noted to have new small left pleural effusion.? EKG nonischemic Troponin flat Cardiomyopathy. No signs of fluid overload. h/o CVA continue plavix, statin Attending Dr. Aldrich DVT prophylaxis with Quality Stroke Does the patient have a stroke diagnosis?: No VTE Prior VTE?: No VTE Risk Level:: Medical - moderate - high VTE Device Contraindication: N/A - Device Ordered VTE Drug Contraindication: Treatment Not Indicated
[2021-11-18] MEDS: 0.9 % Sodium Chloride 1,000 ML 50 ML IVCONT (15:57)
[2021-11-18 18:40] LABS: Iron 36 mcg/dL (30-160); Percent Iron Saturation 27 % (15-50); Total Iron Binding Capacity 131 mcg/dL (228-428); Unsaturated Iron Binding 95 ug/dL
[2021-11-18 18:56] LABS: Hematocrit 26.3 % (37.0-47.0); Hemoglobin 8.6 g/dl (12.0-16.0); Mean Corpuscular HGB Conc 32.7 g/dl (31.0-35.0); Mean Corpuscular Hemoglobin 29.7 pg (27.0-33.0); Mean Corpuscular Volume 90.7 fL (80.0-98.0); Mean Platelet Volume 10.8 fL (9.4-12.3); Platelet Count 365 X10*3/uL (160-400); Red Cell Distribution Width 14.9 % (11.0-16.0); White Blood Count 15.5 X10*3/uL (4.8-10.8)
[2021-11-18] MEDS: Atorvastatin Calcium 10 MG TABLET PO (19:50)
[2021-11-18 21:41] LABS: Vancomycin Trough 9.1 mcg/mL (10.0-20.0)
[2021-11-19 00:38] LABS: OBS Int Ctl Valid YES; OBS1 POSITIVE (NEGATIVE)
[2021-11-19] MEDS: vancomycin HCL 1,250 MG in 0.9 % Sodium Chloride 250 ML 166.67 MG IV (00:47)
[2021-11-19 03:08] VITALS: BP 119/56; PULSE 91; RESP 17; TEMP 36.1; O2SAT 92
[2021-11-19] MEDS: Piperacillin Sodium/Tazobactam 3.375 GM in 0.9 % Sodium Chloride 50 ML IV ×3 (05:01→17:40)
[2021-11-19 06:44] LABS: Hematocrit 23.4 % (37.0-47.0); Hemoglobin 7.6 g/dl (12.0-16.0); Mean Corpuscular HGB Conc 32.5 g/dl (31.0-35.0); Mean Corpuscular Hemoglobin 29.3 pg (27.0-33.0); Mean Corpuscular Volume 90.3 fL (80.0-98.0); Mean Platelet Volume 10.9 fL (9.4-12.3); Platelet Count 311 X10*3/uL (160-400); Red Blood Count 2.59 X10*6/uL (4.20-5.50); Red Cell Distribution Width 14.9 % (11.0-16.0); White Blood Count 11.9 X10*3/uL (4.8-10.8)
[2021-11-19 07:23] LABS: Blood Urea Nitrogen 5 mg/dL (9-16); Calcium 7.5 mg/dL (8.4-10.2); Creatinine Clr Calc Pharmacy 75.5; Estimated Glomerular Filt Rate > 60; Glucose Random 107 mg/dL (60-115)
[2021-11-19 07:30] VITALS: BP 115/58; PULSE 87; RESP 18; TEMP 36.6; O2SAT 94
[2021-11-19 07:35] LABS: Anion Gap 8 (12-20); Carbon Dioxide 25 mmol/L (22-29); Chloride 111 mmol/L (96-108); Potassium 2.9 mmol/L (3.3-5.1); Sodium 141 mmol/L (135-145)
[2021-11-19] MEDS: Clopidogrel Bisulfate 75 MG TABLET PO (08:43)
[2021-11-19] MEDS: Potassium Chloride ER 20 MEQ TAB.ER.PRT 60 MEQ PO (08:43)
[2021-11-19] MEDS: Folic Acid 1 MG TABLET PO (08:43)
--- NOTE | 2021-11-19 10:15 | P.CNGI_ITS ---
History of Present Illness Data of Consult Service Date: 11/19/21 Requesting physician: Melvina Hutson Primary Care Provider: Unknown Physician HPI Reason for consult: Anemia, hemoccult positive stools 80 YF with hypertension, hyperlipidemia, cardiomyopathy, history of CVA, hyperparathyroidism, osteoporosis; recent admission to the hospital for septic shock secondary to UTI-discharged on 11/13/2021 to care home on Levaquin; presented to [facility] ED on 11/16/21 with left lateral chest wall pain/ fever at the care home.? HPI narrative: 80-year-old female who is brought in by EMS for complaints of left-sided chest pain that is associated with deep inspiration as well as movement and radiates into her back and is sharp in character.? Patient states this pain has been ongoing since this afternoon, but states that is worsened over the evening until ?I could not take it anymore?.? She otherwise denies any nausea, vomiting, diarrhea, urinary pain/burning/frequency . ER course: Per ER team patient on presentation noted to be in sepsis, noted to have leukocytosis, tachycardia, febrile to 101.2; patient's pain was reproducible; EKG was nonischemic; troponin negative; CT chest showed small left pleural effusion likely contributing pleuritic chest pain; ER course: Per ER team patient on presentation noted to be in sepsis, noted to have leukocytosis, tachycardia, febrile to 101.2; patient's pain was reproducible; EKG was nonischemic; troponin negative; CT chest showed small left pleural effusion likely contributing pleuritic chest pain Pt's H & H has been decreasing slowly since hospitalization. Stool Hemoccult was positive Patient denies symptoms of heartburn, dysphagia, nausea, vomiting, change in appetite. She admits to gradual wt loss over the past several months. She admits to intermittent constipation dark stools and denies rectal bleeding. Patient denies loud snoring or sleep apnea Denies problems with anesthesia in the past. Denies NSAID use. 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 Patient denies known family history of colon polyps, colon cancer or other GI malignancies. IMAGING STUDIES: 11/16/[address] SCAN SHOWED: 1. Small left pleural effusion, new from 11/06/2021. The additional multifocal areas of opacity in both lungs are similar in appearance and could be inflammatory or infectious. There could be a component of chronic lung disease as well. Continued follow-up to resolution suggested. 2. Similar appearance of the left kidney with mild hydronephrosis and calculi in the renal pelvis. Superimposed infection is possible with this appearance.? ENDOSCPIC STUDIES: 04/2015 [address]COPY WAS PERFORMED BY DR ULLOA FOR FU OF COLON CANCER AND POLYPS: Left sided diverticulosis and minimal hemorrhoids. Normal anastomosis at 20 cms. No polyps were detected. Review of Systems Constitutional: Constitutional: Reports weight loss ENT: Reports epistaxis Cardiovascular: Cardiovascular: Reports chest pain, Reports dyspnea and Repor ts dyspnea on exertion Respiratory: Respiratory: Reports dyspnea and Reports dyspnea on exertion [facility] Past Medical History Medical History (Updated 01/19/22 @ 15:22 by Christi Nieves MD) Anemia Bacteremia Cardiomyopathy DIC (disseminated intravascular coagulation) Dyslipidemia Essential hypertension High vitamin D level History of CVA (cerebrovascular accident) Hx of renal calculi Hyperparathyroidism Immunization refused Iron deficiency anemia Obstructive nephropathy Osteoporosis Family History Family History Father Unknown family medical history Mother Unknown family medical history Son No problems noted. Daughter No problems noted. Family history: reviewed and not pertinent Surgical History Surgical History History of appendectomy History of colon resection Social History Social History Household Members: None Housing: House Do you presently have visiting nurse or other home services: No Alcohol intake: never Patient Tobacco Use Status: Former Tobacco user Quit Date: quit smoking more than 30 yr ago service: No Current occupational status: retired [employer] Allergies Allergy/AdvReac Type Severity Reaction Status Date / Time No Known Allergies Allergy Verified 01/10/22 10:05 Active Medications: Current Medications Acetaminophen (Acetaminophen 325 Mg Tablet) 650 mg PO Q6H PRN PRN Reason: Pain, Mild (Pain Scale 1-3) Atorvastatin Calcium (Atorvastatin Calcium 10 Mg Tablet) 10 mg PO BEDTIME [facility] Last Admin: 11/18/21 19:50 Dose: 10 mg Documented by: Clopidogrel Bisulfate (Clopidogrel Bisulfate 75 Mg Tablet) 75 mg PO DAILY [facility] Last Admin: 11/19/21 08:43 Dose: 75 mg Documented by: Docusate Sodium (Docusate Sodium 100 Mg Capsule) 100 mg PO DAILY PRN PRN Reason: Constipation Folic Acid (Folic Acid 1 Mg Tablet) 1 mg PO DAILY [facility] Last Admin: 11/19/21 08:43 Dose: 1 mg Documented by: Piperacillin Sod/Tazobactam (Sod 3.375 gm/ Sodium Chloride) 50 mls @ 100 mls/hr IV Q6H [facility] Last Infusion: 11/19/21 05:46 Dose: Infused Documented by: Vancomycin HCl 1,250 mg/ (Sodium Chloride) 250 mls @ 166.667 mls/hr IV Q24H [facility] Last Infusion: 11/19/21 02:22 Dose: Infused Documented by: Melatonin (Melatonin 3 Mg Tablet) 6 mg PO BEDTIME PRN PRN Reason: Insomnia Pharmacy Consult (Consult Rx Vancomycin Dosing) 1 each MISCELLANE DAILY PRN PRN Reason: Consult order Senna (Sennosides 8.6 Mg Tablet) 17.2 mg PO BEDTIME PRN PRN Reason: Constipation Sodium Chloride (0.9 % Sodium Chloride Flush 3 Ml Syringe) 3 ml IVFLUSH QSHIFT [facility] Last Admin: 11/19/21 08:43 Dose: Not Given Documented by: Home Medications Medication Instructions Recorded Confirmed Last Taken Type cinnamon bark 500 mg capsule 500 mg PO DAILY 09/26/20 01/10/22 Unknown History (Cinnamon) cranberry 400 mg capsule 400 mg PO DAILY 09/26/20 01/10/22 Unknown History flaxseed oil 1,000 mg capsule 1,000 mg PO DAILY 09/26/20 01/10/22 Unknown History folic acid 1 mg tablet 1 mg PO DAILY 09/26/20 01/10/22 Unknown History garlic 500 mg capsule 500 mg PO DAILY 09/26/20 01/10/22 Unknown History multivitamin 1 tab PO DAILY 09/26/20 01/10/22 Unknown History vitamin A 10,000 unit capsule 10,000 unit PO DAILY 09/26/20 01/10/22 Unknown History vitamin B complex (B 1 tab PO DAILY 09/26/20 01/10/22 Unknown History Complex-Vitamin B12) zinc 50 mg tablet 50 mg PO DAILY 09/26/20 01/10/22 Unknown History apple cider vinegar 300 mg tablet 300 mg PO DAILY tab 05/03/21 01/10/22 Unknown History calcium carbonate 600 mg calcium 600 mg PO BID 05/03/21 01/10/22 Unknown History (1,500 mg) tablet magnesium 250 mg tablet 500 mg PO DAILY tab 01/10/22 01/10/22 Unknown History omega-3 900 mg-dha 320 mg-epa 580 cap PO 01/10/22 01/10/22 Unknown History mg-fish oil 1,360 mg capsule (Fish Oil) Physical Exam Vital Signs: Vital Signs: Last Vital Signs Temp 97.8 F 11/19/21 07:30 Pulse 87 11/19/21 07:30 Resp 18 11/19/21 07:30 BP 115/58 L 11/19/21 07:30 Pulse Ox 94 11/19/21 07:30 BMI result Body Mass Index 27.4 Const: General: healthy appearing and no acute distress Nutritional Appearance: average body habitus Orientation/consciousness: patient oriented x3 Limitations: no limitations HENMT: Head: Yes normal to inspection Ears: hearing grossly normal bilaterally Mouth: Normal oral and palatal mucosa present Eyes: Sclerae: sclerae normal Pupils: Equal, round and reactive pupils pr esent Neck: Neck: Yes normal visual inspection Chest: Chest palpation & inspection: normal inspection of the chest Resp: Effort & Inspection: normal respiratory effort Auscultation: clear to auscultation bilaterally Cardio: Palpation: normal PMI Rate: regular rate Rhythm: regular rhythm Heart sounds: S1 normal heart sound present, S2 normal heart sound present and no murmurs GI: Palpation (GI): Soft to palpation, nontender and No hepatosplenomegaly present Auscultation: normal bowel sounds Rectal Exam - Female: deferred Skin: General skin exam: no rashes or lesions noted Neuro: General: patient oriented x3, gait normal and moves all extremities Cranial nerves: Yes Equal, round and reactive pupils present Psych: Appearance: grossly normal Mental Status: mental status grossly normal Results Labs CBC & Chem 7: 11/20/21 05:22 11/22/21 06:10 Labs: Short CBC 11/18/21 11/19/21 Range/Units 18:14 06:06 WBC 15.5 H 11.9 H (4.8-10.8) X10*3/uL Hgb 8.6 L 7.6 L (12.0-16.0) g/dl Hct 26.3 L 23.4 L (37.0-47.0) % Plt Count 365 311 (160-400) X10*3/uL BMP 11/18/21 11/19/21 10:12 06:06 Sodium 141 Potassium 2.9 L Chloride 111 H Carbon Dioxide 25 BUN 5 L Creatinine 0.65 0.59 Calcium 7.5 L Microbiology Microbiology Results: Microbiology 11/16/21 00:03 Blood - Venous Blood Culture - Preliminary No growth after 48 hours. 11/16/21 00:03 Blood - Venous Blood Culture - Final Coag negative Staphylococcus Assessment and Plan (1) Anemia: (2) Pneumonia: Status: Resolved (3) Sepsis: Status: Resolved Plan 80 YF with hypertension, hyperlipidemia, cardiomyopathy, history of CVA, hyperparathyroidism, osteoporosis; recent admission to the hospital for septic shock secondary to UTI-discharged on 11/13/2021 to care home on Levaquin; presented to [facility] ED on 11/16/21 with left lateral chest wall pain/ fever at the care home.?Pt's H & H has decreased during hospitalizationwithout over bleeding. Stool Hemoccult was positive. Slow GI blood loss can be due to an upper (PUD, erosive esophagitis, stress gastritis) versus lower GI (colon polyps, AVM, colitis, colon cancer) source. Patient has a remote history of colon cancer and status post left hemicolectomy. Last colonoscopy in 2014 showed diverticulosis and no polyps were detected. RECOMMENDATIONS: 1. Follow H & H daily and transfuse prn. 2. Clear liquid diet on 11/20/21 and Golyte preparation. 3. Proceed with further evaluation with EGD and colonoscopy on 11/21/21. Both procedures and potential complications including bleeding, perforation, drug reaction, aspiration and misdiagnosis were reviewed with the patient who would like to proceed. Procedures Date of Service Date of Service: 11/19/21
--- NOTE | 2021-11-19 11:23 | P.PNIM_ITS ---
Subjective Subjective Date of Service: 11/19/21 <Melvina Hutson NP - Last Filed: 11/19/21 11:25> 12/30/21 <Kash Aldrich MD - Last Filed: 12/30/21 15:49> Review of Systems Follow-up sepsis, anemia Feels okay Denies chest pain, shortness breath, nausea, vomiting, diarrhea Lying in bed All other systems are reviewed and are negative <Melvina Hutson NP - Last Filed: 11/19/21 11:25> Physical Exam 2 Verdana 4l Vital Signs: Verdana 4d Verdana 4d Vital Signs: Verdana 4d Verdana 4Bd Last Vital Signs Verdana 4d Lpc New 4d Lpc New 4d Temp 97.8 F 11/19/21 07:30 Lpc New 4d Pulse 87 11/19/21 07:30 Lpc New 4d Resp 18 11/19/21 07:30 BP 115/58 L 11/19/21 07:30 Pulse Ox 94 11/19/21 07:30 BMI result Body Mass Index 27.4 <Melvina Hutson NP - Last Filed: 11/19/21 11:25> Appearing in no acute distress lung sounds are clear to auscultation heart regular rate rhythm, clear S1, S2 positive bowel sounds, abdomen is soft, nontender neuro patient is alert x3, no focal deficits <Melvina Hutson NP - Last Filed: 11/19/21 11:25> Objective Data Active Medications Acetaminophen (Acetaminophen 325 Mg Tablet) 650 mg PO Q6H PRN PRN Reason: Pain, Mild (Pain Scale 1-3) Atorvastatin Calcium (Atorvastatin Calcium 10 Mg Tablet) 10 mg PO BEDTIME [facility] Last Admin: 11/18/21 19:50 Dose: 10 mg Documented by: DANDY Clopidogrel Bisulfate (Clopidogrel Bisulfate 75 Mg Tablet) 75 mg PO DAILY [facility] Last Admin: 11/19/21 08:43 Dose: 75 mg Documented by: ELYSE Docusate Sodium (Docusate Sodium 100 Mg Capsule) 100 mg PO DAILY PRN PRN Reason: Constipation Folic Acid (Folic Acid 1 Mg Tablet) 1 mg PO DAILY [facility] Last Admin: 11/19/21 08:43 Dose: 1 mg Documented by: ELYSE Piperacillin Sod/Tazobactam (Sod 3.375 gm/ Sodium Chloride) 50 mls @ 100 mls/hr IV Q6H [facility] Last Infusion: 11/19/21 05:46 Dose: 100 mls/hr Documented by: BRITTANY Vancomycin HCl 1,250 mg/ (Sodium Chloride) 250 mls @ 166.667 mls/hr IV Q24H [facility] Last Infusion: 11/19/21 02:22 Dose: 166.67 mls/hr Documented by: DANDY Melatonin (Melatonin 3 Mg Tablet) 6 mg PO BEDTIME PRN PRN Reason: Insomnia Pharmacy Consult (Consult Rx Vancomycin Dosing) 1 each MISCELLANE DAILY PRN PRN Reason: Consult order Senna (Sennosides 8.6 Mg Tablet) 17.2 mg PO BEDTIME PRN PRN Reason: Constipation Sodium Chloride (0.9 % Sodium Chloride Flush 3 Ml Syringe) 3 ml IVFLUSH QSHIFT [facility] Last Admin: 11/19/21 08:43 Dose: Not Given Documented by: ELYSE Non-Admin Reason: IV Running <Melvina Hutson NP - Last Filed: 11/19/21 11:25> Labs CBC & Chem 7: : 11/20/21 05:22 11/22/21 06:10 <Melvina Hutson NP - Last Filed: 11/19/21 11:25> Labs: Laboratory Results - last 24 hr 11/18/21 11/18/21 11/18/21 18:14 18:14 21:12 MCV 90.7 MCH 29.7 MCHC 32.7 RDW 14.9 Plt Count 365 MPV 10.8 Absolute Nucleated RBC 0.000 Nucleated RBC % (auto) 0.0 Anion Gap Estim Creat Clear Calc Estimated GFR Random Glucose Calcium Iron 36 TIBC 131 L % Saturation 27 Unsat Iron Binding 95 Stool Occult Blood Vancomycin Trough 9.1 L 11/18/21 11/19/21 11/19/21 23:18 06:06 06:06 MCV 90.3 MCH 29.3 MCHC 32.5 RDW 14.9 Plt Count 311 MPV 10.9 Absolute Nucleated RBC 0.000 Nucleated RBC % (auto) 0.0 Anion Gap 8 L Estim Creat Clear Calc 75.5 Estimated GFR > 60 Random Glucose 107 Calcium 7.5 L Iron TIBC % Saturation Unsat Iron Binding Stool Occult Blood POSITIVE Vancomycin Trough <Melvina Hutson NP - Last Filed: 11/19/21 11:25> Assessment and Plan (1) Duodenal ulcer: Status: Acute <Melvina Hutson NP - Last Filed: 11/19/21 11:25> (2) High vitamin D level: Status: Acute <Melvina Hutson NP - Last Filed: 11/19/21 11:25> Plan 80-year-old female with a past medical history of , hyperlipidemia, ca rdiomyopathy, history of CVA, hyperparathyroidism, osteoporosis; recent admission to the hospital for septic shock secondary to UTI-discharged on 11/13/2021 to [facility] on Levaquin; presented back today to the hospital with a chief complaint of left lateral chest wall pain/ fever; noted to be in sepsis.? Admitted for further management.? Anemia no overt bleeding Occult + iron studies GI consult, may need EGD/colo Sepsis. Resolved ? Patient noted to have temperature of 101.2? F, tachycardia, leukocytosis.? lactic acid 1.0. recent admission for urosepsis. repeat UA negative ?pulmonary source. chest CT showing multifocal pneumonia unchanged from previous Blood cultures 11/16, 1/2 gram postive cocci, follow sensitivity flu/covid/rsv negative continue IV zosyn and Vanco for now per ID recommendation Recent UTI. On 11/13/21 patient admitted for septic shock secondary to UTI.? Patient urine cultures were growing Proteus mirabilis-susceptible to Levaquin- patient was discharged on Levaquin for 2 weeks.? repeat UA negative Ureteral stone. CT scan showed stable findings. CT abdomen showed:Similar appearance of the left kidney with mild hydronephrosis and calculi in the renal pelvis. Superimposed infection is possible with this appearance.? seen by urology on last admission with no intervention deemed necessary but given recurrent sepsis, will re-consult Chest pain Pleuritic in nature.? Patient had recent pneumonia diagnosed on 10/31/2021; current CT chest showed multifocal areas of opacity unchanged from prior,noted to have new small left pleural effusion.? EKG nonischemic Troponin flat Cardiomyopathy. No signs of fluid overload. h/o CVA continue plavix, statin Attending Dr. Aldrich DVT prophylaxis with <Melvina Hutson NP - Last Filed: 11/19/21 11:25> Quality Stroke Does the patient have a stroke diagnosis?: No <Melvina Hutson NP - Last Filed: 11/19/21 11:25> VTE Prior VTE?: No <Melvina Hutson NP - Last Filed: 11/19/21 11:25> VTE Risk Level:: Medical - moderate - high <Melvina Hutson NP - Last Filed: 11/19/21 11:25> VTE Device Contraindication: N/A - Device Ordered <Melvina Hutson NP - Last Filed: 11/19/21 11:25> VTE Drug Contraindication: Treatment Not Indicated <Melvina Hutson NP - Last Filed: 11/19/21 11:25>
[2021-11-19 12:00] VITALS: BP 147/65; PULSE 90; RESP 18; TEMP 36.6; O2SAT 93
--- NOTE | 2021-11-19 14:01 | MHC.CM.PN ---
REFERRAL PLACED TO [facility] IN THE EVENT THAT PATIENT NEEDS TO COMPLETE STR. PATIENT IS NOT VACCINATED AGAINST COVID-19 BUT WAS OFFERED A BED UPON LAST ADMISSION/DISCHARGE TO/FROM [facility]
[2021-11-19 15:20] VITALS: BP 133/60; PULSE 95; RESP 18; TEMP 37; O2SAT 93
[2021-11-19] MEDS: 0.9 % Sodium Chloride Flush 3 ML SYRINGE IVFLUSH (17:41)
[2021-11-19] MEDS: Atorvastatin Calcium 10 MG TABLET PO (19:59)
[2021-11-19 20:00] VITALS: BP 136/63; PULSE 95; RESP 17; TEMP 37.1; O2SAT 94
[2021-11-19 23:09] VITALS: BP 127/50; PULSE 95; RESP 19; TEMP 36.3; O2SAT 94
[2021-11-20] VITALS (7 sets, daily range): BP systolic 115–148; BP diastolic 60–96; PULSE 86–110; RESP 14–19; TEMP 36.2–36.8; O2SAT 95–98
[2021-11-20] MEDS: Piperacillin Sodium/Tazobactam 3.375 GM in 0.9 % Sodium Chloride 50 ML IV ×3 (00:01→12:09)
[2021-11-20] MEDS: 0.9 % Sodium Chloride Flush 3 ML SYRINGE IVFLUSH ×3 (00:02→14:32)
[2021-11-20 05:57] LABS: Hematocrit 25.8 % (37.0-47.0); Hemoglobin 8.4 g/dl (12.0-16.0); Mean Corpuscular HGB Conc 32.6 g/dl (31.0-35.0); Mean Corpuscular Hemoglobin 29.7 pg (27.0-33.0); Mean Corpuscular Volume 91.2 fL (80.0-98.0); Mean Platelet Volume 10.7 fL (9.4-12.3); Platelet Count 330 X10*3/uL (160-400); Red Blood Count 2.83 X10*6/uL (4.20-5.50); Red Cell Distribution Width 14.9 % (11.0-16.0); White Blood Count 12.4 X10*3/uL (4.8-10.8)
[2021-11-20 06:27] LABS: Anion Gap 9 (12-20); Blood Urea Nitrogen 5 mg/dL (9-16); Calcium 7.9 mg/dL (8.4-10.2); Carbon Dioxide 25 mmol/L (22-29); Chloride 111 mmol/L (96-108); Creatinine Clr Calc Pharmacy 78.1; Estimated Glomerular Filt Rate > 60; Glucose Random 103 mg/dL (60-115); Potassium 3.5 mmol/L (3.3-5.1); Sodium 141 mmol/L (135-145)
[2021-11-20] MEDS: Clopidogrel Bisulfate 75 MG TABLET PO (08:45)
[2021-11-20] MEDS: Folic Acid 1 MG TABLET PO (08:45)
--- NOTE | 2021-11-20 12:10 | P.PNIM_ITS ---
Subjective Subjective Date of Service: 11/21/21 Review of Systems Follow-up sepsis, anemia Feels okay Denies chest pain, shortness breath, nausea, vomiting, diarrhea Lying in bed All other systems are reviewed and are negative Physical Exam Verdana 4l Vital Signs: Verdana 4d Verdana 4d Vital Signs: Verdana 4d Verdana 4Bd Last Vital Signs Verdana 4d Director Packaging New 4d Director Packaging New 4d Temp 98.3 F 11/20/21 11:41 Director Packaging New 4d Pulse 91 11/20/21 11:41 Director Packaging NewNew 4d Resp 16 11/20/21 11:41 BP 148/90 H 11/20/21 11:41 Pulse Ox 96 11/20/21 11:41 BMI result Body Mass Index 27.4 Appearing in no acute distress lung sounds are clear to auscultation heart regular rate rhythm, clear S1, S2 positive bowel sounds, abdomen is soft, nontender neuro patient is alert x3, no focal deficits Objective Data Active Medications Acetaminophen (Acetaminophen 325 Mg Tablet) 650 mg PO Q6H PRN PRN Reason: Pain, Mild (Pain Scale 1-3) Atorvastatin Calcium (Atorvastatin Calcium 10 Mg Tablet) 10 mg PO BEDTIME [facility] Last Admin: 11/19/21 19:59 Dose: 10 mg Documented by: MARY Clopidogrel Bisulfate (Clopidogrel Bisulfate 75 Mg Tablet) 75 mg PO DAILY [facility] Last Admin: 11/20/21 08:45 Dose: 75 mg Documented by: ELYSE Docusate Sodium (Docusate Sodium 100 Mg Capsule) 100 mg PO DAILY PRN PRN Reason: Constipation Folic Acid (Folic Acid 1 Mg Tablet) 1 mg PO DAILY [facility] Last Admin: 11/20/21 08:45 Dose: 1 mg Documented by: ELYSE Piperacillin Sod/Tazobactam (Sod 3.375 gm/ Sodium Chloride) 50 mls @ 100 mls/hr IV Q6H [facility] Last Infusion: 11/20/21 06:38 Dose: 100 mls/hr Documented by: DANDY Melatonin (Melatonin 3 Mg Tablet) 6 mg PO BEDTIME PRN PRN Reason: Insomnia Pharmacy Consult (Consult Rx Vancomycin Dosing) 1 each MISCELLANE DAILY PRN PRN Reason: Consult order Senna (Sennosides 8.6 Mg Tablet) 17.2 mg PO BEDTIME PRN PRN Reason: Constipation Sodium Chloride (0.9 % Sodium Chloride Flush 3 Ml Syringe) 3 ml IVFLUSH QSHIFT [facility] Last Admin: 11/20/21 08:45 Dose: 3 ml Documented by: ELYSE Labs CBC & Chem 7: 11/20/21 05:22 11/21/21 05:56 Labs: Laboratory Results - last 24 hr 11/20/21 11/20/21 05:22 05:22 MCV 91.2 MCH 29.7 MCHC 32.6 RDW 14.9 Plt Count 330 MPV 10.7 Absolute Nucleated RBC 0.000 Nucleated RBC % (auto) 0.0 Anion Gap 9 L Estim Creat Clear Calc 78.1 Estimated GFR > 60 Random Glucose 103 Calcium 7.9 L Assessment and Plan (1) Anemia: Status: Acute (2) Sepsis: Status: Acute Assessment and Plan: 80-year-old female with a past medical history of , hyperlipidemia, cardiomyopathy, history of CVA, hyperparathyroidism, osteoporosis; recent admission to the hospital for septic shock secondary to UTI-discharged on 11/13/2021 to [facility] on Levaquin; presented back today to the hospital with a chief complaint of left lateral chest wall pain/ fever; noted to be in sepsis.? Admitted for further management.? Anemia Stable HH no overt bleeding Occult + iron studies EGD and colonoscopy tomorrow Sepsis. Resolved ? Patient noted to have temperature of 101.2? F, tachycardia, leukocytosis.? lactic acid 1.0. recent admission for urosepsis. repeat UA negative ?pulmonary source. chest CT showing multifocal pneumonia unchanged from previous Blood cultures 11/16, 1/2 gram postive cocci, coag neg staph flu/covid/rsv negative continue IV zosyn and Vanco for now per ID recommendation Recent UTI. On 11/13/21 patient admitted for septic shock secondary to UTI.? Patient urine cultures were growing Proteus mirabilis-susceptible to Levaquin- patient was discharged on Levaquin for 2 weeks.? repeat UA negative Ureteral stone. CT scan showed stable findings. CT abdomen showed:Similar appearance of the left kidney with mild hydronephrosis and calculi in the renal pelvis. Superimposed infection is possible with this appearance.? seen by urology on last admission with no intervention deemed necessary but given recurrent sepsis, will re-consult Chest pain Pleuritic in nature.? Patient had recent pneumonia diagnosed on 10/31/2021; current CT chest showed multifocal areas of opacity unchanged from prior,noted to have new small left pleural effusion.? EKG nonischemic Troponin flat Cardiomyopathy. No signs of fluid overload. h/o CVA continue plavix, statin Attending Dr. loaiza DVT prophylaxis with SCD boots Quality Stroke Does the patient have a stroke diagnosis?: No VTE Prior VTE?: No VTE Risk Level:: Medical - moderate - high VTE Device Contraindication: N/A - Device Ordered VTE Drug Contraindication: Treatment Not Indicated
[2021-11-20] MEDS: PEG 3350/Na Sulf,Bicarb,Cl/KCL 4,000 ML SOLN.RECON 4000 ML PO (14:31)
[2021-11-20] MEDS: Atorvastatin Calcium 10 MG TABLET PO (20:04)
[2021-11-21] VITALS (12 sets, daily range): BP systolic 110–143; BP diastolic 36–69; PULSE 84–96; RESP 16–18; TEMP 36.2–37; O2SAT 92–100; BMI 27.4
[2021-11-21] MEDS: 0.9 % Sodium Chloride Flush 3 ML SYRINGE IVFLUSH ×4 (00:31→23:58)
[2021-11-21 07:27] LABS: Creatinine Clr Calc Pharmacy 71.8; Estimated Glomerular Filt Rate > 60
--- NOTE | 2021-11-21 11:07 | P.CONAN_ITS ---
[facility] Active Problems Active Problems: All Active Problems (Updated 11/21/21 @ 00:02 by Kiran Soria) Anemia (Acute) Pneumonia (Acute) Nephrolithiasis (Acute) Sepsis (Acute) Pleuritic chest pain (Acute) Pleural effusion, left (Acute) High vitamin D level (Acute) Hyperparathyroidism (Acute) Past Medical History Medical History Bacteremia Cardiomyopathy DIC (disseminated intravascular coagulation) Dyslipidemia Essential hypertension High vitamin D level History of CVA (cerebrovascular accident) Hyperparathyroidism Immunization refused Obstructive nephropathy Osteoporosis Family History Family History Father Unknown family medical history Mother Unknown family medical history Son No problems noted. Daughter No problems noted. Family history of problems with anesthesia: No Surgical History Surgical History History of appendectomy History of colon resection History of Problems with Anesthesia: No Social History Social History Household Members: None Housing: House Do you presently have visiting nurse or other home services: No Alcohol intake: never Patient Tobacco Use Status: Former Tobacco user Use of substances other than those prescribed or required for medical reasons: No Currently Displaying Signs/Symptoms of Drug Intoxication Withdrawal: No Have you been hit, kicked, punched, or otherwise hurt by someone within the past year? If so, by whom?: No Do you feel safe in your current relationship?: No Current Relationship Is there a partner from a previous relationship who is making you feel unsafe now?: No Are you made to feel afraid or neglected: No Advance Directives: No Advance Directives Information Provided: No Do you have thoughts of harming others: None Do you have a plan to hurt others: No Plan Recently lost weight without trying: No Nutrition Risks: No Nutritional Risk Patient : No : No Poor oral hygiene: No service: No Current occupational status: retired [employer] Allergies Allergy/AdvReac Type Severity Reaction Status Date / Time No Known Allergies Allergy Verified 11/16/21 00:21 Active Medications: Current Medications Acetaminophen (Acetaminophen 325 Mg Tablet) 650 mg PO Q6H PRN PRN Reason: Pain, Mild (Pain Scale 1-3) Atorvastatin Calcium (Atorvastatin Calcium 10 Mg Tablet) 10 mg PO BEDTIME MIREYA Last Admin: 11/20/21 20:04 Dose: 10 mg Documented by: Clopidogrel Bisulfate (Clopidogrel Bisulfate 75 Mg Tablet) 75 mg PO DAILY [facility] Last Admin: 11/21/21 07:59 Dose: Not Given Documented by: Docusate Sodium (Docusate Sodium 100 Mg Capsule) 100 mg PO DAILY PRN PRN Reason: Constipation Folic Acid (Folic Acid 1 Mg Tablet) 1 mg PO DAILY [facility] Last Admin: 11/21/21 07:59 Dose: Not Given Documented by: Melatonin (Melatonin 3 Mg Tablet) 6 mg PO BEDTIME PRN PRN Reason: Insomnia Pharmacy Consult (Consult Rx Vancomycin Dosing) 1 each MISCELLANE DAILY PRN PRN Reason: Consult order Senna (Sennosides 8.6 Mg Tablet) 17.2 mg PO BEDTIME PRN PRN Reason: Constipation Sodium Chloride (0.9 % Sodium Chloride Flush 3 Ml Syringe) 3 ml IVFLUSH QSHIFT [facility] Last Admin: 11/21/21 07:57 Dose: 3 ml Documented by: Home Medications Medication Instructions Recorded Confirmed Last Taken Type cinnamon bark 500 mg capsule 500 mg PO DAILY 09/26/20 11/16/21 Unknown History (Cinnamon) cranberry 400 mg capsule 400 mg PO DAILY 09/26/20 11/16/21 Unknown History flaxseed oil 1,000 mg capsule 1,000 mg PO DAILY 09/26/20 11/16/21 Unknown History folic acid 1 mg tablet 1 mg PO DAILY 09/26/20 11/16/21 Unknown History garlic 500 mg capsule 500 mg PO DAILY 09/26/20 11/16/21 Unknown History multivitamin 1 tab PO DAILY 09/26/20 11/16/21 Unknown History vitamin A 10,000 unit capsule 10,000 unit PO DAILY 09/26/20 11/16/21 Unknown History vitamin B complex (B 1 tab PO DAILY 09/26/20 11/16/21 Unknown History Complex-Vitamin B12) zinc 50 mg tablet 50 mg PO DAILY 09/26/20 11/16/21 Unknown History apple cider vinegar 300 mg tablet 300 mg PO DAILY tab 05/03/21 11/16/21 Unknown History calcium carbonate 600 mg calcium 600 mg PO BID 05/03/21 11/16/21 Unknown History (1,500 mg) tablet Lactobacillus acidophilus 1 tab PO DAILY 11/16/21 11/16/21 Unknown History acetaminophen 650 mg tablet 650 mg PO Q6H PRN 11/16/21 11/16/21 Unknown History bisacodyl 10 mg rectal suppository 10 mg NC DAILY PRN 11/16/21 11/16/21 Unknown History magnesium hydroxide 400 mg/5 mL 30 ml PO DAILY PRN 11/16/21 11/16/21 Unknown History oral suspension (Milk of Magnesia) Exam Exam Date and Time: November 21, 2021 1107 Height,Weight and Vital Signs: Height 5 ft 4 in Weight 72.575 kg Last Vital Signs Temp 97.7 F 11/21/21 07:51 Pulse 90 11/21/21 07:51 Resp 16 11/21/21 07:51 BP 143/68 H 11/21/21 07:51 Pulse Ox 97 11/21/21 07:51 Pertinent Lab Results Pertinent Lab Results: Laboratory Tests 11/16/21 11/16/21 11/16/21 00:02 00:02 00:02 WBC 21.7 H RBC 3.05 L Hgb 9.1 L Hct 27.0 L MCV 88.5 MCH 29.8 MCHC 33.7 RDW 14.3 Plt Count 311 D MPV 11.1 Immature Gran % (Auto) 1.0 H Neut % (Auto) 87.4 H Lymph % (Auto) 8.0 L [place] % (Auto) 3.3 Eos % (Auto) 0.2 Baso % (Auto) 0.1 Lymph # (Auto) 1.7 [place] # (Auto) 0.7 Eos # (Auto) 0.0 Baso # (Auto) 0.0 Abs Immat Gran (auto) 0.21 H Absolute Neuts (auto) 18.9 H Absolute Nucleated RBC 0.000 Nucleated RBC % (auto) 0.0 PT INR D-Dimer High Sensitivty Sodium 136 Potassium 3.6 Chloride 104 Carbon Dioxide 24 Anion Gap 12 BUN 8 L Creatinine 0.68 Estim Creat Clear Calc 65.5 Estimated GFR > 60 Random Glucose 109 Lactic Acid Calcium 8.4 Iron TIBC % Saturation Unsat Iron Binding Total Bilirubin 1.1 H AST 22 ALT 19 Alkaline Phosphatase 73 Troponin I High Sens B-Natriuretic Peptide 62 Total Protein 4.4 L Albumin 2.4 L Procalcitonin Urine Color Urine Appearance Urine pH Ur Specific [place] Urine Protein Urine Glucose (UA) Urine Ketones Urine Blood Urine Nitrite Ur Leukocyte Esterase Stool Occult Blood Vancomycin Trough Influenza Type A (PCR) Influenza Type B (PCR) RSV RNA Qual (PCR) SARS-CoV-2 RNA (RT-PCR) 11/16/21 11/16/21 11/16/21 00:02 00:02 00:02 WBC RBC Hgb Hct MCV MCH MCHC RDW Plt Count MPV Immature Gran % (Auto) Neut % (Auto) Lymph % (Auto) [place] % (Auto) Eos % (Auto) Baso % (Auto) Lymph # (Auto) [place] # (Auto) Eos # (Auto) Baso # (Auto) Abs Immat Gran (auto) Absolute Neuts (auto) Absolute Nucleated RBC Nucleated RBC % (auto) PT 20.3 H INR 1.8 H D-Dimer High Sensitivty Sodium Potassium Chloride Carbon Dioxide Anion Gap BUN Creatinine Estim Creat Clear Calc Estimated GFR Random Glucose Lactic Acid 1.0 Calcium Iron TIBC % Saturation Unsat Iron Binding Total Bilirubin AST ALT Alkaline Phosphatase Troponin I High Sens 18.7 H B-Natriuretic Peptide Total Protein Albumin Procalcitonin Urine Color Urine Appearance Urine pH Ur Specific [place] Urine Protein Urine Glucose (UA) Urine Ketones Urine Blood Urine Nitrite Ur Leukocyte Esterase Stool Occult Blood Vancomycin Trough Influenza Type A (PCR) Influenza Type B (PCR) RSV RNA Qual (PCR) SARS-CoV-2 RNA (RT-PCR) 11/16/21 11/16/21 11/16/21 00:02 00:03 00:12 WBC RBC Hgb Hct MCV MCH MCHC RDW Plt Count MPV Immature Gran % (Auto) Neut % (Auto) Lymph % (Auto) [place] % (Auto) Eos % (Auto) Baso % (Auto) Lymph # (Auto) [place] # (Auto) Eos # (Auto) Baso # (Auto) Abs Immat Gran (auto) Absolute Neuts (auto) Absolute Nucleated RBC Nucleated RBC % (auto) PT INR D-Dimer High Sensitivty Sodium Potassium Chloride Carbon Dioxide Anion Gap BUN Creatinine Estim Creat Clear Calc Estimated GFR Random Glucose Lactic Acid Calcium Iron TIBC % Saturation Unsat Iron Binding Total Bilirubin AST ALT Alkaline Phosphatase Troponin I High Sens B-Natriuretic Peptide Total Protein Albumin Procalcitonin 0.14 Urine Color DK YELLOW Urine Appearance CLEAR Urine pH 6.0 Ur Specific [place] >= 1.030 H Urine Protein NEG Urine Glucose (UA) NEG Urine Ketones 5 Urine Blood NEG Urine Nitrite NEG Ur Leukocyte Esterase NEG Stool Occult Blood Vancomycin Trough Influenza Type A (PCR) NEGATIVE Influenza Type B (PCR) NEGATIVE RSV RNA Qual (PCR) NEGATIVE SARS-CoV-2 RNA (RT-PCR) NEGATIVE 11/16/21 11/16/21 11/17/21 03:16 11:19 05:18 WBC 16.8 H RBC 2.68 L Hgb 7.9 L Hct 24.4 L MCV 91.0 MCH 29.5 MCHC 32.4 RDW 14.6 Plt Count 308 MPV 11.2 Immature Gran % (Auto) 1.0 H Neut % (Auto) 84.5 H Lymph % (Auto) 10.5 L [place] % (Auto) 3.0 Eos % (Auto) 0.8 Baso % (Auto) 0.2 Lymph # (Auto) 1.8 [place] # (Auto) 0.5 Eos # (Auto) 0.1 Baso # (Auto) 0.0 Abs Immat Gran (auto) 0.17 H Absolute Neuts (auto) 14.2 H Absolute Nucleated RBC 0.000 Nucleated RBC % (auto) 0.0 PT INR D-Dimer High Sensitivty 370 Sodium Potassium Chloride Carbon Dioxide Anion Gap BUN Creatinine Estim Creat Clear Calc Estimated GFR Random Glucose Lactic Acid Calcium Iron TIBC % Saturation Unsat Iron Binding Total Bilirubin AST ALT Alkaline Phosphatase Troponin I High Sens 17.1 H B-Natriuretic Peptide Total Protein Albumin Procalcitonin Urine Color Urine Appearance Urine pH Ur Specific [place] Urine Protein Urine Glucose (UA) Urine Ketones Urine Blood Urine Nitrite Ur Leukocyte Esterase Stool Occult Blood Vancomycin Trough Influenza Type A (PCR) Influenza Type B (PCR) RSV RNA Qual (PCR) SARS-CoV-2 RNA (RT-PCR) 11/17/21 11/18/21 11/18/21 05:18 10:12 18:14 WBC 15.5 H RBC 2.90 L Hgb 8.6 L Hct 26.3 L MCV 90.7 MCH 29.7 MCHC 32.7 RDW 14.9 Plt Count 365 MPV 10.8 Immature Gran % (Auto) Neut % (Auto) Lymph % (Auto) [place] % (Auto) Eos % (Auto) Baso % (Auto) Lymph # (Auto) [place] # (Auto) Eos # (Auto) Baso # (Auto) Abs Immat Gran (auto) Absolute Neuts (auto) Absolute Nucleated RBC 0.000 Nucleated RBC % (auto) 0.0 PT INR D-Dimer High Sensitivty Sodium 138 Potassium 3.5 Chloride 107 Carbon Dioxide 24 Anion Gap 11 L BUN 8 L Creatinine 0.63 0.65 Estim Creat Clear Calc 70.6 68.5 Estimated GFR > 60 > 60 Random Glucose 89 Lactic Acid Calcium 7.7 L D Iron TIBC % Saturation Unsat Iron Binding Total Bilirubin AST ALT Alkaline Phosphatase Troponin I High Sens B-Natriuretic Peptide Total Protein Albumin Procalcitonin Urine Color Urine Appearance Urine pH Ur Specific [place] Urine Protein Urine Glucose (UA) Urine Ketones Urine Blood Urine Nitrite Ur Leukocyte Esterase Stool Occult Blood Vancomycin Trough Influenza Type A (PCR) Influenza Type B (PCR) RSV RNA Qual (PCR) SARS-CoV-2 RNA (RT-PCR) 11/18/21 11/18/21 11/18/21 18:14 21:12 23:18 WBC RBC Hgb Hct MCV MCH MCHC RDW Plt Count MPV Immature Gran % (Auto) Neut % (Auto) Lymph % (Auto) [place] % (Auto) Eos % (Auto) Baso % (Auto) Lymph # (Auto) [place] # (Auto) Eos # (Auto) Baso # (Auto) Abs Immat Gran (auto) Absolute Neuts (auto) Absolute Nucleated RBC Nucleated RBC % (auto) PT INR D-Dimer High Sensitivty Sodium Potassium Chloride Carbon Dioxide Anion Gap BUN Creatinine Estim Creat Clear Calc Estimated GFR Random Glucose Lactic Acid Calcium Iron 36 TIBC 131 L % Saturation 27 Unsat Iron Binding 95 Total Bilirubin AST ALT Alkaline Phosphatase Troponin I High Sens B-Natriuretic Peptide Total Protein Albumin Procalcitonin Urine Color Urine Appearance Urine pH Ur Specific [place] Urine Protein Urine Glucose (UA) Urine Ketones Urine Blood Urine Nitrite Ur Leukocyte Esterase Stool Occult Blood POSITIVE Vancomycin Trough 9.1 L Influenza Type A (PCR) Influenza Type B (PCR) RSV RNA Qual (PCR) SARS-CoV-2 RNA (RT-PCR) 11/19/21 11/19/21 11/20/21 06:06 06:06 05:22 WBC 11.9 H RBC 2.59 L Hgb 7.6 L Hct 23.4 L MCV 90.3 MCH 29.3 MCHC 32.5 RDW 14.9 Plt Count 311 MPV 10.9 Immature Gran % (Auto) Neut % (Auto) Lymph % (Auto) [place] % (Auto) Eos % (Auto) Baso % (Auto) Lymph # (Auto) [place] # (Auto) Eos # (Auto) Baso # (Auto) Abs Immat Gran (auto) Absolute Neuts (auto) Absolute Nucleated RBC 0.000 Nucleated RBC % (auto) 0.0 PT INR D-Dimer High Sensitivty Sodium 141 141 Potassium 2.9 L 3.5 D Chloride 111 H 111 H Carbon Dioxide 25 25 Anion Gap 8 L 9 L BUN 5 L 5 L Creatinine 0.59 0.57 Estim Creat Clear Calc 75.5 78.1 Estimated GFR > 60 > 60 Random Glucose 107 103 Lactic Acid Calcium 7.5 L 7.9 L Iron TIBC % Saturation Unsat Iron Binding Total Bilirubin AST ALT Alkaline Phosphatase Troponin I High Sens B-Natriuretic Peptide Total Protein Albumin Procalcitonin Urine Color Urine Appearance Urine pH Ur Specific [place] Urine Protein Urine Glucose (UA) Urine Ketones Urine Blood Urine Nitrite Ur Leukocyte Esterase Stool Occult Blood Vancomycin Trough Influenza Type A (PCR) Influenza Type B (PCR) RSV RNA Qual (PCR) SARS-CoV-2 RNA (RT-PCR) 11/20/21 11/21/21 05:22 05:56 WBC 12.4 H RBC 2.83 L Hgb 8.4 L Hct 25.8 L MCV 91.2 MCH 29.7 MCHC 32.6 RDW 14.9 Plt Count 330 MPV 10.7 Immature Gran % (Auto) Neut % (Auto) Lymph % (Auto) [place] % (Auto) Eos % (Auto) Baso % (Auto) Lymph # (Auto) [place] # (Auto) Eos # (Auto) Baso # (Auto) Abs Immat Gran (auto) Absolute Neuts (auto) Absolute Nucleated RBC 0.000 Nucleated RBC % (auto) 0.0 PT INR D-Dimer High Sensitivty Sodium Potassium Chloride Carbon Dioxide Anion Gap BUN Creatinine 0.62 Estim Creat Clear Calc 71.8 Estimated GFR > 60 Random Glucose Lactic Acid Calcium Iron TIBC % Saturation Unsat Iron Binding Total Bilirubin AST ALT Alkaline Phosphatase Troponin I High Sens B-Natriuretic Peptide Total Protein Albumin Procalcitonin Urine Color Urine Appearance Urine pH Ur Specific [place] Urine Protein Urine Glucose (UA) Urine Ketones Urine Blood Urine Nitrite Ur Leukocyte Esterase Stool Occult Blood Vancomycin Trough Influenza Type A (PCR) Influenza Type B (PCR) RSV RNA Qual (PCR) SARS-CoV-2 RNA (RT-PCR) Airway Mallampati Class: III (Prominent central incisors) Neck ROM: Full Heart: RRR Lungs: CTA Assessment and Plan Assessment Anesthesia Assessment: Anesthesia Plan Discussed and Chart Reviewed Final Anesthetic Review Family History of Problems with Anesthesia: No History of Problems with Anesthesia: No ASA Class: III Final Preanesthetic Review: Meds/Allgs Chart Reviewed, Consent Obtained/Reviewed and Anes Risks/Benef Reviewed Patient Risk: Intermediate Procedure Risk: Intermediate Anesthetic Plan Anesthetic Plan: MAC: Disposition: Standard PACU
[2021-11-21] MEDS: Lactated Ringers 1,000 ML 50 ML IVCONT (11:49)
--- NOTE | 2021-11-21 12:31 | MHC.SHP ---
Pre-Procedural Eval Section A Date of Service: 11/21/21 The patient is an INPATIENT: Yes Changes since office visit: Yes New Medical Problems, Yes Changes in Medication and Yes Patient answered all questions; No Cold of Flu in the past 2 weeks The History & Physical has been completed within 30 days and I have reviewed it.: Yes Section B Chief Complaint: Sepsis Allergies: Allergies Allergy/AdvReac Type Severity Reaction Status Date / Time No Known Allergies Allergy Verified 11/16/21 00:21 Plan I have reviewed the history and physical and performed a pertinent physical examination on my patient. No changes have occurred unless specified.
--- NOTE | 2021-11-21 12:31 | PM.OP ---
Brief Operative Note Date of Service: 11/21/21 Pre-op diagnosis: anemia, heme positive stools Post-op diagnosis: other (Hiatal hernia, gastritis, multiple gastric polyps, duodenal ulcer, duodenitis, diverticulosis) Procedure: FLEXIBLE TRANSORAL UPPER GASTROINTESTINAL ENDOSCOPY WITH BIOPSIES AND COLONOSCOPY TILL CECUM UPPER ENDOSCOPY Consent: Indications for the procedure and potential complications of bleeding, perforation, reaction to medications and missed diagnosis were discussed with the patient and informed consent was obtained. Instrument: Olympus GIF H 190 mid size upper endoscope Monitoring: Vital signs and clinical assessment, continuous EKG monitoring, Pulse oximetry, Carbon Dioxide monitoring and blood pressure monitoring were done throughout the procedure. Procedure: The patient was placed in the left lateral decubitis position and pre-procedure medications were administered and a bite block was placed. The endoscope was inserted into the mouth and advanced under direct vision to the third part of duodenum. A careful inspection was made as the upper endoscope was withdrawn including a retroflexed examination of the proximal stomach; Findings and interventions are described below. Findings: Larynx: Normal Esophagus: GE junction at 35 cms, small hiatal hernia 35 to 37 cms. No esophagitis or English's. Stomach: Multiple 4-5 mm benign appearing polyps in the gastric body. Mild gastric erythema with a few superficial pre-pyloric erosions. Biopsies were obtained. Grade 2 flap valve on retroflexed examination of the cardia. Duodenum: A 1.5 to 2 cms non-bleeding ulcer in the floor of the apex of the bulb. Mild duodenitis with edematous folds in the proximal descending duodenum Intervention: Biopsies as noted above COLONOSCOPY PROCEDURE NOTE Consent: Indications for the procedure and potential complications of bleeding, perforation, reaction to medications and missed diagnosis were discussed with the patient and informed consent was obtained. Instrument: Olympus PCF H 190 L variable stiffness pediatric colonoscope Monitoring: Vital signs and clinical assessment, intermittent blood pressure monitoring, continuous EKG monitoring, Pulse oximetry and Carbon Dioxide monitoring were done throughout the procedure. Colon withdrawl time was 23 minutes. Procedure: The patient was placed in the left lateral decubitis position and pre-procedure medications were administered. After a digital rectal examination of the ano-rectum, the video colonoscope was inserted into the rectum and advanced through the colon to the cecum. The colonoscope was slowly withdrawn in a retrograde panoramic fashion and the colon mucosa was carefully examined including a retroflexed view of the rectum. Findings and interventions are described below. Procedure Difficulty: : Without difficulty Findings: Terminal Ileum: Not evaluated Cecum: Normal Ascending Colon: Normal Transverse Colon: Normal Descending Colon: Moderate diverticulosis Sigmoid Colon: Severe diverticulosis Rectum: Normal Ano-rectum: Normal Colon preparation: Good after copious irrigation Impression and Post Procedure Diagnosis: Endoscopy Findings: ESOPHAGUS: Small hiatal hernia STOMACH: Multiple 4-5 mm benign appearing polyps in the gastric body. Mild gastric erythema with a few superficial pre-pyloric erosions. DUODENUM: A 1.5 to 2 cms non-bleeding ulcer in the floor of the apex of the bulb. Mild duodenitis with edematous folds in the proximal descending duodenum Colonoscopy Findings: No polyps were detected Moderate to severe diverticulosis seen in the left colon Plan: Await pathology results. Start pt on a PPI twice daily for DU Patient to schedule a FU appointment in the GI Clinic with Cordell Lopez M.D. Repeat EGD in 8 to 12 weeks to confirm DU has healed. Repeat Colonoscopy not indicated due to advanced age and negative colonoscopy today. Above findings were reviewed with the patient. Surgeon: Cordell Lopez MD Anesthesia: MAC (Dr Graham) Was an Buckshot Swage Operator used for this Procedure?: Yes Buckshot Swage Operator: Vineet Oviedo Estimated blood loss (mL): 0 Pathology: other (A- SMALL PAM BXS R/O DUODENITIS B- GASTRIC ANTRUM BXS R/O H. PYLORI) Condition: stable Disposition: PACU
--- NOTE | 2021-11-21 12:32 | PCN2_ITS ---
Brief Operative Note Date of procedure: 11/21/21
--- NOTE | 2021-11-21 12:32 | PM.PROC ---
Brief Operative Note Date of procedure: 11/21/21
--- NOTE | 2021-11-21 13:51 | HO.PM.IMPN ---
Subjective Subjective Date of Service: 11/21/21 Review of Systems Follow-up sepsis, anemia Feels okay s/p egd/colonoscopy Denies chest pain, shortness breath, nausea, vomiting, diarrhea All other systems are reviewed and are negative Physical Exam Vital Signs: Vital Signs: Last Vital Signs Temp 97.7 F 11/21/21 13:40 Pulse 92 11/21/21 13:40 Resp 18 11/21/21 13:40 BP 110/53 L 11/21/21 13:40 Pulse Ox 100 11/21/21 13:40 BMI result Body Mass Index 27.4 Appearing in no acute distress lung sounds are clear to auscultation heart regular rate rhythm, clear S1, S2 positive bowel sounds, abdomen is soft, nontender neuro patient is alert x3, no focal deficits Objective Data Active Medications Acetaminophen (Acetaminophen 325 Mg Tablet) 650 mg PO Q6H PRN PRN Reason: Pain, Mild (Pain Scale 1-3) Atorvastatin Calcium (Atorvastatin Calcium 10 Mg Tablet) 10 mg PO BEDTIME [facility] Last Admin: 11/20/21 20:04 Dose: 10 mg Documented by: YOGESH Clopidogrel Bisulfate (Clopidogrel Bisulfate 75 Mg Tablet) 75 mg PO DAILY [facility] Last Admin: 11/21/21 07:59 Dose: Not Given Documented by: ROZINA Non-Admin Reason: surgery Docusate Sodium (Docusate Sodium 100 Mg Capsule) 100 mg PO DAILY PRN PRN Reason: Constipation Folic Acid (Folic Acid 1 Mg Tablet) 1 mg PO DAILY [facility] Last Admin: 11/21/21 07:59 Dose: Not Given Documented by: ROZINA Non-Admin Reason: NPO Lactated Ringer's (Lr) 1,000 mls @ 50 mls/hr IVCONT .Q20H [facility] Last Admin: 11/21/21 11:49 Dose: 50 mls/hr Documented by: SHANNON Melatonin (Melatonin 3 Mg Tablet) 6 mg PO BEDTIME PRN PRN Reason: Insomnia Pharmacy Consult (Consult Rx Vancomycin Dosing) 1 each MISCELLANE DAILY PRN PRN Reason: Consult order Senna (Sennosides 8.6 Mg Tablet) 17.2 mg PO BEDTIME PRN PRN Reason: Constipation Sodium Chloride (0.9 % Sodium Chloride Flush 3 Ml Syringe) 3 ml IVFLUSH QSHIFT [facility] Last Admin: 11/21/21 07:57 Dose: 3 ml Documented by: ROZINA Labs CBC & Chem 7: 11/20/21 05:22 11/21/21 05:56 Labs: Laboratory Results - last 24 hr 11/21/21 05:56 Estim Creat Clear Calc 71.8 Estimated GFR > 60 Microbiology Microbiology Results: Microbiology 11/16/21 00:03 Blood Culture - Final Blood - Venous No growth after 5 days. Assessment and Plan (1) Anemia: Status: Acute (2) Duodenal ulcer: Status: Acute Assessment and Plan: 80-year-old female with a past medical history of , hyperlipidemia, cardiomyopathy, history of CVA, hyperparathyroidism, osteoporosis; recent admission to the hospital for septic shock secondary to UTI-discharged on 11/13/2021 to alf on Levaquin; presented back today to the hospital with a chief complaint of left lateral chest wall pain/ fever; noted to be in sepsis.? Admitted for further management.? Anemia secondary to duodenal ulcer Stable HH no overt bleeding Occult + postop EGD/colonoscopy with findings of small hiatal hernia, mild gastritis, mild duodenitis with nonbleeding duodenal ulcer, moderate to severe diverticulosis left colon Plan is to start PPI twice daily and follow-up with GI as an outpatient, repeat EGD in 8-12 weeks to confirm duodenal ulcer has h Sepsis. Resolved ? Patient noted to have temperature of 101.2? F, tachycardia, leukocytosis.? lactic acid 1.0. recent admission for urosepsis. repeat UA negative ?pulmonary source. chest CT showing multifocal pneumonia unchanged from previous Blood cultures 11/16, 1/2 gram postive cocci, coag neg staph flu/covid/rsv negative abx treatment completed, coag neg staph cx Recent UTI. On 11/13/21 patient admitted for septic shock secondary to UTI.? Patient urine cultures were growing Proteus mirabilis-susceptible to Levaquin-patient was discharged on Levaquin for 2 weeks.? repeat UA negative Ureteral stone. CT scan showed stable findings. CT abdomen showed:Similar appearance of the left kidney with mild hydronephrosis and calculi in the renal pelvis. Superimposed infection is possible with this appearance.? seen by urology on last admission with no intervention deemed necessary but given recurrent sepsis, will re-consult Chest pain Pleuritic in nature.? Patient had recent pneumonia diagnosed on 10/31/2021; current CT chest showed multifocal areas of opacity unchanged from prior,noted to have new small left pleural effusion.? EKG nonischemic Troponin flat Cardiomyopathy. No signs of fluid overload. h/o CVA continue plavix, statin DISPO back to STR tomorrow Attending Dr. House DVT prophylaxis with SCD boots ealed Quality Stroke Does the patient have a stroke diagnosis?: No VTE Prior VTE?: No VTE Risk Level:: Medical - moderate - high VTE Device Contraindication: N/A - Device Ordered VTE Drug Contraindication: Treatment Not Indicated
--- NOTE | 2021-11-21 15:14 | MHC.CM.PN ---
Addendum entered by Angeline Aldrich 11/21/21 15:32: [facility] REFERRALS TO [facility] , [facility] AND [facility] IF PATIENT IS ABLE TO GO COME , TO CHECK ON AVAILABILITY Original Note: NURSE GUM WORKER NOTE CASE DISCUSSED WITH HOSPITALSIT WAREHOUSER , AND STAFF NURSE FOR ENDOSCOPY AND COLONOSCOPY TODAY ANTICIPATE DISCHARGE TOMORROW QUESTION IF SHE WILL RETURN BACK TO [facility] WHERE SHE WAS RECENLTY ADMNITTED (UNVACINATED PRIVATE ROOM) VS ANOTHER FAXCILITY , REFERRAL TO [facility] AND [facility] DISCHARGE PLAN ANTICIPATE RTN BACK TO [facility] IF BED AVAILABILITY VS STR AT [facility] , [facility], [facility] . TRANSPORTATION ACTION BLS MEDICARE IMM
[2021-11-21] MEDS: Omeprazole 20 MG CAPSULE.DR PO (16:35)
--- NOTE | 2021-11-21 16:46 | P.DS_ITS ---
DS: Providers Provider Date of Service: 11/22/21 Date of admission: 11/16/21 05:20 Primary care physician: Unknown Physician Consults: 11/16/21 05:19 Consult to Infectious Diseases Routine Consulting Provider: Lorna Gan Reason for consultation: sepsis 11/16/21 09:04 Consult to Urology Routine Consulting Provider: Samson Cotton Reason for consultation: recurrent urosepsis with hydronephrosis / stones 11/19/21 08:06 Consult to Gastroenterology Routine Consulting Provider: Cordell Lopez Reason for consultation: Anemia, +occult Has provider been notified: No Attending physician on discharge: Peter House Discharging clinician: Melvina Hutson DS: Diagnosis Discharge Diagnosis (1) Anemia: Status: Acute (2) Duodenal ulcer: Status: Acute DS: Summary Hospital Course Hospital Course: HP as per admitting provider 80-year-old female with a past medical history of hypertension, hyperlipidemia, cardiomyopathy, history of CVA, hyperparathyroidism, osteoporosis; recent admission to the hospital for septic shock secondary to UTI-discharged on 11/13/2021 to snf on [facility]; presented back today to the hospital with a chief complaint of left lateral chest wall pain/ fever at the snf.?Patient reported that she was doing fine at the snf but lately started to develop chest pain located on the left lateral chest wall/upper abdomen; worsens with deep inspiration; hence presented to the ER for further evaluation.?Denies any cough or sputum production.?Reports of chest pain worsens on leave inspiration, denies any central chest pain; denies any associated shortness of breath, nausea, vomiting, diaphoresis.?Patient denies any dysuria.?Review of all other systems is negative except mentioned above ER course: Per ER team patient on presentation noted to be in sepsis, noted to have leukocytosis, tachycardia, febrile to 101.2; patient's pain was reproducible; EKG was nonischemic; troponin negative; CT chest showed small left pleural effusion likely contributing pleuritic chest pain ; Anemia secondary to duodenal ulcer Stable HH no overt bleeding postop EGD/colonoscopy with findings of small hiatal hernia, mild gastritis, mild duodenitis with nonbleeding duodenal ulcer, moderate to severe diverticulosis left colon Plan is to start PPI twice daily and follow-up with GI as an outpatient, repeat EGD in 8-12 weeks to confirm resolution of ulcer Sepsis. Resolved ? Patient noted to have temperature of 101.2? F, tachycardia, leukocytosis.? lactic acid 1.0. recent admission for urosepsis. repeat UA negative ?pulmonary source. chest CT showing multifocal pneumonia unchanged from previous Blood cultures 11/16, 1/2 gram postive cocci, coag neg staph flu/covid/rsv negative abx treatment completed, coag neg staph cx Recent UTI. On 11/13/21 patient admitted for septic shock secondary to UTI.? Patient urine cultures were growing Proteus mirabilis-susceptible to Levaquin- patient was discharged on Levaquin for 2 weeks.? repeat UA negative Ureteral stone. CT scan showed stable findings. CT abdomen showed:Similar appearance of the left kidney with mild hydronephrosis and calculi in the renal pelvis. Superimposed infection is possible with this appearance.? seen by urology on last admission with no intervention deemed necessary but given recurrent sepsis, will re-consult Chest pain. No ischemic changes Pleuritic in nature.? Patient had recent pneumonia diagnosed on 10/31/2021; current CT chest showed multifocal areas of opacity unchanged from prior,noted to have new small left pleural effusion.? EKG nonischemic Troponin flat Time Spent with Patient Time attestation: Total time spent providing and/or coordinating discharge services: Discharge coordination time: Greater than 30 minutes Quality: Stroke Does the patient have a stroke diagnosis?: No Physical Exam Vital Signs: Vital Signs: Last Vital Signs Temp 97.9 F 11/21/21 16:00 Pulse 96 11/21/21 16:10 Resp 18 11/21/21 16:10 BP 121/69 11/21/21 16:10 Pulse Ox 93 11/21/21 16:10 BMI result Body Mass Index 27.4 Appearing in no acute distress head is normocephalic atraumatic eyes pupils are PERRLA sclera is anicteric mouth throat mucous membranes are intact and moist neck is supple no lymphadenopathy, no JVD noted lung sounds are clear to auscultation heart regular rate rhythm, clear S1, S2 positive bowel sounds, abdomen is soft, nontender neuro patient is alert x3, no focal deficits DS: Data Data Completed and Pending Pending studies at discharge: Pending at discharge 11/21/21 13:10 Surgical [PTH] Routine Labs on day of discharge: Laboratory Results - last 24 hr 11/21/21 05:56 Creatinine 0.62 Estim Creat Clear Calc 71.8 Estimated GFR > 60 Discharge Plan Discharge Anticipated Discharge Date/Time: 11/22/21 11:10 Patient Disposition: Home Health Service Discharge Diagnosis: Anemia, sepsis Referrals: Cordell Lopez MD [Physician] - 6 Weeks (8-12 week follow up ) Discharge Medications: New omeprazole 20 mg Capsule,Delayed Release(Dr/Ec) 20 mg PO BID@0630,1630 Qty: 60 RF: 0 Continued simvastatin 20 mg tablet 20 mg PO BEDTIME Qty: 90 RF: 3 clopidogrel 75 mg tablet 75 mg PO DAILY Qty: 90 RF: 3 acetaminophen 650 mg Tablet 650 mg PO Q6H PRN (Reason: Fever) RF: 0 Lactobacillus acidophilus Tablet 1 tab PO DAILY RF: 0 magnesium hydroxide [Milk of Magnesia] 400 mg/5 mL Suspension 30 ml PO DAILY PRN (Reason: Constipation) RF: 0 bisacodyl 10 mg Suppository 10 mg DC DAILY PRN (Reason: Constipation) RF: 0 vitamin A 10,000 unit capsule 10,000 unit PO DAILY RF: 0 vitamin B complex [B Complex-Vitamin B12] Tablet 1 tab PO DAILY RF: 0 multivitamin Tablet 1 tab PO DAILY RF: 0 garlic 500 mg capsule 500 mg PO DAILY RF: 0 zinc 50 mg tablet 50 mg PO DAILY RF: 0 cranberry 400 mg capsule 400 mg PO DAILY RF: 0 folic acid 1 mg tablet 1 mg PO DAILY RF: 0 flaxseed oil 1,000 mg capsule 1,000 mg PO DAILY RF: 0 cinnamon bark [Cinnamon] 500 mg capsule 500 mg PO DAILY RF: 0 apple cider vinegar 300 mg tablet 300 mg PO DAILY RF: 0 calcium carbonate 600 mg calcium (1,500 mg) tablet 600 mg PO BID RF: 0 Discontinued levofloxacin 500 mg tablet 500 mg PO DAILY Qty: 8 RF: 0 Discharge Orders: Discharge Order (Routine); Ordered 11/22/21 Ordered By: Melvina Hutson Diet: advance to usual diet Activity on Discharge: As tolerated Stand Alone Forms: Patient Portal Discharge page Care Plan Goals: resolution of duodenal ulcer Health Concerns: Anemia, sepsis Plan of Treatment: You were started on a proton pump inhibitor called Prilosec free of duodenal ulcer, please take as prescribed Follow-up with Gastroenterology in 8-12 weeks for a repeat endoscopy Follow-up with your primary care provider as needed Assessment: see discharge summary
[2021-11-21] MEDS: Atorvastatin Calcium 10 MG TABLET PO (21:18)
[2021-11-21 22:29] LABS: Vancomycin Trough < 3.0 mcg/mL (10.0-20.0)
[2021-11-21 22:39] LABS: COVID-19 Test Negative (Negative); IDNOW Serial# 9DD0AD1C
[2021-11-22 03:09] VITALS: BP 137/63; PULSE 76; RESP 18; TEMP 36.6; O2SAT 93
--- NOTE | 2021-11-22 04:39 | PC.NURSE ---
PRE OPERATIVE ORDER ON PATIENTS MAR OF LR AT 50ML/HR. IVF INFUSION NOT INPROGRESS WHEN 11-7 SHIFT STARTED, NO BAG, TUBING, ETC.. PT STATED HAS BEEN OFF SINCE HER PROCEDURE. ORDER ORIGINATED IN [facility] AND CHECKED IN WITH HOSPITALIST ON DUTY AND OKAY TO KEEP OFF/DISCONTINUE PT TOLERATING DIET.
[2021-11-22] MEDS: Omeprazole 20 MG CAPSULE.DR PO ×2 (05:47→17:42)
[2021-11-22 07:03] LABS: Creatinine Clr Calc Pharmacy 78.1; Estimated Glomerular Filt Rate > 60
[2021-11-22 07:50] VITALS: PULSE 94; RESP 18; TEMP 36.8; O2SAT 92
[2021-11-22 08:10] VITALS: BP 142/67; PULSE 94; RESP 18; TEMP 36.8; O2SAT 92
[2021-11-22] MEDS: Folic Acid 1 MG TABLET PO (08:25)
[2021-11-22] MEDS: Clopidogrel Bisulfate 75 MG TABLET PO (08:25)
[2021-11-22] MEDS: 0.9 % Sodium Chloride Flush 3 ML SYRINGE IVFLUSH (08:26)
[2021-11-22 10:03] VITALS: BP 142/67; PULSE 94; O2SAT 92
--- NOTE | 2021-11-22 10:09 | HO.POSTANES ---
Post Anesthesia Evaluation Post Anesthesia Evaluation Vital Signs: Vital Signs Temp Pulse Resp BP Pulse Ox 11/22/21 08:10 98.3 F 94 18 142/67 H 92 11/22/21 07:50 98.3 F 94 18 92 11/22/21 03:09 97.8 F 76 18 137/63 93 11/21/21 23:35 97.8 F 94 18 138/60 92 Anesthesia: Monitored Mental Status: Awake Pain Control: Satisfactory Nausea/Vomiting: None Hydration: Adequate Anesthesia-Related Issues: No Anes. Related Issues
--- NOTE | 2021-11-22 11:40 | W.MHC.F2F ---
Service Date Service Date: 11/22/21 Encounter Date of encounter: 11/22/21 Reasons for Services Reason for alf: CV/CP assess and/or care and teach disease management Reason for physical therapy: home safety and mobility Homebound: Leaving the home is medically contraindicated at this time without the asist of a device and/or another person due th the listed conditions above and below. Certification: Based on the above findings, I certify that this patient is confined to the home and needs intermittent alf care, physical therapy and/or speech therapy, or continues to need occupational therapy. The patient is under my care, and I have initiated the establishment of the plan of care. The patient will be followed by a physician who will periodically review the plan of care.
--- NOTE | 2021-11-22 11:44 | MHC.CM.PN ---
IMM 11/22/21 Female 80 DX Sepsis She is discharged today. She is going home with [facility]. She will arrange for transportation. DC info has been sent to [facility].
[2021-11-22 15:43] VITALS: BP 137/65; PULSE 98; RESP 18; TEMP 37; O2SAT 95
--- NOTE | 2021-12-01 14:27 | P.CDIR_ITS ---
Retrospective Query PHYSICIAN'S DOCUMENTATION REQUEST Date of Query: 12/01/21 1427 Patient Name: Rachana Stephenson Admit Date: 11/16/21 Dear Doctor, A review of the medical record indicates additional documentation may be needed. Please review below and update the documentation accordingly. Clinical Indicators: Risk Factors/Clinical Indicators/Treatments H/H 11/16/21: 9.1/27.0 H/H 11/17/21: 7.9/24.4 Per Discharge Summary 11/21/21: Anemia secondary to duodenal ulcer Stable HH no overt bleeding postop EGD/colonoscopy with findings of small hiatal hernia, mild gastritis, mild duodenitis with nonbleeding duodenal ulcer, moderate to severe diverticulosis left colon Plan is to start PPI twice daily and follow-up with GI as an outpatient, repeat EGD in 8-12 weeks to confirm resolution of ulcer Based on the above, could you clarify in the Progress Notes which of the following is the most likely type of anemia you are evaluating, treating, and/or monitoring? * Acute blood loss anemia * Acute blood loss anemia with baseline chronic anemia (specify type) * Anemia of chronic disease- indicate if neoplastic disease, CKD, or other * Chronic iron deficiency anemia due to blood loss * Other ? please specify * Unable to determine Use of terms such as suspected, likely, concern for, or probable (associated with a specific diagnosis that is being evaluated, monitored, or treated as if it exists) are acceptable and can be coded in the inpatient setting, when documented at the time of discharge. Thank you, Loni Barksdale RN Extension: [phone] Please use your independent medical judgment in providing your response. THIS QUERY IS PART OF THE PERMANENT MEDICAL RECORD
--- NOTE | 2021-12-01 16:41 | W.PM.OPN ---
Operative Note Operative Note Date of Service: 11/21/21 Narrative: Pre-op diagnosis:?anemia, heme positive stools Post-op diagnosis:?other (Hiatal hernia, gastritis, multiple gastric polyps, duodenal ulcer, duodenitis, diverticulosis) Procedure:? FLEXIBLE TRANSORAL UPPER GASTROINTESTINAL ENDOSCOPY WITH BIOPSIES AND COLONOSCOPY TILL CECUM UPPER ENDOSCOPY Consent:?Indications for the procedure and potential complications of bleeding, perforation, reaction to medications and missed diagnosis were discussed with the patient and informed consent was obtained. Instrument:?Olympus GIF H 190 mid size upper endoscope Monitoring: Vital signs and clinical assessment, continuous EKG monitoring, Pulse oximetry, Carbon Dioxide monitoring and blood pressure monitoring were done throughout the procedure. Procedure:?The patient was placed in the left lateral decubitis position and pre-procedure medications were administered and a bite block was placed. The endoscope was inserted into the mouth and advanced under direct vision to the third part of duodenum. A careful inspection was made as the upper endoscope was withdrawn including a retroflexed examination of the proximal stomach; Findings and interventions are described below. Findings: Larynx:? Normal Esophagus:?GE junction at 35 cms, small hiatal hernia 35 to 37 cms.? No esophagitis or English's. Stomach:?Multiple 4-5 mm benign appearing polyps in the gastric body.? Mild gastric erythema with a few superficial pre-pyloric erosions. ? Biopsies were obtained. Grade 2 flap valve on retroflexed examination of the cardia. Duodenum:?A 1.5 to 2 cms non-bleeding ulcer in the floor of the apex of the bulb. Mild duodenitis with edematous folds in the proximal descending duodenum Intervention:?Biopsies as noted above COLONOSCOPY PROCEDURE NOTE Consent:?Indications for the procedure and potential complications of bleeding, perforation, reaction to medications and missed diagnosis were discussed with the patient and informed consent was obtained. Instrument:?Olympus PCF H 190 L variable stiffness pediatric colonoscope Monitoring:?Vital signs and clinical assessment, intermittent blood pressure monitoring, continuous EKG monitoring, Pulse oximetry and Carbon Dioxide monitoring were done throughout the procedure. Colon withdrawl time was 23 minutes. Procedure:?The patient was placed in the left lateral decubitis position and pre-procedure medications were administered. After a digital rectal examination of the ano-rectum, the video colonoscope was inserted into the rectum and advanced through the colon to the cecum. The colonoscope was slowly withdrawn in a retrograde panoramic fashion and the colon mucosa was carefully examined including a retroflexed view of the rectum. Findings and interventions are described below. Procedure Difficulty:?: Without difficulty Findings: Terminal Ileum: Not evaluated Cecum:? Normal Ascending Colon:??Normal Transverse Colon:??Normal Descending Colon:? Moderate diverticulosis Sigmoid Colon:??Severe diverticulosis Rectum:??Normal Ano-rectum:??Normal Colon preparation:? Good after copious irrigation Impression and Post Procedure Diagnosis: Endoscopy Findings: ESOPHAGUS: Small hiatal hernia STOMACH: Multiple 4-5 mm benign appearing polyps in the gastric body.? Mild gastric erythema with a few superficial pre-pyloric erosions. DUODENUM:??A 1.5 to 2 cms non-bleeding ulcer in the floor of the apex of the bulb. Mild duodenitis with edematous folds in the proximal descending duodenum Colonoscopy Findings: No polyps were detected Moderate to severe diverticulosis seen in the left colon Plan: Await pathology results. Start pt on a PPI twice daily for DU Patient to schedule a FU appointment in the GI Clinic with Cordell Lopez M.D. Repeat EGD in 8 to 12 weeks to confirm DU has healed. Repeat Colonoscopy not indicated due to advanced age and negative colonoscopy today. Above findings were reviewed with the patient. Surgeon:?Cordell Lopez MD Anesthesia:?MAC (Dr Graham) Was an Principal Examiner used for this Procedure?:?Yes Principal Examiner:?Vineet Oviedo Estimated blood loss (mL):?0 Pathology:?other (A- SMALL PAM BXS? ? R/O DUODENITIS? B- GASTRIC ANTRUM BXS ? R/O H. PYLORI) Condition:?stable Disposition:?PACU
== END 2021-11-22 19:10 | disposition home health service (06) | DRG 853 ==
LOC: HO.ED 11-16 03:46 → HO.EDOVER 11-16 05:25 → HO.S3 11-16 14:52
PROVIDERS: Internal Medicine; Internal Medicine Gastroenterology; Physician Assistant Medical; Urology; Admitting Provider Hospitalist; Emergency Provider Student in an Organized Health Care Education/Training Program; PCP Internal Medicine; Visit Provider Nurse Practitioner Acute Care
PROC: 0TJB8ZZ Inspection of Bladder, Via Natural or Artificial Opening Endoscopic (ICD-10-PCS; CPT 52000; principal; 2021-11-16 17:50)
PROC: 0DB78ZX Excision of Stomach, Pylorus, Via Natural or Artificial Opening Endoscopic, Diagnostic (ICD-10-PCS; principal; 2021-11-21 11:30)
DX: A41.9 Sepsis, unspecified organism (principal); K26.4 Chronic or unspecified duodenal ulcer with hemorrhage; K29.81 Duodenitis with bleeding; N13.6 Pyonephrosis; I42.9 Cardiomyopathy, unspecified; D62 Acute posthemorrhagic anemia; E78.5 Hyperlipidemia, unspecified; E86.0 Dehydration; K44.9 Diaphragmatic hernia without obstruction or gangrene; K31.7 Polyp of stomach and duodenum; Z20.822 Contact with and (suspected) exposure to COVID-19; Z86.73 Personal history of transient ischemic attack (TIA), and cerebral infarction without residual deficits; Z87.442 Personal history of urinary calculi; Z85.038 Personal history of other malignant neoplasm of large intestine; Z87.891 Personal history of nicotine dependence; Z79.02 Long term (current) use of antithrombotics/antiplatelets; Z79.899 Other long term (current) drug therapy
CPT/HCPCS: 0241U; 36415; 71045; 71260; 74177; 80048; 80053; 80202; 81003; 82272; 82565; 83540; 83605; 83880; 84145; 84484; 85025; 85027; 85379; 85610; 87040; 87147; 87205; 87635; 88305; 88342; 93005; 96361; 96365; 97162; 99285; C2617; J2405; J2543; J3010; J3370; Q9967

== ENCOUNTER 2022-04-06 10:24 | Outpatient (REF) | payer MEDICARE, SELFPAY ==
[2022-04-06 13:34] LABS: Appearance Urine CLOUDY; Color Urine YELLOW; Glucose Urine UA NEG (NEG); Leukocyte Esterase Urine 3+ (NEG); Nitrite Urine POS (NEG); Specific Gravity - Urine 1.025 (1.005-1.025); UACC Culture Trigger YES; Urine Blood 3+ (NEG); Urine Ketones NEG (NEG); Urine Protein 2+ MG/DL (NEG-TRACE)
[2022-04-06 13:44] LABS: Squamous Epithelial Cell Urine TRACE /LPF; WBC Urine TNTC /HPF (0-4)
[2022-04-06 13:45] LABS: Bacteria Urine 1+ /LPF; RBC Urine 0 /HPF (0)
== END 2022-04-06 10:25 | disposition home or self-care (01) ==
LOC: HO.WFDLNP 10:24
PROVIDERS: Visit Provider Internal Medicine
DX: R30.0 Dysuria (principal)
CPT/HCPCS: 81001; 87086; 87088; 87186

== ENCOUNTER 2022-08-27 12:33 | Outpatient (REF) | payer MEDICARE, SELFPAY ==
[2022-08-27 13:33] LABS: Hematocrit 40.3 % (37.0-47.0); Mean Corpuscular HGB Conc 32.3 g/dl (31.0-35.0); Mean Corpuscular Volume 92.9 fL (80.0-98.0); Mean Platelet Volume 11.1 fL (9.4-12.3); Platelet Count 216 X10*3/uL (160-400); Red Blood Count 4.34 X10*6/uL (4.20-5.50); Red Cell Distribution Width 13.4 % (11.0-16.0); White Blood Count 11.4 X10*3/uL (4.8-10.8)
== END 2022-08-27 12:34 | disposition home or self-care (01) ==
LOC: HO.LAB 12:33
PROVIDERS: PCP Internal Medicine; Visit Provider Internal Medicine Cardiovascular Disease
DX: I42.9 Cardiomyopathy, unspecified (principal); D50.9 Iron deficiency anemia, unspecified; K26.9 Duodenal ulcer, unspecified as acute or chronic, without hemorrhage or perforation; Z79.899 Other long term (current) drug therapy; Z86.73 Personal history of transient ischemic attack (TIA), and cerebral infarction without residual deficits
CPT/HCPCS: 36415; 85027; 93005; 99212

== ENCOUNTER 2022-11-15 09:21 | Outpatient (REF) | payer MEDICARE, SELFPAY ==
[2022-11-15 10:57] LABS: Alanine Aminotransferase 11 U/L (0-31); Anion Gap 8 (12-20); Aspartate Amino Transferase 12 U/L (5-31); Blood Urea Nitrogen 18 mg/dL (9-16); Calcium 9.1 mg/dL (8.4-10.2); Carbon Dioxide 29 mmol/L (22-29); Chloride 108 mmol/L (96-108); Cholesterol 146 mg/dL; Estimated Glomerular Filt Rate > 60; Glucose Fasting 100 mg/dL (60-99); HDL Cholesterol 46 mg/dL; LDL Cholesterol Calculated 68 mg/dl; Magnesium 2.1 mg/dL (1.6-2.6); Potassium 4.1 mmol/L (3.3-5.1); Sodium 141 mmol/L (135-145); Triglycerides 163 mg/dL
[2022-11-15 11:10] LABS: Appearance Urine Turbid; Color Urine Yellow; Glucose Urine UA Negative (Negative); Leukocyte Esterase Urine Trace (Negative); Nitrite Urine Negative (Negative); Specific Gravity - Urine 1.015 (1.005-1.025); UMIC TRIGGER UACC YES; Urine Blood Negative (Negative); Urine Ketones Negative (Negative); Urine Protein Negative (Neg-Trace)
[2022-11-15 11:16] LABS: Bacteria Urine None Seen (None Seen); Hyaline Casts Urine 0-2 /LPF (0-2); RBC Urine 0-2 /HPF (0-2); Squamous Epithelial Cell Urine 0-2 /HPF (0-2); WBC Urine 0-5 /HPF (0-5)
== END 2022-11-15 09:22 | disposition home or self-care (01) ==
LOC: HO.WFDLDS 09:21
PROVIDERS: Visit Provider Internal Medicine
DX: E78.5 Hyperlipidemia, unspecified (principal); I10 Essential (primary) hypertension
CPT/HCPCS: 36415; 80048; 80061; 81001; 81003; 83735; 84450; 84460

== ENCOUNTER → 2022-11-28 10:35 | Outpatient (BNVA) | payer MEDICARE, SELFPAY | PROVIDERS: PCP Internal Medicine; Referring Provider Internal Medicine; Visit Provider Internal Medicine Cardiovascular Disease | DX: I42.9 Cardiomyopathy, unspecified (principal); I10 Essential (primary) hypertension; D50.9 Iron deficiency anemia, unspecified; Z86.73 Personal history of transient ischemic attack (TIA), and cerebral infarction without residual deficits; Z79.02 Long term (current) use of antithrombotics/antiplatelets | CPT/HCPCS: 99212 ==

== ENCOUNTER 2023-06-03 10:59 | Outpatient (AMB) | payer MEDICARE, SELFPAY ==
--- NOTE | 2023-06-03 11:00 | MHC.OFFVIS ---
Intake Vital Signs 06/03/23 11:01 Height 4 ft 11 in Weight 145 lb 8.081 oz BMI 29.4 BP 122/80 Blood Pressure Location Lt brachial Position Sitting Pulse 62 Intake Visit Reasons: 6 mth f/up Intake Note: 6 month follow-up with ekg feeling good Game Trapper Required: No Allergies No Known Allergies Allergy (Verified 11/30/22 13:17) Medication List - Last Reconciled 06/03/23 by Hai Garces MD amlodipine 5 mg PO DAILY apple cider vinegar 300 mg PO DAILY calcium carbonate 600 mg PO BID carvedilol 25 mg PO BID 90 days cinnamon bark (Cinnamon) 500 mg PO DAILY clopidogrel 75 mg PO DAILY cranberry 400 mg PO DAILY famotidine 40 mg PO DAILY PRN flaxseed oil 1,000 mg PO DAILY folic acid 1 mg PO DAILY garlic 500 mg PO DAILY lisinopril 20 mg PO DAILY 90 days magnesium 500 mg PO DAILY multivitamin 1 tab PO DAILY omega 0-pyb-rrq-fish oil 900 mg (320 mg- 580mg)-1,360 mg (Fish Oil) caps PO simvastatin 20 mg PO BEDTIME vitamin A 10,000 units PO DAILY vitamin B complex (B Complex-Vitamin B12 tablet) 1 tab PO DAILY zinc 50 mg PO DAILY HPI HPI Comments History of Present Illness Details Pleasant 82-year-old female here for follow-up. She has background of cardiomyopathy. Cardiac MRI in the past showed low normal ejection fraction with basal to mid inferolateral wall hypokinesis. She was started on guideline directed medical therapy and echocardiography in June 2020 showing normal ejection fraction. She has been feeling well. She has no chest pain or shortness of breath. Tolerating medications good. She was noticed to have PVCs and underwent Holter monitoring. Holter monitor showed approximately 7% ventricular ectopic beats with average heart rate of 62-99 beats per minute. Rare supraventricular ectopy was also noticed. She has resumed her Plavix daily. Previously she had urinary tract as well as GI bleeding and was off Plavix. She is denying any bleeding at this point. Denying any chest discomfort or significant shortness of breath. Blood pressure control is good. 06/03/23: She returns for follow-up. She has no chest pain or shortness of breath. Her main complaint is right-sided flank pain which has been happening for few days and is improving slowly. She has been out in the sun cutting had cheese and weed whacking. She is saying she is unable to stand straight because it the back hurts. No urinary complaints, fever/chills or hematuria. She has background of kidney stones. [facility] Medical History (Updated 06/03/23 @ 11:24 by Hai Garces MD) Anemia Bacteremia Cardiomyopathy DIC (disseminated intravascular coagulation) Dyslipidemia Essential hypertension High vitamin D level History of CVA (cerebrovascular accident) History of stent insertion of renal artery Hx of renal calculi Hyperparathyroidism Immunization refused Iron deficiency anemia Obstructive nephropathy Osteoporosis Surgical History History of appendectomy History of colon resection Family History Father Unknown family medical history Mother Unknown family medical history Son No problems noted. Daughter No problems noted. Social History Household Members: None Housing: House Do you presently have visiting nurse or other home services: No Alcohol intake: never Patient Tobacco Use Status: Former Tobacco user Quit Date: quit smoking more than 30 yr ago e-Cigarette/Vaping Use: Never Used service: No Current occupational status: retired Cognitive needs: No Hearing needs: No Vision needs: Yes Review of Systems Const Denies chills, Denies fatigue, Denies fever(s), Denies frequent falls, Denies weakness, Denies weight gain and Denies weight loss ENT Denies dizziness Card Denies chest pain, Denies leg edema, Denies lightheadedness, Denies palpitations, Denies dyspnea, Denies dyspnea on exertion, Denies orthopnea and Denies other (loss of consciousness) Resp Denies cough, Denies dyspnea and Denies dyspnea on exertion GI Denies hematochezia and Denies change in stool character Musc Denies abnormal gait, Denies muscle weakness, Denies numbness, Denies radiating pain into limb and Denies tingling Neuro Denies abnormal gait, Denies dizziness, Denies frequent falls, Denies numbness, Denies tingling and Denies weakness Endo Denies fatigue and Denies palpitations Physical Exam Vital Signs: Last Vital Signs Pulse 62 06/03/23 11:01 BP 122/80 06/03/23 11:01 BMI result Body Mass Index 29.4 GENERAL APPEARANCE: in no acute distress, pleasant. NECK: no carotid bruit, no jugular venous distention. SKIN: no suspicious lesions, warm and dry. HEART: no murmurs, regular rate and rhythm. LUNGS: clear to auscultation bilaterally. ABDOMEN: soft, nontender. EXTREMITIES: no edema. PERIPHERAL PULSES: equal. NEUROLOGIC: No gross deficits, AAO X 3 Office Procedures EKG Details: Sinus rhythm 62 beats per axis, nonspecific changes, QTC 420 milliseconds. [id number], Complete Assessment & Plan Assessment & Plan (1) Essential hypertension: Code(s): I10 - Essential (primary) hypertension (2) Back pain: Code(s): M54.9 - Dorsalgia, unspecified Plan Pleasant 82-year-old female who is here for follow-up. She has background history of nonischemic cardiomyopathy with improvement in ejection fraction with guideline directed medical therapy. Blood pressure control is good. It has been more than 2 years since we had assessment of her LV. I am going to arrange elective echocardiogram. She should continue same medications for now. Previous CVA and she is currently on Plavix. Back pain appears to be due to muscle spasm. This is improving already. I have advised her to contact the primary care physician if there is no improvement or if she develops any urinary complaints and/or fever. Thank you for allowing me to participate in the care of your patient. Please feel free to contact me if you have any questions. Orders: Orders CA echo transthoracic complete Today I42.9 - Cardiomyopathy, unspecified Medications: Changed From clopidogrel 37.5 mg (1/2 x 75 mg) PO DAILY 90 days 45 tabs 3RF To clopidogrel 75 mg PO DAILY Coding Level of Care Code Est Pt Level 4 (91711) Diagnoses Essential hypertension I10 Back pain M54.9 CPT Codes EKG - CPT: 02924-[id number], Complete ([id number])
[2023-06-03 11:01] VITALS: BP 122/80; PULSE 62; BMI 29.4
== END 2023-06-03 11:27 | disposition home or self-care (01) ==
PROVIDERS: Visit Provider Internal Medicine Cardiovascular Disease
DX: I10 Essential (primary) hypertension (principal); M54.9 Dorsalgia, unspecified
CPT/HCPCS: 93010; 99214

== ENCOUNTER → 2023-06-03 10:59 | Outpatient (BNVA) | payer MEDICARE, SELFPAY | PROVIDERS: Visit Provider Internal Medicine Cardiovascular Disease | DX: I42.9 Cardiomyopathy, unspecified (principal); I10 Essential (primary) hypertension; M54.9 Dorsalgia, unspecified | CPT/HCPCS: 93005; 99212 ==

== ENCOUNTER → 2023-07-11 10:04 | Outpatient (REF) | payer MEDICARE, SELFPAY ==
--- NOTE | 2023-07-11 10:06 | CA_ITS ---
Transthoracic Echocardiogram Patient (Last, First, Middle): Rachana Stephenson M Gender: Female Date of : 1940 Age: 82 Procedure Date: 07/11/2023 Procedure Type: Transthoracic Echocardiogram Location: OP Height: 149.86 cm Weight: 63.5 kg BSA: 1.58 m2 Heart Rate: bpm BP: 114 / 60 mmHg Professor Of Mechanical Engineering: TO Referring MD: Hai Garces MD Magician/Illusionist: Hai Garces MD Symptoms: I42.9 - Cardiomyopathy, unspecified Study Quality: Fair Conclusions: - Mildly increased left ventricular cavity size. There is mildly increased left ventricular wall thickness. The left ventricular systolic function is low normal. The visually estimated ejection fraction is between 50-55%. - Normal right ventricular cavity size and systolic function. - The left atrium is mildly dilated. The right atrium is mildly dilated. - There is mild mitral valve regurgitation. Findings Left Ventricle Mildly increased left ventricular cavity size. There is mildly increased left ventricular wall thickness. The left ventricular systolic function is low normal. The visually estimated ejection fraction is between 50-55%. Regional wall motion abnormalities can not be excluded due to suboptimal endocardial definition. Abnormal diastolic function is noted. Spectral Doppler is indicative of an impaired relaxation filling pattern. E/E prime ratio is between 8 and 15 consistent with indeterminate filling pressures. Right Ventricle Normal right ventricular cavity size and systolic function. Atria The left atrium is mildly dilated. The right atrium is mildly dilated. Aortic Valve There is a normal trileaflet aortic valve. There is no aortic valve stenosis. There is no aortic valve regurgitation. Mitral Valve There is mild anterior and posterior mitral leaflet thickening. There is mild mitral valve regurgitation. There is no mitral valve stenosis. Pulmonic Valve The pulmonic valve is normal. There is trace pulmonic valve regurgitation. Tricuspid Valve Normal tricuspid valve structure. There is mild tricuspid valve regurgitation. Normal right atrial pressure. There is no evidence of pulmonary hypertension. Great Vessels All visible segments of the aorta are normal in size. The visualized portions of the pulmonary artery and branches are normal. Venous The inferior vena cava is normal in size and collapses greater than 50% with inspiration. Pericardium/Pleural There is no evidence of pericardial effusion. Prior Study Comparison Changes noted compared to prior study dated: 07/06/2020. Low normal LVEF. LV mildly dilated. Measurements 2D Linear Measurements IVSd: 1.14 0.6-0.9/0.6-1.0 cm LVIDd: 5.07 3.9-5.3/4.2-5.9 cm LVIDd Index: 3.21 2.4-3.2/2.2-3.1 cm/m2 LVIDs: 3.63 2.0-3.6 cm LVPWd: 0.98 0.7-1.1 cm LA Diam: 4.70 2.7-3.8/3.0-4.0 cm LAIDs Index: 2.97 1.5-2.3 cm/m2 LV Mass: 250.38 67-162/88-224 g LV Mass Index: 158.47 43-95/49-115 g/m2 LVOT Diam: 2.00 3.0+(-)1.3 cm 2D Systolic Function EF 4C: 52.70 >55% EF 2C: 51.50 >55% EF BiP: 52.30 >55% Mitral Valve MV VTI: 0.33 MV Pk Radames: 1.18 MV Mn Radames: 0.62 MV Pk Grad: 6.00 MV Mn Grad: 2.00 MV Pk E: 0.64 MV PK A: 0.98 MV Decel Time: 176.00 E/A: 0.70 E'Lateral: 5.77 E'Medial: 4.35 E/E' Med: 14.80 E/E' Lat: 11.10 PHT: 52.00 MVA PHT: 4.23 MVA Continuity: 2.19 Decel Terrell: 3.65 Aortic Valve AoV Pk Radames: 1.27 AoV Mn Radames: 0.90 AoV VTI: 0.32 AoV Pk Grad: 6.00 Aov Mn Grad: 4.00 ANIYA Cont.VTI: 2.29 LVOT LVOT Pk Radames: 0.82 LVOT Mn Radames: 0.54 LVOT VTI: 0.23 LVOT Pk Grad: 3.00 LVOT Mn Grad: 1.00 LVOT Diam: 2.00 LVOT Area: 3.14 Diastolic Function MV Pk E: 0.64 MV Pk A: 0.98 E/A: 0.70 E'Medial: 4.35 E/E' Med: 14.80 E' Laterial: 5.77 E/E' Lat: 11.10 Right Ventricle TAPSE (mm): 17.50 TVS' Radames: 9.52 Tricuspid Valve TR Pk Radames: 2.46 TR Pk Grad: 24.00 RA Press: 3.00 RVSP: 27.00 Great Vessels Aorta Sinus of Valsalva: 3.19 2.0-3.[address] Ridge: 2.54 1.7-3.4 cm Ao Asc: 3.10 2.1-3.4 cm Updated in Other Vendor System with Status of Final Hai Garces MD electronically signed on 07/12/2023 11:44:37 AM with status of Final
== END ==
LOC: HO.CARD 10:04
PROVIDERS: PCP Internal Medicine; Visit Provider Internal Medicine Cardiovascular Disease
DX: I42.9 Cardiomyopathy, unspecified (principal)
CPT/HCPCS: 93306

== ENCOUNTER → 2023-07-11 10:06 | Outpatient (BNV) | payer MEDICARE, SELFPAY | PROVIDERS: PCP Internal Medicine; Visit Provider Internal Medicine Cardiovascular Disease | DX: I34.0 Nonrheumatic mitral (valve) insufficiency (principal); I36.1 Nonrheumatic tricuspid (valve) insufficiency | CPT/HCPCS: 93306 ==

== ENCOUNTER 2023-10-09 11:03 | Outpatient (AMB) | payer MEDICARE, SELFPAY ==
--- NOTE | 2023-10-09 11:03 | MHC.OFFVIS ---
Intake Vital Signs 10/09/23 11:04 Height 4 ft 11 in Weight 148 lb 9.465 oz BMI 30.0 BP 98/52 L Blood Pressure Location Lt brachial Position Sitting Pulse 68 Intake Visit Reasons: 4 month follow after echo Intake Note: 4 month follow up Operations Assistant Required: No Accompanied by: Family/Other Allergies No Known Allergies Allergy (Verified 10/09/23 11:06) Medication List - Last Reconciled 10/09/23 by Hai Garces MD amlodipine 5 mg PO DAILY apple cider vinegar 300 mg PO DAILY calcium carbonate 600 mg PO BID carvedilol 25 mg PO BID 90 days cinnamon bark (Cinnamon) 500 mg PO DAILY clopidogrel 75 mg PO DAILY cranberry 400 mg PO DAILY famotidine 40 mg PO DAILY PRN flaxseed oil 1,000 mg PO DAILY folic acid 1 mg PO DAILY garlic 500 mg PO DAILY lisinopril 20 mg PO DAILY 90 days magnesium 500 mg PO DAILY multivitamin 1 tab PO DAILY omega 3-ywc-vdq-fish oil 900 mg (320 mg- 580mg)-1,360 mg (Fish Oil) caps PO simvastatin 20 mg PO BEDTIME vitamin A 10,000 units PO DAILY vitamin B complex (B Complex-Vitamin B12 tablet) 1 tab PO DAILY zinc 50 mg PO DAILY HPI HPI Comments History of Present Illness Details Pleasant 82-year-old female here for follow-up. She has background of cardiomyopathy. Cardiac MRI in the past showed low normal ejection fraction with basal to mid inferolateral wall hypokinesis. She was started on guideline directed medical therapy and echocardiography in June 2020 showing normal ejection fraction. She has been feeling well. She has no chest pain or shortness of breath. Tolerating medications good. She was noticed to have PVCs and underwent Holter monitoring. Holter monitor showed approximately 7% ventricular ectopic beats with average heart rate of 62-99 beats per minute. Rare supraventricular ectopy was also noticed. She has resumed her Plavix daily. Previously she had urinary tract as well as GI bleeding and was off Plavix. She is denying any bleeding at this point. Denying any chest discomfort or significant shortness of breath. Blood pressure control is good. 06/03/23: She returns for follow-up. She has no chest pain or shortness of breath. Her main complaint is right-sided flank pain which has been happening for few days and is improving slowly. She has been out in the sun cutting had cheese and weed whacking. She is saying she is unable to stand straight because it the back hurts. No urinary complaints, fever/chills or hematuria. She has background of kidney stones. 10/09/2023: She returns for follow-up. She has been doing well. No chest discomfort shortness of breath. Occasionally gets dizziness. She gets fatigue as she is not physically active. Blood pressure is mildly low. She is saying she has a blood pressure cuff at home. Denying any dizziness or lightheadedness currently. Euvolemic by examination. [facility] Medical History (Updated 06/03/23 @ 11:24 by Hai Garces MD) History of stent insertion of renal artery Hx of renal calculi Iron deficiency anemia Anemia Bacteremia DIC (disseminated intravascular coagulation) Obstructive nephropathy High vitamin D level History of CVA (cerebrovascular accident) Immunization refused Hyperparathyroidism Cardiomyopathy Osteoporosis Essential hypertension Dyslipidemia Surgical History History of appendectomy History of colon resection Family History Father Unknown family medical history Mother Unknown family medical history Son No problems noted. Daughter No problems noted. Social History Household Members: None Housing: House Do you presently have visiting nurse or other home services: No Alcohol intake: never Patient Tobacco Use Status: Former Tobacco user Quit Date: quit smoking more than 30 yr ago e-Cigarette/Vaping Use: Never Used service: No Current occupational status: retired Cognitive needs: No Hearing needs: No Vision needs: Yes Review of Systems Const Denies weakness ENT Denies dizziness Card Denies chest pain, Denies chest pain with activity, Denies syncope, Denies rapid heart rate, Denies pedal edema, Denies edema, Denies leg edema, Denies lightheadedness, Denies palpitations, Denies dyspnea, Denies dyspnea on exertion and Denies orthopnea Resp Denies cough, Denies dyspnea and Denies dyspnea on exertion GI Denies hematochezia and Denies change in stool character Musc Denies abnormal gait, Denies muscle cramps, Denies muscle weakness, Denies numbness, Denies radiating pain into limb and Denies tingling Neuro Denies abnormal gait, Denies dizziness, Denies syncope, Denies numbness, Denies tingling and Denies weakness Endo Denies palpitations Physical Exam Vital Signs: Last Vital Signs Pulse 68 10/09/23 11:04 BP 98/52 L 10/09/23 11:04 BMI result Body Mass Index 30.0 GENERAL APPEARANCE: in no acute distress, pleasant. NECK: no carotid bruit, no jugular venous distention. SKIN: no suspicious lesions, warm and dry. HEART: no murmurs, regular rate and rhythm. LUNGS: clear to auscultation bilaterally. ABDOMEN: soft, nontender. EXTREMITIES: no edema. PERIPHERAL PULSES: equal. NEUROLOGIC: No gross deficits, AAO X 3 Assessment & Plan Assessment & Plan (1) Essential hypertension: Code(s): I10 - Essential (primary) hypertension (2) Cardiomyopathy: Code(s): I42.9 - Cardiomyopathy, unspecified Plan Pleasant 82-year-old female who is here for follow-up. She has background history of nonischemic cardiomyopathy. Recent echocardiography has shown low normal ejection fraction 50-55%. Taking medications regularly. Clinically euvolemic and stable. Blood pressure is mildly low. I have advised her to check it at home and report to us if it is consistently in low 100s or 90s. If in fact her blood pressure is low at home then we should decrease the lisinopril to 10 mg once a day. I have advised him to keep herself well hydrated. Currently she is completely asymptomatic and will not adjust medications. Thank you for allowing me to participate in the care of your patient. Please feel free to contact me if you have any questions. Coding Level of Care Code Est Pt Level 4 (93047) Diagnoses Essential hypertension I10 Cardiomyopathy I42.9
[2023-10-09 11:04] VITALS: BP 98/52; PULSE 68
== END 2023-10-09 11:20 | disposition home or self-care (01) ==
PROVIDERS: PCP Internal Medicine; Visit Provider Internal Medicine Cardiovascular Disease
DX: I10 Essential (primary) hypertension (principal); I42.9 Cardiomyopathy, unspecified
CPT/HCPCS: 99214

== ENCOUNTER → 2023-10-09 11:03 | Outpatient (BNVA) | payer MEDICARE, SELFPAY | PROVIDERS: PCP Internal Medicine; Visit Provider Internal Medicine Cardiovascular Disease | DX: I42.9 Cardiomyopathy, unspecified (principal); I10 Essential (primary) hypertension | CPT/HCPCS: 99212 ==

== ENCOUNTER 2023-11-28 10:18 | Outpatient (REF) | payer MEDICARE, SELFPAY | END 2023-11-28 10:19 | disposition home or self-care (01) | LOC: HO.WFDLDS 10:18 | PROVIDERS: Visit Provider Internal Medicine | DX: I10 Essential (primary) hypertension (principal); E21.3 Hyperparathyroidism, unspecified; E78.5 Hyperlipidemia, unspecified; M81.0 Age-related osteoporosis without current pathological fracture; Z78.0 Asymptomatic menopausal state; Z87.19 Personal history of other diseases of the digestive system; Z86.73 Personal history of transient ischemic attack (TIA), and cerebral infarction without residual deficits | CPT/HCPCS: 36415; 80053; 80061; 82306; 82607; 82746; 85025 ==

== ENCOUNTER 2023-12-02 10:39 | Outpatient (AMB) | payer MEDICARE, SELFPAY ==
[2023-12-02 10:52] VITALS: BP 100/58; PULSE 51; O2SAT 95; BMI 31.2
--- NOTE | 2023-12-02 10:52 | A.OFFPC_ITS ---
Vital Signs 12/02/23 10:52 Height 4 ft 11 in Weight 154 lb 6 oz BMI 31.2 BP 100/58 L Blood Pressure Location Rt brachial Position Sitting Pulse 51 Pulse Source Pulse Oximeter Pulse Oximetry (%) 95 Oxygen Delivery Method Room Air Intake Visit Reasons: Follow-up Intake Note: Pt is here to follow up for her lab results Allergies No Known Allergies Allergy (Verified 12/02/23 11:26) Medication List - Last Reconciled 12/02/23 by Christi Nieves MD amlodipine 5 mg PO DAILY apple cider vinegar 300 mg PO DAILY ascorbate calcium (vitamin C) 500 mg PO DAILY calcium carbonate 600 mg PO BID carvedilol 25 mg PO BID 90 days cinnamon bark (Cinnamon) 500 mg PO DAILY clopidogrel 75 mg PO DAILY cranberry 400 mg PO DAILY famotidine 40 mg PO DAILY PRN garlic 500 mg PO DAILY lisinopril 20 mg PO DAILY magnesium 500 mg PO DAILY multivitamin 1 tab PO DAILY simvastatin 20 mg PO BEDTIME vitamin A 10,000 units PO DAILY vitamin B complex (B Complex-Vitamin B12 tablet) 1 tab PO DAILY zinc 50 mg PO DAILY Tobacco use date assessed: 12/02/23 Fall risk assessment: No Falls in past year Last assessed Fall Risk: 12/02/23 Dental Screening Dental Screen Date: 12/02/23 Did you have a dental visit in the last 12 months?: No Did you have a dental problem in the last 6 months where you did not have access to dental care?: No Was dental information given to patient?: Patient has dentist HPI Follow-up HPI Details 83-year-old lady with history of CVA , a nd history of nonischemic cardiomyopathy. Recent echocardiography ordered by her multicut line operator showed low normal ejection fraction 50-55%. Has been taking medications regularly, with help for granddaughter. Clinically euvolemic and stable, and asymptomatic except for intermittent episodes of lightheadedness with sudden positional changes. Blood pressure is mildly low. She has been advised to check her blood pressure at home and report to us if it is consistently in low 100s or 90s, and is blood pressure is low at home then today we decrease the lisinopril to 10 mg once a day. Patient's granddaughter states however that they have not been checking it regularly. Latest fasting labs showed fasting lipids, fasting glucose, electrolytes renal function are all within normal limits [facility] Medical History (Updated 12/02/23 @ 11:39 by Christi Nieves MD) Vitamin D deficiency History of stent insertion of renal artery Hx of renal calculi Iron deficiency anemia Anemia Bacteremia DIC (disseminated intravascular coagulation) Obstructive nephropathy High vitamin D level History of CVA (cerebrovascular accident) Immunization refused Hyperparathyroidism Cardiomyopathy Osteoporosis Essential hypertension Dyslipidemia Surgical History History of appendectomy History of colon resection Family History Father Unknown family medical history Mother Unknown family medical history Son No problems noted. Daughter No problems noted. Social History Household Members: None Housing: House Do you presently have visiting nurse or other home services: No Alcohol intake: never Patient Tobacco Use Status: Former Tobacco user Quit Date: quit smoking more than 30 yr ago e-Cigarette/Vaping Use: Never Used service: No Current occupational status: retired Cognitive needs: No Hearing needs: No Vision needs: Yes Questionnaire Thrive Questionnaire Date Thrive assessed: 12/02/23 I am a: Patient What is your living situation today?: I have a steady place to live Within the past 12 months, did the food you bought not last and you didn't have the money to get more?: Never true Within the past 12 months, did you worry whether your food would run out before you got money to buy more?: Never true Do you have trouble paying for medicines?: No Do you have trouble getting transportation to medical appointments?: No Do you have trouble paying your heating and electricity bill?: No Do you have trouble taking care of your child, family member or friend?: No Do you have trouble with day-to-day activities such as bathing, preparing meals, shopping, managing finances, etc.?: No Are you currently unemployed and looking for a job?: No Are you interested in more education?: No AUDIT C Alcohol Use Questionnaire (AUDIT-C) 1. How often do you have a drink containing alcohol?: Never Total Score: 0 NHI-7 AMB Questionnaire NHI-7 Date NHI - 7 assessed: 01/08/24 Feeling nervous, anxious, or on edge: 0 = Not at all Not being able to stop or control worryin = Not at all Worrying too much about different things: 0 = Not at all Trouble relaxin = Not at all Being so restless that it is hard to sit still: 0 = Not at all Becoming easily annoyed or irritable: 0 = Not at all Feeling afraid as if something awful might happen: 0 = Not at all Total NHI-7 score (0-4 normal; 5-9 mild; 10-14 moderate; 15-21 severe): 0 Source: Developed by Drs. Mukund Perera, Citlali Wood, Wes Roach and colleagues, with an educational darryl from [employer]. NHI-7 Assessment Billing NHI-7 Assessment Tool: NHI-7 Assessment 04273 Review of Systems Const Denies fatigue, Denies headache(s), Denies malaise and Denies weakness Eyes Details: Gets occasional lightheadedness on sudden changes in position Denies change in vision ENT Denies headache(s) Card Denies chest pain, Denies chest pain with activity, Denies syncope, Denies rapid heart rate, Denies pedal edema, Denies lightheadedness, Denies palpitations and Denies dyspnea Resp Denies cough and Denies dyspnea GI Denies hematochezia and Denies change in stool character Reports no additional complaints Musc Denies abnormal gait, Denies muscle cramps, Denies muscle weakness, Denies numbness, Denies radiating pain into limb and Denies tingling Skin/Breast Denies breast pain, Denies breast mass and Denies rash Neuro Denies abnormal gait, Denies syncope, Denies headache(s), Denies numbness, Denies tingling and Denies weakness Psych Reports no additional complaints Endo Denies fatigue and Denies palpitations Clemente/Lymph Denies easy bleeding and Denies easy bruising Aller/Immun Reports no additional complaints Physical exam (Primary Care) Vital Signs: Last Vital Signs Pulse 51 12/02/23 10:52 BP 100/58 L 12/02/23 10:52 Pulse Ox 95 12/02/23 10:52 Oxygen Delivery Method Room Air 12/02/23 10:52 BMI result Body Mass Index 31.2 Tobacco/Smoking Status: Tobacco use Status Tobacco use date assessed 12/02/23 12/02/23 11:00 Patient Tobacco Use Status Former Tobacco user 12/02/23 10:52 e-Cigarette/Vaping Use Never Used 12/02/23 10:52 Thrive Assessment: Date of Thrive Assessment Date Thrive assessed 12/02/23 12/02/23 11:51 Const Other: Patient accompanied by granddaughter, ambulatory with normal gait General: cooperative, comfortable and no acute distress Orientation/consciousness: patient oriented x3 HENMT Mouth: Normal oral and palatal mucosa present, oropharynx normal and moist mucous membranes Eyes General: appearance normal, both eyes and all related structures Neck Neck: Yes full ROM, Yes no lymphadenopathy and Yes supple Resp Effort & Inspection: normal respiratory effort and able to speak in complete sentences Auscultation: clear to auscultation bilaterally Cardio Rate: regular rate Rhythm: regular rhythm Heart sounds: S1 normal heart sound present and S2 normal heart sound present GI Palpation (GI): Soft to palpation, nontender, no guarding and no masses Auscultation: normal bowel sounds Skin General skin exam: no rashes or lesions noted Neuro General: patient oriented x3, moves all extremities, Normal light touch and pain sensation and no focal motor deficits Extrem General: Yes normal to inspection, Yes full ROM, Yes no joint enlargement and Yes no pedal edema Results Reviewed Results Reviewed: Name: Rachana Stephenson Age/Sex: 83/F : 1940 Unit#: [id number] Attend Dr: Christi Nieves MD Re11/28/23 Status: DEP REF Location: [facility] Disch: SPEC : [id number] CESAR: 11/28/23 STATUS: COMP REQ : [id number] RECD: 11/28/23-[address]: Christi Nieves MD COMP: 11/28/23-1018 ENTERED: 11/28/23-[address]: ORDERED: CBC Auto Diff Test Result Flag Reference Site WBC 7.7 4.8-10.8 X10*3/uL RBC 4.25 4.20-5.50 X10*6/uL HGB 13.3 12.0-16.0 g/dl HCT 40.7 37.0-47.0 % MCV 95.8 80.0-98.0 fL MCH 31.3 27.0-33.0 pg MCHC 32.7 31.0-35.0 g/dl RDW 12.5 11.0-16.0 % PLT 175 160-400 X10*3/uL MPV 11.5 9.4-12.3 fL Neut Pct Auto 64.5 45-73 % ImGran Pct Auto 0.8 H 0.0-0.4 % Lymp Pct Auto 27.4 20-40 % Rock Pct Auto 5.2 2-11 % Eos Pct Auto 1.7 0-4 % Baso Pct Auto 0.4 0-2 % NRBC Pct Auto 0.0 0.0-0.2 /100WBC ANC Neut Abs # 5.0 2.0-8.3 x10*3/uL ImGran Abs Auto 0.06 H 0.00-0.03 X10*3/uL Lymph Abs Auto 2.1 1.2-4.9 X10*3/uL Rock Abs Auto 0.4 0.1-1.2 X10*3/uL Eos Abs Auto 0.1 0.0-0.4 X10*3/uL Baso Abs Auto 0.0 0.0-0.2 X10*3/uL NRBC Abs Auto 0.000 0.0-0.012 X10*3/uL RUN: 12/02/23 1112 PAGE 1 [facility] [address] [place] [id number] Order Manager: Sergio John M.D. Specimen Inquiry Name: Rachana Stephenson Age/Sex: 83/F : 1940 Unit#: [id number] Attend Dr: Christi Nieves MD Re/04/24 Status: DEP [facility]F [facility] Disch: SPEC : [id number] CESAR: 11/28/23-UNK STATUS: COMP REQ : [id number] RECD: 11/28/23-[address]: Christi Nieves MD COMP: 11/28/23-1547 ENTERED: 11/28/23-[address]: ORDERED: CMP Fast, Lipid Panel, Vitamin D 25-OH Test Result Flag Reference Site Sodium 144 135-145 mmol/L Potassium 4.5 3.3-5.1 mmol/L CL 110 H 96-108 mmol/L CO2 28 22-29 mmol/L Gap 11 L 12-20 BUN 20 H 9-16 mg/dL Creat 0.85 0.5-1.4 mg/dL EGFR > 60 NOTE: For -Montserratian individuals, multiply the result by 1.210. Chronic Kidney Disease: Estimated GFR < 60 mL/min/1.73m2 Severe Kidney Disease: Estimated GFR < 15 mL/min/1.73m2 FBS 102 H 60-99 mg/dL A fasting glucose from 100-125 mg/dl is considered impaired (pre-diabetes). CA 9.3 8.4-10.2 mg/dL Total Bili 0.7 0.0-1.0 mg/dL AST (GOT) 11 5-31 U/L ALT (GPT) 9 0-31 U/L Protein, Total 6.3 L 6.5-8.0 g/dL Alb 4.0 3.5-5.0 g/dL Triglyceride 129 <150 mg/dL Desirable Triglyceride: less than 150 mg/dL Borderline High Triglyceride 150-199 mg/dL High Triglyceride: 200-499 mg/dL Very High Triglyceride: greater than or equal to 5OO mg/dL Cholesterol 133 <200 mg/dL Desirable Cholesterol: less than 200 mg/dL Borderline High Cholesterol: 200-239 mg/dL High Cholesterol: greater than 239 mg/dL LDL Calculated 63 <100 mg/dL Desirable LDL: less than 100 mg/dL Near Optimal/Above Optimal LDL: 110-129 mg/dL Borderline High LDL: 130-159 mg/dL High LDL: 160-189 mg/dL Very High LDL: greater than or equal to 190 mg/dL HDL 45 >40 mg/dL Desirable HDL: greater than 40 mg/dL Note: This HDL assay may give artificially low results in patients with liver disease. Alk Phos 65 39-117 U/L Vit D 25-OH Tot 26.3 L >30 ng/mL Health Based Reference Values* < 20 ng/mL Deficient 20-30 ng/mL Insufficient > 30 ng/mL Sufficient Assessment and Plan Assessment & Plan (1) History of CVA (cerebrovascular accident): Code(s): Z86.73 - Personal history of transient ischemic attack (TIA), and cerebral infarction without residual deficits Plan: Continue simvastatin and clopidogrel (2) Essential hypertension: Code(s): I10 - Essential (primary) hypertension Plan: Blood pressure on the low side, advised to check blood pressure at home at least 3 to 4 times a week, and has been advised by her multicut line operator, that if systolic blood pressure in the low 100s to 90 systolic, to notify them and will decrease lisinopril dose to 10 mg daily. (3) Immunization refused: Code(s): Z28.21 - Immunization not carried out because of patient refusal (4) Dyslipidemia: Code(s): E78.5 - Hyperlipidemia, unspecified Plan: Reviewed recent fasting lipid profile with patient with levels within normal . Continue with simvastatin , in addition to adherence to low-cholesterol diet and regular exercise, at least 30 minutes 3 to 4 times a week. Advised patient to make healthy food choices, eat more fruits, vegetables, whole grains, wild caught fish and low-fat dairy. Limit amount of meat and fried or fatty food products, as well as processed foods and fast foods. Will see her back in 6 months for follow-up after fasting labs (5) Cardiomyopathy: Code(s): I42.9 - Cardiomyopathy, unspecified Qualifiers: Cardiomyopathy type: unspecified Qualified Code(s): I42.9 - Cardiomyopathy, unspecified Plan: Currently followed by cardiology currently on carvedilol, amlodipine and lisinopril (6) Vitamin D deficiency: Code(s): E55.9 - Vitamin D deficiency, unspecified Plan: Will start on vitamin-D supplement 2000 units daily Medications: New cholecalciferol (vitamin D3) 50 mcg PO DAILY 90 caps 2RF Coding Level of Care Code Est Pt Level 4 (34768) Diagnoses History of CVA (cerebrovascular accident) Z86.73 Essential hypertension I10 Immunization refused . Dyslipidemia E78.5 Cardiomyopathy, unspecified type I42.9 Cardiomyopathy type: unspecified Vitamin D deficiency E55.9 Additional Codes NHI-7 Assessment Billing - NHI-7 Assessment Tool: NHI-7 Assessment 82161 ([id number])
== END 2023-12-02 11:29 | disposition home or self-care (01) ==
LOC: HO.HMGC 10:39
PROVIDERS: PCP Internal Medicine; Visit Provider Internal Medicine
DX: I10 Essential (primary) hypertension (principal); I42.9 Cardiomyopathy, unspecified; Z86.73 Personal history of transient ischemic attack (TIA), and cerebral infarction without residual deficits; Z28.21 Immunization not carried out because of patient refusal; E78.5 Hyperlipidemia, unspecified; E55.9 Vitamin D deficiency, unspecified
CPT/HCPCS: 99214

== ENCOUNTER 2024-02-24 10:46 | Outpatient (AMB) | payer MEDICARE, SELFPAY ==
[2024-02-24 10:49] VITALS: BP 100/64; PULSE 35; BMI 30.5
--- NOTE | 2024-02-24 10:49 | MHC.OFFVIS ---
Intake Vital Signs 02/24/24 10:49 Height 4 ft 11 in Weight 150 lb 12.739 oz BMI 30.5 BP 100/64 Blood Pressure Location Rt brachial Position Sitting Pulse 35 L Pulse Source Pulse Oximeter Intake Visit Reasons: 4 mth f/up Intake Note: pt its here for a 4 mnth f/up/ pt states that she its doing fine. Automotive Finance Manager Required: No Accompanied by: Grand Child Allergies No Known Allergies Allergy (Verified 12/02/23 11:26) Medication List - Last Reconciled 02/24/24 by Hai Garces MD amlodipine 5 mg PO DAILY apple cider vinegar 300 mg PO DAILY ascorbate calcium (vitamin C) 500 mg PO DAILY calcium carbonate 600 mg PO BID carvedilol 25 mg PO BID 90 days cholecalciferol (vitamin D3) 50 mcg PO DAILY cinnamon bark (Cinnamon) 500 mg PO DAILY clopidogrel 75 mg PO DAILY cranberry 400 mg PO DAILY famotidine 40 mg PO DAILY PRN garlic 500 mg PO DAILY lisinopril 20 mg PO DAILY magnesium 500 mg PO DAILY multivitamin 1 tab PO DAILY simvastatin 20 mg PO BEDTIME vitamin A 10,000 units PO DAILY vitamin B complex (B Complex-Vitamin B12 tablet) 1 tab PO DAILY zinc 50 mg PO DAILY HPI HPI Comments History of Present Illness Details Pleasant 83-year-old female here for follow-up. She has background of cardiomyopathy. Cardiac MRI in the past showed low normal ejection fraction with basal to mid inferolateral wall hypokinesis. She was started on guideline directed medical therapy and echocardiography in June 2020 showing normal ejection fraction. She has been feeling well. She has no chest pain or shortness of breath. Tolerating medications good. She was noticed to have PVCs and underwent Holter monitoring. Holter monitor showed approximately 7% ventricular ectopic beats with average heart rate of 62-99 beats per minute. Rare supraventricular ectopy was also noticed. She has resumed her Plavix daily. Previously she had urinary tract as well as GI bleeding and was off Plavix. She is denying any bleeding at this point. Denying any chest discomfort or significant shortness of breath. Blood pressure control is good. 06/03/23: She returns for follow-up. She has no chest pain or shortness of breath. Her main complaint is right-sided flank pain which has been happening for few days and is improving slowly. She has been out in the sun cutting had cheese and weed whacking. She is saying she is unable to stand straight because it the back hurts. No urinary complaints, fever/chills or hematuria. She has background of kidney stones. 10/09/2023: She returns for follow-up. She has been doing well. No chest discomfort shortness of breath. Occasionally gets dizziness. She gets fatigue as she is not physically active. Blood pressure is mildly low. She is saying she has a blood pressure cuff at home. Denying any dizziness or lightheadedness currently. Euvolemic by examination. 02/24/24: She is here for follow-up. She has no complaints. She has been trying to rake the leaves and has no significant complaints. No dizziness or lightheadedness. Her initial heart rate was in 30s but ECG showed heart rate in 60s and manual heart rate is 60s to. She had PVCs on the ECG and maybe the heart rate was erroneously low. In any case she has no symptoms currently. No bleeding issues. She has a mail-order pharmacy and has not received her lisinopril and Plavix and she has missed them for few days. I am going to send 30 day supply to her local pharmacy and she will receive her medications in the meantime. [facility] Medical History (Updated 02/24/24 @ 11:20 by Hai Garces MD) Vitamin D deficiency History of stent insertion of renal artery Hx of renal calculi Iron deficiency anemia Anemia Bacteremia DIC (disseminated intravascular coagulation) Obstructive nephropathy High vitamin D level History of CVA (cerebrovascular accident) Immunization refused Hyperparathyroidism Cardiomyopathy Osteoporosis Essential hypertension Dyslipidemia Surgical History History of appendectomy History of colon resection Family History Father Unknown family medical history Mother Unknown family medical history Son No problems noted. Daughter No problems noted. Social History Household Members: None Housing: House Do you presently have visiting nurse or other home services: No Alcohol intake: never Patient Tobacco Use Status: Former Tobacco user Quit Date: quit smoking more than 30 yr ago e-Cigarette/Vaping Use: Never Used service: No Current occupational status: retired Cognitive needs: No Hearing needs: No Vision needs: Yes Review of Systems Const Denies chills, Denies fatigue, Denies fever(s), Denies frequent falls, Denies weakness, Denies weight gain and Denies weight loss ENT Denies dizziness Card Denies chest pain, Denies leg edema, Denies lightheadedness, Denies palpitations, Denies dyspnea and Denies dyspnea on exertion Resp Denies cough, Denies dyspnea and Denies dyspnea on exertion GI Denies hematochezia Musc Denies abnormal gait, Denies muscle weakness, Denies numbness, Denies radiating pain into limb and Denies tingling Neuro Denies abnormal gait, Denies dizziness, Denies frequent falls, Denies numbness, Denies tingling and Denies weakness Endo Denies fatigue and Denies palpitations Physical Exam Vital Signs: Last Vital Signs Pulse 35 L 02/24/24 10:49 BP 100/64 02/24/24 10:49 BMI result Body Mass Index 30.5 heart rate 60 beats per minute GENERAL APPEARANCE: in no acute distress, pleasant. NECK: no carotid bruit, no jugular venous distention. SKIN: no suspicious lesions, warm and dry. HEART: no murmurs, regular rate and rhythm. LUNGS: clear to auscultation bilaterally. ABDOMEN: soft, nontender. EXTREMITIES: no edema. PERIPHERAL PULSES: equal. NEUROLOGIC: No gross deficits, AAO X 3 Office Procedures EKG Details: Sinus rhythm, frequent premature ventricular complexes, QTC 436 minute seconds. [id number], Complete Assessment & Plan Assessment & Plan (1) PVC (premature ventricular contraction): Code(s): I49.3 - Ventricular premature depolarization (2) Essential hypertension: Code(s): I10 - Essential (primary) hypertension (3) Cardiomyopathy: Code(s): I42.9 - Cardiomyopathy, unspecified Qualifiers: Cardiomyopathy type: unspecified Qualified Code(s): I42.9 - Cardiomyopathy, unspecified Plan Very pleasant 83 year female with nonischemic cardiomyopathy and hypertension. Clinically euvolemic and stable. She had some PVCs on EKG. Sometimes he sees can be non perfusing and may be that is why the initial documented heart rate was low. In any case she has no symptoms currently. We will check labs including basic metabolic panel and magnesium level. I am sending Plavix and lisinopril to her local pharmacy where she receives her mail-order. If electrolytes are low then we will replete them. I will arrange 24 hour Holter to make sure that she does not have frequent premature ventricular complexes as she previously had cardiomyopathy and may worsen if she has frequent PVCs. Thank you for allowing me to participate in the care of your patient. Please feel free to contact me if you have any questions. Orders: Orders Basic Metabolic Panel Today I49.3 - Ventricular premature depolarization Magnesium Today I49.3 - Ventricular premature depolarization ECG holter monitor 24 hour Today I49.3 - Ventricular premature depolarization Medications: Refilled clopidogrel 75 mg PO DAILY 30 tabs 0RF I49.3 - Ventricular premature depolarization lisinopril 20 mg PO DAILY 30 tabs 0RF I49.3 - Ventricular premature depolarization Coding Level of Care Code Est Pt Level 4 (86231) Diagnoses PVC (premature ventricular contraction) I49.3 Essential hypertension I10 Cardiomyopathy, unspecified type I42.9 Cardiomyopathy type: unspecified CPT Codes EKG - CPT: 73762-[id number], Complete ([id number])
== END 2024-02-24 11:21 | disposition home or self-care (01) ==
PROVIDERS: PCP Internal Medicine; Visit Provider Internal Medicine Cardiovascular Disease
DX: I49.3 Ventricular premature depolarization (principal); I10 Essential (primary) hypertension; I42.9 Cardiomyopathy, unspecified
CPT/HCPCS: 93010; 99214

== ENCOUNTER 2024-02-24 10:46 | Outpatient (REF) | payer MEDICARE, SELFPAY ==
[2024-02-24 13:04] LABS: Anion Gap 11 (12-20); Blood Urea Nitrogen 29 mg/dL (9-16); Calcium 9.5 mg/dL (8.4-10.2); Carbon Dioxide 28 mmol/L (22-29); Chloride 111 mmol/L (96-108); Estimated Glomerular Filt Rate 48; Glucose Random 109 mg/dL (60-115); Magnesium 2.3 mg/dL (1.6-2.6); Potassium 4.1 mmol/L (3.3-5.1); Sodium 146 mmol/L (135-145)
== END 2024-02-24 10:47 | disposition home or self-care (01) ==
LOC: HO.LAB 10:46
PROVIDERS: PCP Internal Medicine; Visit Provider Internal Medicine Cardiovascular Disease
DX: I49.3 Ventricular premature depolarization (principal); I10 Essential (primary) hypertension; I42.9 Cardiomyopathy, unspecified
CPT/HCPCS: 36415; 80048; 83735; 93005; 99212

== ENCOUNTER → 2024-03-03 10:51 | Outpatient (REF) | payer MEDICARE, SELFPAY ==
--- NOTE | 2024-03-03 10:55 | HM_ITS ---
Conclusion: 1. Patient was monitored for total period of 1 day 2. Baseline was normal sinus rhythm with average heart of 71 beats per minute 3. Very frequent PVCs noted isolated with total burden of 29% 4. No significant pauses noted 5. 1 SVT event noted lasting 7 beats at 118 beats per minute 6. Patient reported to events of feeling weak correlating with sinus rhythm and ventricular bigeminy MTDD
== END ==
LOC: HO.CARD 10:51
PROVIDERS: PCP Internal Medicine; Visit Provider Internal Medicine Cardiovascular Disease
DX: I49.3 Ventricular premature depolarization (principal)
CPT/HCPCS: 93225

== ENCOUNTER → 2024-03-03 10:55 | Outpatient (BNV) | payer MEDICARE, MEDICAID, SELFPAY | PROVIDERS: PCP Internal Medicine; Visit Provider Internal Medicine Cardiovascular Disease | DX: I49.3 Ventricular premature depolarization (principal) | CPT/HCPCS: 93227 ==

== ENCOUNTER → 2024-04-06 10:55 | Outpatient (REF) | payer MEDICARE, MEDICAID, SELFPAY ==
--- NOTE | 2024-04-06 10:58 | CA_ITS ---
Transthoracic Echocardiogram Patient (Last, First, Middle): Rachana Stephenson M Gender: Female Date of : 1940 Age: 83 Procedure Date: 04/06/2024 Procedure Type: Transthoracic Echocardiogram Location: OP Height: 147.32 cm Weight: 72.58 kg BSA: 1.66 m2 Heart Rate: bpm BP: 110 / 50 mmHg [employer]: MUNIRA Referring MD: Hai Garces MD Symptoms: I49.3 PVCS Study Quality: Adequate Conclusions: - Normal left ventricular size, thickness, systolic function, and wall motion. The visually estimated ejection fraction is between 60-65%. Abnormal diastolic function is noted. Spectral Doppler is indicative of an impaired relaxation filling pattern. E/E prime ratio is between 8 and 15 consistent with indeterminate filling pressures. Normal GLS -18%. - Normal right ventricular cavity size and systolic function. - There is trace mitral valve regurgitation. Findings Left Ventricle Normal left ventricular size, thickness, systolic function, and wall motion. The visually estimated ejection fraction is between 60-65%. Abnormal diastolic function is noted. Spectral Doppler is indicative of an impaired relaxation filling pattern. E/E prime ratio is between 8 and 15 consistent with indeterminate filling pressures. Normal GLS -18%. Right Ventricle Normal right ventricular cavity size and systolic function. Atria The left atrium is normal in size. The right atrium is normal in size. Aortic Valve Normal aortic valve structure and function. There is no aortic valve stenosis. There is no aortic valve regurgitation. Mitral Valve The mitral valve appears normal. There is trace mitral valve regurgitation. There is no mitral valve stenosis. Pulmonic Valve The pulmonic valve is normal. There is trace pulmonic valve regurgitation. Tricuspid Valve Normal tricuspid valve structure. There is trace tricuspid valve regurgitation. Normal right atrial pressure. There is no evidence of pulmonary hypertension. Great Vessels All visible segments of the aorta are normal in size. The visualized portions of the pulmonary artery and branches are normal. Venous The inferior vena cava is normal in size and collapses greater than 50% with inspiration. Pericardium/Pleural There is no evidence of pericardial effusion. Prior Study Comparison Changes noted compared to prior study dated: 07/11/2023. EF 60-65%. Measurements 2D Linear Measurements IVSd: 1.05 0.6-0.9/0.6-1.0 cm LVIDd: 4.39 3.9-5.3/4.2-5.9 cm LVIDd Index: 2.64 2.4-3.2/2.2-3.1 cm/m2 LVIDs: 2.73 2.0-3.6 cm LVPWd: 0.72 0.7-1.1 cm LA Diam: 4.30 2.7-3.8/3.0-4.0 cm LAIDs Index: 2.59 1.5-2.3 cm/m2 LV Mass: 155.34 67-162/88-224 g LV Mass Index: 93.58 43-95/49-115 g/m2 LVOT Diam: 2.10 3.0+(-)1.3 cm 2D Systolic Function EF 4C: 63.10 >55% EF 2C: 64.20 >55% EF BiP: 65.00 >55% Mitral Valve MV Pk E: 0.48 MV PK A: 0.84 MV Decel Time: 513.00 E/A: 0.60 E'Lateral: 6.53 E'Medial: 4.68 E/E' Med: 10.20 E/E' Lat: 7.30 PHT: 150.00 MVA PHT: 1.47 Decel [place]: 0.93 Aortic Valve AoV Pk Radames: 1.09 AoV Mn Radames: 0.84 AoV VTI: 0.31 AoV Pk Grad: 5.00 Aov Mn Grad: 3.00 ANIYA Cont.VTI: 2.54 LVOT LVOT Pk Radames: 0.86 LVOT Mn Radames: 0.56 LVOT VTI: 0.23 LVOT Pk Grad: 3.00 LVOT Mn Grad: 1.00 LVOT Diam: 2.10 LVOT Area: 3.46 Diastolic Function MV Pk E: 0.48 MV Pk A: 0.84 E/A: 0.60 E'Medial: 4.68 E/E' Med: 10.20 E' Laterial: 6.53 E/E' Lat: 7.30 Right Ventricle TAPSE (mm): 20.70 TVS' Radames: 11.20 Tricuspid Valve TR Pk Radames: 2.41 TR Pk Grad: 23.00 RA Press: 3.00 RVSP: 26.00 Great Vessels Aorta Sinus of Valsalva: 3.21 2.0-3.[address] [place]: 2.30 1.7-3.4 cm Ao Asc: 2.90 2.1-3.4 cm Updated in Other Vendor System with Status of Final Hai Garces MD electronically signed on 04/06/2024 12:45:25 PM with status of Final
== END ==
LOC: HO.CARD 10:55
PROVIDERS: PCP Internal Medicine; Visit Provider Internal Medicine Cardiovascular Disease
DX: I49.3 Ventricular premature depolarization (principal)
CPT/HCPCS: 93306; 93356

== ENCOUNTER → 2024-04-06 10:58 | Outpatient (BNV) | payer MEDICARE, MEDICAID, SELFPAY | PROVIDERS: PCP Internal Medicine; Visit Provider Internal Medicine Cardiovascular Disease | DX: I34.0 Nonrheumatic mitral (valve) insufficiency (principal); R93.1 Abnormal findings on diagnostic imaging of heart and coronary circulation | CPT/HCPCS: 93306; 93356 ==

== ENCOUNTER 2024-06-15 11:01 | Outpatient (AMB) | payer MEDICARE, SELFPAY ==
--- NOTE | 2024-06-15 11:03 | A.OFFVIS_ITS ---
Vital Signs 06/15/24 11:06 Height 4 ft 11 in BMI Reason not done Patient refused/unable BP 110/60 Blood Pressure Location Lt brachial Position Sitting Pulse 35 L Pulse Source Pulse Oximeter Intake Visit Reasons: 3 mth f/up Intake Note: 3 mth f/up/ pt is doing fine Sales Ambassador Required: No Accompanied by: Son Allergies No Known Allergies Allergy (Verified 12/02/23 11:26) Medication List - Last Reconciled 06/15/24 by Hai Garces MD amlodipine 5 mg PO DAILY apple cider vinegar 300 mg PO DAILY ascorbate calcium (vitamin C) 500 mg PO DAILY calcium carbonate 600 mg PO BID carvedilol 25 mg PO BID 90 days cholecalciferol (vitamin D3) 50 mcg PO DAILY cinnamon bark (Cinnamon) 500 mg PO DAILY clopidogrel 75 mg PO DAILY 90 days cranberry 400 mg PO DAILY famotidine 40 mg PO DAILY PRN garlic 500 mg PO DAILY lisinopril 20 mg PO DAILY magnesium 500 mg PO DAILY multivitamin 1 tab PO DAILY simvastatin 20 mg PO BEDTIME vitamin A 10,000 units PO DAILY vitamin B complex (B Complex-Vitamin B12 tablet) 1 tab PO DAILY zinc 50 mg PO DAILY HPI Comments Details: Pleasant 83-year-old female here for follow-up. She has background of cardiomyopathy. Cardiac MRI in the past showed low normal ejection fraction with basal to mid inferolateral wall hypokinesis. She was started on guideline directed medical therapy and echocardiography in June 2020 showing normal ejection fraction. She has been feeling well. She has no chest pain or shortness of breath. Tolerating medications good. She was noticed to have PVCs and underwent Holter monitoring. Holter monitor showed approximately 7% ventricular ectopic beats with average heart rate of 62- 99 beats per minute. Rare supraventricular ectopy was also noticed. She has resumed her Plavix daily. Previously she had urinary tract as well as GI bleeding and was off Plavix. She is denying any bleeding at this point. Denying any chest discomfort or significant shortness of breath. Blood pressure control is good. 06/03/23: She returns for follow-up. She has no chest pain or shortness of breath. Her main complaint is right-sided flank pain which has been happening for few days and is improving slowly. She has been out in the sun cutting had cheese and weed whacking. She is saying she is unable to stand straight because it the back hurts. No urinary complaints, fever/chills or hematuria. She has background of kidney stones. 10/09/2023: She returns for follow-up. She has been doing well. No chest discomfort shortness of breath. Occasionally gets dizziness. She gets fatigue as she is not physically active. Blood pressure is mildly low. She is saying she has a blood pressure cuff at home. Denying any dizziness or lightheadedness currently. Euvolemic by examination. 02/24/24: She is here for follow-up. She has no complaints. She has been trying to rake the leaves and has no significant complaints. No dizziness or lightheadedness. Her initial heart rate was in 30s but ECG showed heart rate in 60s and manual heart rate is 60s to. She had PVCs on the ECG and maybe the heart rate was erroneously low. In any case she has no symptoms currently. No bleeding issues. She has a mail-order pharmacy and has not received her lisinopril and Plavix and she has missed them for few days. I am going to send 30 day supply to her local pharmacy and she will receive her medications in the meantime. 06/15/24: She is here for follow-up. She underwent Holter monitor which showed frequent premature ventricle complexes. She has no chest pain, shortness of breath or palpitations. She is feeling fatigued and has slowed down further. I have advised her to start exercising regularly. Manual pulse was 50 beats per minute. No dizziness or syncope. [facility] Medical History (Updated 02/24/24 @ 11:20 by Hai Garces MD) Vitamin D deficiency History of stent insertion of renal artery Hx of renal calculi Iron deficiency anemia Anemia Bacteremia DIC (disseminated intravascular coagulation) Obstructive nephropathy High vitamin D level History of CVA (cerebrovascular accident) Immunization refused Hyperparathyroidism Cardiomyopathy Osteoporosis Essential hypertension Dyslipidemia Surgical History History of appendectomy History of colon resection Family History Father Unknown family medical history Mother Unknown family medical history Son No problems noted. Daughter No problems noted. Social History Household Members: None Housing: House Do you presently have visiting nurse or other home services: No Alcohol intake: never Patient Tobacco Use Status: Former Tobacco user e-Cigarette/Vaping Use: Never Used service: No Current occupational status: retired Cognitive needs: No Hearing needs: No Vision needs: Yes Review of Systems Const Denies chills, Denies fatigue, Denies fever(s), Denies frequent falls, Denies weakness, Denies weight gain and Denies weight loss ENT Denies dizziness Card Denies chest pain, Denies leg edema, Denies lightheadedness, Denies palpitations, Denies dyspnea and Denies dyspnea on exertion Resp Denies cough, Denies dyspnea and Denies dyspnea on exertion GI Denies hematochezia Musc Denies abnormal gait, Denies muscle weakness, Denies numbness, Denies radiating pain into limb and Denies tingling Neuro Denies abnormal gait, Denies dizziness, Denies frequent falls, Denies numbness, Denies tingling and Denies weakness Endo Denies fatigue and Denies palpitations Physical Exam Vital Signs: Last Vital Signs Pulse 35 L 06/15/24 11:06 BP 110/60 06/15/24 11:06 pulse 50/min by palpation. GENERAL APPEARANCE: in no acute distress, pleasant. NECK: no carotid bruit, no jugular venous distention. SKIN: no suspicious lesions, warm and dry. HEART: no murmurs, regular rate and rhythm. Bradycardic with frequent PVCs. LUNGS: clear to auscultation bilaterally. ABDOMEN: soft, nontender. EXTREMITIES: no edema. PERIPHERAL PULSES: equal. NEUROLOGIC: No gross deficits, AAO X 3 Assessment & Plan Assessment & Plan (1) PVC (premature ventricular contraction): Code(s): I49.3 - Ventricular premature depolarization Category: Medical (2) Essential hypertension: Code(s): I10 - Essential (primary) hypertension Category: Medical Plan Pleasant 83 year female who is here for follow-up. She has background of nonischemic cardiomyopathy and hypertension. She has frequent PVCs by Holter monitor. Palpable pulses around 50 beats per minute. Echocardiography has not shown any LV dysfunction. Clinically not in heart failure. On carvedilol 25 mg twice a day. I have advised her to start exercising regularly. We will repeat echocardiogram in few months to reassess ejection fraction. If any drop in EF then would start her on amiodarone and decrease the carvedilol dose at that stage. Thank you for allowing me to participate in the care of your patient. Please feel free to contact me if you have any questions. Orders: Orders CA Echo Limited 4 Months I49.3 - Ventricular premature depolarization Coding Level of Care Code Est Pt Level 4 (41451) Diagnoses PVC (premature ventricular contraction) I49.3 Essential hypertension I10
[2024-06-15 11:06] VITALS: BP 110/60; PULSE 35
== END 2024-06-15 11:30 | disposition home or self-care (01) ==
PROVIDERS: PCP Internal Medicine; Visit Provider Internal Medicine Cardiovascular Disease
DX: I49.3 Ventricular premature depolarization (principal); I10 Essential (primary) hypertension
CPT/HCPCS: 99214

== ENCOUNTER → 2024-06-15 11:01 | Outpatient (BNVA) | payer MEDICARE, SELFPAY | PROVIDERS: PCP Internal Medicine; Visit Provider Internal Medicine Cardiovascular Disease | DX: I49.3 Ventricular premature depolarization (principal); I10 Essential (primary) hypertension | CPT/HCPCS: 99212 ==

== ENCOUNTER → 2024-10-14 14:50 | Outpatient (REF) | payer MEDICARE, SELFPAY ==
--- NOTE | 2024-10-14 14:53 | CA_ITS ---
Transthoracic Echocardiogram Patient (Last, First, Middle): Rachana Stephenson M Gender: Female Date of : 1940 Age: 83 Procedure Date: 10/14/2024 Procedure Type: Transthoracic Echocardiogram Location: OP Height: 149.86 cm Weight: 69.85 kg BSA: 1.65 m2 Heart Rate: 64 bpm BP: 110 / 60 mmHg Biostatistics Professor: JANIYA Referring MD: Hai Garces MD Jitney Driver: Hai Garces MD Symptoms: I49.3 - Ventricular premature depolarization Study Quality: Adequate ECG Rhythm: Sinus Conclusions: - Mildly increased left ventricular cavity size. There is normal left ventricular wall thickness. The left ventricular systolic function is low normal. The visually estimated ejection fraction is between 50-55%. - Normal right ventricular cavity size and systolic function. Findings Left Ventricle Mildly increased left ventricular cavity size. There is normal left ventricular wall thickness. The left ventricular systolic function is low normal. The visually estimated ejection fraction is between 50-55%. There is no evidence of regional wall motion abnormalities. Abnormal diastolic function is noted. Spectral Doppler is indicative of an impaired relaxation filling pattern. E/E prime ratio is between 8 and 15 consistent with indeterminate filling pressures. Right Ventricle Normal right ventricular cavity size and systolic function. Venous The inferior vena cava is normal in size and collapses greater than 50% with inspiration. Pericardium/Pleural There is no evidence of pericardial effusion. Prior Study Comparison Changes noted compared to prior study dated: 04/06/2024. LV mildly dilated with low normal LVEF 50-55%. Measurements 2D Linear Measurements IVSd: 0.64 0.6-0.9/0.6-1.0 cm LVIDd: 6.31 3.9-5.3/4.2-5.9 cm LVIDd Index: 3.82 2.4-3.2/2.2-3.1 cm/m2 LVIDs: 4.64 2.0-3.6 cm LVPWd: 0.65 0.7-1.1 cm LV Mass: 196.33 67-162/88-224 g LV Mass Index: 118.99 43-95/49-115 g/m2 LVOT Diam: 2.10 3.0+(-)1.3 cm 2D Systolic Function EF 4C: 52.10 >55% EF 2C: 51.90 >55% EF BiP: 52.00 >55% Mitral Valve MV Pk E: 0.63 MV PK A: 0.92 MV Decel Time: 266.00 E/A: 0.70 E'Lateral: 5.98 E'Medial: 3.92 E/E' Med: 16.10 E/E' Lat: 10.50 PHT: 78.00 MVA PHT: 2.82 Decel [place]: 2.37 LVOT LVOT Pk Radames: 0.99 LVOT Mn Radames: 0.65 LVOT VTI: 0.22 LVOT Pk Grad: 4.00 LVOT Mn Grad: 2.00 LVOT Diam: 2.10 LVOT Area: 3.46 Diastolic Function MV Pk E: 0.63 MV Pk A: 0.92 E/A: 0.70 E'Medial: 3.92 E/E' Med: 16.10 E' Laterial: 5.98 E/E' Lat: 10.50 Tricuspid Valve RA Press: 3.00 Updated in Other Vendor System with Status of Final Hai Garces MD electronically signed on 10/16/2024 10:25:03 AM with status of Final
== END ==
LOC: HO.CARD 14:50
PROVIDERS: PCP Internal Medicine; Visit Provider Internal Medicine Cardiovascular Disease
DX: I49.3 Ventricular premature depolarization (principal)
CPT/HCPCS: 93308

== ENCOUNTER → 2024-10-14 14:53 | Outpatient (BNV) | payer MEDICARE, SELFPAY | PROVIDERS: PCP Internal Medicine; Visit Provider Internal Medicine Cardiovascular Disease | DX: R94.31 Abnormal electrocardiogram [ECG] [EKG] (principal); I51.89 Other ill-defined heart diseases | CPT/HCPCS: 93308; 93321 ==

== ENCOUNTER 2024-10-19 10:56 | Outpatient (AMB) | payer MEDICARE, SELFPAY ==
[2024-10-19 11:27] VITALS: BP 120/56; PULSE 69; BMI 30.6
--- NOTE | 2024-10-19 11:27 | A.OFFVIS_ITS ---
Vital Signs 10/19/24 11:27 Height 4 ft 11 in Weight 151 lb 10.848 oz BMI 30.6 BP 120/56 L Blood Pressure Location Lt brachial Position Sitting Pulse 69 Pulse Source Pulse Oximeter Intake Visit Reasons: 4 mth s/p echo Intake Note: 4 mth f/up/echo Health Services Information Specialist Required: No Accompanied by: Grand Child Allergies No Known Allergies Allergy (Verified 12/02/23 11:26) Medication List - Last Reconciled 10/19/24 by Hai Garces MD amlodipine 5 mg PO DAILY apple cider vinegar 300 mg PO DAILY ascorbate calcium (vitamin C) 500 mg PO DAILY calcium carbonate 600 mg PO BID carvedilol 25 mg PO BID 90 days cholecalciferol (vitamin D3) 50 mcg PO DAILY cinnamon bark (Cinnamon) 500 mg PO DAILY clopidogrel 75 mg PO DAILY 90 days cranberry 400 mg PO DAILY famotidine 40 mg PO DAILY PRN garlic 500 mg PO DAILY lisinopril 20 mg PO DAILY magnesium 500 mg PO DAILY multivitamin 1 tab PO DAILY simvastatin 20 mg PO BEDTIME vitamin A 10,000 units PO DAILY vitamin B complex (B Complex-Vitamin B12 tablet) 1 tab PO DAILY zinc 50 mg PO DAILY HPI Comments Details: Pleasant 83-year-old female here for follow-up. She has background of cardiomyopathy. Cardiac MRI in the past showed low normal ejection fraction with basal to mid inferolateral wall hypokinesis. She was started on guideline directed medical therapy and echocardiography in June 2020 showing normal ejection fraction. She has been feeling well. She has no chest pain or shortness of breath. Tolerating medications good. She was noticed to have PVCs and underwent Holter monitoring. Holter monitor showed approximately 7% ventricular ectopic beats with average heart rate of 62- 99 beats per minute. Rare supraventricular ectopy was also noticed. She has resumed her Plavix daily. Previously she had urinary tract as well as GI bleeding and was off Plavix. She is denying any bleeding at this point. Denying any chest discomfort or significant shortness of breath. Blood pressure control is good. 06/03/23: She returns for follow-up. She has no chest pain or shortness of breath. Her main complaint is right-sided flank pain which has been happening for few days and is improving slowly. She has been out in the sun cutting had cheese and weed whacking. She is saying she is unable to stand straight because it the back hurts. No urinary complaints, fever/chills or hematuria. She has background of kidney stones. 10/09/2023: She returns for follow-up. She has been doing well. No chest discomfort shortness of breath. Occasionally gets dizziness. She gets fatigue as she is not physically active. Blood pressure is mildly low. She is saying she has a blood pressure cuff at home. Denying any dizziness or lightheadedness currently. Euvolemic by examination. 02/24/24: She is here for follow-up. She has no complaints. She has been trying to rake the leaves and has no significant complaints. No dizziness or lightheadedness. Her initial heart rate was in 30s but ECG showed heart rate in 60s and manual heart rate is 60s to. She had PVCs on the ECG and maybe the heart rate was erroneously low. In any case she has no symptoms currently. No bleeding issues. She has a mail-order pharmacy and has not received her lisinopril and Plavix and she has missed them for few days. I am going to send 30 day supply to her local pharmacy and she will receive her medications in the meantime. 06/15/24: She is here for follow-up. She underwent Holter monitor which showed frequent premature ventricle complexes. She has no chest pain, shortness of breath or palpitations. She is feeling fatigued and has slowed down further. I have advised her to start exercising regularly. Manual pulse was 50 beats per minute. No dizziness or syncope. 10/19/2024: She is here for follow-up. She is denying any significant s ymptoms. Some dyspnea with activities but no orthopnea or PND. No dizziness or syncope. [facility] Medical History (Updated 02/24/24 @ 11:20 by Hai Garces MD) Vitamin D deficiency History of stent insertion of renal artery Hx of renal calculi Iron deficiency anemia Anemia Bacteremia DIC (disseminated intravascular coagulation) Obstructive nephropathy High vitamin D level History of CVA (cerebrovascular accident) Immunization refused Hyperparathyroidism Cardiomyopathy Osteoporosis Essential hypertension Dyslipidemia Surgical History History of appendectomy History of colon resection Family History Father Unknown family medical history Mother Unknown family medical history Son No problems noted. Daughter No problems noted. Social History (Reviewed 10/19/24 @ 11:29 by Marlyn Arroyo [facility]) Household Members: None Housing: House Do you presently have visiting nurse or other home services: No Alcohol intake: never Patient Tobacco Use Status: Former Tobacco user e-Cigarette/Vaping Use: Never Used service: No Current occupational status: retired Cognitive needs: No Hearing needs: No Vision needs: Yes Review of Systems Const Denies chills, Denies fatigue, Denies fever(s), Denies frequent falls, Denies weakness, Denies weight gain and Denies weight loss ENT Denies dizziness Card Denies chest pain, Denies leg edema, Denies lightheadedness, Denies palpitations, Denies dyspnea and Denies dyspnea on exertion Resp Denies cough, Denies dyspnea and Denies dyspnea on exertion GI Denies hematochezia Musc Denies abnormal gait, Denies muscle weakness, Denies numbness, Denies radiating pain into limb and Denies tingling Neuro Denies abnormal gait, Denies dizziness, Denies frequent falls, Denies numbness, Denies tingling and Denies weakness Endo Denies fatigue and Denies palpitations Physical Exam Vital Signs: Last Vital Signs Pulse 69 10/19/24 11:27 BP 120/56 L 10/19/24 11:27 BMI result Body Mass Index 30.6 GENERAL APPEARANCE: in no acute distress, pleasant. NECK: no carotid bruit, no jugular venous distention. SKIN: no suspicious lesions, warm and dry. HEART: no murmurs, regular rate and rhythm. LUNGS: clear to auscultation bilaterally. ABDOMEN: soft, nontender. EXTREMITIES: no edema. PERIPHERAL PULSES: equal. NEUROLOGIC: No gross deficits, AAO X 3 Assessment & Plan Assessment & Plan (1) Essential hypertension: Code(s): I10 - Essential (primary) hypertension Category: Medical (2) PVC (premature ventricular contraction): Code(s): I49.3 - Ventricular premature depolarization Category: Medical (3) Cardiomyopathy: Code(s): I42.9 - Cardiomyopathy, unspecified Category: Medical Qualifiers: Cardiomyopathy type: unspecified Qualified Code(s): I42.9 - Cardiomyopathy, unspecified Plan [age] year female who is here for follow-up. She has background history of nonischemic cardiomyopathy and hypertension. She had frequent PVCs on previous visit and Holter monitor also confirmed that. She underwent echocardiography which is showing low normal ejection fraction with mild LV dilatation. On exam today she has no PVCs. She is asymptomatic. Her carvedilol was increased to 25 mg twice a day and maybe that played a role in suppressing them. In any case currently she is stable. I have advised her that we will repeat echocardiography in few months. She will see us back in 4 months and we will request a limited echocardiogram at that time. I have explained to her and her granddaughter that if she has any symptoms of heart failure then she should reach out to us. Thank you for allowing me to participate in the care of your patient. Please feel free to contact me if you have any questions. Coding Level of Care Code Est Pt Level 4 (13125) Diagnoses Essential hypertension I10 PVC (premature ventricular contraction) I49.3 Cardiomyopathy, unspecified type I42.9 Cardiomyopathy type: unspecified
== END 2024-10-19 11:54 | disposition home or self-care (01) ==
PROVIDERS: PCP Internal Medicine; Visit Provider Internal Medicine Cardiovascular Disease
DX: I10 Essential (primary) hypertension (principal); I49.3 Ventricular premature depolarization; I42.9 Cardiomyopathy, unspecified
CPT/HCPCS: 99214

== ENCOUNTER → 2024-10-19 10:56 | Outpatient (BNVA) | payer MEDICARE, SELFPAY | PROVIDERS: PCP Internal Medicine; Visit Provider Internal Medicine Cardiovascular Disease | DX: I42.9 Cardiomyopathy, unspecified (principal); I10 Essential (primary) hypertension; I49.3 Ventricular premature depolarization | CPT/HCPCS: 99212 ==

== ENCOUNTER 2024-12-24 10:47 | Outpatient (AMB) | payer MEDICARE, SELFPAY ==
[2024-12-24 10:58] VITALS: BP 124/72; PULSE 60; RESP 15; TEMP 36.4; O2SAT 97; BMI 30.7
--- NOTE | 2024-12-24 10:58 | A.OFFVIS_ITS ---
Intake Vital Signs 12/24/24 10:58 Height 4 ft 11 in Weight 152 lb BMI 30.7 BP 124/72 Blood Pressure Location Lt brachial Position Sitting Respiration 15 Pulse 60 Pulse Source Pulse Oximeter Temp 97.5 F Temp Source Oral Pulse Oximetry (%) 97 Intake Visit Reasons: [id number] Intake Note: Pt is here today for her SWV: Last bone density scan 02/02/21, colonoscopy 11/21/21 Allergies No Known Allergies Allergy (Verified 12/24/24 12:57) Medication List - Last Reconciled 12/24/24 by Christi Nieves MD amlodipine 5 mg PO DAILY carvedilol 25 mg PO BID 90 days clopidogrel 75 mg PO DAILY 90 days famotidine 40 mg PO DAILY PRN lisinopril 20 mg PO DAILY simvastatin 20 mg PO BEDTIME HPI [id number] HPI Details SWV ? 84 year old female presents for a subsequent Annual Wellness Visit.? She has osteoporosis diagnosed in 2019, has dyslipidemia, hypertension, and iron deficiency anemia with history of duodenal ulcer and has hyperparathyroidism. She had her last mammogram 12/30/2020, and patient does not want to have any further testing done, and last bone density scan 02/02/2021 She had normal fasting lipids and blood sugar checks 11/28/2023.. Her last colonoscopy screening was done 11/21/2021 with normal findings, no further colonoscopy testing indicated. She has osteoporosis, with last scan revealing presence of osteoporosis in the lower back and a more so in her left hip and left thigh. Additionally, she h as raised calcium levels and parathyroid hormone. Was supposed to be on Reclast ordered by Dr. Bertrand, however initiation of medication was laid due to patient having multiple dental restorations at that time. Present she does not want to do start any treatment for osteoporosis. She sees Dr. Lynne for her routine eye exam. She is hard of hearing but does not want to get it further treated. She declines all immunizations. She has already healthcare proxy in place and MOLST form completed. ? Medical / Social History Reviewed? Past Medical History ?Yes . ? [place] of Care / Care Team list updated ?Yes . ? Surgical/Hospitalization History ?Yes . ? Current Medications (including OTC and supplements) ?Yes . ? Family History ?Yes . ? Tobacco Control form ?Yes . ? AUDIT-C (Alcohol use) form ?Yes . ? Illicit drug use in Social History ?Yes . ? Current diagnosis of depression? ?No ? Appropriate PHQ2/PHQ9 completed ?Yes . ? Data entered by ?[employer] and reviewed by provider ? Fall Risk ? Fall History? Have you had any falls with injury in the past year? ?No . ? Have you had two or more falls in the past year? ?No . ? Fall Risk Assessment: ?No falls in the past year . ? HRA filled out by the patient, reviewed by Provider and scanned. IPPE/AWV ? year old presents for her ? Annual Wellness Visit, initial visit.? Medical / Social History Reviewed? Past Medical History ?Yes . ? [place] of Care / Care Team list updated ?Yes . ? Surgical/Hospitalization History ?Yes . ? Current Medications (including OTC and supplements) ?Yes . ? Family History ?Yes . ? Tobacco Control form ?Yes . ? AUDIT-C (Alcohol use) form ?Yes . ? Illicit drug use in Social History ?Yes . ? Current diagnosis of depression? ?No ? Appropriate PHQ2/PHQ9 completed ?Yes . ? Data entered by ?[employer] and reviewed by provider ? Fall Risk ? Fall History? Have you had any falls with injury in the past year? ?No . ? Have you had two or more falls in the past year? ?No . ? Fall Risk Assessment: ?No falls in the past year . ? HRA filled out by the patient, reviewed by Provider and scanned. ?SWV ? Balance? Romberg negative ? Tandem walk ? able to do but with some difficulty ? Walk and Turn ?Yes . ? Rise from sit to stand ?Yes . ?Vision? Corrective lens ?Yes ? Vision screen ? Up-to-date, she sees Dr. Lynne ?Hearing? Whisper test failed ?Written Plan?Completed. See Patient Documents.? HPI Comments History of Present Illness Details Patient is also here for follow-up on her hypertension and hyperlipidemia. Currently taking carvedilol, and lisinopril, as well as rosuvastatin 20 mg daily. She has been compliant with taking her medications, tries to participate in exercise given at her place of stay, blood pressure today is within normal limits. Due now for a recheck on her cholesterol levels. [facility] Medical History Vitamin D deficiency History of stent insertion of renal artery Hx of renal calculi Iron deficiency anemia Anemia Bacteremia DIC (disseminated intravascular coagulation) Obstructive nephropathy High vitamin D level History of CVA (cerebrovascular accident) Immunization refused Hyperparathyroidism Cardiomyopathy Osteoporosis Essential hypertension Dyslipidemia Surgical History History of appendectomy History of colon resection Family History Father Unknown family medical history Mother Unknown family medical history Son No problems noted. Daughter No problems noted. Social History Household Members: None Housing: House Do you presently have visiting nurse or other home services: No Alcohol intake: never Patient Tobacco Use Status: Former Tobacco user e-Cigarette/Vaping Use: Never Used service: No Current occupational status: retired Cognitive needs: No Hearing needs: No Vision needs: Yes Questionnaire Medicare Wellness Checkup What is your age?: 81 or older What gender do you identify with?: female During the past 4 weeks, how much have you been bothered by emotional problems such as feeling anxious, depressed, irritable, sad or downhearted, and blue?: not at all During the past 4 weeks, has your physical & emotional health limited your social activities with family, friends, neighbors, or groups?: slightly During the past 4 weeks, how much bodily pain have you generally had?: no pain During the past 4 weeks, was someone available to help you if you needed & wanted help?: yes, quite a bit During the past 4 weeks, what was the hardest physical activity you could do for at least 2 minutes?: moderate Can you get to places out of walking distance without help? (For eg., can you travel alone on buses, taxis or drive your car?): No Can you go shopping for groceries or clothes without someone's help?: No Can you prepare your own meals?: Yes Can you do your housework without help?: Yes Because of any health problems, do you need the help of another person with your personal care needs such as eating, bathing, dressing or getting around the house?: No Can you handle your own money without help?: Yes During the past 4 weeks, how would you rate your health in general?: very good During the past 4 weeks how have things been going for you?: good & bad parts about equal Are you having difficulties driving your car?: not applicable, I don't use a car Do you always fasten your seat belt when you are in a car?: yes, usually During past 4 weeks, have you been bothered by the following: never: Sexual problems?, Problems using the telephone? and Tiredness or fatigue? and seldom: Falling or dizzy when standing up, Trouble eating well? and Teeth or denture problems? Have you fallen 2 or more times in the past year?: No Are you afraid of falling?: Yes Are you a smoker?: no During the past 4 weeks, how many drinks of wine, beer, or other alcoholic beverages did you have?: no alcohol at all Do you exercise for about 20 minutes 3 or more times a week?: yes, some of the time Have you been given information to help with the following?: yes: Hazards in your house that might hurt you? and yes: Keeping track of your medications? How often do you have trouble taking medicines the way you have been told to take them?: I always take medicine as prescribed How confident are you that you can control & manage most of your health problems?: very confident What is your race?: White Mini Mental State Exam (MMSE) Orientation What is the (year) (season) (date) (day) (month)?: year (2024), season (Winter), date (12/24/2024), day () and month (November) Where are we (state) (county) (town or city) (hospital) (floor)?: state ([place]), [facility] ([place]), town or city ([place]) and hospital/clinic ([facility] [place]) Score Score: 9 Activity of Daily Living Bathing - sponge bath, tub bath or shower: receives no assistance (gets in/out by self, if usual bathing means Dressing - getting clothes from closets & drawers, including inner/outer garments & fasteners.: gets clothes & gets completely dressed without help Toileting - going to the 'toilet room' for urine/bowel elimination & cleaning self/arranging clothes: goes to toilet room, cleans self, arranges clothes without help Transfer: moves in & out of bed and chair without help (may use support object) Continence: has occasional 'accidents' Feeding: feeds self without help Total Score: 0 Information obtained from: patient Using telephone: independent Traveling: dependent Shopping: dependent Preparing meals: needs assistance Housework: dependent Taking medicine: independent Managing money: independent PHQ-9 Over the last 2 weeks, how often have you been bothered by any of the following problems? 1. Little interest or pleasure in doing things: not at all 2. Feeling down, depressed, or hopeless: not at all 3. Trouble falling or staying asleep, or sleeping too much: not at all 4. Feeling tired or having little energy: not at all 5. Poor appetite or overeating: not at all 6. Feeling bad about yourself - or that you are a failure or have let yourself or your family down: not at all 7. Trouble concentrating on things, such as reading the newspaper or watching television: not at all 8. Moving or speaking so slowly that other people could have noticed. Or the opposite - being so fidgety or restless that you have been moving around a lot more than usual: not at all 9. Thoughts that you would be better off or of hurting yourself in some way: not at all Total score: 0 Depression Screening Interpretation: Negative Depression Screening Done: Yes 03449 - PHQ-9 Billing: Yes Source: Developed by Drs. Mukund Perera, Citalli Wood, Wes Roach and colleagues, with an educational darryl from [employer]. Review of Systems Const Denies fever(s), Denies frequent falls and Denies weakness ENT Denies dizziness Card Denies chest pain, Denies leg edema, Denies lightheadedness, Denies palpitations, Denies dyspnea and Denies dyspnea on exertion Resp Denies cough, Denies dyspnea and Denies dyspnea on exertion GI Denies hematochezia Musc Denies abnormal gait, Denies muscle weakness, Denies numbness, Denies radiating pain into limb and Denies tingling Neuro Denies abnormal gait, Denies dizziness, Denies frequent falls, Denies numbness, Denies tingling and Denies weakness Endo Denies palpitations Physical Exam Vital Signs: Last Vital Signs Temp 97.5 F 12/24/24 10:58 Pulse 60 12/24/24 10:58 Resp 15 12/24/24 10:58 BP 124/72 12/24/24 10:58 Pulse Ox 97 12/24/24 10:58 BMI result Body Mass Index 30.7 Const General: comfortable, no acute distress, alert and Physically active Nutritional Appearance: average body habitus Orientation/consciousness: patient oriented x3 HEENT General nose exam: Normal external nose present Face and sinus: Yes sinuses nontender and Yes face symmetric Mouth: Normal oral and palatal mucosa present, oropharynx normal and moist mucous membranes Neck Neck: Yes full ROM, Yes no lymphadenopathy, Yes no meningeal signs and Yes supple Resp Auscultation: clear to auscultation bilaterally Cardio Rate: regular rate Rhythm: regular rhythm Heart sounds: S1 normal heart sound present and S2 normal heart sound present GI Palpation (GI): Soft to palpation, nontender, no guarding and no masses Neuro General: patient oriented x3, tone normal, moves all extremities, Normal light touch and pain sensation, no meningeal signs and CN's II-XI intact bilaterally Assessment & Plan Assessment & Plan (1) Encounter for subsequent annual wellness visit (AWV) in Medicare patient: Code(s): Z00.00 - Encounter for general adult medical examination without abnormal findings Plan: Medical wellness checklist reviewed, discussed with patient and updated. Copy given (2) Osteoporosis: Code(s): M81.0 - Age-related osteoporosis without current pathological fracture Plan: Was supposed to be started on Reclast by endocrine clinic in 2020 but this was bone due to her having received multiple dental procedures. Will repeat another bone density scan for further evaluation (3) Dyslipidemia: Code(s): E78.5 - Hyperlipidemia, unspecified Plan: Will check fasting lipids and liver enzymes, currently on simvastatin 20 mg daily (4) Essential hypertension: Code(s): I10 - Essential (primary) hypertension Plan: Blood pressure at goal of less than 130/80. Continue with current medication. Reinforced importance of following a low sodium diet, getting regular exercise, and lowering stress levels. (5) Cardiomyopathy: Code(s): I42.9 - Cardiomyopathy, unspecified Qualifiers: Cardiomyopathy type: unspecified Qualified Code(s): I42.9 - Cardiomyopathy, unspecified Plan: Currently followed by Cardiology, currently on carvedilol lisinopril at the same dose (6) Hyperparathyroidism: Code(s): E21.3 - Hyperparathyroidism, unspecified Plan: Ordered parathyroid hormone intact, basic metabolic panel (7) Immunization refused: Code(s): Z28.21 - Immunization not carried out because of patient refusal Plan: Patient does not want to get any further vaccines (8) History of CVA (cerebrovascular accident): Code(s): Z86.73 - Personal history of transient ischemic attack (TIA), and cerebral infarction without residual deficits Plan: Currently on clopidogrel 75 mg daily, and reinforced importance of following low-cholesterol diet and getting regular exercise. (9) Vitamin D deficiency: Code(s): E55.9 - Vitamin D deficiency, unspecified Plan: Repeat vitamin-D level ordered Orders: Orders XR DEXA axial skeleton 12/24/24 M81.0 - Age-related osteoporosis without current pathological fracture Vitamin D 25-OH Total 12/24/24 E21.3 - Hyperparathyroidism, unspecified, E55.9 - Vitamin D deficiency, unspecified, E78.5 - Hyperlipidemia, unspecified, I10 - Essential (primary) hypertension, I42.9 - Cardiomyopathy, unspecified, Z28.21 - Immunization not carried out because of patient refusal, Z86.73 - Personal history of transient ischemic attack (TIA), and cerebral infarction without residual deficits Parathyroid Hormone Intact 12/24/24 E21.3 - Hyperparathyroidism, unspecified, E55.9 - Vitamin D deficiency, unspecified, E78.5 - Hyperlipidemia, unspecified, I10 - Essential (primary) hypertension, I42.9 - Cardiomyopathy, unspecified, Z28.21 - Immunization not carried out because of patient refusal, Z86.73 - Personal history of transient ischemic attack (TIA), and cerebral infarction without residual deficits Lipid Panel 12/24/24 E21.3 - Hyperparathyroidism, unspecified, E55.9 - Vitamin D deficiency, unspecified, E78.5 - Hyperlipidemia, unspecified, I10 - Essential (primary) hypertension, I42.9 - Cardiomyopathy, unspecified, Z28.21 - Immunization not carried out because of patient refusal, Z86.73 - Personal history of transient ischemic attack (TIA), and cerebral infarction without residual deficits Basic Metabolic Panel Fasting 12/24/24 E21.3 - Hyperparathyroidism, unspecified, E55.9 - Vitamin D deficiency, unspecified, E78.5 - Hyperlipidemia, unspecified, I10 - Essential (primary) hypertension, I42.9 - Cardiomyopathy, unspecified, Z28.21 - Immunization not carried out because of patient refusal, Z86.73 - Personal history of transient ischemic attack (TIA), and cerebral infarction without residual deficits Aspartate Amino Transferase 12/24/24 E21.3 - Hyperparathyroidism, unspecified, E55.9 - Vitamin D deficiency, unspecified, E78.5 - Hyperlipidemia, unspecified, I10 - Essential (primary) hypertension, I42.9 - Cardiomyopathy, unspecified, Z28.21 - Immunization not carried out because of patient refusal, Z86.73 - Personal history of transient ischemic attack (TIA), and cerebral infarction without residual deficits Alanine Aminotransferase 12/24/24 E21.3 - Hyperparathyroidism, unspecified, E55.9 - Vitamin D deficiency, unspecified, E78.5 - Hyperlipidemia, unspecified, I10 - Essential (primary) hypertension, I42.9 - Cardiomyopathy, unspecified, Z28.21 - Immunization not carried out because of patient refusal, Z86.73 - Personal history of transient ischemic attack (TIA), and cerebral infarction without residual deficits Hemoglobin and Hematocrit 12/24/24 E21.3 - Hyperparathyroidism, unspecified, E55.9 - Vitamin D deficiency, unspecified, E78.5 - Hyperlipidemia, unspecified, I10 - Essential (primary) hypertension, I42.9 - Cardiomyopathy, unspecified, Z28.21 - Immunization not carried out because of patient refusal, Z86.73 - Personal history of transient ischemic attack (TIA), and cerebral infarction without residual deficits Quality Reporting (2019) Depression/Bipolar (159/160/161/177) PHQ-9: Total score: 0 Coding Level of Care Code Medicare Subsequent (G0439) Est Pt Level 4 (67579) Diagnoses Encounter for subsequent annual wellness visit (AWV) in Medicare patient Z00.00 Osteoporosis M81.0 Dyslipidemia E78.5 Essential hypertension I10 Cardiomyopathy, unspecified type I42.9 Cardiomyopathy type: unspecified Hyperparathyroidism E21.3 Immunization refused Z28.21 History of CVA (cerebrovascular accident) Z86.73 Vitamin D deficiency E55.9 Additional Codes PHQ-9 - 89667 - PHQ-9 Billing: Yes ([id number])
== END 2024-12-24 11:58 | disposition home or self-care (01) ==
PROVIDERS: PCP Internal Medicine; Visit Provider Internal Medicine
DX: Z00.00 Encounter for general adult medical examination without abnormal findings (principal); I42.9 Cardiomyopathy, unspecified; E21.3 Hyperparathyroidism, unspecified; M81.0 Age-related osteoporosis without current pathological fracture; E78.5 Hyperlipidemia, unspecified; I10 Essential (primary) hypertension; Z28.21 Immunization not carried out because of patient refusal; Z86.73 Personal history of transient ischemic attack (TIA), and cerebral infarction without residual deficits; E55.9 Vitamin D deficiency, unspecified

== ENCOUNTER → 2024-12-24 10:47 | Outpatient (BNVA) | payer MEDICARE, SELFPAY | PROVIDERS: PCP Internal Medicine; Visit Provider Internal Medicine | DX: Z00.00 Encounter for general adult medical examination without abnormal findings (principal); M81.0 Age-related osteoporosis without current pathological fracture; E78.5 Hyperlipidemia, unspecified; I10 Essential (primary) hypertension; I42.9 Cardiomyopathy, unspecified; E21.3 Hyperparathyroidism, unspecified; E55.9 Vitamin D deficiency, unspecified; Z28.21 Immunization not carried out because of patient refusal; Z86.73 Personal history of transient ischemic attack (TIA), and cerebral infarction without residual deficits | CPT/HCPCS: 96127; 99212 ==

== ENCOUNTER 2025-02-11 08:54 | Outpatient (REF) | payer MEDICARE, SELFPAY ==
--- NOTE | ~2025-02-11 | MM_ITS ---
EXAMINATION: DXA BONE DENSITY AXIAL HISTORY: Estrogen deficiency TECHNIQUE: AT [employer] Dual energy absorptiometry (DEXA) of the lumbar spine, total left hip, and femoral neck was performed. COMPARISON: Comparison is made with the prior examination dated 02/02/2021. FINDINGS: The bone mineral density of the lumbar spine is 0.814 with a T-score of -3.1, and a Z-score of -3.1. This is indicative of osteoporosis. This represents a BMD change of -7.4% compared to the prior exam. This is statistically significant. The bone mineral density of the left total hip is 0.543 with a T-score of -3.7, and a Z-score of -1.5. This is indicative of osteoporosis. This represents a BMD change of -11.9% compared to the prior exam. This is statistically significant. The bone mineral density of the left femoral neck is 0.528 with a T-score of -3.7, and a Z-score of -1.3. This is indicative of osteoporosis. This represents a BMD change of -9.4% compared to the prior exam. MM/XR DEXA axial skeleton IMPRESSION: Based on bone mineral density, and according to World Health Organization (WHO) criteria, the diagnosis is consistent with osteoporosis. All bone density values are in grams per centimeter squared (g/cm2). Statistically, 68% of repeat scans fall within 1 SD (+/- 0.010 g/cm2 for AP spine L1-L4) and 1 SD (+/- 0.012 g/cm2 for femur total) FRA[employer] is a trademark of the [employer]'s [place] [facility] Met[employer] Disease, a World Health Organization (WHO) Collaborating Center. Electronically signed by: Mukund Mcwilliams MD 02/11/2025 10:19 AM EDT
== END 2025-02-11 08:55 | disposition home or self-care (01) ==
LOC: HO.MAMMO 08:54
PROVIDERS: PCP Internal Medicine; Visit Provider Internal Medicine
DX: M81.0 Age-related osteoporosis without current pathological fracture (principal)
CPT/HCPCS: 77080

== ENCOUNTER → 2025-02-11 09:15 | Outpatient (BNV) | payer MEDICARE, SELFPAY | PROVIDERS: PCP Internal Medicine; Visit Provider Radiology Diagnostic Radiology | DX: E28.39 Other primary ovarian failure (principal) | CPT/HCPCS: 77080 ==

== ENCOUNTER 2025-02-15 10:54 | Outpatient (AMB) | payer MEDICARE, SELFPAY ==
--- NOTE | 2025-02-15 11:14 | A.OFFVIS_ITS ---
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 She has background of cardiomyopathy. Cardiac MRI in the past showed low normal ejection fraction with basal to mid inferolateral wall hypokinesis. She was started on guideline directed medical therapy and echocardiography in June 2020 showing normal ejection fraction. She has been feeling well. She has no chest pain or shortness of breath. Tolerating medications good. She was noticed to have PVCs and underwent Holter monitoring. Holter monitor showed approximately 7% ventricular ectopic beats with average heart rate of 62- 99 beats per minute. Rare supraventricular ectopy was also noticed. She has resumed her Plavix daily. Previously she had urinary tract as well as GI bleeding and was off Plavix. She is denying any bleeding at this point. Denying any chest discomfort or significant shortness of breath. Blood pressure control is good. 06/03/23: She returns for follow-up. She has no chest pain or shortness of breath. Her main complaint is right-sided flank pain which has been happening for few days and is improving slowly. She has been out in the sun cutting had cheese and weed whacking. She is saying she is unable to stand straight because it the back hurts. No urinary complaints, fever/chills or hematuria. She has background of kidney stones. 10/09/2023: She returns for follow-up. She has been doing well. No chest discomfort shortness of breath. Occasionally gets dizziness. She gets fatigue as she is not physically active. Blood pressure is mildly low. She is saying she has a blood pressure cuff at home. Denying any dizziness or lightheadedness currently. Euvolemic by examination. 02/24/24: She is here for follow-up. She has no complaints. She has been trying to rake the leaves and has no significant complaints. No dizziness or lightheadedness. Her initial heart rate was in 30s but ECG showed heart rate in 60s and manual heart rate is 60s to. She had PVCs on the ECG and maybe the heart rate was erroneously low. In any case she has no symptoms currently. No bleeding issues. She has a mail-order pharmacy and has not received her lisinopril and Plavix and she has missed them for few days. I am going to send 30 day supply to her local pharmacy and she will receive her medications in the meantime. 06/15/24: She is here for follow-up. She underwent Holter monitor which showed frequent premature ventricle complexes. She has no chest pain, shortness of breath or palpitations. She is feeling fatigued and has slowed down further. I have advised her to start exercising regularly. Manual pulse was 50 beats per minute. No dizziness or syncope. 10/19/2024: She is here for follow-up. She is denying any significant symptoms. Some dyspnea with activities but no orthopnea or PND. No dizziness or syncope. 02/15/2025: Rachana is here for follow-up. She has not been active during the wintertime but is planning to start exercising regularly. She has no chest pain or shortness of breath. Blood pressure is well controlled. Taking medications regularly. No bleeding while on Plavix. [facility] Medical History Vitamin D deficiency History of stent insertion of renal artery Hx of renal calculi Iron deficiency anemia Anemia Bacteremia DIC (disseminated intravascular coagulation) Obstructive nephropathy High vitamin D level History of CVA (cerebrovascular accident) Immunization refused Hyperparathyroidism Cardiomyopathy Osteoporosis Essential hypertension Dyslipidemia Surgical History History of appendectomy History of colon resection Family History Father Unknown family medical history Mother Unknown family medical history Son No problems noted. Daughter No problems noted. Social History Household Members: None Housing: House Do you presently have visiting nurse or other home services: No Alcohol intake: never Patient Tobacco Use Status: Former Tobacco user e-Cigarette/Vaping Use: Never Used service: No Current occupational status: retired Cognitive needs: No Hearing needs: No Vision needs: Yes Review of Systems Const Denies chills, Denies fatigue, Denies fever(s), Denies frequent falls, Denies weakness, Denies weight gain and Denies weight loss ENT Denies dizziness Card Denies chest pain, Denies leg edema, Denies lightheadedness, Denies palpitations, Denies dyspnea and Denies dyspnea on exertion Resp Denies cough, Denies dyspnea and Denies dyspnea on exertion GI Denies hematochezia Musc Denies abnormal gait, Denies muscle weakness, Denies numbness, Denies radiating pain into limb and Denies tingling Neuro Denies abnormal gait, Denies dizziness, Denies frequent falls, Denies numbness, Denies tingling and Denies weakness Endo Denies fatigue and Denies palpitations Physical Exam Vital Signs: Last Vital Signs Pulse 60 02/15/25 11:17 BP 110/60 02/15/25 11:17 BMI result Body Mass Index 30.8 GENERAL APPEARANCE: in no acute distress, pleasant. NECK: no carotid bruit, no jugular venous distention. SKIN: no suspicious lesions, warm and dry. HEART: no murmurs, regular rate and rhythm. LUNGS: clear to auscultation bilaterally. ABDOMEN: soft, nontender. EXTREMITIES: no edema. PERIPHERAL PULSES: equal. NEUROLOGIC: No gross deficits, AAO X 3 Office Procedures EKG Details: Sinus rhythm 60 beats per minute, normal axis, QTC 406 milliseconds. [id number], Complete Assessment & Plan Assessment & Plan (1) Cardiomyopathy: Code(s): I42.9 - Cardiomyopathy, unspecified Category: Medical Qualifiers: Cardiomyopathy type: unspecified Qualified Code(s): I42.9 - Cardiomyopathy, unspecified (2) Essential hypertension: Code(s): I10 - Essential (primary) hypertension Category: Medical (3) PVC (premature ventricular contraction): Code(s): I49.3 - Ventricular premature depolarization Category: Medical Plan 84-year-old female who is here for follow-up. She has background history of nonischemic cardiomyopathy and hypertension. She had frequent PVCs on previous visit and Holter monitor also confirmed that. She underwent echocardiography which is showing low normal ejection fraction with mild LV dilatation. On follow-up she was doing fine and continues to do fine today. Clinically not in heart failure. Blood pressure is well controlled. No symptoms currently. She plans to start exercising with change in weather. Follow up with us in 6 months. Thank you for allowing me to participate in the care of your patient. Please feel free to contact me if you have any questions. Coding Level of Care Code Est Pt Level 4 (68403) Diagnoses Cardiomyopathy, unspecified type I42.9 Cardiomyopathy type: unspecified Essential hypertension I10 PVC (premature ventricular contraction) I49.3 CPT Codes EKG - CPT: 82754-[id number], Complete ([id number])
[2025-02-15 11:17] VITALS: BP 110/60; PULSE 60; BMI 30.8
== END 2025-02-15 11:35 | disposition home or self-care (01) ==
LOC: HO.HCS 10:55
PROVIDERS: PCP Internal Medicine; Visit Provider Internal Medicine Cardiovascular Disease
DX: I42.9 Cardiomyopathy, unspecified (principal); I10 Essential (primary) hypertension; I49.3 Ventricular premature depolarization
CPT/HCPCS: 93010; 99214

== ENCOUNTER → 2025-02-15 10:54 | Outpatient (BNVA) | payer MEDICARE, SELFPAY | PROVIDERS: PCP Internal Medicine; Visit Provider Internal Medicine Cardiovascular Disease | DX: I42.9 Cardiomyopathy, unspecified (principal); I10 Essential (primary) hypertension; I49.3 Ventricular premature depolarization | CPT/HCPCS: 93005; 99212 ==

== ENCOUNTER 2025-02-26 08:01 | Outpatient (AMB) | payer MEDICARE, SELFPAY ==
--- OUTSIDE RECORDS SUMMARY | 2025-02-26 08:11 | XMS_ITS | Clinical Summary ---
Author Organization [facility] Facility Address [address] [place] [id number] Care Team Providers Care Supervisor Furnace Room Name Role Phone Unavailable Primary Care Provider Unavailabl e Social History Tobacco Use Types Packs/Day Years Used Date Smoking Tobacco: Never Assessed Comments Unknown Sex and Gender Information Value Date Recorded Sex Assigned at Not on file Legal Sex Female 12:50 PM EDT Gender Identity Not on file Sexual Orientation Not on file Plan of Treatment Health Maintenance Due Date Last Done Comments Pneumococcal Vaccine: 65+ Ye ars (1 of 1 - PCV) 2006 Influenza Vaccine (Season Ended) 2025 Hepatitis B Vaccine Aged Out No longe r eligible based on patient's age to complete this topic Insurance MEDICARE [facility]
--- NOTE | 2025-02-26 08:15 | A.OFFPC_ITS ---
Intake Visit Reasons: discuss bone density scan results Allergies No Known Allergies Allergy (Verified 02/26/25 08:55) Medication List - Last Reconciled 02/26/25 by Christi Nieves MD amlodipine 5 mg PO DAILY carvedilol 25 mg PO BID clopidogrel 75 mg PO DAILY famotidine 40 mg PO DAILY PRN lisinopril 20 mg PO DAILY simvastatin 20 mg PO BEDTIME Tobacco use date assessed: 02/26/25 Fall risk assessment: No Falls in past year Last assessed Fall Risk: 02/26/25 Dental Screening Dental Screen Date: 02/26/25 Did you have a dental visit in the last 12 months?: Yes Did you have a dental problem in the last 6 months where you did not have access to dental care?: No Was dental information given to patient?: Patient has dentist HPI discuss bone density scan results HPI Details 82-year-old lady with history of hyperte nsion, dyslipidemia, history of CVA without any residual deficits, and remote history of hyperparathyroidism, here today for follow-up on results of her bone density scan. Showed worsening bone density in lumbar spine hip and thigh. She has been seen and evaluated for osteoporosis by Dr. 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 Levine for evaluation of a surgical parathyroidectomy. Patient however , was not seen . 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 [facility] Medical History Vitamin D deficiency History of stent insertion of renal artery Hx of renal calculi Iron deficiency anemia Anemia Bacteremia DIC (disseminated intravascular coagulation) Obstructive nephropathy High vitamin D level History of CVA (cerebrovascular accident) Immunization refused Hyperparathyroidism Cardiomyopathy Osteoporosis Essential hypertension Dyslipidemia Surgical History History of appendectomy History of colon resection Family History Father Unknown family medical history Mother Unknown family medical history Son No problems noted. Daughter No problems noted. Social History Household Members: None Housing: House Do you presently have visiting nurse or other home services: No Alcohol intake: never Patient Tobacco Use Status: Former Tobacco user e-Cigarette/Vaping Use: Never Used service: No Current occupational status: retired Cognitive needs: No Hearing needs: No Vision needs: Yes Questionnaire PHQ-9 Over the last 2 weeks, how often have you been bothered by any of the following problems? 1. Little interest or pleasure in doing things: not at all 2. Feeling down, depressed, or hopeless: not at all 3. Trouble falling or staying asleep, or sleeping too much: not at all 4. Feeling tired or having little energy: not at all 5. Poor appetite or overeating: not at all 6. Feeling bad about yourself - or that you are a failure or have let yourself or your family down: not at all 7. Trouble concentrating on things, such as reading the newspaper or watching television: not at all 8. Moving or speaking so slowly that other people could have noticed. Or the opposite - being so fidgety or restless that you have been moving around a lot more than usual: not at all 9. Thoughts that you would be better off or of hurting yourself in some way: not at all Total score: 0 Depression Screening Interpretation: Negative Depression Screening Done: Yes 29789 - PHQ-9 Billing: Yes Source: Developed by Drs. Mukund Perera, Citlali Wood, Wes Roach and colleagues, with an educational darryl from [employer]. Thrive Questionnaire Date Thrive assessed: 02/26/25 I am a: Patient What is your living situation today?: I have a steady place to live Within the past 12 months, did the food you bought not last and you didn't have the money to get more?: Never true Within the past 12 months, did you worry whether your food would run out before you got money to buy more?: Never true Do you have trouble paying for medicines?: No Do you have trouble getting transportation to medical appointments?: No Do you have trouble paying your heating and electricity bill?: No Do you have trouble taking care of your child, family member or friend?: No Do you have trouble with day-to-day activities such as bathing, preparing meals, shopping, managing finances, etc.?: No Are you currently unemployed and looking for a job?: No Are you interested in more education?: No THRIVE Score: 0 AUDIT C Alcohol Use Questionnaire (AUDIT-C) 1. How often do you have a drink containing alcohol?: Never 3. How often do you have six or more drinks on one occasion?: Never Total Score: 0 Score Reviewed/Action Taken: Yes NHI-7 AMB Questionnaire NHI-7 Date NHI - 7 assessed: 02/26/25 Feeling nervous, anxious, or on edge: 0 = Not at all Not being able to stop or control worryin = Not at all Worrying too much about different things: 0 = Not at all Trouble relaxin = Not at all Being so restless that it is hard to sit still: 0 = Not at all Becoming easily annoyed or irritable: 0 = Not at all Feeling afraid as if something awful might happen: 0 = Not at all Total NHI-7 score (0-4 normal; 5-9 mild; 10-14 moderate; 15-21 severe): 0 Source: Developed by Drs. Mukund Perera, Citlali Wood, Wes Roach and colleagues, with an educational darryl from [employer]. NHI-7 Assessment Billing NHI-7 Assessment Tool: NHI-7 Assessment 81490 Review of Systems Const Denies fatigue, Denies fever(s), Denies frequent falls and Denies weakness ENT Denies dizziness Card Denies chest pain, Denies leg edema, Denies lightheadedness, Denies palpitations, Denies dyspnea and Denies dyspnea on exertion Resp Denies cough, Denies dyspnea and Denies dyspnea on exertion GI Denies hematochezia Musc Denies abnormal gait, Denies muscle weakness, Denies numbness, Denies radiating pain into limb and Denies tingling Neuro Denies abnormal gait, Denies dizziness, Denies frequent falls, Denies numbness, Denies tingling and Denies weakness Endo Denies fatigue and Denies palpitations Physical exam (Primary Care) Tobacco/Smoking Status: Tobacco use Status Tobacco use date assessed 02/26/25 02/26/25 08:17 Patient Tobacco Use Status Former Tobacco user 02/26/25 08:17 e-Cigarette/Vaping Use Never Used 02/26/25 08:17 PHQ-9: PHQ-9 Score PHQ-9: Total score 0 02/26/25 09:07 Depression Screening Interpretation: Negative Thrive Assessment: Date of Thrive Assessment Date Thrive assessed 02/26/25 02/26/25 08:17 Telehealth Telehealth Telehealth Platform: [facility] Location of provider rendering services: practice address Location of patient: address on file Patient Identification confirmed using: Name, : Yes Telehealth method: video Patient verbally consented to treatment: Yes Patient verbally consented to billing insurance company: Yes Patient informed of any privacy concerns related to visit: Yes Minutes spent on Phone/Video with Pt.: 15 Coding Level of Care Code Tele Est Pt Level 3 (91107) Diagnoses Age-related osteoporosis without current pathological fracture M81.0 Osteoporosis type: age-related Presence of current pathological fracture: without current pathological fracture Vitamin D deficiency E55.9 Hyperparathyroidism E21.3 Additional Codes NHI-7 Assessment Billing - NHI-7 Assessment Tool: NHI-7 Assessment 02218 ([id number]) PHQ-9 - 29795 - PHQ-9 Billing: Yes ([id number]) Assessment & Plan Assessment & Plan (1) Osteoporosis: Code(s): M81.0 - Age-related osteoporosis without current pathological fracture Category: Medical Qualifiers: Osteoporosis type: age-related Presence of current pathological fracture: without current pathological fracture Qualified Code(s): M81.0 - Age- related osteoporosis without current pathological fracture Plan: Stressed importance of taking adequate vitamin-D 3 supplements and calcium from dietary sources. No history of fractures. Endocrine consult ordered for further evaluation and management (2) Vitamin D deficiency: Code(s): E55.9 - Vitamin D deficiency, unspecified Category: Medical Plan: Has history of vitamin-D deficiency, advised to start taking [id number] vitamin D3 at 2000 units daily, will check vitamin-D level (3) Hyperparathyroidism: Code(s): E21.3 - Hyperparathyroidism, unspecified Category: Medical Plan: Endocrine consult ordered Orders: Referrals Endocrinology Referral E21.3 - Hyperparathyroidism, unspecified, M81.0 - Age- related osteoporosis without current pathological fracture
== END 2025-02-26 09:42 | disposition home or self-care (01) ==
LOC: HO.HMCC 08:01
PROVIDERS: PCP Internal Medicine; Visit Provider Internal Medicine
DX: M81.0 Age-related osteoporosis without current pathological fracture (principal); E55.9 Vitamin D deficiency, unspecified; E21.3 Hyperparathyroidism, unspecified

== ENCOUNTER → 2025-02-26 08:01 | Outpatient (BNVA) | payer MEDICARE, SELFPAY | PROVIDERS: PCP Internal Medicine; Visit Provider Internal Medicine | DX: I10 Essential (primary) hypertension (principal); E78.5 Hyperlipidemia, unspecified; M81.0 Age-related osteoporosis without current pathological fracture; E55.9 Vitamin D deficiency, unspecified; E21.3 Hyperparathyroidism, unspecified; Z86.73 Personal history of transient ischemic attack (TIA), and cerebral infarction without residual deficits | CPT/HCPCS: 96127 ==

== ENCOUNTER 2025-05-07 09:47 | Outpatient (AMB) | payer MEDICARE, SELFPAY ==
--- NOTE | 2025-05-07 09:49 | A.OFFVIS_ITS ---
Vital Signs 3 05/07/25 09:50 Height 4 ft 11.53 in Weight 147 lb 0.773 oz BMI 29.2 BP 100/40 L Blood Pressure Location Rt brachial Position Sitting Pulse 61 Pulse Source Pulse Oximeter Pulse Oximetry (%) 95 Oxygen Delivery Method Room Air Intake Visit Reasons: Osteoporosis, Hyperparathyroidism Intake Note: Patient present today for Osteoporosis and Hyperparathyroidism. Accompanied by: Self / Same As Patient Allergies No Known Allergies Allergy (Verified 05/07/25 09:49) Medication List - Last Reconciled 05/07/25 by Cheryle Farris MD amlodipine 5 mg PO DAILY carvedilol 25 mg PO BID clopidogrel 75 mg PO DAILY famotidine 40 mg PO DAILY PRN lisinopril 20 mg PO DAILY simvastatin 20 mg PO BEDTIME HPI Comments Details: 84-year-old female coming in today for initial evaluation of osteoporosis and hyperparathyroidism. Here with grand daughter Quita. 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 History of colon cancer s/p resection , remote history. She was following with Dr. Bertrand previously last seen 2020, at that time given osteoporosis with concerns for underlying hyperparathyroidism/normocalcemic hyperparathyroidism, she was referred for surgery. Patient doesnt remeber what happed, has had memory issues . Chart review shows that she had a high normal calcium level at least since 2018, with calcium ranging anywhere from 9.2-10.4, with albumin mostly around 4.1-4.3, corrected calcium would be around 10 or 10.2. PTH levels back in 2020 inappropriately normal in the 30s, She also had hypercalciuria with 24 hour urine calcium of 248 when creatinine was low with a calcium creatinine ratio of 344 detected on labs in January 2021, at that time her calcium was 8.5, albumin was 4, PTH was elevated at 97. It is debatable whether she had normocalcemic hyperparathyroidism versus hypercalciuria causing PTH elevation. She had osteoporosis, kidney stones. Regardless recently she has had worsening osteoporosis, she has kidney stones, but she has not had any recent labs, last blood work was done in February 2024, calcium was 9.5, GFR was 48. At this time I would like to get a fresh set of labs along with 24 hour urine. We will also get bone resorption markers. Fractures: none, no recent falls. Most recent bone density scan done 02/11/2025 which showed worsening osteoporosis of the spine with T-score of-3.1, with decrease of 7.4% compared to 2020, worsening osteoporosis of the hip with T-score of-3.7 at the left total hip with a decrease of 11.9% compared to previous bone density, T-score of-3.7 at the left femoral neck. With the decrease of 9.4% compared to previous bone density. DEXA scan 02/02/2021 showed osteoporosis of the lumbar spine with T-score of-2.5, stable bone density compared to 2019, showed osteoporosis of the hip but T-score of-3.3 of the left femoral neck, T-score of-3.1 at the left femur total, elevated FRAX for hip fracture 11.5%. Kidney stones: Yes, abdominal CT 11/16/2021: Mild left hydronephrosis, multiple left kidney stones. Redemonstrated on ultrasound of the retroperitoneum from April 2024 her son stays with her a lot. she is independent mostly and does a lot of chores. Osteoporosis new pt evaluation Post menopausal osteoporosis: Diagnosed in 2019? Fracture History: none Height loss: thinks used to be 5' 1 , now 4' 11 , Back pain: reports some lower back pain intermittently thinks for the past year Pharmacotherapeutic hx: none Drug holiday none Family history:none of osteoporosis Menstrual hx: Hysterecetomy and oophorectomy in her 40s , no HRT Secondary risk factors: Steroid use: None Hyperthyroidism: Neg Seizure medication use: None Chemo or Radiation use: Neg Heparin Use: Neg History of eating disorder: Negative extermination supervisor immobilization: Negative History of kidney stones or disease: yes PI Use: Negative Chronic inflammatory lung disease: Negative Chronic inflammatory bowel disease: Negative Daily calcium intake: thinks she is on some supplement , not sure , almond milk 2-3 times a week, ensure [facility] 300 mg of calcium daily and vitamin d 300 units in the ensure, some cheese here and there, yogurt eveyr other day Vitamin D intake: thinks she takes it once a day Exercise:does a lot of yard work Smoking history:quit smoking 20 years ago, some smoking in the past occasionally , more social Dental: saw 5 or 6 years ago. Physical exam General: sitting comfortably in no acute distress HEENT: normocephalic/atraumatic, Neck: supple, symmetrical Cardiac: normal heart sounds Pulm: normal breath sounds B/L, no added breath sounds Abd: not distended, no tenderness Extremities: no edema, no signs of myxedema Laboratory Tests 12/15/18 01/28/19 03/30/19 07:55 16:33 12:30 Creatinine Estimated GFR Calcium 9.6 10.4 H D 10.1 Phosphorus Magnesium Albumin 4.3 4.5 4.4 25-OH Vitamin D Total PTH Intact Ur 24 Hour Volume Ur Creatinine 24 Hour Ur Creatinine mg/dL Ur Calcium 24 Hr Calcium/Creat 24 Hr IgA Tiss Transglutamin IgG Tiss Transglutamin IgA 03/30/19 04/01/19 04/01/19 12:30 08:35 08:35 Creatinine Estimated GFR Calcium 10.6 H Phosphorus 4.2 Magnesium 2.5 Albumin 25-OH Vitamin D Total PTH Intact 31 Ur 24 Hour Volume 1150 Ur Creatinine 24 Hour 0.57 0.6 L Ur Creatinine mg/dL Ur Calcium 24 Hr 137 Calcium/Creat 24 Hr 238 IgA 109 Tiss Transglutamin IgG 1 Tiss Transglutamin IgA 1 05/06/19 05/06/19 05/08/19 11:06 11:06 00:00 Creatinine Estimated GFR Calcium 9.9 10.0 Phosphorus 3.9 Magnesium Albumin 4.2 25-OH Vitamin D Total PTH Intact 33 Ur 24 Hour Volume 1500 Ur Creatinine 24 Hour 0.8 L Ur Creatinine mg/dL Ur Calcium 24 Hr 164 Calcium/Creat 24 Hr 199 IgA Tiss Transglutamin IgG Tiss Transglutamin IgA 05/18/19 05/18/19 07/13/19 15:00 15:00 09:27 Creatinine Estimated GFR Calcium 9.6 9.8 9.2 D Phosphorus Magnesium Albumin 4.3 4.1 25-OH Vitamin D Total PTH Intact 70 H Ur 24 Hour Volume Ur Creatinine 24 Hour Ur Creatinine mg/dL Ur Calcium 24 Hr Calcium/Creat 24 Hr IgA Tiss Transglutamin IgG Tiss Transglutamin IgA 08/12/19 08/12/19 09/11/19 07:30 07:30 07:16 Creatinine Estimated GFR Calcium 9.8 D 9.8 9.0 D Phosphorus Magnesium Albumin 4.4 25-OH Vitamin D Total PTH Intact 66 H Ur 24 Hour Volume Ur Creatinine 24 Hour Ur Creatinine mg/dL Ur Calcium 24 Hr Calcium/Creat 24 Hr IgA Tiss Transglutamin IgG Tiss Transglutamin IgA 12/15/19 01/21/20 01/21/20 10:37 11:48 11:48 Creatinine Estimated GFR Calcium 9.4 9.7 9.8 Phosphorus Magnesium Albumin 4.2 4.1 25-OH Vitamin D Total PTH Intact 24 Ur 24 Hour Volume Ur Creatinine 24 Hour Ur Creatinine mg/dL Ur Calcium 24 Hr Calcium/Creat 24 Hr IgA Tiss Transglutamin IgG Tiss Transglutamin IgA 06/02/20 06/02/20 08/19/20 16:05 16:05 07:15 Creatinine Estimated GFR Calcium 8.8 D 9.2 8.9 Phosphorus Magnesium Albumin 4.1 3.9 25-OH Vitamin D Total PTH Intact 62 Ur 24 Hour Volume Ur Creatinine 24 Hour Ur Creatinine mg/dL Ur Calcium 24 Hr Calcium/Creat 24 Hr IgA Tiss Transglutamin IgG Tiss Transglutamin IgA 08/19/20 10/10/20 02/02/21 07:15 09:01 07:15 Creatinine Estimated GFR Calcium 9.2 9.1 8.5 D Phosphorus 3.7 2.8 Magnesium Albumin 3.9 4.0 25-OH Vitamin D Total PTH Intact 38 36 97 H Ur 24 Hour Volume Ur Creatinine 24 Hour Ur Creatinine mg/dL Ur Calcium 24 Hr Calcium/Creat 24 Hr IgA Tiss Transglutamin IgG Tiss Transglutamin IgA 02/06/21 10/31/21 11/05/21 10:46 19:14 21:22 Creatinine Estimated GFR Calcium 8.8 8.1 L D Phosphorus Magnesium 1.1 L* Albumin 3.2 L 2.3 L D 25-OH Vitamin D Total PTH Intact Ur 24 Hour Volume 1000 Ur Creatinine 24 Hour 0.72 Ur Creatinine mg/dL 69.79 Ur Calcium 24 Hr 248 Calcium/Creat 24 Hr 344 H IgA Tiss Transglutamin IgG Tiss Transglutamin IgA 11/06/21 11/07/21 11/07/21 05:15 05:22 16:41 Creatinine Estimated GFR Calcium 8.2 L 8.4 7.7 L D Phosphorus 2.7 Magnesium 1.9 Albumin 2.8 L D 2.5 L 25-OH Vitamin D Total PTH Intact Ur 24 Hour Volume Ur Creatinine 24 Hour Ur Creatinine mg/dL Ur Calcium 24 Hr Calcium/Creat 24 Hr IgA Tiss Transglutamin IgG Tiss Transglutamin IgA 11/08/21 11/10/2111/11/21 11:59 16:16 06:03 Creatinine Estimated GFR Calcium 8.0 L 8.1 L 7.8 L Phosphorus Magnesium Albumin 25-OH Vitamin D Total PTH Intact Ur 24 Hour Volume Ur Creatinine 24 Hour Ur Creatinine mg/dL Ur Calcium 24 Hr Calcium/Creat 24 Hr IgA Tiss Transglutamin IgG Tiss Transglutamin IgA 11/12/21 11/13/21 11/16/21 05:54 04:04 00:02 Creatinine Estimated GFR Calcium 7.7 L 8.0 L 8.4 Phosphorus Magnesium Albumin 2.4 L 25-OH Vitamin D Total PTH Intact Ur 24 Hour Volume Ur Creatinine 24 Hour Ur Creatinine mg/dL Ur Calcium 24 Hr Calcium/Creat 24 Hr IgA Tiss Transglutamin IgG Tiss Transglutamin IgA 11/17/21 11/19/21 11/20/21 05:18 06:06 05:22 Creatinine Estimated GFR Calcium 7.7 L D 7.5 L 7.9 L Phosphorus Magnesium Albumin 25-OH Vitamin D Total PTH Intact Ur 24 Hour Volume Ur Creatinine 24 Hour Ur Creatinine mg/dL Ur Calcium 24 Hr Calcium/Creat 24 Hr IgA Tiss Transglutamin IgG Tiss Transglutamin IgA 11/15/22 11/28/23 02/24/24 09:26 Unknown 11:34 Creatinine 1.10 Estimated GFR 48 Calcium 9.1 D 9.3 9.5 Phosphorus Magnesium 2.1 2.3 Albumin 4.0 25-OH Vitamin D Total 26.3 L PTH Intact Ur 24 Hour Volume Ur Creatinine 24 Hour Ur Creatinine mg/dL Ur Calcium 24 Hr Calcium/Creat 24 Hr IgA Tiss Transglutamin IgG Tiss Transglutamin IgA EXAMINATION: DXA BONE DENSITY AXIAL 02/11/25 HISTORY: Estrogen deficiency TECHNIQUE: Accupass Dual energy absorptiometry (DEXA) of the lumbar spine, total left hip, and femoral neck was performed. COMPARISON: Comparison is made with the prior examination dated 02/02/2021. FINDINGS: The bone mineral density of the lumbar spine is 0.814 with a T-score of -3.1, and a Z-score of -3.1. This is indicative of osteoporosis. This represents a BMD change of -7.4% compared to the prior exam. This is statistically significant. The bone mineral density of the left total hip is 0.543 with a T-score of -3.7, and a Z-score of -1.5. This is indicative of osteoporosis. This represents a BMD change of -11.9% compared to the prior exam. This is statistically significant. The bone mineral density of the left femoral neck is 0.528 with a T-score of -3.7, and a Z-score of -1.3. This is indicative of osteoporosis. This represents a BMD change of -9.4% compared to the prior exam. MM/XR DEXA axial skeleton IMPRESSION: Based on bone mineral density, and according to World Health Organization (WHO) criteria, the diagnosis is consistent with osteoporosis. Ct Abd / pelvis 11/16/21 Kidneys and Ureters: Delayed left nephrogram. Normal positioning of the kidneys. There is redemonstration of mild left hydronephrosis. 0.6 cm calculus in the left renal pelvis is unchanged in positioning. There is a 0.4 cm calculus also in the renal pelvis which is unchanged. This is near the ureteropelvic junction. These are 10 cm from the posterior axillary line. There is also a 0.2 cm left midpole calculus. BONE DENSITOMETRY 02/02/21 CLINICAL INDICATION: Osteoporosis. COMPARISON: Baseline BD dated 01/28/2019. TECHNIQUE: Using a [employer] DXA System (software version: 13.1) manufactured by [employer], dual-energy x-ray absorptiometry was performed of the lumbar spine and left hip. The images are of good technical quality. Summary results are attached. FINDINGS: AP SPINE L1-L4: Current: BMD 0.879 g/cm2, Z-score -0.9, T-score -2.5, osteoporosis, 0.6% increase from baseline (<5% change is not significant). Baseline: BMD 0.874 g/cm2. LEFT FEMUR, NECK: Current: BMD 0.583 g/cm2, Z-score -1.3, T-score -3.3, osteoporosis. Baseline: BMD 0.602 g/cm2. LEFT FEMUR, TOTAL: Current: BMD 0.616 g/cm2, Z-score -1.3, T-score -3.1, osteoporosis, 2.7% decrease from baseline (<5% change is not significant). Baseline: BMD 0.633 g/cm2. IDENTIFIED RISK FACTORS: Menopause, hysterectomy, bilateral oophorectomy, low calcium intake, osteoporosis, secondary osteoporosis. HISTORY OF FRACTURE: None listed. MEDICATIONS: Calcium or multivitamin. Vitamin D. MM/XR DEXA axial skeleton IMPRESSION: 1. DIAGNOSIS: Osteoporosis based on the lowest T-score value of -3.3 in the femoral neck applying World Health Organization criteria. 2. 10-YEAR FRACTURE RISK PREDICTION, FRAX: Major osteoporotic fracture (clinical spine, forearm, hip or shoulder) 26.4%. Hip fracture 11.5%. [facility] Medical History Vitamin D deficiency History of stent insertion of renal artery Hx of renal calculi Iron deficiency anemia Anemia Bacteremia DIC (disseminated intravascular coagulation) Obstructive nephropathy High vitamin D level History of CVA (cerebrovascular accident) Immunization refused Hyperparathyroidism Cardiomyopathy Osteoporosis Essential hypertension Dyslipidemia Surgical History History of appendectomy History of colon resection Family History Father Unknown family medical history Mother Unknown family medical history Son No problems noted. Daughter No problems noted. Social History Household Members: None Housing: House Do you presently have visiting nurse or other home services: No Alcohol intake: never Patient Tobacco Use Status: Former Tobacco user e-Cigarette/Vaping Use: Never Used service: No Current occupational status: retired Cognitive needs: No Hearing needs: No Vision needs: Yes Physical Exam Vital Signs: BMI result Body Mass Index 29.2 Assessment & Plan Assessment & Plan (1) Osteoporosis: Code(s): M81.0 - Age-related osteoporosis without current pathological fracture Category: Medical Qualifiers: Osteoporosis type: age-related Presence of current pathological fracture: without current pathological fracture Qualified Code(s): M81.0 - Age- related osteoporosis without current pathological fracture Plan: 84-year-old female coming in today for initial evaluation of osteoporosis and hyperparathyroidism. Chart review shows that she had a high normal calcium level at least since 2019, with calcium ranging anywhere from 9.2-10.4, with albumin mostly around 4.1-4.3, corrected calcium would be around 10 or 10.2. PTH levels back in 2020 inappropriately normal in the 30s, She also had hypercalciuria with 24 hour urine calcium of 248 when creatinine was low with a calcium creatinine ratio of 344 detected on labs in January 2021, at that time her calcium was 8.5, albumin was 4, PTH was elevated at 97. It is debatable whether she had normocalcemic hyperparathyroidism versus hypercalciuria causing PTH elevation and osteoporosis. Regardless recently she has had worsening osteoporosis on DEXA scan from January 2025, she has kidney stones, but she has not had any recent labs, last blood work was done in February 2024, calcium was 9.5, GFR was 48. At this time I would like to get a fresh set of labs along with 24 hour urine. Her risk factors for osteoporosis are age, being postmenopausal, early menopause with a hysterectomy and oophorectomy, with no HRT done, petite physique, and maybe underlying hyperparathyroidism. We will also complete secondary workup for osteoporosis. Also obtain bone resorption markers. She seems to have an adequate nutritional intake of calcium, I have asked her to bring all of her supplement bottles . Unclear whether she is on calcium supplement. She thinks she is on some vitamin-D supplement, it would be important to look at her medication bottles. In addition to conservative treatment for osteoporosis she definitely does need medical management or if we find underlying hyperparathyroidism consideration for surgery. Especially given she has osteoporosis, kidney stones, hypercalciuria in the past she would meet surgical indication. However important to keep in mind that she is 84 years old, if surgical management is not decided once hyperparathyroidism is found, we will consider medical management for osteoporosis. Plan: -ordered 24 hour urine collection, -same day as she hands in the urine asked to do fasting blood work -bring all medication bottles to next visit -keep up with nutritional intake of calcium to account for at least 1000 mg daily , we will check her supplements, however would prefer she gets dietary calcium and not through supplements -continue vitamin-D supplementation, bring medication bottles to next visit -follow up in 5 weeks to discuss results (2) Hyperparathyroidism: Code(s): E21.3 - Hyperparathyroidism, unspecified Category: Medical Plan: See above (3) Hypercalciuria: Code(s): R82.994 - Hypercalciuria Category: Medical Plan: See above Plan I spent 60 minutes in reviewing the record, seeing the patient and documenting in the medical record. Orders: Orders 2 Albumin Level Today E21.3 - Hyperparathyroidism, unspecified, M81.0 - Age- related osteoporosis without current pathological fracture, R82.994 - Hypercalciuria Alkaline Phosphatase Bone Today E21.3 - Hyperparathyroidism, unspecified, M81.0 - Age-related osteoporosis without current pathological fracture, R82.994 - Hypercalciuria Phosphorus Today E21.3 - Hyperparathyroidism, unspecified, M81.0 - Age-related osteoporosis without current pathological fracture, R82.994 - Hypercalciuria Vitamin D 25-OH Total Today E21.3 - Hyperparathyroidism, unspecified, M81.0 - Age-related osteoporosis without current pathological fracture, R82.994 - Hypercalciuria TSH reflex Free T4 Today E21.3 - Hyperparathyroidism, unspecified, M81.0 - Age- related osteoporosis without current pathological fracture, R82.994 - Hypercalciuria Protein Electrophoresis, Serum Today E21.3 - Hyperparathyroidism, unspecified, M81.0 - Age-related osteoporosis without current pathological fracture, R82.994 - Hypercalciuria Immunofixation Pnl, Serum Today E21.3 - Hyperparathyroidism, unspecified, M81.0 - Age-related osteoporosis without current pathological fracture, R82.994 - Hypercalciuria Sodium, 24Hr Urine Group Today E21.3 - Hyperparathyroidism, unspecified, M81.0 - Age-related osteoporosis without current pathological fracture, R82.994 - Hypercalciuria Basic Metabolic Panel Today E21.3 - Hyperparathyroidism, unspecified, M81.0 - Age-related osteoporosis without current pathological fracture, R82.994 - Hypercalciuria Collagen Type I C-Telopeptide Today E21.3 - Hyperparathyroidism, unspecified, M81.0 - Age-related osteoporosis without current pathological fracture, R82.994 - Hypercalciuria Calcium Today E21.3 - Hyperparathyroidism, unspecified, M81.0 - Age-related osteoporosis without current pathological fracture, R82.994 - Hypercalciuria Calcium, Ionized Today E21.3 - Hyperparathyroidism, unspecified, M81.0 - Age- related osteoporosis without current pathological fracture, R82.994 - Hypercalciuria Calcium, 24 Hr Ur Today E21.3 - Hyperparathyroidism, unspecified, M81.0 - Age- related osteoporosis without current pathological fracture, R82.994 - Hypercalciuria Creatinine, 24 Hr Group Today E21.3 - Hyperparathyroidism, unspecified, M81.0 - Age-related osteoporosis without current pathological fracture, R82.994 - Hypercalciuria Parathyroid Hormone Intact Today E21.3 - Hyperparathyroidism, unspecified, M81.0 - Age-related osteoporosis without current pathological fracture, R82.994 - Hypercalciuria Patient Instructions: Do fasting blood work the same morning as you hand in the urine collection Do 24 hr urine collection 24 hr urine collection instructions You have been asked to collect your urine for 24 hours to assess for calcium excretion. You must choose a 24 hour period of time when you will be home. The morning of the first day, DISCARD the FIRST morning void and then note the time. You will collect every single void from then on for 24 hours. For example, if you wake up at 6am and urinate, flush down that void. You will then collect every drop of urine all day and all night through 6am the following day. You will urinate one last time at 6am for the collection. The jug of urine must be kept in the refrigerator until you bring it to the lab. Follow up in 5 weeks to discuss results see the dentist Bring your calcium, vitamin D any supplement or if possible all med bottles to next visit Coding Level of Care Code New Pt Level 5 (32723) Diagnoses Age-related osteoporosis without current pathological fracture M81.0 Osteoporosis type: age-related Presence of current pathological fracture: without current pathological fracture Hyperparathyroidism E21.3 Hypercalciuria R82.994 Time Spent (min) 60
[2025-05-07 09:50] VITALS: BP 100/40; PULSE 61; O2SAT 95; BMI 29.2
--- OUTSIDE RECORDS SUMMARY | 2025-05-07 10:21 | XMS_ITS | Clinical Summary ---
Author Organization [facility]ly [facility] Facility Address [address] [place] [id number] Care Team Providers Care Net Web Developer Name Role Phone Unavailable Primary Care Provider [...] Due Date Last Done Comments Pneumococcal Vaccine: 50+ Ye ars (1 of 1 - PCV) 1991 Influenza Vaccine (Season Ended) 2025 Hepatitis B Vaccine Aged Out No longe r eligible based on patient's age to complete this topic Insurance Medicare [facility]
== END 2025-05-07 10:52 | disposition home or self-care (01) ==
LOC: HO.ENCR 09:48
PROVIDERS: PCP Internal Medicine; Visit Provider Student in an Organized Health Care Education/Training Program
DX: M81.0 Age-related osteoporosis without current pathological fracture (principal); E21.3 Hyperparathyroidism, unspecified; R82.994 Hypercalciuria
CPT/HCPCS: 99205

== ENCOUNTER → 2025-05-07 09:47 | Outpatient (BNVA) | payer MEDICARE, SELFPAY | PROVIDERS: PCP Internal Medicine; Visit Provider Student in an Organized Health Care Education/Training Program | DX: M81.0 Age-related osteoporosis without current pathological fracture (principal); E21.3 Hyperparathyroidism, unspecified; R82.994 Hypercalciuria | CPT/HCPCS: 99202 ==

== ENCOUNTER 2025-05-18 11:29 | Outpatient (REF) | payer MEDICARE, SELFPAY ==
--- OUTSIDE RECORDS SUMMARY | 2025-05-18 13:09 | XMS_ITS | Patient Health Record ---
Author Organization [facility] Address [address] [place] [address] Care Team Providers Care Staff Editor Name Role Phone Stefanie(inactive) Felice CADENA Primary Care Provider U Mukund Ca Unavailable [phone] Reason For Referral No Information Medications Medication SIG (Take, Route, Frequency, Duration) Notes Start Date End Date Status Aspirin Adult Low Strength 81 MG 1 tablet Orally Once a day Active Clopidogrel Bisulfate 75 MG 1 tablet Ora lly Once a day Active Simvastatin 20 MG 1 tablet in the even ing Orally Once a day Active Atenolol 25 MG 1 tablet Orally Once a day Active Colyte w Flavor Packs 240 GM as directed Orally as directed for 1 day(s) 03/21/2015 Active Lisinopril 10 MG 1 tablet Orally Once a day Active Problems Problem Type SNOMED Code ICD Code Onset Dates Problem Status W/U Status Risk Notes Problem History of malignant neoplasm of colon (104287414) Personal history of malignant neoplasm of large intestine (V10.05) Active confirmed Problem History of polyp of colon (situation) (203552641) Personal history of colonic polyps (V12.72) Active confirmed Problem Screening for malignant neoplasm of colon (875347967) Special screening for malignant neoplasms, colon (V76.51) Active confirmed Problem Intolerance to lactose (finding) (624394115) Lactose intolerance (271.3) Active confirmed Plan Of Treatment Future Test Test Name Order Date COLONOSCOPY 03/16/2015 Insurance Providers Payer Name Payer Address Payer Phone Subscriber Number Group Number Insured Name Patient Relationship to Insured Coverage Start Date Coverage End Date MEDICARE OF [employer] [address] [place] [address] [id number] URSZULA GARCÍA Self - patient is the insured [employer] ATT[employer] CLAIMS [address] [place] [address] [id number] URSZULA GARCÍA Self - patient is the insured Medical (General) History Medical History History ICD Code Colonoscopy 12/05/2011--1 small tubular adenoma--same findings in 2007 History of TIAs with transient loss of s peech and eyesight Hyperlipidemia Hypertension She denies any history of [place], diabetes, lung disease, nor kidney disease 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 Morocho in 1990--no chemo, no XRT Surgical History Surgery Date(Month/Year) Descending colon cancer as above hysterectomy
[2025-05-18 14:12] LABS: Hemoglobin 13.1 g/dl (12.0-16.0)
[2025-05-18 14:33] LABS: Alanine Aminotransferase 12 U/L (0-31); Anion Gap 10 (12-20); Aspartate Amino Transferase 17 U/L (5-31); Blood Urea Nitrogen 19 mg/dL (9-16); Calcium 8.8 mg/dL (8.4-10.2); Carbon Dioxide 25 mmol/L (22-29); Chloride 111 mmol/L (96-108); Cholesterol 110 mg/dL (<200); Estimated Glomerular Filt Rate > 60; Glucose Fasting 103 mg/dL (60-99); Glucose Random 102 mg/dL (60-115); HDL Cholesterol 48 mg/dL (>40); LDL Cholesterol Calculated 45 mg/dL (<100); Phosphorus 3.4 mg/dL (2.7-4.5); Potassium 4.3 mmol/L (3.3-5.1); Sodium 142 mmol/L (135-145); Triglycerides 89 mg/dL (<150)
[2025-05-18 14:35] LABS: Parathyroid Hormone Intact 98.7 pg/mL (8.7-77.1)
[2025-05-18 14:39] LABS: TSH reflex Free T4 0.87 uIU/mL (0.32-4.0)
[2025-05-18 14:54] LABS: Vitamin D 25-OH Total 73.5 ng/mL (>30)
[2025-05-18 15:15] LABS: Creatinine, mg/dL 72.59
[2025-05-18 17:21] LABS: Creatinine, 24Hr Urine 0.6 G/Day (1.0-2.0); Sodium 24 Hr Urine 104.8 mmol/Day (40-220); Total Volume 24 Hour Urine 825 mL
[2025-05-20 14:03] LABS: IgA 133 mg/dL (70-320); IgG 637 mg/dL (600-1540); IgM 148 mg/dL (50-300)
[2025-05-20 15:30] LABS: Calcium, Ionized 5.2 mg/dL (4.7-5.5)
[2025-05-20 21:33] LABS: Prot Elec - Albumin 3.7 g/dL (3.8-4.8); Prot Elec - Alpha1 0.3 g/dL (0.2-0.3); Prot Elec - Alpha2 0.6 g/dL (0.5-0.9); Prot Elec - Beta 1 0.4 g/dL (0.4-0.6); Prot Elec - Beta 2 0.3 g/dL (0.2-0.5); Prot Elec - Gamma 0.7 g/dL (0.8-1.7); Prot Elec - Total Protein 5.9 g/dL (6.1-8.1)
[2025-05-21 19:18] LABS: Alkaline Phosphatase Bone 7.9 mcg/L (see note)
[2025-05-21 21:19] LABS: Calcium, 24 Hr Urine 170 mg/24 h; Calcium/Creatinine Ratio 278 mg/g creat (30-275); Creatinine 24Hr Urine 0.61 g/24 h (0.50-2.15)
[2025-05-22 01:13] LABS: Collagen Type I C-Telopeptide 488 pg/mL (see note)
== END 2025-05-18 11:30 | disposition home or self-care (01) ==
LOC: HO.WFDLDS 11:29
PROVIDERS: Referring Provider Internal Medicine; Visit Provider Student in an Organized Health Care Education/Training Program
DX: E55.9 Vitamin D deficiency, unspecified (principal); I10 Essential (primary) hypertension; E78.5 Hyperlipidemia, unspecified; I42.9 Cardiomyopathy, unspecified; E21.3 Hyperparathyroidism, unspecified; M81.0 Age-related osteoporosis without current pathological fracture; R82.994 Hypercalciuria; Z86.73 Personal history of transient ischemic attack (TIA), and cerebral infarction without residual deficits
CPT/HCPCS: 36415; 80048; 80061; 82040; 82306; 82330; 82340; 82523; 82570; 82784; 83970; 84075; 84100; 84165; 84300; 84443; 84450; 84460; 85014; 85018; 86334

== ENCOUNTER 2025-08-23 10:14 | Outpatient (AMB) | payer MEDICARE, SELFPAY ==
--- NOTE | 2025-08-23 10:40 | MHC.OFFVIS ---
Vital Signs 08/23/25 10:42 Height 4 ft 11 in Weight 141 lb 8.588 oz BMI 28.6 BP 100/70 Blood Pressure Location Lt brachial Position Sitting Pulse 56 Pulse Source Monitor Intake Visit Reasons: 6m follow up Intake Note: 6 mth f/up [employer] Required: No Accompanied by: Daughter Allergies No Known Allergies Allergy (Verified 05/07/25 09:49) Medication List - Last Reconciled 08/23/25 by Hai Garces MD amlodipine 5 mg PO DAILY carvedilol 25 mg PO BID clopidogrel 75 mg PO DAILY famotidine 40 mg PO DAILY PRN lisinopril 20 mg PO DAILY simvastatin 20 mg PO BEDTIME HPI Comments Details: Pleasant 84-year-old female here for follow-up. She has background of cardiomyopathy. Cardiac MRI in the past showed low normal ejection fraction with basal to mid inferolateral wall hypokinesis. She was started on guideline directed medical therapy and echocardiography in June 2020 showing normal ejection fraction. She has been feeling well. She has no chest pain or shortness of breath. Tolerating medications good. She was noticed to have PVCs and underwent Holter monitoring. Holter monitor showed approximately 7% ventricular ectopic beats with average heart rate of 62-99 beats per minute. Rare supraventricular ectopy was also noticed. She has resumed her Plavix daily. Previously she had urinary tract as well as GI bleeding and was off Plavix. She is denying any bleeding at this point. Denying any chest discomfort or significant shortness of breath. Blood pressure control is good. 06/03/23: She returns for follow-up. She has no chest pain or shortness of breath. Her main complaint is right-sided flank pain which has been happening for few days and is improving slowly. She has been out in the sun cutting had cheese and weed whacking. She is saying she is unable to stand straight because it the back hurts. No urinary complaints, fever/chills or hematuria. She has background of kidney stones. 10/09/2023: She returns for follow-up. She has been doing well. No chest discomfort shortness of breath. Occasionally gets dizziness. She gets fatigue as she is not physically active. Blood pressure is mildly low. She is saying she has a blood pressure cuff at home. Denying any dizziness or lightheadedness currently. Euvolemic by examination. 02/24/24: She is here for follow-up. She has no complaints. She has been trying to rake the leaves and has no significant complaints. No dizziness or lightheadedness. Her initial heart rate was in 30s but ECG showed heart rate in 60s and manual heart rate is 60s to. She had PVCs on the ECG and maybe the heart rate was erroneously low. In any case she has no symptoms currently. No bleeding issues. She has a mail-order pharmacy and has not received her lisinopril and Plavix and she has missed them for few days. I am going to send 30 day supply to her local pharmacy and she will receive her medications in the meantime. 06/15/24: She is here for follow-up. She underwent Holter monitor which showed frequent premature ventricle complexes. She has no chest pain, shortness of breath or palpitations. She is feeling fatigued and has slowed down further. I have advised her to start exercising regularly. Manual pulse was 50 beats per minute. No dizziness or syncope. 10/19/2024: She is here for follow-up. She is denying any significant symptoms. Some dyspnea with activities but no orthopnea or PND. No dizziness or syncope. 02/15/2025: Rachana is here for follow-up. She has not been active during the wintertime but is planning to start exercising regularly. She has no chest pain or shortness of breath. Blood pressure is well controlled. Taking medications regularly. No bleeding while on Plavix. 08/23/2025: She is here for follow-up. Denying any chest pain or shortness of breath. She has been burping a lot, no indigestion or abdominal discomfort. She has lost 6 lb since April. She is not trying to lose weight. [facility] Medical History Hypercalciuria Vitamin D deficiency History of stent insertion of renal artery Hx of renal calculi Iron deficiency anemia Anemia Bacteremia DIC (disseminated intravascular coagulation) Obstructive nephropathy High vitamin D level History of CVA (cerebrovascular accident) Immunization refused Hyperparathyroidism Cardiomyopathy Osteoporosis Essential hypertension Dyslipidemia Surgical History History of appendectomy History of colon resection Family History Father Unknown family medical history Mother Unknown family medical history Son No problems noted. Daughter No problems noted. Social History Household Members: None Housing: House Do you presently have visiting nurse or other home services: No Alcohol intake: never Patient Tobacco Use Status: Former Tobacco user e-Cigarette/Vaping Use: Never Used service: No Current occupational status: retired Cognitive needs: No Hearing needs: No Vision needs: Yes Review of Systems Const Denies chills, Denies fatigue, Denies fever(s), Denies frequent falls, Denies weakness, Denies weight gain and Denies weight loss ENT Denies dizziness Card Denies chest pain, Denies leg edema, Denies lightheadedness, Denies palpitations, Denies dyspnea and Denies dyspnea on exertion Resp Denies cough, Denies dyspnea and Denies dyspnea on exertion GI Denies hematochezia Musc Denies abnormal gait, Denies muscle weakness, Denies numbness, Denies radiating pain into limb and Denies tingling Neuro Denies abnormal gait, Denies dizziness, Denies frequent falls, Denies numbness, Denies tingling and Denies weakness Endo Denies fatigue and Denies palpitations Physical Exam Vital Signs: Last Vital Signs Pulse 56 08/23/25 10:42 BP 100/70 08/23/25 10:42 BMI result Body Mass Index 28.6 GENERAL APPEARANCE: in no acute distress, pleasant. NECK: no carotid bruit, no jugular venous distention. SKIN: no suspicious lesions, warm and dry. HEART: no murmurs, regular rate and rhythm. LUNGS: clear to auscultation bilaterally. ABDOMEN: soft, nontender. EXTREMITIES: no edema. PERIPHERAL PULSES: equal. NEUROLOGIC: No gross deficits, AAO X 3 Office Procedures EKG Details: Sinus bradycardia 56 beats per minute, nonspecific T-wave changes, QTC 405 milliseconds. [id number], Complete Assessment & Plan Assessment & Plan (1) Cardiomyopathy: Code(s): I42.9 - Cardiomyopathy, unspecified Category: Medical Qualifiers: Cardiomyopathy type: unspecified Qualified Code(s): I42.9 - Cardiomyopathy, unspecified (2) Essential hypertension: Code(s): I10 - Essential (primary) hypertension Category: Medical (3) PVC (premature ventricular contraction): Code(s): I49.3 - Ventricular premature depolarization Category: Medical Plan 84-year-old female who is here for follow-up. She has background history of nonischemic cardiomyopathy and hypertension. She had frequent PVCs previously and Holter monitor also confirmed that. She underwent echocardiography which is showing low normal ejection fraction with mild LV dilatation. On follow-up she was doing fine and continues to do fine today. Clinically not in heart failure. EKGs in the office is showing sinus bradycardia without any PVCs. She is complaining of some indigestion/burping. She has lost 6 lb over the last 3 months. The granddaughter will monitor her weight and we will consider GI input if she continues to lose weight. Blood pressure is well controlled. No symptoms currently. She plans to start exercising with change in weather. Follow up with us in 4 months. Thank you for allowing me to participate in the care of your patient. Please feel free to contact me if you have any questions. Coding Level of Care Code Est Pt Level 4 (29396) Diagnoses Cardiomyopathy, unspecified type I42.9 Cardiomyopathy type: unspecified Essential hypertension I10 PVC (premature ventricular contraction) I49.3 CPT Codes EKG - CPT: [id number], Complete ([id number])
[2025-08-23 10:42] VITALS: BP 100/70; PULSE 56; BMI 28.6
--- OUTSIDE RECORDS SUMMARY | 2025-08-23 11:22 | XMS_ITS | Patient Health Record ---
Author Organization [facility] Address [address] [place] [address] Care Team Providers Care Head Gauge Unit Operator Name Role Phone Stefanie(inactive) Felice CADENA Primary Care Provider U Mukund Ca Unavailable [phone] Reason For Referral No Information Medications Medication [...] Problem History of malignant neoplasm of colon (100379411) Personal history of malignant neoplasm of large intestine (V10.05) Active confirmed Problem History of polyp of colon (situation) (480330837) Personal history of colonic polyps (V12.72) Active confirmed Problem Screening for malignant neoplasm of colon (078407580) Special screening for malignant neoplasms, colon (V76.51) Active confirmed Problem Intolerance to lactose (finding) (158049683) Lactose intolerance (271.3) Active confirmed Plan Of Treatment Future Test Test Name Order Date COLONOSCOPY 03/16/2015 Insurance Providers Payer Name Payer Address Payer Phone Subscriber Number Group Number Insured Name Patient Relationship to Insured Coverage Start Date Coverage End Date [employer] [address] [place] [address] [phone] [id number] URSZULA GARCÍA Self - patient is the insured [employer] ATTN CLAIMS [address] [place] [address] [id number] URSZULA GARCÍA Self - patient is the insured Medical (General) History Medical History History ICD Code Colonoscopy 12/05/2011--1 small tubular adenoma--same findings in 2007 History of TIAs with transient loss of s peech and eyesight Hyperlipidemia Hypertension She denies any history of PR, diabetes, lung disease, nor kidney disease 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 Morocho in 1990--no chemo, no XRT Surgical History Surgery Date(Month/Year) Descending colon cancer as above hysterectomy
--- OUTSIDE RECORDS SUMMARY | 2025-08-23 11:22 | XMS_ITS | Clinical Summary ---
Author Organization [facility] Address [address] [place] [id number] Care Team Providers Care Program Manager Rn Name Role Phone Unavailable Primary Care Provider [...] of 1 - PCV) 1991 Influenza Vaccine (#1) 2025 Hepatitis B Vaccine Aged Out No longe r eligible based on patient's age to complete this topic Insurance Medicare [facility]
== END 2025-08-23 11:17 | disposition home or self-care (01) ==
LOC: HO.HCS 10:15
PROVIDERS: PCP Internal Medicine; Visit Provider Internal Medicine Cardiovascular Disease
DX: I42.9 Cardiomyopathy, unspecified (principal); I10 Essential (primary) hypertension; I49.3 Ventricular premature depolarization
CPT/HCPCS: 93010; 99214

== ENCOUNTER → 2025-08-23 10:14 | Outpatient (BNVA) | payer MEDICARE, SELFPAY | PROVIDERS: PCP Internal Medicine; Visit Provider Internal Medicine Cardiovascular Disease | DX: I10 Essential (primary) hypertension (principal); I42.9 Cardiomyopathy, unspecified; I49.3 Ventricular premature depolarization | CPT/HCPCS: 93005; 99212 ==